=== PATIENT | female | born 1940 | race Caucasian/White ===

== ENCOUNTER 2018-09-15 14:44 | Observation (INO) ==
[2018-09-15] MEDS ORDERED: traMADol 50 MG TABLET PO PRN (16:38)
[2018-09-15] MEDS ORDERED: Naloxone 0.4 MG/ML INJ IVP PRN (16:38)
--- NOTE | 2018-09-15 17:07 | Internal Med History&Physical ---
Date of Encounter: 09/15/18 Time of Encounter: 17:06 Internal Medicine - H&P: HPI Chief complaint: shortness of breath Admitted From: Home Plans for Post Hospital Care: Home History of present illness: Ms. Fabian is a 78 year old female PMH significant for CAD s/p CABG about 40 years ago, PAD, HTN, HLD, and COPD. Patient presented to the ED due at [facility] due to shortness of breath. Patient reports that for about 3 weeks she has been experiencing shortness of breath with minimal exertion. reports that she would get winded with just walking around her house or trying to do house chores, reports that for the past three weeks she would just sit down and let the shortness of breath resolved. But today after she had breakfast and was trying to make her bed, she became short of breath, for which she tried using h er nebs but they did not provide any relief for which she decided to go to the ED. she also reports that for the past 3 weeks she feels that she has been wheezing. she denies chest pain, nausea, vomiting. also denies productive cough or flu like symptoms. denies orthopnea. Past Med Surg Social Fam HX - Past Medical History Medical history: hyperlipidemia, hypertension, myocardial infarction Psychiatric history: no psych history - Past Surgical History Surgical History: coronary bypass (CABG) - Social History Smoking Status: Former smoker Smokeless Tobacco Status: No Alcohol use: none Drug use: none - Family History Mother Living Status: Hx Family Cardiac Disorders: Yes (heart disease, stroke) Father Living Status: Hx Family Cancer: Yes (prostate) Internal Medicine - H&P: Meds Albuterol Neb [Proventil Neb] 2.5 mg IH Q4HR PRN #60 vial.neb 01/22/17 [Rx] predniSONE [PredniSONE] 40 mg PO DAILY #5 tablet 01/22/17 [Rx] Allergy/AdvReac Type Severity Reaction Status Date / Time carbamazepine Allergy Chest Pain Verified 01/22/17 02:22 etodolac Allergy Chest Pain Verified 01/22/17 02:22 hydrocodone Allergy Chest Pain Verified 01/22/17 02:22 Iodinated Contrast- Oral and Allergy Chest Pain Verified 01/22/17 02:22 IV Dye [Iodinated Contrast Media - IV Dye] levofloxacin Allergy Chest Pain Verified 01/22/17 02:22 NSAIDS (Non-Steroidal Allergy Chest Pain Verified 01/22/17 02:22 Anti-Inflamma Penicillins [PCN] Allergy Chest Pain Verified 01/22/17 02:22 pregabalin [From Lyrica] Allergy Numbness Verified 01/22/17 02:22 pseudoephedrine Allergy Chest Pain Verified 01/22/17 02:22 Sulfa (Sulfonamide Allergy Chest Pain Verified 01/22/17 02:22 Antibiotics) tetracycline [Tetracycline] Allergy Chest Pain Verified 01/22/17 02:22 tolmetin Allergy Chest Pain Verified 01/22/17 02:22 tramadol Allergy Numbness Verified 01/22/17 02:22 All Systems PM: A 10-system review of systems was performed and is negative for pertinent findings except as documented above in the HPI. - Constitutional Constitutional: no chills, no fever(s), no weakness - EENT Eyes: no pain - Cardiovascular Cardiovascular ROS IM: dyspnea on exertion, no chest pain, no irregular heart rhythm, no orthopnea, no palpitations, no paroxysmal nocturnal dyspnea - Respiratory Respiratory: dyspnea, wheezing, no cough, no chest congestion, no excessive phlegm production, no pain with cough - Gastrointestinal Gastrointestinal: constipation, no abdominal pain, no change in stool character, no diarrhea, no melena, no nausea, no vomiting - Genitourinary Genitourinary: no pelvic pain, no urinary frequency, no urinary incontinence, no urinary urgency - Musculoskeletal Musculoskeletal ROS IM: no back pain - Integumentary Integumentary IM: no rash - Neurological Neurological ROS: no tremor(s), no vertigo - Psychiatric Psychiatric: no anxiety - Endocrine Endocrine IM: no cold intolerance, no heat intolerance, no polydipsia, no polyphagia, no polyuria - Hematologic/Lymphatic Hematologic/Lymphatic: no easy bruising - Allergic/Immunologic Allergic/Immunologic: wheezing Additional comments: Rest of the review of system negative. - Constitutional Exam: Vitals: Reviewed General: Cachectic appearing, in mild distress due to shortness of breath Skin: Warm and supple. HEENT: Moist mucous membranes. No conjunctivae pallor. Neck: No lymphadenopathy. No JVD. No carotid bruits. No palpable thyroid. Chest: Diminished thoracic expansion. Scattered bilateral expiratory wheezing, b/l rhonchi more significant in the left lower lobe, no crackles. Heart: Normal S1 & S2; rhythmic. No rubs or murmurs. Abdomen: Non-distended, soft and non-tender to palpation. Extremities: no cyanosis or edema. No calf tenderness. Normal distal pulses. Neurological: Awake, alert and oriented to person, place and time. No focal deficits. Psych: Affect appropriate. - Assessment and plan (1) COPD exacerbation Current Visit: Yes Status: Acute Assessment and plan: Patient presenting with shortness of breath with minimal exertion. ABG with PO2 <55%. R/O PE Plan Duo-Nebs Q3RT scheduled Solu-medrol 40mg/IV BID O2 by nasal cannula, titrate for O2 Sat >92% started on empiric antibiotics coverage Rapid flu test D-Dimer V/Q scan as patient cannot have a CTA of the chest due to allergy to Dye Incentive spirometry Full dose lovenox x1. TTE (2) Acute hypoxemic respiratory failure Current Visit: Yes Status: Acute Assessment and plan: Possible due to COPD excarbation vs r/o PE. ABG with PO2 <55% Plan of care as above. (3) CAD (coronary artery disease) Current Visit: Yes Status: Chronic Assessment and plan: Patient with Hx of CABG about 40 years ago. Will continue dual antiplatelets plus statins Qualifiers: Coronary Disease-Associated Artery/Lesion type: unspecified vessel or lesion type [place] vs. transplanted heart: unspecified whether [place] or transplanted heart Associated angina: angina presence unspecified Qualified Code(s): I25.10 - Atherosclerotic heart disease of [place] coronary artery without angina pectoris (4) HTN (hypertension) Current Visit: Yes Status: Chronic Assessment and plan: BP well controlled. Will resume patient home medications. On isosorbide, metoprolol, and furosemide. Qualifiers: Hypertension type: unspecified Qualified Code(s): I10 - Essential (primary) hypertension (5) HLD (hyperlipidemia) Current Visit: Yes Status: Chronic Assessment and plan: Continue atorvatatin Qualifiers: Hyperlipidemia type: unspecified Qualified Code(s): E78.5 - Hyperlipidemia, unspecified - Time Spent With Patient Total time spent is greater than 50% in coordination of care (as documented) at patient's floor/unit and/or counseling patient: Greater than 35 minutes (40 minutes)
[2018-09-15] MEDS ORDERED: *HR* Enoxaparin 40 MG/0.4 ML SYRINGE SQ ONE (17:22)
[2018-09-15] MEDS: MethylPREDNISolone 40 MG/ML VIAL IVP SCH (18:03)
[2018-09-15] MEDS: Furosemide 20 MG/2 ML VIAL IVP SCH (18:03)
[2018-09-15] MEDS: Azithromycin 500 MG in D5% in Water 250 ML IVPB SCH (18:03)
[2018-09-15] MEDS: Ipratropium/Albuterol Neb 3 ML IH SCH ×2 (19:24→23:27)
[2018-09-15] MEDS: Ranolazine 500 MG TAB.ER.12H PO SCH (20:48)
--- NOTE | 2018-09-16 01:07 | Event Note ---
Date of Encounter: 09/15/18 Time of Encounter: 23:25 Notified by nurse of positive venous duplex exam with acute partial DVT in right distal SFV. Discussed findings with patient including risks of treatment. One time dose of Lovenox received 09/15/2018 at 1814, will continue same BID starting at 0600.
[2018-09-16] MEDS: Ipratropium/Albuterol Neb 3 ML IH SCH ×5 (03:49→20:01)
[2018-09-16 05:12] LABS: Hematocrit 36.3 % (35.3-44.9); Hemoglobin 11.3 g/dL (11.5-15.4); Immature Granulocytes % 0.4 % (0-4); Lymphocytes # 0.7 K/mcL (0.6-4.6); Lymphocytes % 15.9 %; Mean Corpuscular HGB Conc 31.1 g/dL (31.6-35.5); Mean Corpuscular Hemoglobin 28.8 pg (28.0-33.3); Mean Corpuscular Volume 92.4 fL (83.0-100.0); Monocytes # 0.1 K/mcL (0.0-1.3); Monocytes % 1.1 %; Neutrophils # 3.8 K/mcL (1.6-8.9); Platelet Count 232 K/mcL (140-400); Red Blood Count 3.93 M/mcL (3.82-4.97); Red Cell Distribution Width 14.8 % (11.5-14.5); Segmented Neutrophils % 82.6 %
[2018-09-16 05:31] LABS: BUN/Creatinine Ratio 28 (6-26); Blood Urea Nitrogen 25 mg/dL (8-23); Calcium 9.1 mg/dL (8.6-10.3); Carbon Dioxide 28 mEq/L (23-29); Chloride 97 mEq/L (98-107); Glucose 137 mg/dL (70-105); Magnesium 1.7 mg/dL (1.6-2.6); Osmolality,Calculated 289 (280-300); Phosphorous 4.1 mg/dL (2.7-4.5); Potassium 3.9 mEq/L (3.5-5.1); Sodium 136 mEq/L (136-145); eGFR For Non-African Americans > 60 (> 60)
[2018-09-16] MEDS: *HR* Enoxaparin 40 MG/0.4 ML SYRINGE SQ SCH ×2 (05:44→17:45)
[2018-09-16] MEDS: MethylPREDNISolone 40 MG/ML VIAL IVP SCH ×3 (05:44→23:46)
[2018-09-16] MEDS: Furosemide 20 MG/2 ML VIAL IVP SCH ×2 (08:24→17:45)
[2018-09-16] MEDS: Aspirin Enteric Coated 81 MG Tablet PO SCH (08:24)
[2018-09-16] MEDS: Ranolazine 500 MG TAB.ER.12H PO SCH ×2 (08:24→20:35)
[2018-09-16] MEDS ORDERED: Metoprolol XL (24 HR) Succ 50 MG TAB.ER.24H PO SCH (09:00)
[2018-09-16] MEDS ORDERED: Nitroglycerin 0.4 MG TAB.SUBL SL ONE (12:27)
--- NOTE | 2018-09-16 13:50 | Cardiology Consult Note ---
<PeterRomina Carina - Last Filed: 09/16/18 14:43> Date of Encounter: 09/16/18 Time of Encounter: 13:30 Assessment and Plan (1) Elevated d-dimer Current Visit: Yes Status: Acute Per cardiology: -D Dimer 1600. -VQ scan with low probability for PE. CTA not performed due to IVP dye allergy. -Venous duplex preliminary report positive for DVT. -Of note, patient with persistent tachycardia, hypoxia. -Consider PE. Consider chest CTA. -Management per primary service. (2) CAD (coronary artery disease) Current Visit: Yes Status: Chronic Per cardiology: -Know CAD s/p CABG 1987. -Last [facility] 2013 with 0/3 patent bypass grafts, 30% proximal LAD, 30% distal LAD, 30% proximal circumflex, 100% proximal RCA, distal RCA fills via left collaterals. SVG to RCA occluded, SVG to diagonal 1 occluded, BAHE[place] to LAD occluded. -TTE with LVEF 50-55%, moderate concentric LVH, moderate diastolic dysfunction, mild-moderate MR, no segmental wall motion abnormalities. -ON asa, plavix, statin, BB, imdur, ranexa. -Reports one episode of chest pain today while walking back from the bathroom. Denies current chest pain. -Troponins negative x4 -Does have significant ECG changes. -Will make NPO after midnight. -Will discuss and review with for further recommendations. Qualifiers: Coronary Disease-Associated Artery/Lesion type: unspecified vessel or lesion type [place] vs. transplanted heart: [place] heart Associated angina: angina presence unspecified Qualified Code(s): I25.10 - Atherosclerotic heart disease of [place] coronary artery without angina pectoris Discussion w patient/family: The assessment and plan as outlined above was discussed with the patient and/or family members who expressed understanding and agreement. All questions were answered. Thank you for involving us in the care of your patient. Please call with any questions. Discussed and reviewed with History of Present Illness Consult date: 09/16/18 Requesting physician: Rico Tuttle Consult reason: chest pain Chief complaint: shortness of breath History of present illness: Ms. Fabian is a 78 year old female with a relevant past medical history of CAD s/p CABG 1987, arthrtitis, COPD, AAA with repair who presented to [facility] with complaints of progressive shortness of breath. Patient states shortness of breath has been progressive over the past few weeks. Patient reports fatigue. Patient denies chest pain at home, however had one episode of chest pain today while walking back from the bathroom. Denies current chest pain. Past Med Surg Social Fam HX - Past Medical History Attestation: Yes The following information was validated with the patient. Source: patient, old records reviewed, obtained from family Medical history: COPD, coronary artery disease, hyperlipidemia, hypertension, myocardial infarction Psychiatric history: no psych history - Past Surgical History Surgical History: coronary bypass (CABG) - Social History Smoking Status: Former smoker Smokeless Tobacco Status: No Alcohol use: none Drug use: none - Family History Mother Living Status: Hx Family Cardiac Disorders: Yes (heart disease, stroke) Father Living Status: Hx Family Cancer: Yes (prostate) Medications and Allergies Albuterol Neb [Proventil Neb] 2.5 mg IH BID PRN 09/16/18 [History] Albuterol Sulfate [Ventolin Hfa] 2 puff IH Q6H PRN 09/16/18 [History] Amitriptyline [Elavil] 50 mg PO QPM 09/16/18 [History] Aspirin [Lo-Dose Aspirin EC] 81 mg PO QPM 09/16/18 [History] Atorvastatin Calcium [Lipitor] 80 mg PO QPM 09/16/18 [History] Clopidogrel [Plavix] 75 mg PO DAILY 09/16/18 [History] Furosemide [Lasix] 20 mg PO DAILY 09/16/18 [History] Isosorbide MONOnitrate [Isosorbide Mononitrate ER] 120 mg PO DAILY 09/16/18 [History] Levothyroxine [Synthroid] 25 mcg PO 0630 09/16/18 [History] Metoprolol [Lopressor] 50 mg PO BID 09/16/18 [History] Nitroglycerin 0.4 mg PO AD PRN MDD 3 SPRAYS/15MINS CALL 911 09/16/18 [History] Polyethylene Glycol 3350 [Smoothlax] 17 gm PO DAILY PRN 09/16/18 [History] Potassium Chloride 10 meq PO DAILY 09/16/18 [History] Ranolazine [Ranexa] 1,000 mg PO BID 09/16/18 [History] Umeclidinium [place] [Incruse Ellipta] 1 puff IH DAILY 09/16/18 [History] Vit C/E/Zn/Coppr/Lutein/Zeaxan [Preservision Areds 2 Softgel] 1 cap PO DAILY 09/16/18 [History] amLODIPine [Norvasc] 5 mg PO DAILY 09/16/18 [History] Allergy/AdvReac Type Severity Reaction Status Date / Time carbamazepine AdvReac Chest Pain Verified 09/16/18 09:05 etodolac AdvReac Chest Pain Verified 09/16/18 09:05 hydrocodone AdvReac Chest Pain Verified 09/16/18 09:05 Iodinated Contrast- Oral and AdvReac Chest Pain Verified 09/16/18 09:05 IV Dye [Iodinated Contrast Media - IV Dye] levofloxacin AdvReac Chest Pain Verified 09/16/18 09:05 NSAIDS (Non-Steroidal AdvReac Chest Pain Verified 09/16/18 09:05 Anti-Inflamma Penicillins [PCN] AdvReac Chest Pain Verified 09/16/18 09:05 pregabalin [From Lyrica] AdvReac Numbness Verified 09/16/18 09:05 pseudoephedrine AdvReac Chest Pain Verified 09/16/18 09:05 Sulfa (Sulfonamide AdvReac Chest Pain Verified 09/16/18 09:05 Antibiotics) tetracycline [Tetracycline] AdvReac Chest Pain Verified 09/16/18 09:05 tolmetin AdvReac Chest Pain Verified 09/16/18 09:05 tramadol AdvReac Numbness Verified 09/16/18 09:05 All Systems Review: The remainder of the systems were reviewed and are negative - Constitutional Constitutional: fatigue - Cardiovascular Cardiovascular: as per HPI, chest pain with exertion, dyspnea at rest, dyspnea on exertion Physical Examination Vital Signs, Last 4 Hours Temp Pulse Resp BP Pulse Ox 09/16/18 12:45 110 16 109/60 97 09/16/18 12:41 97/50 09/16/18 12:40 112 16 108/64 97 09/16/18 12:31 114 16 149/69 92 09/16/18 12:23 98.2 F 115 18 154/71 94 09/16/18 11:38 98.8 F 101 16 138/57 99 09/16/18 11:05 16 98 09/16/18 10:32 98.5 F 97 97 General: Conversant, No Apparent Distress HEENT: Atraumatic, Normocephaly, Mucus Membranes Moist Neck: No JVD, Normal carotid pulses Cardiac: Reg Rate and Rhythm, Normal S1 and S2, No Murmur Lungs: Normal Breath Sounds, No Wheeze, Rales, Rhonchi Neuro: Alert and responsive, No focal deficits noted Abdomen: Soft, Non-Tender Skin: No rashes noted on visualized skin Musculoskeletal: No Chest Wall Tenderness Extremities: No Clubbing, No Cyanosis, No Edema, Normal Pulses Results 09/16/18 04:38 09/16/18 04:38 Lab Results Impressions Pulmonary Perfusion Imaging 09/15/18 17:15 IMPRESSION: Low probability for pulmonary embolism. D/ / Jhon Oconnor MD / Jhon Oconnor MD Interpreting Provider: Jhon Oconnor MD Echocardiogram 09/16/18 00:00 Impressions: LVEF 50-55%. Moderate concentric left ventricular hypertrophy. Moderate left ventricular diastolic dysfunction. Normal right ventricular structure and function. Mild-moderate mitral regurgitation. Unable to estimate RVSP due to lack of TR jet. Left Ventricular Wall Motion: Rest Echo Findings All wall segments showed normal motion. Findings: Study Quality * Technically adequate exam. ECG Findings * Normal sinus rhythm. Left Ventricle * LVEF 50-55%. * Moderate concentric left ventricular hypertrophy. * Moderate left ventricular diastolic dysfunction. Right Ventricle * Normal right ventricular structure and function. Left Atrium * Normal left atrial size. Right Atrium * Normal right atrial size. Interatrial Septum * No evidence of PFO by color Doppler. Aortic Valve * Trileaflet aortic valve. * No aortic regurgitation. * No aortic stenosis. * Mildly calcified aortic valve leaflets. Mitral Valve * Mild mitral annular calcification * Mild-moderate mitral regurgitation. * No mitral stenosis. Tricuspid Valve * Normal tricuspid valve structure. * No tricuspid regurgitation. * No tricuspid stenosis. * Unable to estimate RVSP due to lack of TR jet. Pulmonic Valve * Pulmonic valve is not well visualized. Aorta * Normally sized aortic root. Pericardium * The pericardium appears normal. IVC * Normal IVC dimensions and inspiratory collapse. Pulmonary Artery * Pulmonary artery not well visualized. Active Medications Albuterol/Ipratropium (Duoneb) 3 ml IH [id number] [facility] Stop: 03/17/19 20:01 Last Admin: 09/16/18 11:05 Dose: 3 ml Aspirin (Aspirin Ec) 81 mg PO DAILY [facility] Stop: 03/18/19 09:01 Last Admin: 09/16/18 08:24 Dose: 81 mg Atorvastatin Calcium (Lipitor) 80 mg PO HS JENNIFER Stop: 03/17/19 21:01 Last Admin: 09/15/18 20:47 Dose: 80 mg Clopidogrel Bisulfate (Plavix) 75 mg PO DAILY [facility] Stop: 03/18/19 09:01 Last Admin: 09/16/18 08:24 Dose: 75 mg Enoxaparin Sodium (Lovenox) 40 mg 1 mg/kg (40 mg) SQ Q12H [facility]; Protocol Stop: 03/18/19 06:01 Last Admin: 09/16/18 05:44 Dose: 40 mg Furosemide (Lasix) 20 mg IVP BIDDIURETIC [facility] Stop: 03/17/19 17:31 Last Admin: 09/16/18 08:24 Dose: 20 mg Azithromycin 500 mg/ Dextrose 250 mls @ 252 mls/hr IVPB Q24H [facility] Stop: 03/17/19 18:01 Last Admin: 09/15/18 18:03 Dose: 252 mls/hr Methylprednisolone (Solu-Medrol) 40 mg IVP Q12HR [facility] Stop: 03/17/19 18:01 Last Admin: 09/16/18 05:44 Dose: 40 mg Metoprolol Succinate (Toprol Xl) 50 mg PO DAILY [facility] Stop: 03/18/19 09:01 Last Admin: 09/16/18 08:24 Dose: 50 mg Naloxone HCl (Narcan) 0.4 mg IVP Q2MIN PRN PRN Reason: SEE COMMENTS Stop: 03/17/19 16:39 Nitroglycerin (Nitroglycerin) 0.4 mg SL Q5MIN PRN PRN Reason: Chest Pain Stop: 03/18/19 12:21 Ranolazine (Ranexa) 1,000 mg PO BID [facility] Stop: 03/17/19 21:01 Last Admin: 09/16/18 08:24 Dose: 1,000 mg Tramadol HCl (Ultram) 50 mg PO Q6HR PRN PRN Reason: Moderate Pain Stop: 03/17/19 16:39 Laboratory Tests 09/15/18 09/15/18 09/15/18 11:52 11:52 16:47 Hgb D-Dimer 1600 H Creatinine Troponin I < 0.03 B-Natriuretic Peptide 136 H 09/15/18 09/15/18 09/16/18 16:47 22:49 04:38 Hgb 11.3 L D-Dimer Creatinine Troponin I < 0.03 < 0.03 B-Natriuretic Peptide 09/16/18 09/16/18 04:38 04:38 Hgb D-Dimer Creatinine 0.89 Troponin I < 0.03 B-Natriuretic Peptide - Imaging and Cardiology Chest Xray: report reviewed Echo: report reviewed Cardiac cath: report reviewed - EKG Interpretation EKG results cardiology: personally reviewed (ECG with ST, HR 116. Marked ST depressions in inferior and lateral leads.), other (Telemetry reviewed with average HR previous 12 hours noted to be 102, ST. PVCs noted.) Consult Discharge Plan - Plan Referrals: Laxmi Noonan APN [Primary Care Provider] - 10/01/18 2:40 pm <éHctor Fischer - Last Filed: 09/16/18 18:13> - Attending Attestation Patient was seen and evaluated independently by me. Findings, assessment and plan were discussed at length with patient, questions answered. Agree with nurse practitioner's/resident's documentation. Addition as follows, 78 yoF ho 0/3 patent CABG with mild LAD and LCx dz and RCT filled by L collaterals ([facility]), AAA repair, COPD. P/w dyspnea with dizziness 2 wks with one episode of cp walking. New O2 requirement. ECG diffuse STD, TTE EF 50-55%, mod LVH, nl RV, mod MR. Trop neg x4. Elevated D-dimer, + R-SFV DVT, V/Q low probability for PE A: Dyspnea, DVT, clinically high suspicion for PE, on A/C Chest pain, PE vs angina CAD, mild LAD and LCx dz, RCA STEWARD/STEWARDESS filled by left collaterals Ho iodine contrast reaction N/V w/o dyspnea/rash/hypotension COPD P: rec pre-medication for CTA r/o PE if positive for PE, no further cardiology w/u if neg for PE, Pharm SPECT when able due to LE DVT. Héctor Fischer MD, PhD Assessment and Plan Discussion w patient/family: The assessment and plan as outlined above was discussed with the patient and/or family members who expressed understanding and agreement. All questions were answered. Thank you for involving us in the care of your patient. Please call with any questions. History of Present Illness History of present illness: Ms. Fabian is a 78 year old female All Systems Review: The remainder of the systems were reviewed and are negative Physical Examination Vital Signs, Last 4 Hours Temp Pulse Resp BP Pulse Ox 09/16/18 15:25 98.5 F 99 18 135/61 98 09/16/18 15:08 98.0 F 103 19 140/55 98 Results 09/16/18 04:38 09/16/18 04:38 Lab Results 09/15/18 09/16/18 09/16/18 22:49 04:38 04:38 WBC 4.6 Hgb 11.3 L Hct 36.3 Plt Count 232 Sodium 136 Potassium 3.9 Chloride 97 L Carbon Dioxide 28 BUN 25 H Creatinine 0.89 Glucose 137 H Calcium 9.1 Magnesium 1.7 Troponin I < 0.03 09/16/18 04:38 WBC Hgb Hct Plt Count Sodium Potassium Chloride Carbon Dioxide BUN Creatinine Glucose Calcium Magnesium Troponin I < 0.03
--- NOTE | 2018-09-16 14:13 | Internal Med Progress Note ---
Hospitalist Progress Note - Encounter Date of Encounter: 09/16/18 Time of Encounter: 14:10 - Subjective Interval History: Patient seen and evaluated at bedside, she reports that her shortness of breath has improved. But reported an episode of chest pain today while waking from the bathroom to her bed. denies palpitation or lightheadedness. - Exam Vitals: Temp Pulse Resp BP Pulse Ox 98.2 F 110 16 109/60 97 09/16/18 12:23 09/16/18 12:45 09/16/18 12:45 09/16/18 12:45 09/16/18 12:45 Exam: Vitals: Reviewed General: Cachectic appearing, in mild distress due to chest pain HEENT: Moist mucous membranes. No conjunctivae pallor. Neck: No JVD. No carotid bruits. No palpable thyroid. Chest: Diminished thoracic expansion. Scattered bilateral expiratory wheezing, no crackles. Heart: Normal S1 & S2; rhythmic. No rubs or murmurs. Abdomen: Non-distended, soft and non-tender to palpation. Extremities: no edema. Normal distal pulses. Neurological: Awake, alert and oriented to person, place and time. Psych: Affect appropriate. - Assessment and Plan (1) COPD exacerbation Current Visit: Yes Status: Acute Assessment and Plan: Shortness of breath improved. But patient continues to have b/l scattered expiratory wheezing Plan Increase solu-Medrol to 40mg/IV Q8HRs Continue Duo-Nebs Q4RT scheduled Incentive spirometry On azythromycin 500mg/IV daily On O2 by nasal cannula, titrate for O2Sat >92% (2) Acute hypoxemic respiratory failure Current Visit: Yes Status: Acute Assessment and Plan: Plan of care as above. (3) CAD (coronary artery disease) Current Visit: Yes Status: Chronic Assessment and Plan: Cardiology consulted as patient has a significant Hx of CAD and continues to report intermittent chest pain. Plan On dual antiplatelet therapy Continue Atorvastatin 80mg/PO daily. On ranexa 1000mg/PO BID. Nitroglycerin 0.4mg SUbL Q5Mins x3 for chest pain (4) HTN (hypertension) Current Visit: Yes Status: Chronic Assessment and Plan: Blood pressure is well controlled. Continue metoprolol 50 mg by mouth daily, and furosemide 20 mg IV twice a day. (5) HLD (hyperlipidemia) Current Visit: Yes Status: Chronic Assessment and Plan: Continue atorvastatin. (6) DVT (deep venous thrombosis) Current Visit: Yes Status: Acute Assessment and Plan: Venous Dupplex preliminary report: Bilateral lower extremity venous duplex appears to be positive for an acute partial DVT in the right distal SFV. Negative for SVT. Plan Continue full dose anticoagulation with Lovenox 40mg SubQ BID. (7) Tachycardia Current Visit: Yes Status: Acute Assessment and Plan: Multi-factorial possible due to Nebs vs r/o in the setting of elevated D-dimer and hypoxemia Plan V/Q scan done low probability of PE Discussed with the patient and a family member at bedside about the patient a llergic reaction ton dye/Iodinated contrast. The patient reports that it makes her nauseated and makes it her have dry heaves. I explained to the patient the importance about obtaining a CTA of the chest. She understood the risks and agreed on getting the CTA of the chest done. will continue full dose anticoagulation. (8) CHF (congestive heart failure) Current Visit: Yes Status: Chronic Assessment and Plan: TTE Impressions: LVEF 50-55%. Moderate concentric left ventricular hypertrophy. Moderate left ventricular diastolic dysfunction. Normal right ventricular structure and function. Mild-moderate mitral regurgitation. Unable to estimate RVSP due to lack of TR jet Plan: Strict intake and output On a BB daily weight Continue Furosemide 20mg/IV BID DVT Prophylaxis: Patient on full dose anticoagulation due to a DVT of the lower extr. - Summary of Assessment and Plan Summary of Assessment and Plan: Patient to remain in the hospital due to COPD exacerbation. still requiring O2 by nasal cannula plus high dose IV steroids. - Time Spent with Patient Total time spent is greater than 50% in coordination of care (as documented) at patient's floor/unit and/or counseling patient: Greater than 35 minutes (40) Plan of Care Discussed with: patient (and the nurse.) Internal Medicine: Result - Labs CBC & Chem 7: 09/16/18 04:38 09/16/18 04:38 Labs: Short CBC 09/16/18 Range/Units 04:38 WBC 4.6 (4.3-11.1) K/mcL Hgb 11.3 L (11.5-15.4) g/dL Hct 36.3 (35.3-44.9) % Plt Count 232 (140-400) K/mcL Neutrophils # 3.8 (1.6-8.9) K/mcL BMP 09/16/18 04:38 Sodium 136 Potassium 3.9 Chloride 97 L Carbon Dioxide 28 BUN 25 H Creatinine 0.89 Glucose 137 H Calcium 9.1 Cardiac Enzymes 09/15/18 09/15/18 09/16/18 Range/Units 16:47 22:49 04:38 Troponin I < 0.03 < 0.03 < 0.03 (< 0.04) ng/mL - ABG Interpretation ABG results: PT/INR, D-dimer D-Dimer 1600 ng/mLFEU (0-500) H 09/15/18 16:47 - Impressions Impressions Pulmonary Perfusion Imaging 09/15/18 17:15 IMPRESSION: Low probability for pulmonary embolism. D/ / Jhon Oconnor MD / Jhon Oconnor MD Interpreting Provider: Jhon Oconnor MD Echocardiogram 09/16/18 00:00 Impressions: LVEF 50-55%. Moderate concentric left ventricular hypertrophy. Moderate left ventricular diastolic dysfunction. Normal right ventricular structure and function. Mild-moderate mitral regurgitation. Unable to estimate RVSP due to lack of TR jet. Left Ventricular Wall Motion: Rest Echo Findings All wall segments showed normal motion. Findings: Study Quality * Technically adequate exam. ECG Findings * Normal sinus rhythm. Left Ventricle * LVEF 50-55%. * Moderate concentric left ventricular hypertrophy. * Moderate left ventricular diastolic dysfunction. Right Ventricle * Normal right ventricular structure and function. Left Atrium * Normal left atrial size. Right Atrium * Normal right atrial size. Interatrial Septum * No evidence of PFO by color Doppler. Aortic Valve * Trileaflet aortic valve. * No aortic regurgitation. * No aortic stenosis. * Mildly calcified aortic valve leaflets. Mitral Valve * Mild mitral annular calcification * Mild-moderate mitral regurgitation. * No mitral stenosis. Tricuspid Valve * Normal tricuspid valve structure. * No tricuspid regurgitation. * No tricuspid stenosis. * Unable to estimate RVSP due to lack of TR jet. Pulmonic Valve * Pulmonic valve is not well visualized. Aorta * Normally sized aortic root. Pericardium * The pericardium appears normal. IVC * Normal IVC dimensions and inspiratory collapse. Pulmonary Artery * Pulmonary artery not well visualized. Consult Discharge Plan - Plan Referrals: Laxmi Noonan APN [Primary Care Provider] - 10/01/18 2:40 pm (3) CAD (coronary artery disease) Qualifiers: Qualified Code(s): I25.10 - Atherosclerotic heart disease of [place] coronary artery without angina pectoris (4) HTN (hypertension) Qualifiers: Qualified Code(s): I10 - Essential (primary) hypertension (5) HLD (hyperlipidemia) Qualifiers: Qualified Code(s): E78.5 - Hyperlipidemia, unspecified (6) DVT (deep venous thrombosis) Qualifiers: Qualified Code(s): I82.401 - Acute embolism and thrombosis of unspecified deep veins of right lower extremity (8) CHF (congestive heart failure) Qualifiers: Qualified Code(s): I50.32 - Chronic diastolic (congestive) heart failure
[2018-09-16] MEDS ORDERED: Ondansetron 4 MG/2 ML VIAL IVP PRN (14:43)
[2018-09-16] MEDS ORDERED: Isovue-370 500 ML INFUS..BTL IV ONE (14:43)
[2018-09-16] MEDS: Azithromycin 500 MG in D5% in Water 250 ML IVPB SCH (17:44)
[2018-09-16] MEDS: Nitroglycerin 0.4 MG TAB.SUBL SL PRN ×3 (20:34→21:28)
[2018-09-16] MEDS ORDERED: *HR* Morphine 2 MG/ML SYRINGE IVP PRN (23:32)
--- NOTE | 2018-09-16 23:44 | Event Note ---
Date of Encounter: 09/16/18 Time of Encounter: 22:09 Notified by nurse of patients chest pain unrelieved with nitro x3, assessed at bedside, troponin continues to be normal. Will move patient to 2nd floor and start morphine for pain. Discussed with nonfarm animal caretaker cardiology Dr Howell, will see patient in a.m., no new recommendations at this time, appreciate input.
[2018-09-17] MEDS: Ipratropium/Albuterol Neb 3 ML IH SCH ×7 (00:23→23:31)
[2018-09-17] MEDS: *HR* Enoxaparin 40 MG/0.4 ML SYRINGE SQ SCH (06:00)
[2018-09-17 08:10] LABS: Hematocrit 36.7 % (35.3-44.9); Hemoglobin 11.4 g/dL (11.5-15.4); Mean Corpuscular HGB Conc 31.1 g/dL (31.6-35.5); Mean Corpuscular Hemoglobin 28.7 pg (28.0-33.3); Mean Corpuscular Volume 92.4 fL (83.0-100.0); Mean Platelet Volume 10.1 fL (9.4-12.4); Platelet Count 233 K/mcL (140-400); Red Blood Count 3.97 M/mcL (3.82-4.97)
[2018-09-17 08:30] LABS: BUN/Creatinine Ratio 34 (6-26); Blood Urea Nitrogen 27 mg/dL (8-23); Calcium 9.6 mg/dL (8.6-10.3); Carbon Dioxide 31 mEq/L (23-29); Chloride 97 mEq/L (98-107); Glucose 141 mg/dL (70-105); Magnesium 1.9 mg/dL (1.6-2.6); Osmolality,Calculated 291 (280-300); Phosphorous 2.6 mg/dL (2.7-4.5); Potassium 4.4 mEq/L (3.5-5.1); Sodium 137 mEq/L (136-145); eGFR For Non-African Americans > 60 (> 60)
[2018-09-17] MEDS: Ranolazine 500 MG TAB.ER.12H PO SCH ×2 (09:25→20:23)
[2018-09-17] MEDS: Aspirin Enteric Coated 81 MG Tablet PO SCH (09:25)
[2018-09-17] MEDS: MethylPREDNISolone 40 MG/ML VIAL IVP SCH ×2 (09:25→18:43)
--- NOTE | 2018-09-17 10:45 | Internal Med Progress Note ---
Hospitalist Progress Note - Encounter Date of Encounter: 09/17/18 Time of Encounter: 10:43 - Subjective Interval History: Evaluated at bedside, patient reports that last night again while going to the bathroom she started having severe 10/10 chest pain requiring nitroglcerin pills x2 for relieve. she reports that her shortness of breath has improved sign ificantly. denies nausea or vomiting. - Exam Vitals: Temp Pulse Resp BP Pulse Ox 98.3 F 87 18 129/62 99 09/17/18 07:50 09/17/18 07:50 09/17/18 07:50 09/17/18 07:50 09/17/18 07:50 Exam: Vitals: Reviewed General: Cachectic appearing, in no distress during my evaluation HEENT: Moist mucous membranes. No conjunctivae pallor. Neck: No JVD. No carotid bruits. No palpable thyroid. Chest: Scattered minimal bilateral expiratory wheezing, no rales, crackles. Heart: Normal S1 & S2; rhythmic. No rubs or murmurs. Abdomen: Non-distended, soft and non-tender to palpation. NABS in all 4 quadrants Extremities: no edema. Normal distal pulses. Neurological: Awake, alert and oriented to person, place and time. CN II-XII intact. Psych: Affect appropriate. - Assessment and Plan (1) COPD exacerbation Current Visit: Yes Status: Acute Assessment and Plan: wheezing on auscultation have improved. But patient continue to require O2 by nasal cannula Plan decrease Solu-Medrol to 40mg/IV BID incentive spirometry Duo-Nebs Q4RT scheduled 6 minute walk when patient is closer to [place], anticipate that patient will need home O2. On empiric antibiotics with azithromycin 500mg/IV daily (2) Acute hypoxemic respiratory failure Current Visit: Yes Status: Acute Assessment and Plan: Pulmonary embolism r/o with CTA. Plan of care as above. (3) CAD (coronary artery disease) Current Visit: Yes Status: Chronic Assessment and Plan: Patient with significant CAD. Continues to complain of intermittent chest pain Plan cardiology has been consulted. Patient is scheduled for [facility] NPO accu-checks Q6HRs Lispro sliding scale Q6HR gentle IV hydration with D5/0.45NS @50mls/hr for avoid hypoglycemia continue dual antiplatelet therapy. (on aspirin and Plavix) On ranexa 1000mg/PO BID (4) HTN (hypertension) Current Visit: Yes Status: Chronic Assessment and Plan: Blood pressure is well controlled. Continue metoprolol 50 mg by mouth twice a day and furosemide. (5) HLD (hyperlipidemia) Current Visit: Yes Status: Chronic Assessment and Plan: On high doses statin. Continue atorvastatin 80 mg by mouth at bedtime (6) DVT (deep venous thrombosis) Current Visit: Yes Status: Acute Assessment and Plan: Venous Dupplex preliminary report: Bilateral lower extremity venous duplex appears to be positive for an acute partial DVT in the right distal SFV. Negative for SVT. Plan Continue full dose anticoagulation with Lovenox 40mg SubQ BID. will discussed with marriage and family social worker about anticoagulation for outpatient (7) CHF (congestive heart failure) Current Visit: Yes Status: Chronic Assessment and Plan: patient euvolemic Plan continue bb and furosemide strict intake and output daily weight (8) Hypophosphatemia Current Visit: Yes Status: Acute Assessment and Plan: electrolyte replaced. (9) Leukocytosis Current Visit: Yes Status: Acute Assessment and Plan: Most likely due to high dose IV steroids. No signs of acute infection. Will continue to monitor. (10) Caloric malnutrition Current Visit: Yes Status: Chronic DVT Prophylaxis: patient on full dose lovenox due to DVT - Summary of Assessment and Plan Summary of Assessment and Plan: Patient to remain in the hospital continues to complain of chest pain. scheduled for a [facility]. - Time Spent with Patient Total time spent is greater than 50% in coordination of care (as documented) at patient's floor/unit and/or counseling patient: Greater than 35 minutes (41) Plan of Care Discussed with: patient (family and the nurse.) Internal Medicine: Result - Labs CBC & Chem 7: 09/17/18 07:41 09/17/18 07:41 Labs: Short CBC 09/17/18 Range/Units 07:41 WBC 16.0 H D (4.3-11.1) K/mcL Hgb 11.4 L (11.5-15.4) g/dL Hct 36.7 (35.3-44.9) % Plt Count 233 (140-400) K/mcL BMP 09/17/18 07:41 Sodium 137 Potassium 4.4 Chloride 97 L Carbon Dioxide 31 H BUN 27 H Creatinine 0.79 Glucose 141 H Calcium 9.6 Cardiac Enzymes 09/16/18 Range/Units 22:38 Troponin I 0.03 (< 0.04) ng/mL - ABG Interpretation ABG results: PT/INR, D-dimer D-Dimer 1600 ng/mLFEU (0-500) H 09/15/18 16:47 - Impressions Impressions Chest CTA 09/16/18 20:45 IMPRESSION: COPD and probable interstitial lung disease. Status post CABG and coronary artery disease. 4 mm nodule left upper lobe which does not require follow-up. RECOMMENDATIONS: Fleischner Society guidelines for follow-up and management of incidentally detected pulmonary nodules: Single Solid Nodule: Nodule size less than 6 mm In a low-risk patient, no routine follow-up. In a high-risk patient, optional CT at 12 months. - Low risk patients include individuals with minimal or absent history of smoking and other known risk factors. - High risk patients include individuals with a history or smoking or known risk factors. Radiology 2017 http://pubs.[facility]na.org/doi/full/10.1148/radiol.[email or web address] D/ / Chace Fish MD / Chace Fish MD Interpreting Provider: Chace Fish MD Consult Discharge Plan - Plan Referrals: Laxmi Noonan APN [Primary Care Provider] - 10/01/18 2:40 pm (3) CAD (coronary artery disease) Qualifiers: Coronary Disease-Associated Artery/Lesion type: unspecified vessel or lesion type [place] vs. transplanted heart: [place] heart Associated angina: angina presence unspecified Qualified Code(s): I25.10 - Atherosclerotic heart disease of [place] coronary artery without angina pectoris (4) HTN (hypertension) Qualifiers: Hypertension type: unspecified Qualified Code(s): I10 - Essential (primary) hypertension (5) HLD (hyperlipidemia) Qualifiers: Hyperlipidemia type: unspecified Qualified Code(s): E78.5 - Hyperlipidemia, unspecified (6) DVT (deep venous thrombosis) Qualifiers: DVT location: lower extremity Affected thrombotic vein of extremity: unspecified vein of extremity Chronicity: acute Laterality: right Qualified Code(s): I82.401 - Acute embolism and thrombosis of unspecified deep veins of right lower extremity (7) CHF (congestive heart failure) Qualifiers: Heart failure type: diastolic Heart failure chronicity: chronic Qualified Code(s): I50.32 - Chronic diastolic (congestive) heart failure (9) Leukocytosis Qualifiers: Leukocytosis type: unspecified Qualified Code(s): D72.829 - Elevated white blood cell count, unspecified
[2018-09-17] MEDS ORDERED: *HR* Dextrose 50 % in Water (Syg) 50 ML SYRINGE IVP PRN (10:52)
[2018-09-17] MEDS ORDERED: D5% in Water 1,000 ML IVC PRN (10:52)
[2018-09-17] MEDS ORDERED: Dextrose Gel 15 GM/37.5 ML TUBE PO PRN ×2 (10:52)
[2018-09-17] MEDS ORDERED: D5% in 0.45% NACL 1,000 ML IVC SCH (11:00)
--- NOTE | 2018-09-17 11:42 | Event Note ---
Date of Encounter: 09/17/18 Time of Encounter: 09:30 - Cardiology Event Note Chest CTA without evidence of PE. Patient had recurrent chest pain last night, denies current. PLan for LHC today for unstable angina. Risks versus benefits of LHC explained to patient and family, who state understanding and patient a greeable to proceed. updated on IVP allergy, received IV solu-medrol this am and will give po benadryl x1 now. updated on increased wbc count, without evidence of pneumonia on chest x-ray, ct, no fevers. OK to proceed with LHC. Further recommendations pending LHC.
[2018-09-17] MEDS: Insulin LISPRO 300 UNITS/3 ML VIAL SQ SCH ×2 (12:30→18:44)
[2018-09-17] MEDS ORDERED: Nitroglycerin 1,000 MCG/10 ML VIAL IV ONE (14:24)
[2018-09-17] MEDS ORDERED: *HR* Heparin 10,000 UNIT/10 ML VIAL ONE (14:24)
[2018-09-17] MEDS ORDERED: 0.9 % Sodium Chloride 1,000 ML ONE ×2 (14:24→14:31)
[2018-09-17] MEDS ORDERED: Heparin 1,000 UNITS/500 mL 500 ML ONE (14:24)
[2018-09-17] MEDS ORDERED: ISOVUE-370 200 ML INFUS..BTL ONE (14:24)
[2018-09-17] MEDS ORDERED: *HR* Midazolam HCl 2 MG/2 ML VIAL ONE (14:43)
--- NOTE | 2018-09-17 14:58 | Pre-Sedation Evaluation ---
Pre-sedation evaluation - Pre-sedation checklist Date of procedure: 09/17/18 Procedure: heart cath Recent Vitals: Last Vital Signs Temp 98.6 F 09/17/18 11:00 Pulse 79 09/17/18 11:00 Resp 18 09/17/18 11:06 BP 138/67 09/17/18 11:00 Pulse Ox 98 09/17/18 11:06 H&P (including ROS) documented in medical record: Yes Previous reaction to sedatives/anesthetics: Yes; explain in comment Dietary Status: NPO after Midnight Airway Assessment: Patient can open mouth completely, TMJ function normal Possible difficult airway: No ASA Classification *see protocol: CLASS III-Severe systemic disease Cardiac Registry (Cardio Only) - Functional Capacity Functional Capacity: >=4 METS with symptoms - Clincal Frailty Scale Clinical Frailty Scale: Vulnerable (Pt seen and examined, chart reviewed, risks and benefits discussed, pt elects to proceed.)
--- NOTE | 2018-09-17 15:22 | Event Note ---
Date of Encounter: 09/17/18 Time of Encounter: 15:20 - Cardiology Event Note Discussed and reviewed with , [facility] without intervention. Good quality collaterals from left to right. Official [facility] report pending. Per , would hold tonights dose of lovenox and ok to resume in am.
[2018-09-17] MEDS ORDERED: 0.9 % Sodium Chloride 1,000 ML IVC SCH (15:30)
--- NOTE | 2018-09-17 15:46 | Invasive Diagnostic Lab Proc ---
Name: Adriane Fabian Date of Study: 09/17/2018 Date: 1940 Ht: 63.0in Medical Record#: [id number] Age: 78 Wt: 88.63lb Gender: Female BSA: 1.37 Order #: [id number] BMI: 15.7 Physicians Procedure Physician: Dale Merino DO Referring MD: Referring MD: Staff Name Position [facility] 02:40 PM Con Saha RN Emergency Medical Technician 02:40 PM Eliceo Zhu RT (R) Scrub 02:40 PM Camilo Maria RN Nurse 03:24 PM Indications Indication Unstable Angina Procedures Performed Procedure L HRT ART/GRFT ANGIO Pre-Procedure Checklist Informed consent is complete signed and on chart. H&P is on chart. ID band is on and ID verified with patient. Patient NPO for procedure The procedure was described for the patient and questions were answered. Blood Pressure: 138/67 ECG is on chart. Rhythm: NSR Plan of Care Patient will tolerate the procedure without complications. Adequate level of comfort will be maintained. Hemodynamics will remain stable Patient will recover from procedure without complications. Respiratory function will be maintained. Cardiac rhythm will remain stable. Patient temperature will be maintained. Patient and/or family have verbalized understanding of the procedure. Patient Education Chief Complaint/Reason for Test: Cardiac Cath Developmental Category: Geriatric (65+ years) Developmentally Appropriate for Age: Yes Learning Barriers: None Education Needs: Procedure Education Method: Verbal Information Taught: Cardiac Cath Educational Evaluation: Able to repeat information Intravenous Access Time IV Size Location DC'd Fluid/Drip Rate Units RN 20g 1 1/4" Patent On Arrival Rt Antecubital 20g 1 1/4" Patent On Arrival Lt Arm Allergies Penicillin SULFA (sulfonamide) IVP DYE (IODINE) tetracycline tolmetin Nabumetone carbamazepine Contrast Media, Iodine Related tramadol etodolac NSAIDS (Non-Steroidal Anti-Inflamma pregabalin Sulfa (Sulfonamide Antibiotics) hydrocodone pseudoephedrine Iodinated Contrast- Oral and IV Dye Vital Signs Time BP (mmHg) HR (bpm) O2 Sat. RR (bpm) LOC 02:40 PM / % 5 = Fully awake and oriented or at pre-proc level 02:40 PM / % 4 = Oriented but drowsy 03:03 PM 136 / 70 83 100 % 14 03:07 PM 140 / 73 83 100 % 18 03:12 PM 105 / 58 83 100 % 19 03:17 PM 144 / 78 86 100 % 16 03:22 PM 136 / 65 85 100 % 19 02:47 PM 161 / 82 86 100 % 5 02:52 PM 149 / 74 85 100 % 37 02:57 PM 130 / 71 82 100 % 19 Procedural Medications Time Medication Dose Units Method Given By 02:40 PM Oxygen 2 L/min nasal cannula Con Saha RN 02:56 PM Versed 1 mg Intravenous Con Saha RN 03:11 PM Lidocaine 2% 18 ml Subcutaneous Dale Merino DO ASA Classification: CLASS III- Severe systemic disease (i.e. prior AMI, diabetes with vascular complications, morbid obesity) Antonina Score Preprocedure Postprocedure Activity 2- Moves 4 extremities sustained head lift Activity 2- Moves 4 extremities sustained head lift Circulation 2- SBP +/= 20 points of pre-anesthetic level Circulation 2- SBP +/= 20 points of pre-anesthetic level Consciousness 2- Awake and alert oriented x 3 Consciousness 2- Awake and alert oriented x 3 O2 Saturation 2- Able to maintain O2 satruation of 92% on room air O2 Saturation 2- Able to maintain O2 satruation of 92% on room air Respiratory 2- Able to deep breathe and cough well Respiratory 2- Able to deep breathe and cough well Total Score 10 Total Score 10 Contrast Agent: Isovue Diagnostic Contrast: 30 ml Total Contrast: 30 ml Fluoro Dose: 771 mGy Procedure Log Time Note Enter By 02:40 PM 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 Bilateral groin prepped with Chloraprep by Lazara Singh RN, then patient was draped. Skin intact. [facility] 02:40 PM Physician arrived 14:40 tsmm 02:40 PM Meet and greet completed mm 02:40 PM Sign in performed according to hospital policy. Informed consent was obtained. mm 02:40 PM Procedure start 14:40 oumm 02:40 PM CathStat 02:40 PM Time: 14:40 Oxygen on at 2 L/min per nasal cannula [facility] 02:40 PM Time: 14:40 Patient comfortable and pain free: Yes mm 02:40 PM Time: 14:40LOC: 5 = Fully awake and oriented or at pre-proc level tsoumm 02:41 PM Clinical Presentation: Unstable angina mm 02:46 PM Vitals capture started with the following parameters, Patient=Adult, Interval=5 min, Initial Rescgqqa=754 mmHg, Deflation Rate=5 mmHg, Cuff placed on Right Arm 02:47 PM HR=86 bpm, CJPZ=154/82 mmhg, MwA8=054.0 %, Resp=5 B/min, Comment=nsr 02:52 PM HR=85 bpm, MWPT=748/74 mmhg, VgT6=067.0 %, Resp=37 B/min, Comment=nsr 02:52 PM Pressure channel 2 zeroed. 02:53 PM Recorded ECG: HR=84 Condition=Condition 1 02:56 PM Time: 14:40LOC: 4 = Oriented but drowsy mm 02:56 PM Time: 14:40 Patient comfortable and pain free: Yes mm 02:56 PM Time: 14:56 Versed 1 mg Intravenous Given by Con Saha RN [facility] 02:57 PM HR=82 bpm, XEQT=651/71 mmhg, JbJ6=935.0 %, Resp=19 B/min, Comment=nsr 03:03 PM HR=83 bpm, UUCK=516/70 mmhg, ObP9=905.0 %, Resp=14 B/min, Comment=nsr 03:03 PM Time out was performed according to hospital policy. Conscious sedation and anesthesia was achieved (see medication log with in this report above) [facility] 03:04 PM Time: 15:11 18 ml Lidocaine 2% to right groin Subcutaneous Given by Dale Merino DO [facility] 03:05 PM Micro-Introducer Kit utilized for sheath placement tsoummers 03:07 PM HR=83 bpm, WGOT=542/73 mmhg, MrJ8=387.0 %, Resp=18 B/min, Comment=nsr 03:11 PM Access obtained by percutaneous puncture. 6Fr 10cm Terumo Paia sheath placed in right Femoral artery. [id number] tsoummers 03:11 PM 0.035 145cm Navilyst 3mmJ wire [id number] tsoummers 03:11 PM 6Fr FR 4 catheter inserted over the wire [facility] tsoummers 03:11 PM Catheter crossed the aortic valve and was selectively placed in the left ventricle. Pressures recorded on pullback for left heart catheterization. tsoummers 03:11 PM wire removed tsoummers 03:12 PM Recorded Pressure: LV, HR=83, Condition=Condition 1 (Left Ventricle) LV 61/-32/-30 03:12 PM HR=83 bpm, VYSU=323/58 mmhg, ExO9=093.0 %, Resp=19 B/min, Comment=nsr 03:12 PM Recorded Pressure: LV, Ao, HR=84, Condition=Condition 1 (Left Ventricle) LV 141/-1/1, (Aorta) Ao 133/50/85 03:12 PM Recorded Pressure: Ao, HR=84, Condition=Condition 1 (Aorta) Ao 5/-8/-2 03:13 PM Bolus angiogram of left Ventricle complete: hand injection tsoummers 03:13 PM catheter repositioned to RCA tsoummers 03:13 PM Catheter removed tsoummers 03:13 PM 6Fr FL 4 catheter inserted over the wire DN tsoummers 03:14 PM Lesion found in Proximal RCA. Pre Stenosis: 100 Pre STEPHANIE Flow: 0: No Flow/No perfusion tsoummers 03:14 PM Right Coronary, Right Posterior Descending Arteries with Right Posterolateral and Acute Marginal branches with 100 % stenosis. If graft is supplying this area, 0 % stenosis tsoummers 03:14 PM Recorded Pressure: Ao, HR=85, Condition=Condition 1 (Aorta) Ao 117/42/72 03:15 PM LCA angiography performed in multiple views. tsoummers 03:16 PM Catheter removed tsoummers 03:16 PM Bolus angiogram of right Femoral complete: hand injection tsoummers 03:16 PM Procedure completed at 15:16 09/17/2018 tsoummers 03:16 PM Did you address STEPHANIE flow and Dominance? Yes tsoummers 03:16 PM Lesion found in Proximal LAD. Pre Stenosis: 40 Pre STEPHANIE Flow: tsoummers 03:17 PM Proximal Left Anterior Descending Coronary Artery with 40% stenosis. If graft is supplying this territory, 0 % stenosis. tsoummers 03:17 PM HR=86 bpm, XETK=144/78 mmhg, GgL3=110.0 %, Resp=16 B/min, Comment=nsr 03:17 PM Sign out completed: Radiation Dose 71.39 mGy, 771.10 cGy/cm2 Fluoro Time: 1.5 Isovue 370 - 200ml contrast 30 ml given by Dale Merino DO. Complications: None. The patient was discharged out of the lab manager in stable condition. Cardiac Rehab Consult needed: NoConfirmed administered medications: Yes tsoummers 03:17 PM Isovue 370 - 200ml,1 Bottle(s) used. tsoummers 03:18 PM Arterial sheath pulled using manual compression and V+ Pad for 15 minutes by Eliceo Zhu RT (R) tsoummers 03:18 PM Estimated Blood Loss: minimal tsoummers 03:18 PM Post ECG NSR tsoummers 03:18 PM Post Blood Pressure 144/78 tsoummers 03:18 PM Information taught Cardiac Cath tsoummers 03:18 PM Education needs Plan of Care, Procedure, Responsibilities of Patient in Care, and Disease Process tsoummers 03:18 PM Learning barriers :None tsoummers 03:18 PM Education Methods Verbal tsoummers 03:18 PM Education evaluation Able to repeat information tsoummers 03:19 PM Plavix, Effient or Brilinta given No tsoummers 03:19 PM Delay to floor No tsoummers 03:19 PM Family placed in consult room. tsoummers 03:19 PM Complications: None tsoummers 03:22 PM HR=85 bpm, BTVO=777/65 mmhg, DvX7=148.0 %, Resp=19 B/min 03:24 PM Camilo Maria RN Position: Nurse Time in: 15:24 tsoummers 03:25 PM ASA Class CLASS III- Severe systemic disease (i.e. prior AMI, diabetes with vascular complications, morbid obesity) tsoummers 03:25 PM Report given to Eve PAUL Pt taken to 2NE Room #23. 15:25 tsoummers 03:30 PM Site status No bleeding/hematoma - Rt Groin as reported by Eliceo Zhu RT (R) at 15:30 tsoummers 03:30 PM Opsite applied tsoummers 03:30 PM Patient out of room: 15:30 tsoummers 03:31 PM Coronary Dominance: right [facility] Complications Complication None Hemodynamics Pressures Site Systolic/A Wave Diastolic/V Wave Mean LV 61 -32 -30 LV 141 -1 1 AO 133 50 85 AO 5 -8 -2 AO 117 42 72 Post Procedure Information Blood Pressure: 144/78 mmHg Rhythm: NSR Post procedural instructions were given Closure Device Time Device Success/Fail 09/17/2018 3:30:00 PM Manual Compression Successful Site Checks Time Location Status Staff Sheath In? Note 03:30 PM Rt Groin No bleeding/hematoma Eliceo Zhu RT (R) Pulses Time Site Pre-Procedure Post-Procedure Note Bilateral radial 2+ Bilateral DP & PT 2+ Updated by Lazara Singh RN on 09/17/2018 3:31:55 PM electronically signed on 09/17/2018 3:41:27 PM with status of Final
[2018-09-17] MEDS: Azithromycin 500 MG in D5% in Water 250 ML IVPB SCH (18:42)
--- NOTE | 2018-09-17 21:14 | Electrocardiograph Report ---
[address] [place], [place] [address] Test Date: 2018-09-16 Pat Name: Adriane Fabian Department: 113 Room: 2NE23 Gender: F Hoop Cutter: RAFA : 1940 Requested By: Dvaid Barroso Order Number: [id number] Reading MD: Meryl Howell Measurements Intervals [place] Rate: 106 P: 80 TN: 169 QRS: 70 QRSD: 109 T: 257 QT: 344 QTc: 406 Interpretive Statements SINUS TACHYCARDIA SEPTAL MYOCARDIAL INFARCTION, OF INDETERMINATE AGE ST DEVIATION AND MODERATE T-WAVE ABNORMALITY, CONSIDER LATERAL ISCHEMIA ST DEVIATION AND MODERATE T-WAVE ABNORMALITY, CONSIDER INFERIOR ISCHEMIA Electronically Signed On 09-17-2018 21:12:41 EDT by Meryl Howell
--- NOTE | 2018-09-17 21:17 | Electrocardiograph Report ---
[address] [place], [place] [address] Test Date: 2018-09-16 Pat Name: Adriane Fabian Department: 113 Room: 2NE23 Gender: F Community Dietitian: : 1940 Requested By: Rico Tuttle Order Number: [id number] Reading MD: Meryl Howell Measurements Intervals [place] Rate: 116 P: 81 CA: 160 QRS: 60 QRSD: 100 T: 230 QT: 302 QTc: 371 Interpretive Statements SINUS TACHYCARDIA SEPTAL MYOCARDIAL INFARCTION, PROBABLY OLD ST DEPRESSION, CONSIDER SUBENDOCARDIAL INJURY Electronically Signed On 09-17-2018 21:15:46 EDT by Meryl Howell
[2018-09-18] MEDS: Ipratropium/Albuterol Neb 3 ML IH SCH ×4 (03:54→15:02)
[2018-09-18] MEDS: MethylPREDNISolone 40 MG/ML VIAL IVP SCH (05:19)
--- NOTE | 2018-09-18 08:20 | Event Note ---
Date of Encounter: 09/18/18 Time of Encounter: 08:18 - Cardiology Event Note [facility] preliminary report reviewed with 0/3 patent bypass grafts. 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 Per felicia Baca to resume lovenox today for DVT. Can discontinue ASA due to need f or triple therapy. Can consider addition of low dose norvasc for angina. Cardiology will sign off and will follow in outpatient setting. Follow up set.
[2018-09-18] MEDS ORDERED: Isosorbide MONOnitrate (24 HR) 60 MG TAB.ER.24H PO SCH (09:00)
[2018-09-18] MEDS ORDERED: Furosemide 20 MG TABLET PO SCH (09:00)
[2018-09-18] MEDS: Aspirin Enteric Coated 81 MG Tablet PO SCH (09:44)
[2018-09-18] MEDS: Ranolazine 500 MG TAB.ER.12H PO SCH (09:46)
--- NOTE | 2018-09-18 11:01 | Discharge Summary ---
- NOTES TO OUTPATIENT PROVIDER Notes to Outpatient Provider: F/U with your PCP within 1 week of hospital discharge. Orders not resulted at time of discharge: Pending orders 09/17/18 10:46 CL Cardiac Catheterization [CL] Routine 09/18/18 10:45 BMP [Basic Metabolic Panel] Stat CBC no Diff [Complete Blood Count w/o Diff] [HEME] Stat Date of Encounter: 09/18/18 Time of Encounter: 10:57 - Discharge Diagnosis (1) COPD exacerbation Priority: Primary Status: Resolved (2) Acute hypoxemic respiratory failure Priority: Secondary Status: Resolved (3) CAD (coronary artery disease) Priority: Secondary Status: Chronic Qualifiers: Coronary Disease-Associated Artery/Lesion type: unspecified vessel or lesion type [place] vs. transplanted heart: [place] heart Associated angina: angina presence unspecified Qualified Code(s): I25.10 - Atherosclerotic heart disease of [place] coronary artery without angina pectoris (4) HTN (hypertension) Priority: Secondary Status: Chronic Qualifiers: Hypertension type: unspecified Qualified Code(s): I10 - Essential (primary) hypertension (5) HLD (hyperlipidemia) Priority: Secondary Status: Chronic Qualifiers: Hyperlipidemia type: unspecified Qualified Code(s): E78.5 - Hyperlipidemia, unspecified (6) DVT (deep venous thrombosis) Priority: Secondary Status: Acute Qualifiers: DVT location: lower extremity Affected thrombotic vein of extremity: unspecified vein of extremity Chronicity: acute Laterality: right Qualified Code(s): I82.401 - Acute embolism and thrombosis of unspecified deep veins of right lower extremity (7) CHF (congestive heart failure) Priority: Secondary Status: Chronic Qualifiers: Heart failure type: diastolic Heart failure chronicity: chronic Qualified Code(s): I50.32 - Chronic diastolic (congestive) heart failure (8) Hypophosphatemia Priority: Secondary Status: Resolved (9) Leukocytosis Priority: Secondary Status: Acute Assessment and Plan: Reactive due to steroids. Qualifiers: Leukocytosis type: unspecified Qualified Code(s): D72.829 - Elevated white blood cell count, unspecified (10) Caloric malnutrition Priority: Secondary Status: Chronic Hospital course: Ms. Fabian is a 78 year old female PMH significant for CAD s/p CABG about 40 years ago, PAD, HTN, HLD, and COPD. Patient presented to the ED due at [place] due to shortness of breath. Patient also reported intermittent chest pain 10 out of 10 in intensity. Patient admitted to the hospital due to COPD exacerbation, treated with IV steroids and empiric antibiotic coverage. Pulmonary embolism ruled out as patient presented with hypoxemia, tachycardia and an elevated d-dimer. A CTA of the chest was done which was negative for pulmonary embolism. Doppler ultrasound of the lower extremity done: Acute deep venous thrombosis is present in the right superficial femoral vein. Patient is started on full dose anticoagulation, and being discharge on eliquis 5 mg by mouth twice a day. Due to patient history of severe coronary artery disease, and persistent chest pain cardiology was consulted. Patient underwent LHC: Preliminary report reviewed with 0/3 patent bypass grafts. 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 Cardiology recommended to continue medical management. Patient acute symptoms have resolved, and patient is hemodynamically stable to be discharged home. Being discharged on Medrol Dosepak, and azithromycin for 5 more days. Recommended to follow-up with her primary care within a week of hospital discharge. - Time Spent with Patient Total time spent providing and/or coordinating discharge services: Greater than 30 minutes (41) - Discharge Medications Prescriptions: Apixaban [Eliquis] 5 mg PO AD 30 Days #74 tablet Azithromycin [Zithromax] 500 mg PO Q24H 5 Days #5 tablet Home Medications: Albuterol Neb [Proventil Neb] 2.5 mg IH BID PRN 09/16/18 [History] Albuterol Sulfate [Ventolin Hfa] 2 puff IH Q6H PRN 09/16/18 [History] Amitriptyline [Elavil] 50 mg PO QPM 09/16/18 [History] Aspirin [Lo-Dose Aspirin EC] 81 mg PO QPM 09/16/18 [History] Atorvastatin Calcium [Lipitor] 80 mg PO QPM 09/16/18 [History] Clopidogrel [Plavix] 75 mg PO DAILY 09/16/18 [History] Furosemide [Lasix] 20 mg PO DAILY 09/16/18 [History] Isosorbide MONOnitrate [Isosorbide Mononitrate ER] 120 mg PO DAILY 09/16/18 [History] Levothyroxine [Synthroid] 25 mcg PO 0630 09/16/18 [History] Metoprolol [Lopressor] 50 mg PO BID 09/16/18 [History] Nitroglycerin 0.4 mg PO AD PRN MDD 3 SPRAYS/15MINS CALL 911 09/16/18 [History] Polyethylene Glycol 3350 [Smoothlax] 17 gm PO DAILY PRN 09/16/18 [History] Potassium Chloride 10 meq PO DAILY 09/16/18 [History] Ranolazine [Ranexa] 1,000 mg PO BID 09/16/18 [History] Umeclidinium [place] [Incruse Ellipta] 1 puff IH DAILY 09/16/18 [History] Vit C/E/Zn/Coppr/Lutein/Zeaxan [Preservision Areds 2 Softgel] 1 cap PO DAILY 09/16/18 [History] amLODIPine [Norvasc] 5 mg PO DAILY 09/16/18 [History] Apixaban [Eliquis] 5 mg PO AD 30 Days #74 tablet 09/18/18 [Rx] Azithromycin [Zithromax] 500 mg PO Q24H 5 Days #5 tablet 09/18/18 [Rx] Allergies/Adverse Reactions: Allergy/AdvReac Type Severity Reaction Status Date / Time carbamazepine AdvReac Chest Pain Verified 09/16/18 09:05 etodolac AdvReac Chest Pain Verified 09/16/18 09:05 hydrocodone AdvReac Chest Pain Verified 09/16/18 09:05 Iodinated Contrast- Oral and AdvReac Chest Pain Verified 09/16/18 09:05 IV Dye [Iodinated Contrast Media - IV Dye] levofloxacin AdvReac Chest Pain Verified 09/16/18 09:05 NSAIDS (Non-Steroidal AdvReac Chest Pain Verified 09/16/18 09:05 Anti-Inflamma Penicillins [PCN] AdvReac Chest Pain Verified 09/16/18 09:05 pregabalin [From Lyrica] AdvReac Numbness Verified 09/16/18 09:05 pseudoephedrine AdvReac Chest Pain Verified 09/16/18 09:05 Sulfa (Sulfonamide AdvReac Chest Pain Verified 09/16/18 09:05 Antibiotics) tetracycline [Tetracycline] AdvReac Chest Pain Verified 09/16/18 09:05 tolmetin AdvReac Chest Pain Verified 09/16/18 09:05 tramadol AdvReac Numbness Verified 09/16/18 09:05 Date of admission: 09/15/18 16:04 Primary care physician: Laxmi Noonan APN Consults: 09/16/18 12:27 Consult to Cardiology [CONS] Routine Comment: Consulting Provider: Cardiology Aleyda Reason for Consult: Patient with extensive Hx of CAD. Presenting with intermittent chest pain. Call Completed: No - Constitutional Vitals: Temp Pulse Resp BP Pulse Ox 98.1 F 98 17 131/103 99 09/18/18 08:27 09/18/18 08:27 09/18/18 07:12 09/18/18 08:27 09/18/18 08:27 Exam: Vitals: Reviewed General: Cachectic appearing, in no distress acute distress HEENT: Moist mucous membranes. No conjunctivae pallor. Neck: No JVD. No carotid bruits. No palpable thyroid. Chest: Scattered minimal bilateral expiratory wheezing, no rales, crackles. Heart: Normal S1 & S2; rhythmic. No rubs or murmurs. Abdomen: Non-distended, soft and non-tender to palpation. NABS in all 4 quadrants Extremities: no edema. Normal distal pulses. Strength is 5 out of 5 in the upper and lower extremities. Neurological: Awake, alert and oriented to person, place and time. CN II-XII intact. Psych: Affect appropriate. - Patient Status Disposition: Home, Self-Care Condition: Good Functional capacity at discharge: independent ambulation Overall status at discharge: patient is progressing back to baseline - Discharge Instructions Follow Up With: Laxmi Noonan APN [Primary Care Provider] - 10/01/18 2:40 pm - Diet and Activity Activity: resume usual activities as tolerated Diet: advance to your usual diet, low salt diet
[2018-09-18 11:52] LABS: Hematocrit 34.7 % (35.3-44.9); Hemoglobin 10.7 g/dL (11.5-15.4); Mean Corpuscular HGB Conc 30.8 g/dL (31.6-35.5); Mean Corpuscular Hemoglobin 28.8 pg (28.0-33.3); Mean Corpuscular Volume 93.3 fL (83.0-100.0); Platelet Count 230 K/mcL (140-400); Red Blood Count 3.72 M/mcL (3.82-4.97)
[2018-09-18 11:58] VITALS: BP 123/63
[2018-09-18 12:15] LABS: BUN/Creatinine Ratio 24 (6-26); Blood Urea Nitrogen 21 mg/dL (8-23); Calcium 8.9 mg/dL (8.6-10.3); Carbon Dioxide 31 mEq/L (23-29); Chloride 97 mEq/L (98-107); Glucose 119 mg/dL (70-105); Osmolality,Calculated 288 (280-300); Sodium 137 mEq/L (136-145); eGFR For Non-African Americans > 60 (> 60)
[2018-09-18] MEDS ORDERED: Azithromycin 250 MG TABLET PO SCH (18:00)
== END 2018-09-18 16:20 | disposition home or self-care (01) ==
LOC: 3BNU → SUATTDRO 16:04 → 2NENU 09-17 00:51
PROVIDERS: ADMIT Internal Medicine; ATTEND Internal Medicine

== ENCOUNTER 2018-10-08 08:40 | Inpatient (IN) ==
[2018-10-08] MEDS ORDERED: Naloxone 0.4 MG/ML INJ IVP PRN (13:17)
[2018-10-08] MEDS ORDERED: Furosemide 20 MG/2 ML VIAL IVP ONE (13:27)
--- NOTE | 2018-10-08 13:33 | Internal Med History&Physical ---
Date of Encounter: 10/08/18 Time of Encounter: 11:00 Internal Medicine - H&P: HPI Chief complaint: Generalized weakness/shortness of breath Admitted From: Home Plans for Post Hospital Care: Home History of present illness: Patient is a 78-year-old female with past medical history significant for superficial venous thrombosis on Eliquis, CABG x 4 (1987) left carotid endarterectomy (2003), aortic abdominal repair, PAD, HTN, HLD, and COPD who presents to the ER on 10/08/18 due to generalized weakness and shortness of breath. Patient reports that for the last month she has noticed gradual worsening of generalized weakness in the last 24 hours barely able to ambulate. Patient has also noticed dyspnea on exertion that has gotten worse over the last several weeks. In the ER, patient was found to have a hemoglobin 6.7 and to have occult positive stool. Patient will be admitted to medical surgical floor for acute blood loss anemia secondary to GI. Past Med Surg Social Fam HX - Past Medical History Medical history: asthma, COPD, coronary artery disease, hyperlipidemia, hypertension, myocardial infarction Psychiatric history: no psych history - Past Surgical History Surgical History: coronary bypass (CABG) Additional surgical history: Quad bipass in 1987. - Social History Smoking Status: Former smoker Smokeless Tobacco Status: No Alcohol use: none Drug use: none - Family History Mother Living Status: Hx Family Cardiac Disorders: Yes (heart disease, stroke) Hx Family Neurologic Disorders: Yes (Stoke) Father Living Status: Cause of : Prostate cancer Hx Family Cancer: Yes (Prostate) Internal Medicine - H&P: Meds Albuterol Sulfate [Ventolin Hfa] 2 puff IH Q6H PRN 09/16/18 [History] Amitriptyline [Elavil] 50 mg PO QPM 09/16/18 [History] Aspirin [Lo-Dose Aspirin EC] 81 mg PO QPM 09/16/18 [History] Atorvastatin Calcium [Lipitor] 80 mg PO QPM 09/16/18 [History] Clopidogrel [Plavix] 75 mg PO DAILY 09/16/18 [History] Furosemide [Lasix] 20 mg PO DAILY 09/16/18 [History] Isosorbide MONOnitrate [Isosorbide Mononitrate ER] 120 mg PO DAILY 09/16/18 [History] Levothyroxine [Synthroid] 25 mcg PO 0630 09/16/18 [History] Metoprolol [Lopressor] 50 mg PO BID 09/16/18 [History] Nitroglycerin 0.4 mg PO AD PRN MDD 3 SPRAYS/15MINS CALL 911 09/16/18 [History] Polyethylene Glycol 3350 [Smoothlax] 17 gm PO DAILY PRN 09/16/18 [History] Potassium Chloride 10 meq PO DAILY 09/16/18 [History] Ranolazine [Ranexa] 1,000 mg PO BID 09/16/18 [History] Vit C/E/Zn/Coppr/Lutein/Zeaxan [Preservision Areds 2 Softgel] 1 cap PO DAILY 09/16/18 [History] amLODIPine [Norvasc] 5 mg PO DAILY 09/16/18 [History] Aclidinium [place] [Tudorza Pressair] 1 puff IH DAILY 10/08/18 [History] Psyllium Husk [Metamucil] 0.52 gm PO DAILY 10/08/18 [History] Allergy/AdvReac Type Severity Reaction Status Date / Time guaifenesin [From Hytuss] Allergy See Verified 10/08/18 06:05 Comments nabumetone [From Relafen] Allergy See Verified 10/08/18 06:05 Comments pentazocine [From Talwin] Allergy See Verified 10/08/18 06:05 Comments prednisone Allergy See Verified 10/08/18 06:05 Comments propoxyphene Allergy See Verified 10/08/18 06:05 Comments Sulindac [From Clinoril] Allergy See Verified 10/08/18 06:05 Comments carbamazepine AdvReac Chest Pain Verified 10/08/18 06:05 codeine AdvReac See Verified 10/08/18 06:05 Comments etodolac AdvReac Chest Pain Verified 10/08/18 06:05 hydrocodone AdvReac Chest Pain Verified 10/08/18 06:05 Iodinated Contrast- Oral and AdvReac Chest Pain Verified 10/08/18 06:05 IV Dye [Iodinated Contrast Media - IV Dye] levofloxacin AdvReac Chest Pain Verified 10/08/18 06:05 NSAIDS (Non-Steroidal AdvReac Chest Pain Verified 10/08/18 06:05 Anti-Inflamma Penicillins [PCN] AdvReac Chest Pain Verified 10/08/18 06:05 pregabalin [From Lyrica] AdvReac Numbness Verified 10/08/18 06:05 pseudoephedrine AdvReac Chest Pain Verified 10/08/18 06:05 Sulfa (Sulfonamide AdvReac Chest Pain Verified 10/08/18 06:05 Antibiotics) tetracycline [Tetracycline] AdvReac Chest Pain Verified 10/08/18 06:05 tolmetin AdvReac Chest Pain Verified 10/08/18 06:05 tramadol AdvReac Numbness Verified 10/08/18 06:05 All Systems PM: A 10-system review of systems was performed and is negative for pertinent findings except as documented above in the HPI. - Constitutional Vitals: Temp Pulse Resp BP Pulse Ox 97.9 F 75 18 134/68 100 10/08/18 11:04 10/08/18 11:04 10/08/18 11:04 10/08/18 11:04 10/08/18 11:04 General appearance: Present: A&O X 3, no acute distress Exam: As above - Eye Eye exam: Present: normal appearance - ENT ENT exam: Present: mucous membranes dry - Respiratory Respiratory exam: Present: CTAB. Absent: accessory muscle use, rales, rhonchi, wheezes - Cardiovascular Cardiovascular exam: Present: RRR, +S1, +S2. Absent: diastolic murmur, gallop, rubs, systolic murmur - GI/Abdominal GI/Abdominal exam: Present: normal bowel sounds, soft, no peritoneal signs. Absent: distended, tenderness - Extremities Exam Extremities exam: Absent: pedal edema - Neurological Exam Neurological exam: Present: oriented X3 - Psychiatric Psychiatric exam: Present: normal mood - Skin Skin exam: Present: pallor Internal Med - H&P Results - Labs CBC & Chem 7: 10/08/18 13:37 - Assessment and plan (1) Symptomatic anemia Current Visit: No Status: Acute Assessment and plan: Patient reports a several week history of dyspnea on exertion with generalized weakness She was found to have a hemoglobin of 6.7 and occult positive stool in the ER. Patient denies any history of gross blood in stool but does report of black tarry stools. Will hold Eliquis and Plavix Will transfuse 2 units packed red blood cells and consult general surgery for evaluation of suspected GI bleed (2) DVT (deep venous thrombosis) Current Visit: No Status: Acute Assessment and plan: Patient found to have acute deep venous thrombosis and right superficial femoral vein She was started on Eliquis as a result. Eliquis will be held however due to the above. Qualifiers: DVT location: lower extremity Affected thrombotic vein of extremity: unspecified vein of extremity Chronicity: acute Laterality: right Qualified Code(s): I82.401 - Acute embolism and thrombosis of unspecified deep veins of right lower extremity (3) CAD (coronary artery disease) Current Visit: No Status: Chronic Assessment and plan: Know CAD s/p CABG 1987. Last [facility] 2013 with 0/3 patent bypass grafts, 30% proximal LAD, 30% distal LAD, 30% proximal circumflex, 100% proximal RCA, distal RCA fills via left eduardo aterals. SVG to RCA occluded, SVG to diagonal 1 occluded, BAHE[place] to LAD occluded. TTE with LVEF 50-55%, moderate concentric LVH, moderate diastolic dysfunction, mild-moderate MR, no segmental wall motion abnormalities. Discontinue Plavix and aspirin due to the above but continue statin, BB, imdur, ranexa. Qualifiers: Coronary Disease-Associated Artery/Lesion type: unspecified vessel or lesion type [place] vs. transplanted heart: [place] heart Associated angina: angina presence unspecified Qualified Code(s): I25.10 - Atherosclerotic heart disease of [place] coronary artery without angina pectoris (4) HTN (hypertension) Current Visit: No Status: Chronic Assessment and plan: Controlled; continue patient's home dose of calcium channel el and beta le Qualifiers: Hypertension type: unspecified Qualified Code(s): I10 - Essential (primary) hypertension (5) HLD (hyperlipidemia) Current Visit: No Status: Chronic Assessment and plan: Continue home dose of statin Qualifiers: Hyperlipidemia type: unspecified Qualified Code(s): E78.5 - Hyperlipidemia, unspecified (6) Caloric malnutrition Current Visit: No Status: Chronic Assessment and plan: Patient with a BMI of 16.8 - Time Spent With Patient Total time spent is greater than 50% in coordination of care (as documented) at patient's floor/unit and/or counseling patient:
[2018-10-08 13:48] LABS: Hematocrit 21.3 % (35.3-44.9); Hemoglobin 6.7 g/dL (11.5-15.4)
[2018-10-08] MEDS ORDERED: 0.9 % Sodium Chloride 250 ML ONE ×2 (15:48→18:56)
[2018-10-09 00:28] LABS: Hematocrit 32.3 % (35.3-44.9); Hemoglobin 10.6 g/dL (11.5-15.4)
[2018-10-09 05:12] LABS: Basophils % 0.5 %; Eosinophils # 0.2 K/mcL (0.0-0.6); Eosinophils % 3.2 %; Hematocrit 32.8 % (35.3-44.9); Immature Granulocytes % 0.2 % (0-4); Lymphocytes # 1.1 K/mcL (0.6-4.6); Lymphocytes % 19.2 %; Mean Corpuscular Hemoglobin 29.1 pg (28.0-33.3); Mean Corpuscular Volume 90.9 fL (83.0-100.0); Mean Platelet Volume 9.5 fL (9.4-12.4); Monocytes # 0.5 K/mcL (0.0-1.3); Monocytes % 9.2 %; Platelet Count 170 K/mcL (140-400); Red Blood Count 3.61 M/mcL (3.82-4.97); Red Cell Distribution Width 15.8 % (11.5-14.5); Segmented Neutrophils % 67.7 %
[2018-10-09 05:18] LABS: Hemoglobin 10.5 g/dL (11.5-15.4)
[2018-10-09 05:29] LABS: BUN/Creatinine Ratio 29 (6-26); Blood Urea Nitrogen 20 mg/dL (8-23); Calcium 8.4 mg/dL (8.6-10.3); Carbon Dioxide 30 mEq/L (23-29); Chloride 105 mEq/L (98-107); Glucose 100 mg/dL (70-105); Osmolality,Calculated 293 (280-300); Potassium 3.7 mEq/L (3.5-5.1); Sodium 140 mEq/L (136-145); eGFR For Non-African Americans > 60 (> 60)
[2018-10-09] MEDS ORDERED: Albuterol 2.5 MG/3 ML NEBULIZER IH PRN (08:51)
[2018-10-09] MEDS ORDERED: (Aclidinium Bromide [Tudorza Pressair] 1 PUFF) IH SCH (09:00)
--- NOTE | 2018-10-09 09:28 | General Surgery Consult Note ---
Date of Encounter: 10/09/18 Time of Encounter: 09:27 Assessment and Plan (1) Symptomatic anemia Current Visit: No Status: Acute I explained to the patient that given the fact that she has documented anemia below 6.7, history of dark-colored stool, heme positive stools I do think it will be appropriate to proceed with both an EGD and colonoscopy while she is here in the hospital. I will go ahead and write for bowel prep today and make her nothing by mouth after midnight. I will check on her early in the morning and if she is clear I will ask my colleague Dr. Osuna if he would be able to perform the EGD and colonoscopy later tomorrow afternoon. If she is not clear that she will need to continue the bowel prep until she is clear of any solid st ool. Discussed with the patient and family members and they agree to the above plan. History of Present Illness Consult date: 10/09/18 Reason for consult: other (anemia, Heme positive stool) Requesting physician: David Teixeira History of present illness: Patient is an 78-year-old female with a past medical history significant for one area artery disease, COPD, hypertension, and asthma who was recently discharged from the hospital with generalized weakness. She was admitted and noted to have some mild anemia but overall showed evidence of active bleeding. She was discharged home and has been followed up by [facility] (Dr. Garcia) and has been scheduled for an EGD and colonoscopy. She presented due to worsening weakness with difficulty ambulating the past 24 hours with dyspnea on exertion. On presentation her hemoglobin level was 6.7 (her hemoglobin upon discharge on 09/18/2018 was 10.7). The patient states that she has been having episodes of dark brown stool for the past 6 months. She has not been taking iron regularly and states that she has been having the discoloration almost with every bowel movement. She denies any nausea or vomiting and does admit to constipation with a bowel movement once every several days. She states that her last bowel moveme nt was actually 4 days ago. She denies any bright colored stool and states that test was performed showing heme positive stool. She is been admitted to the hospital for further evaluation and for blood transfusion. Past Med Surg Social Fam HX - Past Medical History Medical history: asthma, COPD, coronary artery disease, hyperlipidemia, hypertension, myocardial infarction Psychiatric history: no psych history - Past Surgical History Surgical History: coronary bypass (CABG) Additional surgical history: Quad bipass in 1987. - Social History Smoking Status: Former smoker Smokeless Tobacco Status: No Alcohol use: none Drug use: none - Family History Mother Living Status: Hx Family Cardiac Disorders: Yes (heart disease, stroke) Hx Family Neurologic Disorders: Yes (Stoke) Father Living Status: Cause of : Prostate cancer Hx Family Cancer: Yes (Prostate) Medications and Allergies Albuterol Sulfate [Ventolin Hfa] 2 puff IH Q4H 09/16/18 [History] Aspirin [Lo-Dose Aspirin EC] 81 mg PO QPM 09/16/18 [History] Atorvastatin Calcium [Lipitor] 80 mg PO QPM 09/16/18 [History] Clopidogrel [Plavix] 75 mg PO DAILY 09/16/18 [History] Furosemide [Lasix] 20 mg PO DAILY 09/16/18 [History] Isosorbide MONOnitrate [Isosorbide Mononitrate ER] 120 mg PO DAILY 09/16/18 [History] Levothyroxine [Synthroid] 25 mcg PO 0630 09/16/18 [History] Metoprolol [Lopressor] 50 mg PO BID 09/16/18 [History] Nitroglycerin 0.4 mg PO AD PRN MDD 3 SPRAYS/15MINS CALL 911 09/16/18 [History] Polyethylene Glycol 3350 [Smoothlax] 17 gm PO DAILY PRN 09/16/18 [History] Potassium Chloride 10 meq PO DAILY 09/16/18 [History] Ranolazine [Ranexa] 1,000 mg PO BID 09/16/18 [History] Vit C/E/Zn/Coppr/Lutein/Zeaxan [Preservision Areds 2 Softgel] 1 cap PO DAILY 09/16/18 [History] amLODIPine [Norvasc] 5 mg PO DAILY 09/16/18 [History] Aclidinium [place] [Tudorza Pressair] 1 puff IH DAILY 10/08/18 [History] Albuterol Neb [Proventil Neb] 2.5 mg IH BID 10/08/18 [History] Amitriptyline HCl 75 mg PO DAILY 10/08/18 [History] Apixaban [Eliquis] 5 mg PO BID 10/08/18 [History] Psyllium Husk [Metamucil] 0.52 gm PO DAILY 10/08/18 [History] Allergy/AdvReac Type Severity Reaction Status Date / Time guaifenesin [From Hytuss] Allergy See Verified 10/08/18 06:05 Comments nabumetone [From Relafen] Allergy See Verified 10/08/18 06:05 Comments pentazocine [From Talwin] Allergy See Verified 10/08/18 06:05 Comments prednisone Allergy See Verified 10/08/18 06:05 Comments propoxyphene Allergy See Verified 10/08/18 06:05 Comments Sulindac [From Clinoril] Allergy See Verified 10/08/18 06:05 Comments carbamazepine AdvReac Chest Pain Verified 10/08/18 06:05 codeine AdvReac See Verified 10/08/18 06:05 Comments etodolac AdvReac Chest Pain Verified 10/08/18 06:05 hydrocodone AdvReac Chest Pain Verified 10/08/18 06:05 Iodinated Contrast- Oral and AdvReac Chest Pain Verified 10/08/18 06:05 IV Dye [Iodinated Contrast Media - IV Dye] levofloxacin AdvReac Chest Pain Verified 10/08/18 06:05 NSAIDS (Non-Steroidal AdvReac Chest Pain Verified 10/08/18 06:05 Anti-Inflamma Penicillins [PCN] AdvReac Chest Pain Verified 10/08/18 06:05 pregabalin [From Lyrica] AdvReac Numbness Verified 10/08/18 06:05 pseudoephedrine AdvReac Chest Pain Verified 10/08/18 06:05 Sulfa (Sulfonamide AdvReac Chest Pain Verified 10/08/18 06:05 Antibiotics) tetracycline [Tetracycline] AdvReac Chest Pain Verified 10/08/18 06:05 tolmetin AdvReac Chest Pain Verified 10/08/18 06:05 tramadol AdvReac Numbness Verified 10/08/18 06:05 Review of Systems All systems PM: reviewed and no additional remarkable complaints except as stated All systems PM: The remainder of the systems were reviewed and are negative General Surgery Exam Initial Vital Signs Temp Pulse Resp BP Pulse Ox 97.9 F 75 18 134/68 100 10/08/18 11:04 10/08/18 11:04 10/08/18 11:04 10/08/18 11:04 10/08/18 11:04 - General physical appearance well nourished, no distress - Eyes PERRL, normal ocular movement - Respiratory normal expansion, normal respiratory effort (Creased breath sounds noted at the bases bilaterally) - Cardiovascular Cardiovascular exam: Present: RRR, no murmurs/rubs/gallops - Abdomen Abdomen general surgery: Present: bowel sounds present, soft, non tender - Neurologic Present: CN 2-12 grossly intact - Musculoskeletal Present: other (Clubbing cyanosis or edema) Exam Initial Vital Signs Temp Pulse Resp BP Pulse Ox 97.9 F 75 18 134/68 100 10/08/18 11:04 10/08/18 11:04 10/08/18 11:04 10/08/18 11:04 10/08/18 11:04 Results - Labs 10/09/18 16:09 10/09/18 04:36 Abnormal lab results RBC 3.61 M/mcL (3.82-4.97) L 10/09/18 04:36 Hgb 10.5 g/dL (11.5-15.4) L 10/09/18 04:36 Hct 32.8 % (35.3-44.9) L 10/09/18 04:36 RDW 15.8 % (11.5-14.5) H 10/09/18 04:36 Carbon Dioxide 30 mEq/L (23-29) H 10/09/18 04:36 BUN/Creatinine Ratio 29 (6-26) H 10/09/18 04:36 Calcium 8.4 mg/dL (8.6-10.3) L 10/09/18 04:36 Diabetes panel 10/09/18 Range/Units 04:36 Sodium 140 (136-145) mEq/L Potassium 3.7 (3.5-5.1) mEq/L Chloride 105 (98-107) mEq/L Carbon Dioxide 30 H (23-29) mEq/L BUN 20 (8-23) mg/dL Creatinine 0.68 (0.60-1.20) mg/dL Glucose 100 (70-105) mg/dL Calcium 8.4 L (8.6-10.3) mg/dL Calcium panel 10/09/18 Range/Units 04:36 Calcium 8.4 L (8.6-10.3) mg/dL Pituitary panel 10/09/18 Range/Units 04:36 Sodium 140 (136-145) mEq/L Potassium 3.7 (3.5-5.1) mEq/L Chloride 105 (98-107) mEq/L Carbon Dioxide 30 H (23-29) mEq/L BUN 20 (8-23) mg/dL Creatinine 0.68 (0.60-1.20) mg/dL Glucose 100 (70-105) mg/dL Calcium 8.4 L (8.6-10.3) mg/dL Adrenal panel 10/09/18 Range/Units 04:36 Sodium 140 (136-145) mEq/L Potassium 3.7 (3.5-5.1) mEq/L Chloride 105 (98-107) mEq/L Carbon Dioxide 30 H (23-29) mEq/L BUN 20 (8-23) mg/dL Creatinine 0.68 (0.60-1.20) mg/dL Glucose 100 (70-105) mg/dL Calcium 8.4 L (8.6-10.3) mg/dL All other labs normal. Consult Discharge Plan - Plan Referrals: Laxmi Noonan APN [Primary Care Provider] -
--- NOTE | 2018-10-09 09:32 | Electrocardiograph Report ---
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
--- NOTE | 2018-10-09 10:17 | Internal Med Progress Note ---
Hospitalist Progress Note - Encounter Date of Encounter: 10/09/18 Time of Encounter: 08:45 - Subjective Interval History: Ms. Fabian is a 78 year old female PMH significant for CAD s/p CABG about 40 years ago, HTN, HLD, COPD, chronic hypoxic respiratory failure on 2 L home oxygen dependent, who recently diagnosed with a right superficial femoral vein DVT on eliquis for anticoagulation and severe PAD s/p left IC stent and abdomen aortic stent as per pt , who is on ASA, Plavix and Eliquis now presented to ER with generalized weakness and shortness of breath. Patient did have symptomatic anemia with her hemoglobin around 6.7. She also mentioned several weeks of melena/dark colored stool. Her stool heme occult came back as positive. Patient was admitted in the hospital and gave her 2 U PRBC. This morning patient states she is feeling little better however she still having melena. Denied any bright red blood per rectum. She did complaining a bout mild abdominal discomfort - Exam Vitals: Temp Pulse Resp BP Pulse Ox 98.3 F 100 19 144/67 95 10/09/18 07:45 10/09/18 07:45 10/09/18 07:45 10/09/18 07:45 10/09/18 07:45 Exam: Gen: Alert, awake, Oriented to time,place and person Chest: Diminished breath sounds B/L, No wheezing, No crackles, No rales Heart: S1S2+ RRR No murmurs Abd: Soft, mildly discomfort at lower abdomen and cassie umbelical region, BS +, No organomegaly Ext: No edema, pulses are palpable, No calf tenderness Neuro : Benign findings Skin: No rash. - Assessment and Plan (1) Acute blood loss anemia Current Visit: Yes Status: Acute Assessment and Plan: Improved hemoglobin to 10.5 with 2 U PRBC Cont close monitoring She did have symptomatic anemia most likely upper G.I. bleed continue holding Plavix and eliquis Surgery consulted.. Scheduled for upper and lower endoscopy tomorrow clear liquid diet for now NPO after midnight started her on Protonix drip Patient does need to stay in the hospital more than 2 midnights due to her complex medical problems. So we will change her to full admission today. I did review my colleague Dr. Teixeira's H & P including HPI, PMH, PSH, FH, SH, and ROS no changes noticed (2) Acute GI hemorrhage Current Visit: Yes Status: Acute Assessment and Plan: See above plan (3) PAD (peripheral artery disease) Current Visit: Yes Status: Acute Assessment and Plan: She does have severe peripheral arterial disease with multiple vascular interventions she does need both aspirin and Plavix continue holding Plavix for now depending on her endoscopy results will decide about further care (4) CAD (coronary artery disease) Current Visit: No Status: Chronic Assessment and Plan: s/p CABG Recent [facility] @ 09/17/2018 showed patent bypass grafts. 100% RCA DETAILER with left to right collaterals, otherwise mild disease in left coronaries Held Plavix for now cont ASA 81mg pO Daily Resumed all other home meds (5) HTN (hypertension) Current Visit: No Status: Chronic Assessment and Plan: Stable with current regimen continue current home medications (6) HLD (hyperlipidemia) Current Visit: No Status: Chronic Assessment and Plan: Continue home dose of statin (7) DVT (deep venous thrombosis) Current Visit: No Status: Acute Assessment and Plan: Patient found to have acute deep venous thrombosis and right superficial femoral vein Cont holding eliquis for now (8) Caloric malnutrition Current Visit: No Status: Chronic Assessment and Plan: Patient with a BMI of 16.8 consulted advertising clerk - Time Spent with Patient Total time spent is greater than 50% in coordination of care (as documented) at patient's floor/unit and/or counseling patient: Internal Medicine: Result - Labs CBC & Chem 7: 10/09/18 04:36 10/09/18 04:36 Labs: Short CBC 10/08/18 10/09/18 10/09/18 Range/Units 13:37 00:18 04:36 WBC 5.9 (4.3-11.1) K/mcL Hgb 6.7 L 10.6 L D 10.5 L (11.5-15.4) g/dL Hct 21.3 L 32.3 L 32.8 L (35.3-44.9) % Plt Count 170 (140-400) K/mcL Neutrophils # 4.0 (1.6-8.9) K/mcL BMP 10/09/18 04:36 Sodium 140 Potassium 3.7 Chloride 105 Carbon Dioxide 30 H BUN 20 Creatinine 0.68 Glucose 100 Calcium 8.4 L Cardiac Enzymes 11/22/18 Range/Units 19:34 Troponin I < 0.03 (< 0.04) ng/mL - VTE Reasons for not Prescribing Prophylaxis: Medical contraindication Consult Discharge Plan - Plan Referrals: Laxmi Noonan APN [Primary Care Provider] - (4) CAD (coronary artery disease) Qualifiers: Coronary Disease-Associated Artery/Lesion type: unspecified vessel or lesion type [place] vs. transplanted heart: [place] heart Associated angina: angina presence unspecified Qualified Code(s): I25.10 - Atherosclerotic heart disease of [place] coronary artery without angina pectoris (5) HTN (hypertension) Qualifiers: Hypertension type: unspecified Qualified Code(s): I10 - Essential (primary) hypertension (6) HLD (hyperlipidemia) Qualifiers: Hyperlipidemia type: unspecified Qualified Code(s): E78.5 - Hyperlipidemia, unspecified (7) DVT (deep venous thrombosis) Qualifiers: DVT location: lower extremity Affected thrombotic vein of extremity: unspecified vein of extremity Chronicity: acute Laterality: right Qualified Code(s): I82.401 - Acute embolism and thrombosis of unspecified deep veins of right lower extremity
[2018-10-09] MEDS: amLODIPine 5 MG TABLET PO SCH (10:27)
[2018-10-09] MEDS: Ranolazine 500 MG TAB.ER.12H PO SCH ×2 (10:27→20:47)
[2018-10-09] MEDS: Isosorbide MONOnitrate (24 HR) 60 MG TAB.ER.24H PO SCH (10:27)
[2018-10-09] MEDS: Furosemide 20 MG TABLET PO SCH (10:28)
[2018-10-09] MEDS: Multivit/Ca/Min/Fe/FA 1 TAB TABLET PO SCH (10:28)
[2018-10-09] MEDS: Psyllium 1 PACKET POWD.PACK PO SCH (10:29)
[2018-10-09] MEDS: Pantoprazole 40 MG in 0.9 % Sodium Chloride Mini Bag 100 ML IVC SCH ×4 (10:29→22:05)
[2018-10-09] MEDS: Aspirin Enteric Coated 81 MG Tablet PO SCH ×2 (10:30→16:58)
[2018-10-09 16:29] LABS: Hematocrit 34.1 % (35.3-44.9); Hemoglobin 10.9 g/dL (11.5-15.4)
[2018-10-10] MEDS: Pantoprazole 40 MG in 0.9 % Sodium Chloride Mini Bag 100 ML IVC SCH ×5 (03:59→23:43)
[2018-10-10 05:36] LABS: Hematocrit 33.1 % (35.3-44.9); Hemoglobin 10.6 g/dL (11.5-15.4); Mean Corpuscular Hemoglobin 29.7 pg (28.0-33.3); Mean Corpuscular Volume 92.7 fL (83.0-100.0); Mean Platelet Volume 9.5 fL (9.4-12.4); Platelet Count 160 K/mcL (140-400); Red Blood Count 3.57 M/mcL (3.82-4.97); Red Cell Distribution Width 15.9 % (11.5-14.5)
[2018-10-10] MEDS: Levothyroxine 25 MCG TABLET PO SCH (06:08)
[2018-10-10] MEDS: Furosemide 20 MG TABLET PO SCH (09:10)
[2018-10-10] MEDS: Multivit/Ca/Min/Fe/FA 1 TAB TABLET PO SCH (09:10)
[2018-10-10] MEDS: Ranolazine 500 MG TAB.ER.12H PO SCH ×2 (09:10→20:41)
[2018-10-10] MEDS: amLODIPine 5 MG TABLET PO SCH (09:10)
[2018-10-10] MEDS: Isosorbide MONOnitrate (24 HR) 60 MG TAB.ER.24H PO SCH (09:10)
[2018-10-10] MEDS: UMECLIDINIUM 62.5 MCG IH SCH (09:11)
[2018-10-10] MEDS: Psyllium 1 PACKET POWD.PACK PO SCH (09:11)
--- NOTE | 2018-10-10 09:21 | Anesthesia Evaluation PreOp ---
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) Other Medical History: Bleeding (Acute GI bleed s/p 2U PRBC 10-08-18), Thyroid, Other (BMI 16) Alcohol Use: none Drug use: none Medications and Allergies Albuterol Sulfate [Ventolin Hfa] 2 puff IH Q4H 09/16/18 [History] Aspirin [Lo-Dose Aspirin EC] 81 mg PO QPM 09/16/18 [History] Atorvastatin Calcium [Lipitor] 80 mg PO QPM 09/16/18 [History] Clopidogrel [Plavix] 75 mg PO DAILY 09/16/18 [History] Furosemide [Lasix] 20 mg PO DAILY 09/16/18 [History] Isosorbide MONOnitrate [Isosorbide Mononitrate ER] 120 mg PO DAILY 09/16/18 [History] Levothyroxine [Synthroid] 25 mcg PO 0630 09/16/18 [History] Metoprolol [Lopressor] 50 mg PO BID 09/16/18 [History] Nitroglycerin 0.4 mg PO AD PRN MDD 3 SPRAYS/15MINS CALL 911 09/16/18 [History] Polyethylene Glycol 3350 [Smoothlax] 17 gm PO DAILY PRN 09/16/18 [History] Potassium Chloride 10 meq PO DAILY 09/16/18 [History] Ranolazine [Ranexa] 1,000 mg PO BID 09/16/18 [History] Vit C/E/Zn/Coppr/Lutein/Zeaxan [Preservision Areds 2 Softgel] 1 cap PO DAILY 09/16/18 [History] amLODIPine [Norvasc] 5 mg PO DAILY 09/16/18 [History] Aclidinium Atkins [Tudorza Pressair] 1 puff IH DAILY 10/08/18 [History] Albuterol Neb [Proventil Neb] 2.5 mg IH BID 10/08/18 [History] Amitriptyline HCl 75 mg PO DAILY 10/08/18 [History] Apixaban [Eliquis] 5 mg PO BID 10/08/18 [History] Psyllium Husk [Metamucil] 0.52 gm PO DAILY 10/08/18 [History] Allergy/AdvReac Type Severity Reaction Status Date / Time guaifenesin [From Hytuss] Allergy See Verified 10/08/18 06:05 Comments nabumetone [From Relafen] Allergy See Verified 10/08/18 06:05 Comments pentazocine [From Talwin] Allergy See Verified 10/08/18 06:05 Comments prednisone Allergy See Verified 10/08/18 06:05 Comments propoxyphene Allergy See Verified 10/08/18 06:05 Comments Sulindac [From Clinoril] Allergy See Verified 10/08/18 06:05 Comments carbamazepine AdvReac Chest Pain Verified 10/08/18 06:05 codeine AdvReac See Verified 10/08/18 06:05 Comments etodolac AdvReac Chest Pain Verified 10/08/18 06:05 hydrocodone AdvReac Chest Pain Verified 10/08/18 06:05 Iodinated Contrast- Oral and AdvReac Chest Pain Verified 10/08/18 06:05 IV Dye [Iodinated Contrast Media - IV Dye] levofloxacin AdvReac Chest Pain Verified 10/08/18 06:05 NSAIDS (Non-Steroidal AdvReac Chest Pain Verified 10/08/18 06:05 Anti-Inflamma Penicillins [PCN] AdvReac Chest Pain Verified 10/08/18 06:05 pregabalin [From Lyrica] AdvReac Numbness Verified 10/08/18 06:05 pseudoephedrine AdvReac Chest Pain Verified 10/08/18 06:05 Sulfa (Sulfonamide AdvReac Chest Pain Verified 10/08/18 06:05 Antibiotics) tetracycline [Tetracycline] AdvReac Chest Pain Verified 10/08/18 06:05 tolmetin AdvReac Chest Pain Verified 10/08/18 06:05 tramadol AdvReac Numbness Verified 10/08/18 06:05 - Meds/Allergy Pre-op Review Medications Reviewed: Yes Allergies Reviewed: Yes Beta Blockers on Current Med List: Yes If Beta Blockers taken, Date/Time (Last Dose taken): 10-10-18 metoprolol 9:10 Anesthesia Results - Labs 10/10/18 04:52 10/09/18 04:36 - Imaging EKG: report reviewed, image reviewed (SINUS RHYTHM WITH FIRST DEGREE AV BLOCK WITH OCCASIONAL VENTRICULAR PREMATURE COMPLEXES POSSIBLE RIGHT ATRIAL ENLARGEMENT SEPTAL MYOCARDIAL INFARCTION, PROBABLY OLD MODERATE T-WAVE ABNORMALITY, CONSIDER LATERAL ISCHEMIA BASELINE ARTIFACT) Additional studies: TTE: Impressions: LVEF 50-55%. Moderate concentric left ventricular hypertrophy. Moderate left ventricular diastolic dysfunction. Normal right ventricular structure and function. Mild-moderate mitral regurgitation. Unable to estimate RVSP due to lack of TR jet. Anesthesia Exam Last Vital Signs Temp 97.8 F 10/10/18 11:20 Pulse 68 10/10/18 12:25 Resp 18 10/10/18 12:25 BP 124/72 10/10/18 12:25 Pulse Ox 98 10/10/18 12:25 Weight: 40 kg NPO (# of Hours): > 8 hrs - HEENT Pupil (Motor): Pupils equal, EOMI Mallampati: II Teeth: Edentulous Oral Opening: Greater than 3 - ELECTRICAL AND INSTRUMENT TECHNICIAN LOC: Oriented ELECTRICAL AND INSTRUMENT TECHNICIAN Motor: Normal RUE, Normal LUE, Normal RLE, Normal LLE, Normal Face - Cardiac Rhythm: Regular Murmur: None - Pulmonary Breath Sounds: bilateral Clear Respiratory Effort: Symmetrical Anesthesia Assess/Plan ASA Score: 3 Level of consciousness: Cooperative Anesthetic Plan: MAC Monitoring Plan: Standard Monitors Recovery Plan: PACU
--- NOTE | 2018-10-10 09:52 | General Surgery Progress Note ---
Date of Encounter: 10/10/18 Time of Encounter: 09:47 - Assessment and Plan (1) Acute blood loss anemia Current Visit: Yes Status: Acute 78F with LGIB and symptomatic anemia x 6-8 months as well as unexplained weight loss; npo ivf EGD, colonoscopy trend h/h Subjective Patient reports: no new complaints Objective Vital Signs - Last 8 Hours Temp Pulse Resp BP Pulse Ox 10/10/18 06:56 98.1 F 69 16 146/68 100 10/10/18 03:45 98.4 F 64 14 121/58 100 Intake and Output 10/09/18 10/10/18 10/10/18 23:59 07:59 15:59 Intake Total 580 / 580 100 / 100 100 / 100 Balance 580 / 580 100 / 100 100 / 100 Intake: IV Fluids 100 / 100 100 / 100 100 / 100 Protonix 40 MG In 0.9 % Sodium 100 / 100 100 / 100 100 / 100 Chloride (Mini-Bag +) 100 ML @ 20 mls/hr IVC .Q5H JENNIFER Rx#: [id number] Oral 480 / 480 0 / 0 Other: Stool Size Moderate Stool Consistency liquid Stool Color Brown # Voids 1 # Bowel Movements 1 # Bowel Movement Diapers 1 Weight 40.2 kg Blood Glucose* 88 Patient Weight 10/10/18 23:59 Weight 40.2 kg - General physical appearance no distress - Respiratory normal expansion, normal respiratory effort - Cardiovascular Cardiovascular exam: Present: RRR - Abdomen Abdomen: Present: soft, non tender - Neurologic CN 2-12 grossly intact - Labs 10/10/18 04:52 10/09/18 04:36 - VTE Reasons for not Prescribing Prophylaxis: Medical contraindication Consult Discharge Plan - Plan Referrals: Laxmi Noonan APN [Primary Care Provider] -
--- NOTE | 2018-10-10 10:06 | Internal Med Progress Note ---
Hospitalist Progress Note - Encounter Date of Encounter: 10/10/18 Time of Encounter: 10:04 - Subjective Interval History: Patient sitting comfortably on bed family at bedside. Denies fever chills nausea vomiting headache dizziness chest pain abdominal pain tingling numbness. Patient has chronic shortness of breath due to COPD. Patient is having bowel p rep therefore multiple bowel movement but still does not appear clear. Review the lab with a stable hemoglobin. - Exam Vitals: Temp Pulse Resp BP Pulse Ox 98.1 F 69 16 146/68 100 10/10/18 06:56 10/10/18 06:56 10/10/18 06:56 10/10/18 06:56 10/10/18 06:56 Exam: Gen: Alert, awake, Oriented to time,place and person. 2 L oxygen by nasal cannula Chest: Diminished breath sounds B/L. few scattered wheezing bilaterally Heart: S1S2+ RRR Abd: Soft, mildly discomfort at lower abdomen and cassie umbelical region, BS +, No organomegaly Ext: No edema, pulses are palpable, No calf tenderness Neuro : Grossly intact with no focal neurological deficit Skin: No rash. - Assessment and Plan (1) Acute blood loss anemia Current Visit: Yes Status: Acute Assessment and Plan: Due to GI bleed with positive Hemoccult but no gross bleeding of several. Is staying hemoglobin more than 10 after 2 U PRBC. Continue PPI drip. Hold Plavix and Eliquis. Schedule upper and lower endoscopy today. Nothing by mouth for now. SCDs for DVT prophylaxis. Surgeon on board. Monitor H&H. (2) CAD (coronary artery disease) Current Visit: No Status: Chronic Assessment and Plan: s/p CABG Recent C @ 09/17/2018 showed patent bypass grafts. 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 (3) HTN (hypertension) Current Visit: No Status: Chronic Assessment and Plan: Stable with current regimen. Close monitoring and continue current home medications (4) HLD (hyperlipidemia) Current Visit: No Status: Chronic Assessment and Plan: Continue home dose of statin (5) DVT (deep venous thrombosis) Current Visit: No Status: Acute Assessment and Plan: Patient found to have acute deep venous thrombosis and right superficial femoral vein during last visit almost 3 weeks therefore Eliquis was started. Hold Eliquis for now (6) Caloric malnutrition Current Visit: No Status: Chronic Assessment and Plan: Patient with a BMI of 16.8,consulted orthopedic physical therapist (7) Acute GI hemorrhage Current Visit: Yes Status: Acute Assessment and Plan: See above plan (8) PAD (peripheral artery disease) Current Visit: Yes Status: Acute Assessment and Plan: She does have severe peripheral arterial disease with multiple vascular interventions and needs to be on both aspirin and Plavix. continue holding Plavix for now due to above - Time Spent with Patient Total time spent is greater than 50% in coordination of care (as documented) at patient's floor/unit and/or counseling patient: 25 - 35 minutes Plan of Care Discussed with: patient (Plan discussed with patient, family and nursing staff.) Internal Medicine: Result - Labs CBC & Chem 7: 10/10/18 04:52 10/09/18 04:36 Labs: Short CBC 10/09/18 10/10/18 Range/Units 16:09 04:52 WBC 4.5 (4.3-11.1) K/mcL Hgb 10.9 L 10.6 L (11.5-15.4) g/dL Hct 34.1 L 33.1 L (35.3-44.9) % Plt Count 160 (140-400) K/mcL - VTE Reasons for not Prescribing Prophylaxis: Medical contraindication Consult Discharge Plan - Plan Referrals: Laxmi Noonan APN [Primary Care Provider] - __ (2) CAD (coronary artery disease) Qualifiers: Coronary Disease-Associated Artery/Lesion type: unspecified vessel or lesion type [place] vs. transplanted heart: [place] heart Associated angina: angina presence unspecified Qualified Code(s): I25.10 - Atherosclerotic heart disease of [place] coronary artery without angina pectoris (3) HTN (hypertension) Qualifiers: Hypertension type: unspecified Qualified Code(s): I10 - Essential (primary) hypertension (4) HLD (hyperlipidemia) Qualifiers: Hyperlipidemia type: unspecified Qualified Code(s): E78.5 - Hyperlipidemia, unspecified (5) DVT (deep venous thrombosis) Qualifiers: DVT location: lower extremity Affected thrombotic vein of extremity: unspecified vein of extremity Chronicity: acute Laterality: right Qualified Code(s): I82.401 - Acute embolism and thrombosis of unspecified deep veins of right lower extremity
[2018-10-10] MEDS ORDERED: *HR* Propofol 200 MG/20 ML VIAL IVP ONE ×2 (12:44→13:01)
[2018-10-10] MEDS ORDERED: *HR* PHENYLEPHRINE 1,000 MCG/10 ML SYRINGE IVP ONE ×2 (12:58→13:25)
[2018-10-10] MEDS: 0.9 % Sodium Chloride 1,000 ML IVC SCH (14:40)
--- NOTE | 2018-10-10 14:40 | Anesthesia Evaluation Post Op ---
Date of Encounter: 10/10/18 Time of Encounter: 14:00 - Vital Signs Vital Signs: Last Vital Signs Temp 97.9 F 10/10/18 14:08 Pulse 64 10/10/18 14:08 Resp 18 10/10/18 14:08 BP 135/65 10/10/18 14:08 Pulse Ox 100 10/10/18 14:08 - Lungs Lungs: Clear Ascult./Percussion - Airway Airway: Non-obstructed - Cardiovascular Regular Rate - Mental Status Mental Status: Alert & Oriented, Answers Appropriately - Pain Pain Scale: 1 - Nausea Vomiting Nausea Vomiting: Not Present - Hydration Hydration: NPO - Discharge PostOp Status: Transfer Patient to floor
[2018-10-10] MEDS: Aspirin Enteric Coated 81 MG Tablet PO SCH (17:59)
[2018-10-11] MEDS ORDERED: Acetaminophen 325 MG TABLET PO PRN (03:16)
[2018-10-11] MEDS ORDERED: Chloraseptic Spray 177 ML BOTTLE MM PRN (03:16)
[2018-10-11 05:24] LABS: Basophils % 0.5 %; Eosinophils # 0.2 K/mcL (0.0-0.6); Eosinophils % 4.5 %; Hematocrit 32.3 % (35.3-44.9); Hemoglobin 10.2 g/dL (11.5-15.4); Lymphocytes # 0.9 K/mcL (0.6-4.6); Lymphocytes % 20.5 %; Mean Corpuscular HGB Conc 31.6 g/dL (31.6-35.5); Mean Corpuscular Hemoglobin 29.5 pg (28.0-33.3); Mean Corpuscular Volume 93.4 fL (83.0-100.0); Mean Platelet Volume 9.7 fL (9.4-12.4); Monocytes # 0.5 K/mcL (0.0-1.3); Monocytes % 10.6 %; Neutrophils # 2.8 K/mcL (1.6-8.9); Platelet Count 158 K/mcL (140-400); Red Blood Count 3.46 M/mcL (3.82-4.97); Red Cell Distribution Width 15.3 % (11.5-14.5); Segmented Neutrophils % 63.9 %
[2018-10-11] MEDS: 0.9 % Sodium Chloride 1,000 ML IVC SCH (05:34)
[2018-10-11 05:45] LABS: BUN/Creatinine Ratio 13 (6-26); Blood Urea Nitrogen 8 mg/dL (8-23); Calcium 8.2 mg/dL (8.6-10.3); Carbon Dioxide 30 mEq/L (23-29); Chloride 105 mEq/L (98-107); Glucose 88 mg/dL (70-105); Osmolality,Calculated 286 (280-300); Potassium 4.1 mEq/L (3.5-5.1); Sodium 139 mEq/L (136-145); eGFR For Non-African Americans > 60 (> 60)
[2018-10-11] MEDS: Levothyroxine 25 MCG TABLET PO SCH (06:17)
[2018-10-11] MEDS: Pantoprazole 40 MG in 0.9 % Sodium Chloride Mini Bag 100 ML IVC SCH ×2 (06:22→11:46)
[2018-10-11] MEDS: UMECLIDINIUM 62.5 MCG IH SCH (08:01)
[2018-10-11] MEDS: Ranolazine 500 MG TAB.ER.12H PO SCH ×2 (09:38→20:37)
[2018-10-11] MEDS: Isosorbide MONOnitrate (24 HR) 60 MG TAB.ER.24H PO SCH (09:39)
[2018-10-11] MEDS: Multivit/Ca/Min/Fe/FA 1 TAB TABLET PO SCH (09:40)
[2018-10-11] MEDS: amLODIPine 5 MG TABLET PO SCH (09:40)
[2018-10-11] MEDS: Psyllium 1 PACKET POWD.PACK PO SCH (09:40)
[2018-10-11] MEDS: Furosemide 20 MG TABLET PO SCH (09:40)
[2018-10-11 12:22] LABS: Hematocrit 31.4 % (35.3-44.9); Hemoglobin 9.7 g/dL (11.5-15.4)
--- NOTE | 2018-10-11 13:15 | General Surgery Progress Note ---
Date of Encounter: 10/11/18 Time of Encounter: 13:12 - Assessment and Plan (1) Acute blood loss anemia Current Visit: Yes Status: Acute 78F with LGIB and symptomatic anemia x 6-8 months as well as unexplained weight loss; s/p EGD and colonoscopy; biopsies taken of stomach, hemospray used for bleeding source in ascending colon diet as tolerated trend h/h will follow up in two weeks in my clinic no acute surgery if h/h continues to trend down, then recommend RBC tagged cell vs angiogram general surgery will sign off at present; if there is a new concern or question that arises, please contact me immediately Subjective Patient reports: no new complaints, feels better, tolerating liquids well Objective Vital Signs - Last 8 Hours Temp Pulse Resp BP Pulse Ox 10/11/18 11:36 98.6 F 69 15 129/61 100 10/11/18 08:03 16 100 10/11/18 06:49 97.9 F 72 16 140/65 100 Intake and Output 10/10/18 10/11/18 10/11/18 23:59 07:59 15:59 Intake Total 100 / 100 1100 / 1100 340 / 340 Output Total 120 / 120 0 / 0 Balance -20 / -20 1100 / 1100 340 / 340 Intake: IV Fluids 100 / 100 1100 / 1100 100 / 100 0.9 % Sodium Chloride 1,000 ML 1000 / 1000 @ 75 mls/hr IVC .[id number] JENN[facility]ER Rx #:[id number] Protonix 40 MG In 0.9 % Sodium 100 / 100 100 / 100 100 / 100 Chloride (Mini-Bag +) 100 ML @ 20 mls/hr IVC .Q5H JENNIFER Rx#: [id number] Oral 240 / 240 Output: Urine 120 / 120 0 / 0 Other: # Voids 1 2 Weight 42.547 kg Patient Weight 10/11/18 23:59 Weight 42.547 kg - General physical appearance no distress - Cardiovascular Cardiovascular exam: Present: RRR - Abdomen Abdomen: Present: soft, non tender - Neurologic CN 2-12 grossly intact - Psychiatric oriented to time, oriented to person, oriented to place - Labs 10/11/18 12:02 10/11/18 04:51 Diabetes panel 10/11/18 Range/Units 04:51 Sodium 139 (136-145) mEq/L Potassium 4.1 (3.5-5.1) mEq/L Chloride 105 (98-107) mEq/L Carbon Dioxide 30 H (23-29) mEq/L BUN 8 (8-23) mg/dL Creatinine 0.64 (0.60-1.20) mg/dL Glucose 88 (70-105) mg/dL Calcium 8.2 L (8.6-10.3) mg/dL Calcium panel 10/11/18 Range/Units 04:51 Calcium 8.2 L (8.6-10.3) mg/dL Pituitary panel 10/11/18 Range/Units 04:51 Sodium 139 (136-145) mEq/L Potassium 4.1 (3.5-5.1) mEq/L Chloride 105 (98-107) mEq/L Carbon Dioxide 30 H (23-29) mEq/L BUN 8 (8-23) mg/dL Creatinine 0.64 (0.60-1.20) mg/dL Glucose 88 (70-105) mg/dL Calcium 8.2 L (8.6-10.3) mg/dL Adrenal panel 10/11/18 Range/Units 04:51 Sodium 139 (136-145) mEq/L Potassium 4.1 (3.5-5.1) mEq/L Chloride 105 (98-107) mEq/L Carbon Dioxide 30 H (23-29) mEq/L BUN 8 (8-23) mg/dL Creatinine 0.64 (0.60-1.20) mg/dL Glucose 88 (70-105) mg/dL Calcium 8.2 L (8.6-10.3) mg/dL - VTE Reasons for not Prescribing Prophylaxis: Medical contraindication Consult Discharge Plan - Plan Referrals: Laxmi Noonan APN [Primary Care Provider] -
--- NOTE | 2018-10-11 14:50 | Internal Med Progress Note ---
Hospitalist Progress Note - Encounter Date of Encounter: 10/11/18 Time of Encounter: 14:46 - Subjective Interval History: Patient sitting comfortably on bed family at bedside. Family at bedside. Tolerating liquid diet. No active bleeding. Denies fever chills nausea vomiting headache dizziness chest pain abdominal pain tingling numbness. Review the lab with trending down hemoglobin - Exam Vitals: Temp Pulse Resp BP Pulse Ox 98.6 F 69 15 129/61 100 10/11/18 11:36 10/11/18 11:36 10/11/18 11:36 10/11/18 11:36 10/11/18 11:36 Exam: Gen: Alert, awake, Oriented to time,place and person. 2 L oxygen by nasal cannula Chest: Diminished breath sounds B/L. few scattered rhonchi bilaterally Heart: S1S2+ RRR Abd: Soft, mildly discomfort at lower abdomen and cassie umbelical region, BS +, No organomegaly Ext: No edema, pulses are palpable, No calf tenderness Neuro : Grossly intact with no focal neurological deficit Skin: No rash. - Assessment and Plan (1) Acute blood loss anemia Current Visit: Yes Status: Acute Assessment and Plan: Due to GI bleed with positive Hemoccult but no gross bleeding of several. Status post 2 U PRBC. Patient had upper and lower GI endoscopy done on 1123 2017. Upper GI endoscopy with no significant finding but lower GI endoscope with mucosal ulcer and ascending colon but not bleeding actively. Stopped PPI drip and is started oral PPI 40 mg daily. Continue to hold Plavix and Eliquis. I updated general surgeon about trending down hemoglobin and he advised to keep patient overnight and repeat hemoglobin tomorrow and will make further plan of care. Continue liquid diet. SCDs for DVT prophylaxis. Surgeon on board. Monitor H&H. (2) CAD (coronary artery disease) Current Visit: No Status: Chronic Assessment and Plan: s/p CABG Recent [facility] @ 09/17/2018 showed patent bypass grafts. 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 (3) HTN (hypertension) Current Visit: No Status: Chronic Assessment and Plan: Stable with current regimen. Close monitoring and continue current home medications (4) HLD (hyperlipidemia) Current Visit: No Status: Chronic Assessment and Plan: Continue home dose of statin (5) DVT (deep venous thrombosis) Current Visit: No Status: Acute Assessment and Plan: Patient found to have acute deep venous thrombosis and right superficial femoral vein during last visit almost 3 weeks therefore Eliquis was started. 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 continue holding Plavix for now due to above - Time Spent with Patient Total time spent is greater than 50% in coordination of care (as documented) at patient's floor/unit and/or counseling patient: 25 - 35 minutes Plan of Care Discussed with: patient Internal Medicine: Result - Labs CBC & Chem 7: 10/11/18 12:02 10/11/18 04:51 Labs: Short CBC 10/11/18 10/11/18 Range/Units 04:51 12:02 WBC 4.4 (4.3-11.1) K/mcL Hgb 10.2 L 9.7 L (11.5-15.4) g/dL Hct 32.3 L 31.4 L (35.3-44.9) % Plt Count 158 (140-400) K/mcL Neutrophils # 2.8 (1.6-8.9) K/mcL BMP 10/11/18 04:51 Sodium 139 Potassium 4.1 Chloride 105 Carbon Dioxide 30 H BUN 8 Creatinine 0.64 Glucose 88 Calcium 8.2 L - VTE Reasons for not Prescribing Prophylaxis: Medical contraindication Consult Discharge Plan - Plan Referrals: Laxmi Noonan APN [Primary Care Provider] - (2) CAD (coronary artery disease) Qualifiers: Coronary Disease-Associated Artery/Lesion type: unspecified vessel or lesion type [place] vs. transplanted heart: [place] heart Associated angina: angina presence unspecified Qualified Code(s): I25.10 - Atherosclerotic heart disease of [place] coronary artery without angina pectoris (3) HTN (hypertension) Qualifiers: Hypertension type: unspecified Qualified Code(s): I10 - Essential (primary) hypertension (4) HLD (hyperlipidemia) Qualifiers: Hyperlipidemia type: unspecified Qualified Code(s): E78.5 - Hyperlipidemia, unspecified (5) DVT (deep venous thrombosis) Qualifiers: DVT location: lower extremity Affected thrombotic vein of extremity: unspecified vein of extremity Chronicity: acute Laterality: right Qualified Code(s): I82.401 - Acute embolism and thrombosis of unspecified deep veins of right lower extremity
[2018-10-11] MEDS: Aspirin Enteric Coated 81 MG Tablet PO SCH (17:35)
[2018-10-12] MEDS: Levothyroxine 25 MCG TABLET PO SCH (05:54)
[2018-10-12 09:38] LABS: Basophils % 0.2 %; Eosinophils # 0.2 K/mcL (0.0-0.6); Eosinophils % 3.6 %; Hematocrit 34.5 % (35.3-44.9); Hemoglobin 10.4 g/dL (11.5-15.4); Immature Granulocytes % 0.4 % (0-4); Lymphocytes # 0.8 K/mcL (0.6-4.6); Lymphocytes % 15.8 %; Mean Corpuscular HGB Conc 30.1 g/dL (31.6-35.5); Mean Corpuscular Hemoglobin 29.1 pg (28.0-33.3); Mean Corpuscular Volume 96.4 fL (83.0-100.0); Mean Platelet Volume 9.5 fL (9.4-12.4); Monocytes # 0.5 K/mcL (0.0-1.3); Monocytes % 9.7 %; Neutrophils # 3.5 K/mcL (1.6-8.9); Platelet Count 176 K/mcL (140-400); Red Blood Count 3.58 M/mcL (3.82-4.97); Segmented Neutrophils % 70.3 %
[2018-10-12 09:56] LABS: BUN/Creatinine Ratio 8 (6-26); Blood Urea Nitrogen 6 mg/dL (8-23); Calcium 8.5 mg/dL (8.6-10.3); Carbon Dioxide 30 mEq/L (23-29); Chloride 102 mEq/L (98-107); Glucose 208 mg/dL (70-105); Osmolality,Calculated 292 (280-300); Potassium 3.4 mEq/L (3.5-5.1); Sodium 139 mEq/L (136-145); eGFR For Non-African Americans > 60 (> 60)
[2018-10-12] MEDS: Furosemide 20 MG TABLET PO SCH (10:16)
[2018-10-12] MEDS: Psyllium 1 PACKET POWD.PACK PO SCH (10:16)
[2018-10-12] MEDS: Isosorbide MONOnitrate (24 HR) 60 MG TAB.ER.24H PO SCH (10:16)
[2018-10-12] MEDS: amLODIPine 5 MG TABLET PO SCH (10:17)
[2018-10-12] MEDS: Ranolazine 500 MG TAB.ER.12H PO SCH ×2 (10:17→20:37)
[2018-10-12] MEDS: UMECLIDINIUM 62.5 MCG IH SCH (10:17)
[2018-10-12] MEDS: Multivit/Ca/Min/Fe/FA 1 TAB TABLET PO SCH (10:17)
--- NOTE | 2018-10-12 10:35 | Discharge Summary ---
- NOTES TO OUTPATIENT PROVIDER Notes to Outpatient Provider: Follow-up with PCP in 1-2 days-CBC check on this Friday. Follow-up with her cardiology in 3-5 days-discuss about further anticoagulation regime in the context of recent GI bleed with mucosal ulcer in the colon. Follow-up with general surgeon Dr. Osuna in one week Orders not resulted at time of discharge: Pending orders 10/10/18 13:43 Surgical Pathology [PTH] Routine Date of Encounter: 10/13/18 Time of Encounter: 12:52 - Discharge Diagnosis (1) Acute blood loss anemia Priority: Primary Status: Acute Assessment and Plan: Due to GI bleed with positive Hemoccult but no gross bleeding of several. Status post 2 U PRBC. Patient had upper and lower GI endoscopy done on 10/10 2018. Upper GI endoscopy with no significant finding but lower GI endoscope with mucosal ulcers in ascending colon but not bleeding actively. Stopped PPI drip and is started oral PPI 40 mg daily. Continued to hold Plavix and Eliquis. At the time of discharge patient had a stable hemoglobin with no further active bleeding. I discussed in length with general surgeon and patient, family about resuming full anticoagulation in future ,risk and benefits. Therefore I consulted cardiologists who advise perform Doppler venous ultrasound of right lower extremity and covered her with heparin drip overnight with follow-up hemoglobin. Doppler ultrasound was found negative for DVT in lower extremities with a stable hemoglobin is staying more than 10 therefore cardiology advice to discharge patient on Plavix and Eliquis with repeat CBC on coming Friday and follow-up with her damage inside adjuster Dr. Gomes in office within one week. If patient has any concern of bleeding that she needs to call her PCP, cardiology and surgeon office. Patient will follow with surgery on OPD basis in 1 week (2) CAD (coronary artery disease) Priority: Secondary Status: Chronic Assessment and Plan: s/p CABG Recent LHC @ 09/17/2018 showed patent bypass grafts. 100% RCA HIGH SCALER with left to right collaterals, otherwise mild disease in left coronaries . As patient had recent GI bleed therefore damage inside adjuster consulted and advised to hold aspirin and discharge patient on Plavix. Follow-up with her damage inside adjuster's office. Qualifiers: Coronary Disease-Associated Artery/Lesion type: unspecified vessel or lesion type [place] vs. transplanted heart: [place] heart Associated angina: angina presence unspecified Qualified Code(s): I25.10 - Atherosclerotic heart disease of [place] coronary artery without angina pectoris (3) HTN (hypertension) Priority: Secondary Status: Chronic Assessment and Plan: Stable with current regimen. Close monitoring and continue current home medications Qualifiers: Hypertension type: unspecified Qualified Code(s): I10 - Essential (primary) hypertension (4) HLD (hyperlipidemia) Priority: Secondary Status: Chronic Assessment and Plan: Continue home dose of statin Qualifiers: Hyperlipidemia type: unspecified Qualified Code(s): E78.5 - Hyperlipidemia, unspecified (5) DVT (deep venous thrombosis) Priority: Secondary Status: Acute Assessment and Plan: Patient found to have acute deep venous thrombosis and right superficial femoral vein during last visit almost 3 weeks therefore Eliquis was started. Held Eliquis during this admission. Please see elbow cardiology recommendation. Repeat Doppler venous ultrasound with patent veins Qualifiers: DVT location: lower extremity Affected thrombotic vein of extremity: unspecified vein of extremity Chronicity: acute Laterality: right Qualified Code(s): I82.401 - Acute embolism and thrombosis of unspecified deep veins of right lower extremity (6) Caloric malnutrition Priority: Primary Status: Chronic Assessment and Plan: Patient with a BMI of 16.8,consulted lens blank gauger and follow their recommendation (7) Acute GI hemorrhage Priority: Primary Status: Acute Assessment and Plan: See above plan (8) PAD (peripheral artery disease) Priority: Secondary Status: Acute Assessment and Plan: She does have severe peripheral arterial disease with multiple vascular interventions . Will follow further recommendations as above Hospital course: Ms. Fabian is a 78 year old female patient got admitted for GI bleed. Her hemoglobin has been after PRC transfusion. Upper and lower GI endoscope was done with few mucosal non-actively bleeding ulcer in the ascending colon. Please see details in the diagnosis section of discharge summary. At the time of discharge patient is clinically and hemodynamically stable, no active bleeding, H&H is stable, tolerating diet, ambulating well. PTOT and social sciences chair was consulted and they recommended to discharge patient home with no furt her need. Patient will continue home oxygen and needs to follow with PCP for close monitoring. Discharge discussed with: patient, family, nurse, case management, employee relations consultant - Time Spent with Patient Total time spent providing and/or coordinating discharge services: Greater than 30 minutes (Is spent almost 40 minute and communication with patien t, family, case management, nursing staff and also discussed the discharge plan with employee relations consultant and reviewed the morning, test reports.) - Discharge Medications Home Medications: Albuterol Sulfate [Ventolin Hfa] 2 puff IH Q4H 09/16/18 [History] Aspirin [Lo-Dose Aspirin EC] 81 mg PO QPM 09/16/18 [History] Atorvastatin Calcium [Lipitor] 80 mg PO QPM 09/16/18 [History] Clopidogrel [Plavix] 75 mg PO DAILY 09/16/18 [History] Furosemide [Lasix] 20 mg PO DAILY 09/16/18 [History] Isosorbide MONOnitrate [Isosorbide Mononitrate ER] 120 mg PO DAILY 09/16/18 [History] Levothyroxine [Synthroid] 25 mcg PO 0630 09/16/18 [History] Metoprolol [Lopressor] 50 mg PO BID 09/16/18 [History] Nitroglycerin 0.4 mg PO AD PRN MDD 3 SPRAYS/15MINS CALL 911 09/16/18 [History] Polyethylene Glycol 3350 [Smoothlax] 17 gm PO DAILY PRN 09/16/18 [History] Potassium Chloride 10 meq PO DAILY 09/16/18 [History] Ranolazine [Ranexa] 1,000 mg PO BID 09/16/18 [History] Vit C/E/Zn/Coppr/Lutein/Zeaxan [Preservision Areds 2 Softgel] 1 cap PO DAILY 09/16/18 [History] amLODIPine [Norvasc] 5 mg PO DAILY 09/16/18 [History] Aclidinium [place] [Tudorza Pressair] 1 puff IH DAILY 10/08/18 [History] Albuterol Neb [Proventil Neb] 2.5 mg IH BID 10/08/18 [History] Amitriptyline HCl 75 mg PO DAILY 10/08/18 [History] Apixaban [Eliquis] 5 mg PO BID 10/08/18 [History] Psyllium [place] [Metamucil] 0.52 gm PO DAILY 10/08/18 [History] Allergies/Adverse Reactions: Allergy/AdvReac Type Severity Reaction Status Date / Time guaifenesin [From Hytuss] Allergy See Verified 10/08/18 06:05 Comments nabumetone [From Relafen] Allergy See Verified 10/08/18 06:05 Comments pentazocine [From Talwin] Allergy See Verified 10/08/18 06:05 Comments prednisone Allergy See Verified 10/08/18 06:05 Comments propoxyphene Allergy See Verified 10/08/18 06:05 Comments Sulindac [From Clinoril] Allergy See Verified 10/08/18 06:05 Comments carbamazepine AdvReac Chest Pain Verified 10/08/18 06:05 codeine AdvReac See Verified 10/08/18 06:05 Comments etodolac AdvReac Chest Pain Verified 10/08/18 06:05 hydrocodone AdvReac Chest Pain Verified 10/08/18 06:05 Iodinated Contrast- Oral and AdvReac Chest Pain Verified 10/08/18 06:05 IV Dye [Iodinated Contrast Media - IV Dye] levofloxacin AdvReac Chest Pain Verified 10/08/18 06:05 NSAIDS (Non-Steroidal AdvReac Chest Pain Verified 10/08/18 06:05 Anti-Inflamma Penicillins [PCN] AdvReac Chest Pain Verified 10/08/18 06:05 pregabalin [From Lyrica] AdvReac Numbness Verified 10/08/18 06:05 pseudoephedrine AdvReac Chest Pain Verified 10/08/18 06:05 Sulfa (Sulfonamide AdvReac Chest Pain Verified 10/08/18 06:05 Antibiotics) tetracycline [Tetracycline] AdvReac Chest Pain Verified 10/08/18 06:05 tolmetin AdvReac Chest Pain Verified 10/08/18 06:05 tramadol AdvReac Numbness Verified 10/08/18 06:05 Date of admission: 10/09/18 09:45 Primary care physician: Laxmi Noonan APN Consults: 10/08/18 17:20 Consult to Surgery [CONS] Routine Consulting Provider: [facility] Reason for Consult: Acute blood loss anemia with occult positive stool Call Completed: Yes 10/09/18 12:01 Consult to Dowel Maker [CONS] Stat Reason for SW Consult: home alone with 10/09/18 12:02 Consult to Physical Therapy [CONS] Routine Comment: Evaluate, develop and implement POC Reason for Consult: generalized weakness Does patient have active BEDREST order?: No Is patient medically & hemodynamically stable?: Yes Patient assessed for mobility or mobilized this visit?: Yes 10/09/18 12:04 Consult to Occupational Therapy [CONS] Routine Comment: Evaluate, develop and implement POC Reason for Consult: generalized weakness Does patient have active BEDREST order?: No Is patient medically & hemodynamically stable?: Yes Patient assessed for mobility or mobilized this visit?: Yes 10/10/18 10:09 Consult to Nutrition [CONS] Routine Comment: Consulting Provider: NUTRITION Reason for Dietary Consult: Diet Education PO Supplementation - Constitutional Vitals: Temp Pulse Resp BP Pulse Ox 98.5 F 76 15 144/65 94 10/12/18 10:08 10/12/18 10:08 10/12/18 10:08 10/12/18 10:08 10/12/18 10:08 General appearance: Present: A&O X 3, no acute distress Exam: Gen: Alert, awake, Oriented to time,place and person. 2 L oxygen by nasal cannula Chest: Diminished breath sounds B/L. Heart: S1S2+ RRR Abd: Soft, not tender, BS + Ext: No edema, pulses are palpable, No calf tenderness Neuro : Grossly intact with no focal neurological deficit Skin: No rash. - Patient Status Disposition: Home, Self-Care Condition: Good Overall status at discharge: patient is back to baseline - Discharge Instructions Follow Up With: Laxmi Noonan APN [Primary Care Provider] - - Diet and Activity Activity: increase activity as tolerated Diet: advance to your usual diet - VTE Reasons for not Prescribing Prophylaxis: Medical contraindication
--- NOTE | 2018-10-12 10:59 | Event Note ---
Date of Encounter: 10/12/18 Time of Encounter: 10:50 - Cardiology Event Note Reviewing inpatient notes, patient diagnosed with DVT as inpatient 09/16/2018 and started on chronic anticoagulation by medicine team at that time. LHC was negative during that time and as previously recommended, only single antiplat elet therapy is necessary (plavix was recommended). Unless prohibitive from GI or bleeding standpoint: From DVT standpoint, typically recommend 3-6 months of anticoagulation after diagnosis of DVT without PE. If unprovoked DVT (ie not related to trauma/surgery), typically recommend use longer period of anticoagulation (ie 6 months). If unable to give anticoagulation, then would recommend repeating venous duplex. If DVT is still present, then we can place an IVC filter. For CAD, continue to recommend plavix 75mg daily unless prohibitive from GI / bleeding standpoint. (Can hold it until course of anticoagulation is finished)
--- NOTE | 2018-10-12 13:49 | Internal Med Progress Note ---
Hospitalist Progress Note - Encounter Date of Encounter: 10/12/18 Time of Encounter: 13:46 - Subjective Interval History: Patient sitting comfortably on bed family at bedside. Family at bedside. Tolerating liquid diet. No active bleeding. Denies fever chills nausea vomiting headache dizziness chest pain abdominal pain tingling numbness. Review the lab with stable hemoglobin Patient is concern about her anticoagulation medication on discharge - Exam Vitals: Temp Pulse Resp BP Pulse Ox 98.5 F 76 15 144/65 94 10/12/18 10:08 10/12/18 10:08 10/12/18 10:08 10/12/18 10:08 10/12/18 10:08 Exam: Gen: Alert, awake, Oriented to time,place and person. 2 L oxygen by nasal cannula Chest: Diminished breath sounds B/L. Heart: S1S2+ RRR Abd: Soft, not tender, BS + Ext: No edema, pulses are palpable, No calf tenderness Neuro : Grossly intact with no focal neurological deficit Skin: No rash. - Assessment and Plan (1) Acute blood loss anemia Current Visit: Yes Status: Acute Assessment and Plan: Due to GI bleed with positive Hemoccult but no gross bleeding of several. Status post 2 U PRBC. Patient had upper and lower GI endoscopy done on 10/10 2018. Upper GI endoscopy with no significant finding but lower GI endoscope with mucosal ulcers in ascending colon but not bleeding actively. Stopped PPI drip and is started oral PPI 40 mg daily. Continue to hold Plavix and Eliquis. Consulted cardiology to help in making discharge planning to resume anticoagulation as patient has multiple complicated vascular disease with recent DVT and also recent GI bleed. Cardiology talked to general surgeon Dr. Osuna as well and finally made decision to repeat Doppler venous ultrasound while keeping her on heparin drip overnight repeat hemoglobin tomorrow morning. It is stable hemoglobin then will discharge patient on Plavix and Eliquis. Plan was discussed with patient and she agreed. (2) CAD (coronary artery disease) Current Visit: No Status: Chronic Assessment and Plan: s/p CABG. Recent LHC @ 09/17/2018 showed patent bypass grafts. 100% RCA PAN DEVULCANIZER HELPER with left to right collaterals, otherwise mild disease in left coronaries cardiology on board (3) HTN (hypertension) Current Visit: No Status: Chronic Assessment and Plan: Stable with current regimen. Close monitoring and continue current home medications (4) HLD (hyperlipidemia) Current Visit: No Status: Chronic Assessment and Plan: Continue home dose of statin (5) DVT (deep venous thrombosis) Current Visit: No Status: Acute Assessment and Plan: Patient found to have acute deep venous thrombosis and right superficial femoral vein during last visit almost 3 weeks therefore Eliquis was started. Held Eliquis during this admission. Will follow cardiology recommendation as above (6) Caloric malnutrition Current Visit: No Status: Chronic Assessment and Plan: Patient with a BMI of 16.8,consulted photography professor and follow their recommendation (7) Acute GI hemorrhage Current Visit: Yes Status: Acute Assessment and Plan: See above plan (8) PAD (peripheral artery disease) Current Visit: Yes Status: Acute Assessment and Plan: She does have severe peripheral arterial disease with multiple vascular interventions . Will follow further recommendations will be given by cardiology about anticoagulation - Time Spent with Patient Total time spent is greater than 50% in coordination of care (as documented) at patient's floor/unit and/or counseling patient: 25 - 35 minutes Plan of Care Discussed with: patient (Discuss plan of care with family nursing staff .) Internal Medicine: Result - Labs CBC & Chem 7: 10/12/18 09:07 10/12/18 09:07 Labs: Short CBC 10/12/18 Range/Units 09:07 WBC 5.0 (4.3-11.1) K/mcL Hgb 10.4 L (11.5-15.4) g/dL Hct 34.5 L (35.3-44.9) % Plt Count 176 (140-400) K/mcL Neutrophils # 3.5 (1.6-8.9) K/mcL BMP 10/12/18 09:07 Sodium 139 Potassium 3.4 L Chloride 102 Carbon Dioxide 30 H BUN 6 L Creatinine 0.72 Glucose 208 H Calcium 8.5 L - VTE Reasons for not Prescribing Prophylaxis: Medical contraindication Consult Discharge Plan - Plan Referrals: Laxmi Noonan APN [Primary Care Provider] - ____ (2) CAD (coronary artery disease) Qualifiers: Coronary Disease-Associated Artery/Lesion type: unspecified vessel or lesion type [place] vs. transplanted heart: [place] heart Associated angina: angina presence unspecified Qualified Code(s): I25.10 - Atherosclerotic heart disease of [place] coronary artery without angina pectoris (3) HTN (hypertension) Qualifiers: Hypertension type: unspecified Qualified Code(s): I10 - Essential (primary) hypertension (4) HLD (hyperlipidemia) Qualifiers: Hyperlipidemia type: unspecified Qualified Code(s): E78.5 - Hyperlipidemia, unspecified (5) DVT (deep venous thrombosis) Qualifiers: DVT location: lower extremity Affected thrombotic vein of extremity: unspecified vein of extremity Chronicity: acute Laterality: right Qualified Code(s): I82.401 - Acute embolism and thrombosis of unspecified deep veins of right lower extremity
[2018-10-12 14:47] LABS: Hematocrit 32.4 % (35.3-44.9); Hemoglobin 10.3 g/dL (11.5-15.4); INR 1.1; Mean Corpuscular HGB Conc 31.8 g/dL (31.6-35.5); Mean Corpuscular Hemoglobin 29.6 pg (28.0-33.3); Mean Corpuscular Volume 93.1 fL (83.0-100.0); Mean Platelet Volume 9.4 fL (9.4-12.4); Platelet Count 162 K/mcL (140-400); Prothrombin Time 12.9 Seconds (9.4-12.1); Red Blood Count 3.48 M/mcL (3.82-4.97); Red Cell Distribution Width 15.2 % (11.5-14.5)
[2018-10-12] MEDS: Aspirin Enteric Coated 81 MG Tablet PO SCH (17:42)
[2018-10-12] MEDS ORDERED: Heparin 25,000 UNIT/500 ML D5W 25,000 UNIT/500 ML BAG IVC SCH (19:00)
[2018-10-12] MEDS ORDERED: *HR* Heparin 5,000 UNIT/ML VIAL IVP PRN ×2 (19:00)
[2018-10-12] MEDS ORDERED: *HR* Heparin 5,000 UNIT/ML VIAL IVP ONE (19:00)
[2018-10-12] MEDS ORDERED: 0.9 % Sodium Chloride 500 ML ONE (22:26)
[2018-10-13 02:17] LABS: Basophils % 0.2 %; Eosinophils # 0.3 K/mcL (0.0-0.6); Eosinophils % 5.3 %; Hematocrit 32.9 % (35.3-44.9); Hemoglobin 10.4 g/dL (11.5-15.4); Immature Granulocytes % 0.4 % (0-4); Lymphocytes # 1.1 K/mcL (0.6-4.6); Lymphocytes % 21.5 %; Mean Corpuscular HGB Conc 31.6 g/dL (31.6-35.5); Mean Corpuscular Hemoglobin 29.8 pg (28.0-33.3); Mean Corpuscular Volume 94.3 fL (83.0-100.0); Mean Platelet Volume 9.1 fL (9.4-12.4); Monocytes # 0.6 K/mcL (0.0-1.3); Monocytes % 10.7 %; Neutrophils # 3.3 K/mcL (1.6-8.9); Platelet Count 156 K/mcL (140-400); Red Blood Count 3.49 M/mcL (3.82-4.97); Red Cell Distribution Width 14.9 % (11.5-14.5); Segmented Neutrophils % 61.9 %
[2018-10-13 02:36] LABS: BUN/Creatinine Ratio 14 (6-26); Blood Urea Nitrogen 9 mg/dL (8-23); Calcium 8.5 mg/dL (8.6-10.3); Carbon Dioxide 33 mEq/L (23-29); Chloride 101 mEq/L (98-107); Glucose 121 mg/dL (70-105); Osmolality,Calculated 290 (280-300); Potassium 3.9 mEq/L (3.5-5.1); Sodium 140 mEq/L (136-145); eGFR For Non-African Americans > 60 (> 60)
[2018-10-13] MEDS: Levothyroxine 25 MCG TABLET PO SCH (05:38)
[2018-10-13] MEDS: UMECLIDINIUM 62.5 MCG IH SCH (07:35)
[2018-10-13] MEDS: Ranolazine 500 MG TAB.ER.12H PO SCH (09:38)
[2018-10-13] MEDS: amLODIPine 5 MG TABLET PO SCH (09:39)
[2018-10-13] MEDS: Isosorbide MONOnitrate (24 HR) 60 MG TAB.ER.24H PO SCH (09:39)
[2018-10-13] MEDS: Psyllium 1 PACKET POWD.PACK PO SCH (09:39)
[2018-10-13] MEDS: Multivit/Ca/Min/Fe/FA 1 TAB TABLET PO SCH (09:39)
[2018-10-13] MEDS: Furosemide 20 MG TABLET PO SCH (09:39)
[2018-10-13 10:45] VITALS: BP 129/58
== END 2018-10-13 15:51 | disposition home or self-care (01) | DRG 254 ==
LOC: 3BNU → 3ANU 10-09 10:59
PROVIDERS: ADMIT Hospitalist; ATTEND Hospitalist
PROC: ENDOEBX (2018-10-10 12:00)
PROC: ENDOCCB (2018-10-10 12:00)

== ENCOUNTER 2018-10-16 01:40 | Inpatient (IN) ==
--- NOTE | 2018-10-16 06:06 | Internal Med History&Physical ---
<JdEnagenesis - Last Filed: 10/16/18 06:43> Date of Encounter: 10/16/18 Internal Medicine - H&P: Meds Albuterol Sulfate [Ventolin Hfa] 2 puff IH Q4H 09/16/18 [History] Atorvastatin Calcium [Lipitor] 80 mg PO QPM 09/16/18 [History] Clopidogrel [Plavix] 75 mg PO DAILY 09/16/18 [History] Furosemide [Lasix] 20 mg PO DAILY 09/16/18 [History] Isosorbide MONOnitrate [Isosorbide Mononitrate ER] 120 mg PO DAILY 09/16/18 [History] Levothyroxine [Synthroid] 25 mcg PO 0630 09/16/18 [History] Metoprolol [Lopressor] 50 mg PO BID 09/16/18 [History] Nitroglycerin 0.4 mg PO AD PRN MDD 3 SPRAYS/15MINS CALL 911 09/16/18 [History] Polyethylene Glycol 3350 [Smoothlax] 17 gm PO DAILY PRN 09/16/18 [History] Potassium Chloride 10 meq PO DAILY 09/16/18 [History] Ranolazine [Ranexa] 1,000 mg PO BID 09/16/18 [History] Vit C/E/Zn/Coppr/Lutein/Zeaxan [Preservision Areds 2 Softgel] 1 cap PO DAILY 09/16/18 [History] amLODIPine [Norvasc] 5 mg PO DAILY 09/16/18 [History] Aclidinium [place] [Tudorza Pressair] 1 puff IH DAILY 10/08/18 [History] Albuterol Neb [Proventil Neb] 2.5 mg IH BID 10/08/18 [History] Amitriptyline HCl 75 mg PO DAILY 10/08/18 [History] Apixaban [Eliquis] 5 mg PO BID 10/08/18 [History] Psyllium Hus[place] [Metamucil] 0.52 gm PO DAILY 10/08/18 [History] Omeprazole [PriLOSEC] 40 mg PO DAILY@0800 #30 capsule. 10/13/18 [Rx] Allergy/AdvReac Type Severity Reaction Status Date / Time guaifenesin [From Hytuss] Allergy See Verified 10/08/18 06:05 Comments nabumetone [From Relafen] Allergy See Verified 10/08/18 06:05 Comments pentazocine [From Talwin] Allergy See Verified 10/08/18 06:05 Comments prednisone Allergy See Verified 10/08/18 06:05 Comments propoxyphene Allergy See Verified 10/08/18 06:05 Comments Sulindac [From Clinoril] Allergy See Verified 10/08/18 06:05 Comments carbamazepine AdvReac Chest Pain Verified 10/08/18 06:05 codeine AdvReac See Verified 10/08/18 06:05 Comments etodolac AdvReac Chest Pain Verified 10/08/18 06:05 hydrocodone AdvReac Chest Pain Verified 10/08/18 06:05 Iodinated Contrast- Oral and AdvReac Chest Pain Verified 10/08/18 06:05 IV Dye [Iodinated Contrast Media - IV Dye] levofloxacin AdvReac Chest Pain Verified 10/08/18 06:05 NSAIDS (Non-Steroidal AdvReac Chest Pain Verified 10/08/18 06:05 Anti-Inflamma Penicillins [PCN] AdvReac Chest Pain Verified 10/08/18 06:05 pregabalin [From Lyrica] AdvReac Numbness Verified 10/08/18 06:05 pseudoephedrine AdvReac Chest Pain Verified 10/08/18 06:05 Sulfa (Sulfonamide AdvReac Chest Pain Verified 10/08/18 06:05 Antibiotics) tetracycline [Tetracycline] AdvReac Chest Pain Verified 10/08/18 06:05 tolmetin AdvReac Chest Pain Verified 10/08/18 06:05 tramadol AdvReac Numbness Verified 10/08/18 06:05 All Systems PM: A 10-system review of systems was performed and is negative for pertinent findings except as documented above in the HPI. - Constitutional Vitals: Resp Pulse Ox 12 100 10/16/18 06:19 10/16/18 06:19 Internal Med - H&P Results - ABG Interpretation ABG results: 10/16/18 06:28 ABG pH 7.40 ABG pCO2 48 H ABG pO2 315 H D ABG HCO3 30 H ABG Total CO2 31 H ABG O2 Saturation 100 H ABG Base Excess 4 H - Time Spent With Patient Total time spent is greater than 50% in coordination of care (as documented) at patient's floor/unit and/or counseling patient: - Attending Attestation I performed a history and physical exam of the patient and discussed management with the resident. I reviewed the resident's note and agree with the documented findings and plan of care. Adriane Fabian is an 78-year-old woman with coronary and peripheral artery disease, hypertension and venous thrombolic embolic disease who was discharged from here only 3 days ago after being admitted for acute blood loss anemia due to lower GI bleed and was found on colonoscopy to have a non-actively bleeding ulcer in the ascending colon. Her bleed was in the setting of clopidogrel and apixaban. She was discharged with the rec ommendation to continue these medications based on chart review. She is now brought in to [facility] emergency room with altered mental status. She was notably obtunded and on labs seen to have a hemoglobin of 5.7 which is a drop from her discharge level of 10 only 3 days ago with no overt source of bleeding; fecal occult was negative. Her chemistry showed a potassium of 2.2 and calcium of 4.3. I was contacted for transfer but she subsequently suffered a generalized tonic-clonic seizure for which reason I advised intubation and immediate supplementation of electrolytes for stability prior to transfer. She was also seen to have an INR of 2.8 which is unexplained as there is no evidence that she takes warfarin and her liver function tests are within normal limits. On arrival here she is hemodynamically stable. Not responsive (she received only rocuronium and no actual sedative), pupils equal but sluggishly reactive, inspiratory hum noted, hyperdynamic precordium, mildly protuberant abdomen but soft to palpation, 1+ perimalleolar edema, no livedo reticularis but there is distal acrocyanosis of her feet. Surgical incision sites of CABG, abdominal surgery and left leg graft noted. Unable to assess neurologic/psych status due to current mentation. We will admit to ICU as inpatient for acute encephalopathy; suspect metabolic in etiology. Intracranial bleed has been ruled out with a negative head CT. UDS and alcohol levels are negative. Urine studies without signs of infection. Needs aggressive supplementation of calcium and potassium as I suspect this is the cause of her new onset convulsions. Check ionized calcium as well as magnesium. Continue PRBC transfusion with a goal hemoglobin of 8.0; 1 unit was already started prior to transfer. Also noted to have a drop in albumin to 1.5 from a baseline above 3 as well as thrombocytopenia of 92 from a prior reading o f over 150. Check PT/PTT, fibrinogen, d-dimer and peripheral blood smear to rule out DIC and microangiopathic hemolytic anemia. Will benefit from CT chest, abdomen and pelvis. SHIRA FOWLER. CCT 60 mins. <Gomez Blue - Last Filed: 10/16/18 08:44> Date of Encounter: 10/16/18 Time of Encounter: 06:30 Internal Medicine - H&P: HPI Chief complaint: Altered Admitted From: Hospital to Hospital Transfer Plans for Post Hospital Care: Transfer Half-Way Facility History of present illness: Ms. Fabian is a 78 year old female with history of asthma, COPD, coronary artery disease, hyperlipidemia, hypertension, MS and recent admission for suspected GI bleed who presented to [facility] ED with altered mental status and nausea. The patient was recently admitted to [facility] on 10/08/18 for suspected GI bleed with anemia and hemoglobin less than 7 wiring transfusions and was discharged on 10/13/18. At the time of arrival at [facility] ICU, the patient is sedated and mechanically ventilated also her history is primarily obtained from previous records and previous providers. The patient apparently recently was diagnosed with 2 nonbleeding ulcers in her colon during her last admission, however was discharged after having stable hemoglobin for the remainder of her admission. During that admission she did require transfusions but otherwise did well. Significantly, the patient does have a history of DVT and was treated with Apixaban and Plavix, which were continued on discharge on 10/13/18. She apparently was feeling generally well up until this morning, and she took a nap this evening but her apparently had trouble waking her and she became poorly responsive. EMS was called and she was unresponsive at that time. Apparently when EMS arrived they were concerned about facial droop and a stroke alert was called at the ED. Upon arrival to the ED, the patient remained poorly responsive and was also found to be hypothermic with a temperature of 96.4. Additionally there was concern about her blood pressure which was 84/43. Stat labs and the patient demonstrated that the patient's hemoglobin was 5.7, platelets 92, sodium 140, potassium 2.2, chloride 119, bicarbonate 18, creatinine 0.28, glucose 67, calcium 4.3, INR 2.8. While in the ED, the patient became increasingly unstable, and she was receiving 2 units of blood the patient did experience a short generalized tonic-clonic seizure which lasted about 1 minute. She was given Keppra, was intubated and received a right IJ CVC. The patient was then transferred to [facility] ICU for further management. Past Med Surg Social Fam HX - Past Medical History Medical history: asthma, COPD, coronary artery disease, hyperlipidemia, hypertension, myocardial infarction Psychiatric history: no psych history - Past Surgical History Surgical History: coronary bypass (CABG) Additional surgical history: Quad bypass in 1987. - Social History Smoking Status: Never smoker Smokeless Tobacco Status: No Alcohol use: none Drug use: none - Family History Mother Living Status: Hx Family Cardiac Disorders: Yes (heart disease, stroke) Hx Family Neurologic Disorders: Yes (Stoke) Father Living Status: Hx Family Cancer: Yes (Prostate) ROS unobtainable: due to mental status All Systems PM: A 10-system review of systems was performed and is negative for pertinent findings except as documented above in the HPI. - Constitutional Exam: Gen: Vitals noted. No acute distress. Eyes: anicteric sclerae, moist conjunctivae; no lid-lag; Pupils equal and reactive to light HENT: Atraumatic; oropharynx clear with moist mucous membranes and no mucosal ulcerations. ET tube in place without evidence of maceration; normal hard and soft palate Neck: Trachea midline; supple, no thyromegaly or lymphadenopathy Cardiac: RRR, no murmur, +S1/S2 Pulmonary: Coarse lung sounds b/l, significant rhonchi on the right with machine like rumbling Abdomen: soft, nontender, no guarding. No masses or hepatosplenomegaly MSK: ROM intact, no joint swelling noted Extremities: cool to the touch, 1+ BLE edema, nontender calf, no cyanosis or clubbing Skin: Cool, turgor and texture; no rash, ulcers or subcutaneous nodules Neuro: Sedated and ventilated Internal Med - H&P Results - Labs CBC & Chem 7: 10/16/18 06:35 10/16/18 06:35 - Assessment and plan (1) Acute hypoxemic respiratory failure Current Visit: Yes Status: Acute Assessment and plan: Acute hypoxic Hypercapnic respiratory failure Patient was unresponsive and hypoxic on presentation ABG 7.29/68/331/33/100 post intubation Patient has been sedated and ventilated We will consult pulmonology (2) Acute encephalopathy Current Visit: Yes Status: Acute Assessment and plan: Acute metabolic encephalopathy Patient has severe drop in hemoglobin compared to 10/13/18 Additionally, there has been a large change in electroly balance from previous, K 2.2, Ca 4.3 Additinally, the patient had tonic-clonic seizure while at [facility] ED Suspect that the encephaolopathy is multifactorial as a result We will treat these abnormalities and monitor neural status (3) Acute blood loss anemia Current Visit: Yes Status: Acute Assessment and plan: Acute drop in Hgb 5.7 down from 10.4 on 09/12/18 Patient does have recent history of GI bleed, was placed on Eliquis At the time of admission, patient has no obvious evidence of ke bleeding We will Scan the patient's Chest/abdomen/pelvis Received 2U blood, will give 1U blood Repeat CBC (4) Seizure Current Visit: Yes Status: Acute Assessment and plan: Seizure reported from [facility] No documented history of seizure disorder Ct head is negative of acute changes Likely secondary to dramatic change in electrolytes We will correct electrolyte disturbances and monitor neural status (5) Hypokalemia Current Visit: Yes Status: Acute Assessment and plan: Hypokalemia, K reported 2.2 Patient received 20mEq in the ED at [facility] We will start 40mEq potassium now, repeat BMP (6) Hypocalcemia Current Visit: Yes Status: Acute Assessment and plan: Serum Ca 4.3 at [facility] Received 1g calcium gluconate We will give 2g Ca Chloride Check ionized ca and repeat BMP (7) Bleeding diathesis Current Visit: Yes Status: Acute Assessment and plan: Bleeding diathesis on presentation, unclear etiology Concern for supratherapeutic INR due to plavix/eliquis vs. hepatic failure vs DIC Presents with new severe drop in Hg to 5.7, Plt 92 Clinically there is no evidence of bleeding We will check Fibrinogen, D-Dimer, Occult blood We will also Order a Chest/Abd/Pelvis CT to assess for possible blood consolidation (8) Thrombocytopenia Current Visit: Yes Status: Acute Assessment and plan: Thrombocytopenia, secondary to bleeding vs. possible DIC We will recheck CBC now (9) CHF (congestive heart failure) Current Visit: Yes Status: Acute Assessment and plan: Diastolic CHF CXR shows Increased b/l pulmonary edema Patient was also hypoxic on arrival She received 40mg IV Lasix at [facility] We will continue to monitor O2 Status Continuous cardiac monitoring Qualifiers: Heart failure type: diastolic Heart failure chronicity: chronic Qualified Code(s): I50.32 - Chronic diastolic (congestive) heart failure (10) DVT (deep venous thrombosis) Current Visit: No Status: Chronic Assessment and plan: History of DVt on prior admission Discharged on eliquis We will hold in the setting of possible bleeding Qualifiers: DVT location: lower extremity Affected thrombotic vein of extremity: unspecified vein of extremity Chronicity: acute Laterality: right Qualif ied Code(s): I82.401 - Acute embolism and thrombosis of unspecified deep veins of right lower extremity (11) HTN (hypertension) Current Visit: Yes Status: Chronic Assessment and plan: Hypertension, likely secondary to pain and discomfort The patient was intubated and paralyzed without sedation We will start fentanyl drip now Continue to monitor Resume home meds as able Qualifiers: Hypertension type: unspecified Qualified Code(s): I10 - Essential (primary) hypertension - Time Spent With Patient Total time spent is greater than 50% in coordination of care (as documented) at patient's floor/unit and/or counseling patient:
[2018-10-16] MEDS ORDERED: Naloxone 0.4 MG/ML INJ IVP PRN (06:10)
[2018-10-16] MEDS ORDERED: Calcium Chloride 2,000 MG in 0.9 % Sodium Chloride 100 ML IVPB ONE (06:12)
[2018-10-16] MEDS ORDERED: Isovue-370 500 ML INFUS..BTL IV ONE (06:18)
[2018-10-16] MEDS ORDERED: *HR* FentaNYL (PF) 100 MCG/2 ML VIAL ONE (06:20)
[2018-10-16 06:31] LABS: ABG Base Excess 4 mEq/L (-2 to 3); ABG HCO3 30 mEq/L (21-27); ABG Oxygen Saturation 100 % (95-98); ABG PCO2 48 mmHg (35-45); ABG PO2 315 mmHg (85-104); ABG TCO2 31 mEq/L (20-26); Blood Gas Modality PRVC; Blood Gas PEEP 5 cm H2O; Blood Gas Respiration Rate 12; Blood Gas VT 380 cc
[2018-10-16] MEDS ORDERED: *HR* FentaNYL (PF) 100 MCG/2 ML VIAL IVP ONE (06:44)
[2018-10-16 06:51] LABS: Basophils % 0.2 %; Eosinophils % 0.6 %; Hematocrit 41.2 % (35.3-44.9); Immature Granulocytes % 0.2 % (0-4); Lymphocytes # 0.6 K/mcL (0.6-4.6); Lymphocytes % 12.7 %; Mean Corpuscular HGB Conc 32.5 g/dL (31.6-35.5); Mean Corpuscular Hemoglobin 29.7 pg (28.0-33.3); Mean Corpuscular Volume 91.4 fL (83.0-100.0); Mean Platelet Volume 9.9 fL (9.4-12.4); Monocytes # 0.3 K/mcL (0.0-1.3); Monocytes % 6.6 %; Platelet Count 145 K/mcL (140-400); Red Blood Count 4.51 M/mcL (3.82-4.97); Red Cell Distribution Width 14.5 % (11.5-14.5); Segmented Neutrophils % 79.7 %
[2018-10-16] MEDS: FentaNYL (PF) 1,000 MCG in 0.9 % Sodium Chloride 80 ML IVC SCH ×2 (06:53→22:48)
[2018-10-16] MEDS: Norepinephrine 4 MG in D5% in Water 250 ML IVC SCH (06:55)
[2018-10-16 06:58] LABS: VBG Ionized Calcium 1.26 mmol/L (1.15-1.35)
[2018-10-16 07:03] LABS: Fibrinogen 646 mg/dL (169-393); INR 1.7; Prothrombin Time 19.2 Seconds (9.4-12.1)
[2018-10-16 07:05] LABS: Activated Partial Thrombo Time 43.3 Seconds (26.0-36.0)
[2018-10-16 07:06] LABS: D-Dimer 797 ng/mLFEU (0-500)
[2018-10-16 07:09] LABS: Magnesium 1.5 mg/dL (1.6-2.6); Phosphorous 1.7 mg/dL (2.7-4.5)
[2018-10-16 07:10] LABS: Albumin 3.3 g/dL (3.5-5.7); Albumin/Globulin Ratio 1.1 (1.1-2.2); Bilirubin,Direct 0.3 mg/dL (0.0-0.2); Bilirubin,Indirect 0.5 mg/dL (0.0-1.2); Bilirubin,Total 0.8 mg/dL (0.3-1.0); Globulin 3.1 g/dL (2.4-3.5); Total Protein 6.4 g/dL (6.4-8.9)
[2018-10-16 07:19] LABS: BUN/Creatinine Ratio 28 (6-26); Blood Urea Nitrogen 19 mg/dL (8-23); Calcium 9.3 mg/dL (8.6-10.3); Carbon Dioxide 28 mEq/L (23-29); Chloride 101 mEq/L (98-107); Glucose 185 mg/dL (70-105); Osmolality,Calculated 289 (280-300); Potassium 3.9 mEq/L (3.5-5.1); Sodium 136 mEq/L (136-145); eGFR For Non-African Americans > 60 (> 60)
[2018-10-16 07:30] LABS: Hemoglobin 13.4 g/dL (11.5-15.4)
--- NOTE | 2018-10-16 09:44 | Pulmonology Consult Note ---
<Connie Sanchez M - Last Filed: 10/16/18 10:15> Date of Encounter: 10/16/18 Medications and Allergies Albuterol Sulfate [Ventolin Hfa] 2 puff IH Q4H 09/16/18 [History] Atorvastatin Calcium [Lipitor] 80 mg PO QPM 09/16/18 [History] Clopidogrel [Plavix] 75 mg PO DAILY 09/16/18 [History] Furosemide [Lasix] 20 mg PO DAILY 09/16/18 [History] Isosorbide MONOnitrate [Isosorbide Mononitrate ER] 120 mg PO DAILY 09/16/18 [History] Levothyroxine [Synthroid] 25 mcg PO 0630 09/16/18 [History] Metoprolol [Lopressor] 50 mg PO BID 09/16/18 [History] Nitroglycerin 0.4 mg PO AD PRN MDD 3 SPRAYS/15MINS CALL 911 09/16/18 [History] Polyethylene Glycol 3350 [Smoothlax] 17 gm PO DAILY PRN 09/16/18 [History] Potassium Chloride 10 meq PO DAILY 09/16/18 [History] Ranolazine [Ranexa] 1,000 mg PO BID 09/16/18 [History] Vit C/E/Zn/Coppr/Lutein/Zeaxan [Preservision Areds 2 Softgel] 1 cap PO DAILY 09/16/18 [History] amLODIPine [Norvasc] 5 mg PO DAILY 09/16/18 [History] Aclidinium [place] [Tudorza Pressair] 1 puff IH DAILY 10/08/18 [History] Albuterol Neb [Proventil Neb] 2.5 mg IH BID 10/08/18 [History] Amitriptyline HCl 75 mg PO DAILY 10/08/18 [History] Apixaban [Eliquis] 5 mg PO BID 10/08/18 [History] Psyllium [place] [Metamucil] 0.52 gm PO DAILY 10/08/18 [History] Omeprazole [PriLOSEC] 40 mg PO DAILY@0800 #30 capsule. 10/13/18 [Rx] Allergy/AdvReac Type Severity Reaction Status Date / Time guaifenesin [From Hytuss] Allergy See Verified 10/16/18 09:02 Comments nabumetone [From Relafen] Allergy See Verified 10/16/18 09:02 Comments pentazocine [From Talwin] Allergy See Verified 10/16/18 09:02 Comments prednisone Allergy See Verified 10/16/18 09:02 Comments propoxyphene Allergy See Verified 10/16/18 09:02 Comments Sulindac [From Clinoril] Allergy See Verified 10/16/18 09:02 Comments carbamazepine AdvReac Chest Pain Verified 10/08/18 06:05 codeine AdvReac See Verified 10/16/18 09:02 Comments etodolac AdvReac Chest Pain Verified 10/08/18 06:05 hydrocodone AdvReac Chest Pain Verified 10/08/18 06:05 Iodinated Contrast- Oral and AdvReac Chest Pain Verified 10/08/18 06:05 IV Dye [Iodinated Contrast Media - IV Dye] levofloxacin AdvReac Chest Pain Verified 10/08/18 06:05 NSAIDS (Non-Steroidal AdvReac Chest Pain Verified 10/08/18 06:05 Anti-Inflamma Penicillins [PCN] AdvReac Chest Pain Verified 10/08/18 06:05 pregabalin [From Lyrica] AdvReac Numbness Verified 10/08/18 06:05 pseudoephedrine AdvReac Chest Pain Verified 10/08/18 06:05 Sulfa (Sulfonamide AdvReac Chest Pain Verified 10/08/18 06:05 Antibiotics) tetracycline [Tetracycline] AdvReac Chest Pain Verified 10/08/18 06:05 tolmetin AdvReac Chest Pain Verified 10/08/18 06:05 tramadol AdvReac Numbness Verified 10/08/18 06:05 All Systems: The remainder of the systems were reviewed and are negative Physical Examination Vital Signs: Vital Signs, Last 4 Hours Temp Pulse Resp BP Pulse Ox 10/16/18 09:14 61 10/16/18 09:00 96.8 F L 61 12 167/71 100 10/16/18 08:30 12 167/78 100 10/16/18 08:24 96.8 F L 61 12 159/73 100 10/16/18 08:00 62 12 167/78 100 10/16/18 07:46 96.8 F L 10/16/18 07:00 60 12 143/70 100 10/16/18 06:19 12 100 10/16/18 06:09 60 12 132/68 100 Ventilator Settings Ventilator Settings: Ventilator Settings, Last 8 Hours Ventilator Tidal Volume 380 Setting Ventilator Tidal Volume 380 Setting Ventilator Tidal Volume 380 Setting Ventilator Tidal Volume 380 Setting Ventilator Tidal Volume 380 Setting Ventilator Tidal Volume 380 Setting Ventilator Tidal Volume 380 Setting Ventilator Respiratory Rate 12 Setting Ventilator Respiratory Rate 12 Setting Ventilator Respiratory Rate 12 Setting Ventilator Respiratory Rate 12 Setting Ventilator Respiratory Rate 12 Setting Ventilator Respiratory Rate 12 Setting Ventilator Respiratory Rate 12 Setting Actual Respiratory Rate 12 Actual Respiratory Rate 12 Actual Respiratory Rate 12 Actual Respiratory Rate 12 Actual Respiratory Rate 12 Actual Respiratory Rate 12 Positive End Expiratory 5 Pressure Positive End Expiratory 5 Pressure Positive End Expiratory 5 Pressure Positive End Expiratory 5 Pressure Positive End Expiratory 5 Pressure Positive End Expiratory 5 Pressure Positive End Expiratory 5 Pressure Peak Inspiratory Airway 25 Pressure Peak Inspiratory Airway 24 Pressure Peak Inspiratory Airway 25 Pressure Peak Inspiratory Airway 25 Pressure Peak Inspiratory Airway 27 Pressure Peak Inspiratory Airway 27 Pressure Results - Laboratory Findings CBC and BMP: 10/16/18 06:35 10/16/18 06:35 ABG ABG pH 7.40 pH Units (7.32-7.45) 10/16/18 06:28 ABG pCO2 48 mmHg (35-45) H 10/16/18 06:28 ABG pO2 315 mmHg (85-104) H D 10/16/18 06:28 ABG O2 Saturation 100 % (95-98) H 10/16/18 06:28 PT/INR, D-dimer PT 19.2 Seconds (9.4-12.1) H 10/16/18 06:35 D-Dimer 797 ng/mLFEU (0-500) H 10/16/18 06:35 Abnormal lab findings: Abnormal lab results PT 19.2 Seconds (9.4-12.1) H 10/16/18 06:35 APTT 43.3 Seconds (26.0-36.0) H 10/16/18 06:35 Fibrinogen 646 mg/dL (169-393) H 10/16/18 06:35 D-Dimer 797 ng/mLFEU (0-500) H 10/16/18 06:35 ABG pCO2 48 mmHg (35-45) H 10/16/18 06:28 ABG pO2 315 mmHg (85-104) H D 10/16/18 06:28 ABG HCO3 30 mEq/L (21-27) H 10/16/18 06:28 ABG Total CO2 31 mEq/L (20-26) H 10/16/18 06:28 ABG O2 Saturation 100 % (95-98) H 10/16/18 06:28 ABG Base Excess 4 mEq/L (-2 to 3) H 10/16/18 06:28 BUN/Creatinine Ratio 28 (6-26) H 10/16/18 06:35 Glucose 185 mg/dL (70-105) H 10/16/18 06:35 POC Glucose 171 mg/dL (70-99) H 10/16/18 06:20 Phosphorus 1.7 mg/dL (2.7-4.5) L 10/16/18 06:35 Magnesium 1.5 mg/dL (1.6-2.6) L 10/16/18 06:35 Direct Bilirubin 0.3 mg/dL (0.0-0.2) H 10/16/18 06:35 AST 64 Units/L (13-39) H 10/16/18 06:35 ALT 60 Units/L (7-52) H 10/16/18 06:35 B-Natriuretic Peptide 223 pg/mL (Less than 100) H 10/16/18 06:35 Albumin 3.3 g/dL (3.5-5.7) L 10/16/18 06:35 - Clinical Findings Intake & Output: Intake & Output 10/15/18 10/16/18 10/16/18 23:59 07:59 15:59 Output Total 475 / 475 Balance -475 / -475 Weight 49.2 kg Consult Discharge Plan - Plan Referrals: NONE,PCP [Primary Care Provider] - - Attending Attestation I examined this patient and my medical decision-making was reviewed with the Resident Physician. I agree with the documented findings, disposition and treatment plan as described except to the extent set forth below. Patient seen and examined. Labs, radiology, chart personally reviewed. 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 Family at the bedside describes seizures and she never had seizure before and had images has been normal I suspect hypocalcemia can cause seizure and calcium has been replaced. Images have been negative and will consider neurology consultation but they do not feel antiepileptic at this time is necessary. Will check MRI of the head. Pulmonary: Acceptable oxygenation and ventilation. Patient has long history of COPD and she is on home oxygen. I do not feel strongly this is as COPD exacerbation, however she will be on bronchodilators and after weaning off sedation we will attempt spontaneous breathing trial. There is some evidence of intrinsic PEEP which can be found in COPD patient and I am hoping with spontaneous breathing trial this will improve and we will be able to extubate. Patient has failed SBT and will change vent setting for now there is some PEEPi that will be treated. Cardiovascular: stable . Patient has been on anticoagulation which will be on hold at this time secondary to possibility of GI bleed. GI: Nutrition per dietary and GI prophylaxis per routine. Patient will need endoscopy to be repeated most likely and GI consultation. Patient to be treated with PPI at this time. Heme: DVT prophylaxis per routine. Repeat hemoglobin has increased significantly which I suspected was lab error. ID: Continue antibiotics and plan to de-escalation Renal; urine out put and renal funtion reviewed Endorcine: blood glucose is monitored Lines: all lines checked and no evidence of infections Skin: skin care to prevent pressure ulcers per nursing routine care Discussed with the family at the bedside. I spent 35 min of Critical Care time with this patient. It involved decision making of high complexity to assess, manipulate, and support vital organ system failure and/or to prevent further life threatening deterioration of the patient's condition. The time involved in the performance of separately rep ortable procedures was not counted toward critical care time. <Pauline Jeff - Last Filed: 10/16/18 17:41> Date of Encounter: 10/16/18 Time of Encounter: 09:00 Assessment and Plan (1) Acute encephalopathy Current Visit: Yes Status: Acute Unknown etiology. Possibly neurologic vs electrolyte abnormalities vs infectious Generalized seizure at [facility]. UA shows no UTI. CXR shows increased bilateral interstitial opacities, pulmonary edema vs multifocal pneumonia. CT head was negative. Check MRI. Replete electrolytes. Empiric antibiotic. Wean off sedation. Monitor mental/neuro status. (2) Acute hypoxemic respiratory failure Current Visit: Yes Status: Acute On presentation, patient was unresponsive and hypoxic. History of COPD on 2L home oxygen. Patient sedated and intubated. CXR shows increased bilateral interstitial opacities, pulmonary edema vs multifocal pneumonia. ABG shows pH 7.40, pCO2 elevated at 48, pO2 elevated at 315, and HCO3 elevated at 30. Start duoNeb and symbicort. Start Lasix 20 IV. Start Levaquin 750 q48h for possible HCAP. SBT today. Will extubate as able. (3) Electrolyte abnormality Current Visit: Yes Status: Acute On presentation to [facility], hypokalemia of 2.2. On presentation to [facility] ICU, K level is normal at 3.9. Mg is decreased at 1.7. Ph is decreased at 1.5. Aggressive electrolyte replacement Continue to monitor. (4) Hypocalcemia Current Visit: Yes Status: Acute On presentation to [facility], serum Ca decreased at 4.3. Possible cause of seizure. Received 1g CaCl at [facility]. Received 2g CaCl at [facility] ICU. Serum Ca level normal at 9.3. Ionized calcium level normal at 1.26. Will check PTH and vitD metabolites. Continue to monitor. Replete as needed. (5) Seizure Current Visit: Yes Status: Acute Generalized seizure at [facility]. No history of seizures. Likely secondary to electrolyte abnormalities. CT head is negative. Given Keppra at [facility]. Correct electrolyte disturbances. (6) Acute blood loss anemia Current Visit: Yes Status: Ruled-out History of recent admission for anemia and suspected GI bleed. Colonoscopy showed nonbleeding ulcers. On presentation to [facility], Hb of 5.7. Received 2 units of RBC. On presentation to [facility] ICU, Hb of 13.4. Hemoccult negative. Result from [facility] is likely lab error. [facility] result showed WBC and platelets decreased below normal as well. [facility] result showed all cell lines normal. Contacted Dr. Silva who performed the scopes. Agrees that no additional GI bleed workup needed at this time. (7) CHF (congestive heart failure) Current Visit: Yes Status: Chronic History of CHF. Echo 09/16/18 shows LVEF 50-55% and moderate LV diastolic dysfunction. CXR shows increased bilateral interstitial opacities, pulmonary edema vs multifocal pneumonia. See plan#2. Qualifiers: Heart failure type: diastolic Heart failure chronicity: chronic Qualified Code(s): I50.32 - Chronic diastolic (congestive) heart failure (8) DVT prophylaxis Current Visit: Yes Status: Acute History of DVT. Recently discharged on 10/13 with order to continue eliquis and Plavix. Has not taken Plavix since 10/13. Continued eliquis. Hold eliquis. SCD History of Present Illness Consult date: 10/16/18 History of present illness: 78 year old female with past medical history of COPD on 2L home oxygen, di astolic CHF, CAD/PR, HLD, HTN, DVT. Patient was recently discharged from hospital 3 days ago for anemia and suspected GI bleed. Had Hb <7 that required transfusion. Had a GI bleed workup. Colonoscopy found a few nonbleeding ulcers in ascending colon. Patient was stabilized. Patient was discharged home with continuation of eliquis and Plavix for recent DVT. Yesterday morning, patient was doing well and was normal. At 8pm, patient fell asleep while watching TV. At 10pm, tried to wake her up to tell her its time to go to bed. Patient was difficult to arouse. EMS was called. EMS noted patient was unresponsive and was taken to [facility]. EMS had thought they may have seen a facial droop. Stroke alert was called. No neurologic symptoms. Head CT was negative. In ED, patient was hypothermic, hypotensive, anemic with Hb 5.7, hypokalemic, and hypocalcemic. Patient was given IVF, 2 units RBC, KCl, and calcium. While in ED, patient had a generalized seizure for ~1 minute. Patient was given Keppra, intubated, and central line was placed. Patient was transferred to [facility]. Patient seen and examined. Patient is intubated and under sedation. Patient is unresponsive. Cannot get any history or ROS from patient. Granddaughter is present at bedside. Granddaughter states that patient was doing great since recent discharge on 10/13. She was talking and laughing, and was the best theyd seen her in months. Patient reportedly had a cough yesterday. PCP sent in prescriptions for azithromycin and benzonatate because patient gets bad COPD exacerbations. However, granddaughter states that she saw patient 4 times yesterday and did not notice a cough. She states that patient stopped Plavix on 10/13, and continued eliquis. Granddaughter states that patient has not had a bowel movement since 10/11 when she was scoped. She has chronic constipation. Past Med Surg Social Fam HX - Past Medical History Medical history: asthma, COPD, coronary artery disease, hyperlipidemia, hypertension, myocardial infarction Psychiatric history: no psych history - Past Surgical History Surgical History: coronary bypass (CABG) Additional surgical history: Quad bypass in 1987. - Social History Smoking Status: Never smoker Smokeless Tobacco Status: No Alcohol use: none Drug use: none - Family History Mother Living Status: Hx Family Cardiac Disorders: Yes (heart disease, stroke) Hx Family Neurologic Disorders: Yes (Stoke) Father Living Status: Hx Family Cancer: Yes (Prostate) ROS unobtainable: due to mental status All Systems: The remainder of the systems were reviewed and are negative Physical Examination Vital Signs: Vital Signs, Last 4 Hours Temp Pulse Resp BP Pulse Ox 10/16/18 09:14 61 10/16/18 09:00 96.8 F L 61 12 167/71 100 10/16/18 08:30 12 167/78 100 10/16/18 08:24 96.8 F L 61 12 159/73 100 10/16/18 08:00 62 12 167/78 100 10/16/18 07:46 96.8 F L 10/16/18 07:00 60 12 143/70 100 10/16/18 06:19 12 100 10/16/18 06:09 60 12 132/68 100 General appearance: no acute distress, other (under sedation) Eyes: nonicteric Neck: supple Auscultation: bilateral: wheezes (mild diffuse expiratory wheezing ) Cardiovascular: regular rate and rhythm Gastrointestinal: soft, non-tender Integumentary: normal Extremities: no cyanosis, no edema, no clubbing, pink and warm pupils equal and round, unable to assess due to mental status Ventilator Settings Ventilator Settings: Ventilator Settings, Last 8 Hours Ventilator Tidal Volume 380 Setting Ventilator Tidal Volume 380 Setting Ventilator Tidal Volume 380 Setting Ventilator Tidal Volume 380 Setting Ventilator Tidal Volume 380 Setting Ventilator Tidal Volume 380 Setting Ventilator Tidal Volume 380 Setting Ventilator Respiratory Rate 12 Setting Ventilator Respiratory Rate 12 Setting Ventilator Respiratory Rate 12 Setting Ventilator Respiratory Rate 12 Setting Ventilator Respiratory Rate 12 Setting Ventilator Respiratory Rate 12 Setting Ventilator Respiratory Rate 12 Setting Actual Respiratory Rate 12 Actual Respiratory Rate 12 Actual Respiratory Rate 12 Actual Respiratory Rate 12 Actual Respiratory Rate 12 Actual Respiratory Rate 12 Positive End Expiratory 5 Pressure Positive End Expiratory 5 Pressure Positive End Expiratory 5 Pressure Positive End Expiratory 5 Pressure Positive End Expiratory 5 Pressure Positive End Expiratory 5 Pressure Positive End Expiratory 5 Pressure Peak Inspiratory Airway 25 Pressure Peak Inspiratory Airway 24 Pressure Peak Inspiratory Airway 25 Pressure Peak Inspiratory Airway 25 Pressure Peak Inspiratory Airway 27 Pressure Peak Inspiratory Airway 27 Pressure Results - Laboratory Findings CBC and BMP: 10/16/18 06:35 10/16/18 11:22 ABG ABG pH 7.40 pH Units (7.32-7.45) 10/16/18 06:28 ABG pCO2 48 mmHg (35-45) H 10/16/18 06:28 ABG pO2 315 mmHg (85-104) H D 10/16/18 06:28 ABG O2 Saturation 100 % (95-98) H 10/16/18 06:28 PT/INR, D-dimer PT 19.2 Seconds (9.4-12.1) H 10/16/18 06:35 D-Dimer 797 ng/mLFEU (0-500) H 10/16/18 06:35 Abnormal lab findings: Abnormal lab results PT 19.2 Seconds (9.4-12.1) H 10/16/18 06:35 APTT 43.3 Seconds (26.0-36.0) H 10/16/18 06:35 Fibrinogen 646 mg/dL (169-393) H 10/16/18 06:35 D-Dimer 797 ng/mLFEU (0-500) H 10/16/18 06:35 ABG pCO2 48 mmHg (35-45) H 10/16/18 06:28 ABG pO2 315 mmHg (85-104) H D 10/16/18 06:28 ABG HCO3 30 mEq/L (21-27) H 10/16/18 06:28 ABG Total CO2 31 mEq/L (20-26) H 10/16/18 06:28 ABG O2 Saturation 100 % (95-98) H 10/16/18 06:28 ABG Base Excess 4 mEq/L (-2 to 3) H 10/16/18 06:28 BUN/Creatinine Ratio 28 (6-26) H 10/16/18 06:35 Glucose 185 mg/dL (70-105) H 10/16/18 06:35 POC Glucose 171 mg/dL (70-99) H 10/16/18 06:20 Phosphorus 1.7 mg/dL (2.7-4.5) L 10/16/18 06:35 Magnesium 1.5 mg/dL (1.6-2.6) L 10/16/18 06:35 Direct Bilirubin 0.3 mg/dL (0.0-0.2) H 10/16/18 06:35 AST 64 Units/L (13-39) H 10/16/18 06:35 ALT 60 Units/L (7-52) H 10/16/18 06:35 B-Natriuretic Peptide 223 pg/mL (Less than 100) H 10/16/18 06:35 Albumin 3.3 g/dL (3.5-5.7) L 10/16/18 06:35 - Clinical Findings Intake & Output: Intake & Output 10/15/18 10/16/18 10/16/18 23:59 07:59 15:59 Output Total 475 / 475 Balance -475 / -475 Weight 49.2 kg
[2018-10-16] MEDS ORDERED: Furosemide 40 MG/4 ML VIAL IVP SCH (10:30)
[2018-10-16] MEDS ORDERED: Levofloxacin 750 MG/150 ML 750 MG/150 ML BAG IVPB SCH (10:30)
[2018-10-16] MEDS ORDERED: Artificial Tears SOLN 15 ML BOTTLE BOTH EYES PRN (10:58)
[2018-10-16] MEDS: Budesonide/Formoterol 160/4.5 1 PUFF INH IH SCH ×2 (11:21→21:28)
[2018-10-16] MEDS: Ipratropium/Albuterol Neb 3 ML IH SCH ×3 (11:21→21:28)
[2018-10-16] MEDS: Furosemide 40 MG/4 ML VIAL IVP SCH (11:47)
[2018-10-16] MEDS: Artificial Tears SOLN 15 ML BOTTLE BOTH EYES SCH ×4 (11:48→22:49)
[2018-10-16 12:07] LABS: VBG Ionized Calcium 1.51 mmol/L (1.15-1.35)
[2018-10-16] MEDS ORDERED: *HR* FentaNYL (PF) 100 MCG/2 ML VIAL IVP PRN (12:48)
[2018-10-16 13:18] LABS: Magnesium 1.9 mg/dL (1.6-2.6); Potassium 4.4 mEq/L (3.5-5.1)
[2018-10-16] MEDS: Pantoprazole 40 MG VIAL IVP SCH (17:59)
[2018-10-16] MEDS: Chlorhexidine Rinse 15 ML MOUTHWASH MM SCH (21:05)
[2018-10-17] MEDS: Ipratropium/Albuterol Neb 3 ML IH SCH ×4 (03:14→21:49)
[2018-10-17] MEDS: Artificial Tears SOLN 15 ML BOTTLE BOTH EYES SCH ×5 (04:08→20:16)
[2018-10-17 04:14] LABS: Basophils % 0.2 %; Eosinophils % 0.3 %; Hemoglobin 12.1 g/dL (11.5-15.4); Immature Granulocytes % 0.3 % (0-4); Lymphocytes # 0.9 K/mcL (0.6-4.6); Lymphocytes % 15.1 %; Mean Corpuscular HGB Conc 31.8 g/dL (31.6-35.5); Mean Corpuscular Hemoglobin 29.5 pg (28.0-33.3); Mean Corpuscular Volume 92.7 fL (83.0-100.0); Mean Platelet Volume 9.8 fL (9.4-12.4); Monocytes # 0.9 K/mcL (0.0-1.3); Monocytes % 13.8 %; Neutrophils # 4.4 K/mcL (1.6-8.9); Platelet Count 143 K/mcL (140-400); Red Cell Distribution Width 14.9 % (11.5-14.5); Segmented Neutrophils % 70.3 %
[2018-10-17 04:17] LABS: VBG Ionized Calcium 1.15 mmol/L (1.15-1.35)
[2018-10-17 04:41] LABS: Alanine Aminotransferase 50 Units/L (7-52); Alkaline Phosphatase 70 Units/L (34-104); Aspartate Amino Transferase 41 Units/L (13-39); BUN/Creatinine Ratio 15 (6-26); Bilirubin,Total 0.4 mg/dL (0.3-1.0); Blood Urea Nitrogen 11 mg/dL (8-23); Calcium 8.8 mg/dL (8.6-10.3); Carbon Dioxide 30 mEq/L (23-29); Chloride 104 mEq/L (98-107); Glucose 120 mg/dL (70-105); Magnesium 1.8 mg/dL (1.6-2.6); Osmolality,Calculated 293 (280-300); Potassium 3.3 mEq/L (3.5-5.1); Sodium 141 mEq/L (136-145); eGFR For Non-African Americans > 60 (> 60)
[2018-10-17] MEDS: Norepinephrine 4 MG in D5% in Water 250 ML IVC SCH (05:16)
[2018-10-17] MEDS: Pantoprazole 40 MG VIAL IVP SCH ×2 (05:24→17:57)
[2018-10-17] MEDS: Potassium Chloride 40 MEQ/200 ML BAG IVPB PRN ×2 (05:24→21:18)
[2018-10-17 05:35] LABS: ABG Base Excess 6 mEq/L (-2 to 3); ABG HCO3 33 mEq/L (21-27); ABG Oxygen Saturation 90 % (95-98); ABG PCO2 59 mmHg (35-45); ABG PH 7.36 pH Units (7.32-7.45); ABG PO2 64 mmHg (85-104); ABG TCO2 35 mEq/L (20-26); Blood Gas Modality PRVC; Blood Gas PEEP 5 cm H2O; Blood Gas Respiration Rate 12; Blood Gas VT 380 cc
--- NOTE | 2018-10-17 07:19 | Pulmonology Progress Note ---
<SheldonDoniEfrain W - Last Filed: 10/17/18 10:45> Date of Encounter: 10/17/18 Objective PUL Vital signs: Last Vital Signs Temp 99.4 F 10/17/18 07:04 Pulse 109 10/17/18 06:00 Resp 12 10/17/18 06:30 BP 131/69 10/17/18 06:30 Pulse Ox 94 10/17/18 06:30 Ventilator Settings Ventilator Settings: Ventilator Settings, Last 8 Hours Ventilator Tidal Volume 380 Setting Ventilator Tidal Volume 380 Setting Ventilator Tidal Volume 380 Setting Ventilator Tidal Volume 380 Setting Ventilator Tidal Volume 380 Setting Ventilator Tidal Volume 380 Setting Ventilator Tidal Volume 380 Setting Ventilator Tidal Volume 380 Setting Ventilator Tidal Volume 380 Setting Ventilator Tidal Volume 380 Setting Ventilator Tidal Volume 380 Setting Ventilator Respiratory Rate 12 Setting Ventilator Respiratory Rate 12 Setting Ventilator Respiratory Rate 12 Setting Ventilator Respiratory Rate 12 Setting Ventilator Respiratory Rate 12 Setting Ventilator Respiratory Rate 12 Setting Ventilator Respiratory Rate 12 Setting Ventilator Respiratory Rate 12 Setting Ventilator Respiratory Rate 12 Setting Ventilator Respiratory Rate 12 Setting Ventilator Respiratory Rate 12 Setting Actual Respiratory Rate 12 Actual Respiratory Rate 12 Actual Respiratory Rate 13 Actual Respiratory Rate 13 Actual Respiratory Rate 12 Actual Respiratory Rate 13 Actual Respiratory Rate 16 Actual Respiratory Rate 12 Actual Respiratory Rate 12 Actual Respiratory Rate 13 Positive End Expiratory 5 Pressure Positive End Expiratory 5 Pressure Positive End Expiratory 5 Pressure Positive End Expiratory 5 Pressure Positive End Expiratory 5 Pressure Positive End Expiratory 5 Pressure Positive End Expiratory 5 Pressure Positive End Expiratory 5 Pressure Positive End Expiratory 5 Pressure Positive End Expiratory 5 Pressure Positive End Expiratory 5 Pressure Peak Inspiratory Airway 19 Pressure Peak Inspiratory Airway 18 Pressure Peak Inspiratory Airway 17 Pressure Peak Inspiratory Airway 15 Pressure Peak Inspiratory Airway 22 Pressure Peak Inspiratory Airway 20 Pressure Peak Inspiratory Airway 23 Pressure Peak Inspiratory Airway 21 Pressure Peak Inspiratory Airway 20 Pressure Peak Inspiratory Airway 23 Pressure Results - Laboratory Findings CBC and BMP: 10/17/18 04:00 10/17/18 04:00 ABG ABG pH 7.36 pH Units (7.32-7.45) 10/17/18 05:31 ABG pCO2 59 mmHg (35-45) H 10/17/18 05:31 ABG pO2 64 mmHg (85-104) L 10/17/18 05:31 ABG O2 Saturation 90 % (95-98) L 10/17/18 05:31 PT/INR, D-dimer PT 19.2 Seconds (9.4-12.1) H 10/16/18 06:35 D-Dimer 797 ng/mLFEU (0-500) H 10/16/18 06:35 Abnormal lab findings: Abnormal lab results RDW 14.9 % (11.5-14.5) H 10/17/18 04:00 PT 19.2 Seconds (9.4-12.1) H 10/16/18 06:35 APTT 43.3 Seconds (26.0-36.0) H 10/16/18 06:35 Fibrinogen 646 mg/dL (169-393) H 10/16/18 06:35 D-Dimer 797 ng/mLFEU (0-500) H 10/16/18 06:35 ABG pCO2 59 mmHg (35-45) H 10/17/18 05:31 ABG pO2 64 mmHg (85-104) L 10/17/18 05:31 ABG HCO3 33 mEq/L (21-27) H 10/17/18 05:31 ABG Total CO2 35 mEq/L (20-26) H 10/17/18 05:31 ABG O2 Saturation 90 % (95-98) L 10/17/18 05:31 ABG Base Excess 6 mEq/L (-2 to 3) H 10/17/18 05:31 Potassium 3.3 mEq/L (3.5-5.1) L 10/17/18 04:00 Carbon Dioxide 30 mEq/L (23-29) H 10/17/18 04:00 Glucose 120 mg/dL (70-105) H 10/17/18 04:00 POC Glucose 101 mg/dL (70-99) H 10/16/18 23:29 Phosphorus 5.0 mg/dL (2.7-4.5) H 10/17/18 04:00 Direct Bilirubin 0.3 mg/dL (0.0-0.2) H 10/16/18 06:35 AST 41 Units/L (13-39) H 10/17/18 04:00 B-Natriuretic Peptide 223 pg/mL (Less than 100) H 10/16/18 06:35 Serum Total Protein 6.0 g/dL (6.4-8.9) L 10/17/18 04:00 Albumin 3.0 g/dL (3.5-5.7) L 10/17/18 04:00 Albumin/Globulin Ratio 1.0 (1.1-2.2) L 10/17/18 04:00 - Clinical Findings Intake & Output: Intake & Output 10/16/18 10/16/18 10/17/18 15:59 23:59 07:59 Intake Total 464 / 464 Output Total 1725 / 1725 750 / 750 175 / 175 Balance -1725 / -1725 -286 / -286 -175 / -175 Weight 46.6 kg Consult Discharge Plan - Plan Referrals: NONE,PCP [Primary Care Provider] - - Attending Attestation I examined this patient and my medical decision-making was reviewed with the Resident Physician. I agree with the documented findings, disposition and treatment plan as described except to the extent set forth below. We independently had [id number] contact with the patient Patient seen and examined at bedside Labs, radiology, chart personally reviewed. Management was reviewed during multidisciplinary critical care rounds. 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 ID: Suspected pneumonia on Levaquin cultures pending Heme/Onc: DVT prophylaxis given Endo: Glucose Monitored Integ/MSK: Skin Care per routine ICU Nursing Protocol to prevent ulcers. Lines: All lines examined without evidence of infection : Dispo: Remain in ICU for respiratory failure on vent CODE: full code <Pauline Jeff - Last Filed: 10/17/18 13:24> Date of Encounter: 10/17/18 Time of Encounter: 08:30 Assessment and Plan (1) Acute encephalopathy Current Visit: Yes Status: Resolved Unknown etiology. Possibly neurologic vs electrolyte abnormalities vs infectious Reported generalized seizure at [facility]. TSH is normal. UA shows no UTI. CXR shows increased bilateral interstitial opacities, pulmonary edema vs multifocal pneumonia. CT head was negative. MRI head was negative. Replete electrolytes. Empiric antibiotic for possible PNA. Weaned off sedation yesterday. Patient is alert, responsive and appropriate. Encephalopathy resolved. Continue to monitor mental/neuro status. (2) Acute hypoxemic respiratory failure Current Visit: Yes Status: Acute On presentation, patient was unresponsive and hypoxic. History of COPD on 2L home oxygen. Patient was sedated and intubated. CXR shows increased bilateral interstitial opacities, pulmonary edema vs multifocal pneumonia. ABG shows pH 7.40, pCO2 elevated at 48, pO2 elevated at 315, and HCO3 elevated at 30. Today, ABG shows pH 7.36, pCO2 elevated at 59, pO2 decreased at 64, HCO3 elevated at 33. Respiratory infection panel is negative. Check sputum culture. Cumulative I/O of -2661mL. Failed SBT multiple times yesterday. Could not extubate. Continue duoNeb and symbicort. Continue Lasix 20 IV. Continue Levaquin 750 daily for possible HCAP. SBT today. Extubate as able. (3) Hypocalcemia Current Visit: Yes Status: Ruled-out On presentation to [facility], serum Ca decreased at 4.3. Received 1g CaCl at [facility]. On presentation to [facility] ICU, serum Ca normal at 9.3. Ionized calcium level normal at 1.26. Likely [facility] result was lab error. PTH and 25(OH)-vitD are normal. Continue to monitor. (4) Hypokalemia Current Visit: Yes Status: Acute On presentation to [facility], hypokalemia of 2.2. Received 10mEq KCl at [facility]. On presentation to [facility] ICU, K level is normal at 3.9. Likely [facility] result was lab error. Today, K level is decreased at 3.3. Replete. Continue to monitor. (5) Electrolyte abnormality Current Visit: Yes Status: Acute On presentation, hypophosphatemia at 1.7 and hypomagnesemia at 1.5. Aggressive electrolyte replacement. Today, Ph elevated at 5.0. Mg is normal at 1.8. Continue to monitor. (6) Seizure Current Visit: Yes Status: Acute Reported generalized seizure at [facility]. No history of seizures. Was thought likely secondary to hypocalcemia, but hypocalcemia now believed to be lab error. CT head is negative. MRI head is negative. Was given Keppra at [facility]. Neurology does not feel antiepileptic is necessary at this time. Correct electrolyte disturbances. Continue to monitor. (7) Acute blood loss anemia Current Visit: Yes Status: Ruled-out History of recent admission for anemia and suspected GI bleed. Colonoscopy showed nonbleeding ulcers. On presentation to [facility], Hb of 5.7. Received 2 units of RBC. On presentation to [facility] ICU, Hb of 13.4. Hemoccult negative. Likely [facility] result was lab error. [facility] result showed WBC and platelets decreased below normal as well. [facility] result showed all cell lines normal. Contacted Dr. Silva who performed the scopes. Agrees that no additional GI bleed workup needed at this time. (8) CHF (congestive heart failure) Current Visit: Yes Status: Chronic History of CHF. Echo 09/16/18 shows LVEF 50-55% and moderate LV diastolic dysfunction. CXR shows increased bilateral interstitial opacities, pulmonary edema vs multifocal pneumonia. See plan#2. Qualifiers: Heart failure type: diastolic Heart failure chronicity: chronic Qualified Code(s): I50.32 - Chronic diastolic (congestive) heart failure (9) DVT prophylaxis Current Visit: Yes Status: Acute History of DVT. Recently discharged on 10/13 with order to continue eliquis and Plavix. Has not taken Plavix since 10/13. Continued eliquis. Hold eliquis. SCD Subjective Interval history: Patient seen and examined. No acute events overnight. Patient is intubated without sedation. She is resting comfortably in bed. Patient cannot speak due to ET tube, but she is alert, responsive, and appropriate. Patient indicates that she is fine. Denies any complaints. Objective PUL Vital signs: Last Vital Signs Temp 99.4 F 10/17/18 07:04 Pulse 109 10/17/18 06:00 Resp 12 10/17/18 06:30 BP 131/69 10/17/18 06:30 Pulse Ox 94 10/17/18 06:30 General appearance: no acute distress, alert Eyes: nonicteric Neck: supple Effort: normal Auscultation: bilateral: clear Cardiovascular: regular rate and rhythm Gastrointestinal: normoactive bowel sounds, soft, non-tender Integumentary: normal Extremities: no cyanosis, no edema, no clubbing, pink and warm Musculoskeletal: no deformities pupils equal and round, other (no focal deficits ) Ventilator Settings Ventilator Settings: Ventilator Settings, Last 8 Hours Ventilator Tidal Volume 380 Setting Ventilator Tidal Volume 380 Setting Ventilator Tidal Volume 380 Setting Ventilator Tidal Volume 380 Setting Ventilator Tidal Volume 380 Setting Ventilator Tidal Volume 380 Setting Ventilator Tidal Volume 380 Setting Ventilator Tidal Volume 380 Setting Ventilator Tidal Volume 380 Setting Ventilator Tidal Volume 380 Setting Ventilator Tidal Volume 380 Setting Ventilator Respiratory Rate 12 Setting Ventilator Respiratory Rate 12 Setting Ventilator Respiratory Rate 12 Setting Ventilator Respiratory Rate 12 Setting Ventilator Respiratory Rate 12 Setting Ventilator Respiratory Rate 12 Setting Ventilator Respiratory Rate 12 Setting Ventilator Respiratory Rate 12 Setting Ventilator Respiratory Rate 12 Setting Ventilator Respiratory Rate 12 Setting Ventilator Respiratory Rate 12 Setting Actual Respiratory Rate 12 Actual Respiratory Rate 12 Actual Respiratory Rate 13 Actual Respiratory Rate 13 Actual Respiratory Rate 12 Actual Respiratory Rate 13 Actual Respiratory Rate 16 Actual Respiratory Rate 12 Actual Respiratory Rate 12 Actual Respiratory Rate 13 Positive End Expiratory 5 Pressure Positive End Expiratory 5 Pressure Positive End Expiratory 5 Pressure Positive End Expiratory 5 Pressure Positive End Expiratory 5 Pressure Positive End Expiratory 5 Pressure Positive End Expiratory 5 Pressure Positive End Expiratory 5 Pressure Positive End Expiratory 5 Pressure Positive End Expiratory 5 Pressure Positive End Expiratory 5 Pressure Peak Inspiratory Airway 19 Pressure Peak Inspiratory Airway 18 Pressure Peak Inspiratory Airway 17 Pressure Peak Inspiratory Airway 15 Pressure Peak Inspiratory Airway 22 Pressure Peak Inspiratory Airway 20 Pressure Peak Inspiratory Airway 23 Pressure Peak Inspiratory Airway 21 Pressure Peak Inspiratory Airway 20 Pressure Peak Inspiratory Airway 23 Pressure Results - Laboratory Findings CBC and BMP: 10/17/18 04:00 10/17/18 11:30 ABG ABG pH 7.36 pH Units (7.32-7.45) 10/17/18 05:31 ABG pCO2 59 mmHg (35-45) H 10/17/18 05:31 ABG pO2 64 mmHg (85-104) L 10/17/18 05:31 ABG O2 Saturation 90 % (95-98) L 10/17/18 05:31 PT/INR, D-dimer PT 19.2 Seconds (9.4-12.1) H 10/16/18 06:35 D-Dimer 797 ng/mLFEU (0-500) H 10/16/18 06:35 Abnormal lab findings: Abnormal lab results RDW 14.9 % (11.5-14.5) H 10/17/18 04:00 PT 19.2 Seconds (9.4-12.1) H 10/16/18 06:35 APTT 43.3 Seconds (26.0-36.0) H 10/16/18 06:35 Fibrinogen 646 mg/dL (169-393) H 10/16/18 06:35 D-Dimer 797 ng/mLFEU (0-500) H 10/16/18 06:35 ABG pCO2 59 mmHg (35-45) H 10/17/18 05:31 ABG pO2 64 mmHg (85-104) L 10/17/18 05:31 ABG HCO3 33 mEq/L (21-27) H 10/17/18 05:31 ABG Total CO2 35 mEq/L (20-26) H 10/17/18 05:31 ABG O2 Saturation 90 % (95-98) L 10/17/18 05:31 ABG Base Excess 6 mEq/L (-2 to 3) H 10/17/18 05:31 Potassium 3.3 mEq/L (3.5-5.1) L 10/17/18 04:00 Carbon Dioxide 30 mEq/L (23-29) H 10/17/18 04:00 Glucose 120 mg/dL (70-105) H 10/17/18 04:00 POC Glucose 101 mg/dL (70-99) H 10/16/18 23:29 Phosphorus 5.0 mg/dL (2.7-4.5) H 10/17/18 04:00 Direct Bilirubin 0.3 mg/dL (0.0-0.2) H 10/16/18 06:35 AST 41 Units/L (13-39) H 10/17/18 04:00 B-Natriuretic Peptide 223 pg/mL (Less than 100) H 10/16/18 06:35 Serum Total Protein 6.0 g/dL (6.4-8.9) L 10/17/18 04:00 Albumin 3.0 g/dL (3.5-5.7) L 10/17/18 04:00 Albumin/Globulin Ratio 1.0 (1.1-2.2) L 10/17/18 04:00 - Clinical Findings Intake & Output: Intake & Output 10/16/18 10/16/18 10/17/18 15:59 23:59 07:59 Intake Total 464 / 464 Output Total 1725 / 1725 750 / 750 175 / 175 Balance -1725 / -1725 -286 / -286 -175 / -175 Weight 46.6 kg
[2018-10-17 08:59] LABS: Adenovirus Not Detected (Not Detect); Bordetella Pertussis Not Detected (Not Detect); Chlamydophila pneumoniae Not Detected (Not Detect); Coronavirus 229E Not Detected (Not Detect); Coronavirus HKU1 Not Detected (Not Detect); Coronavirus NL63 Not Detected (Not Detect); Coronavirus OC43 Not Detected (Not Detect); Human Metapneumovirus Not Detected (Not Detect); Human Rhinovirus/Enterovirus Not Detected (Not Detect); Influenza A Subtype 2009 H1 Not Detected (Not Detect); Influenza A Untypeable Not Detected (Not Detect); Influenza B Not Detected (Not Detect); Mycoplasma pneumoniae Not Detected (Not Detect); Parainfluenza Virus 1 Not Detected (Not Detect); Parainfluenza Virus 2 Not Detected (Not Detect); Parainfluenza Virus 3 Not Detected (Not Detect); Parainfluenza Virus 4 Not Detected (Not Detect); Respiratory Syncytial Virus Not Detected (Not Detect)
[2018-10-17] MEDS: Chlorhexidine Rinse 15 ML MOUTHWASH MM SCH ×2 (09:24→20:16)
[2018-10-17] MEDS: Furosemide 40 MG/4 ML VIAL IVP SCH (09:24)
[2018-10-17] MEDS: Budesonide/Formoterol 160/4.5 1 PUFF INH IH SCH ×2 (09:59→21:50)
[2018-10-17 18:04] LABS: VBG Ionized Calcium 1.16 mmol/L (1.15-1.35)
[2018-10-17 18:11] LABS: Magnesium 1.8 mg/dL (1.6-2.6); Phosphorous 3.4 mg/dL (2.7-4.5); Potassium 3.6 mEq/L (3.5-5.1)
[2018-10-18] MEDS: Artificial Tears SOLN 15 ML BOTTLE BOTH EYES SCH ×2 (00:07→02:37)
[2018-10-18] MEDS: Ipratropium/Albuterol Neb 3 ML IH SCH ×4 (03:33→22:15)
[2018-10-18 03:54] LABS: VBG Ionized Calcium 1.14 mmol/L (1.15-1.35)
[2018-10-18 03:55] LABS: Basophils % 0.2 %; Eosinophils # 0.1 K/mcL (0.0-0.6); Eosinophils % 0.5 %; Hematocrit 39.4 % (35.3-44.9); Hemoglobin 12.3 g/dL (11.5-15.4); Immature Granulocytes % 0.3 % (0-4); Lymphocytes # 0.8 K/mcL (0.6-4.6); Lymphocytes % 8.2 %; Mean Corpuscular HGB Conc 31.2 g/dL (31.6-35.5); Mean Corpuscular Hemoglobin 29.6 pg (28.0-33.3); Mean Corpuscular Volume 94.9 fL (83.0-100.0); Mean Platelet Volume 9.7 fL (9.4-12.4); Monocytes # 1.2 K/mcL (0.0-1.3); Monocytes % 12.3 %; Platelet Count 161 K/mcL (140-400); Red Blood Count 4.15 M/mcL (3.82-4.97); Segmented Neutrophils % 78.5 %
[2018-10-18 03:56] LABS: Neutrophils # 7.5 K/mcL (1.6-8.9)
[2018-10-18 04:15] LABS: BUN/Creatinine Ratio 17 (6-26); Blood Urea Nitrogen 11 mg/dL (8-23); Carbon Dioxide 33 mEq/L (23-29); Chloride 102 mEq/L (98-107); Glucose 80 mg/dL (70-105); Magnesium 2.1 mg/dL (1.6-2.6); Osmolality,Calculated 288 (280-300); Potassium 4.2 mEq/L (3.5-5.1); Sodium 140 mEq/L (136-145); eGFR For Non-African Americans > 60 (> 60)
[2018-10-18] MEDS: FentaNYL (PF) 1,000 MCG in 0.9 % Sodium Chloride 80 ML IVC SCH (05:32)
[2018-10-18] MEDS: Norepinephrine 4 MG in D5% in Water 250 ML IVC SCH (05:33)
[2018-10-18] MEDS ORDERED: *HR* Dextrose 50 % in Water (Syg) 50 ML SYRINGE IVP ONE (05:39)
[2018-10-18] MEDS: Pantoprazole 40 MG VIAL IVP SCH ×2 (06:18→16:57)
[2018-10-18] MEDS: Chlorhexidine Rinse 15 ML MOUTHWASH MM SCH (08:52)
[2018-10-18] MEDS: Furosemide 40 MG/4 ML VIAL IVP SCH (08:53)
--- NOTE | 2018-10-18 08:54 | Pulmonology Progress Note ---
<Efrain Chung W - Last Filed: 10/18/18 10:10> Date of Encounter: 10/18/18 Objective PUL Vital signs: Last Vital Signs Temp 98.4 F 10/18/18 07:11 Pulse 105 10/18/18 09:00 Resp 20 10/18/18 09:00 BP 131/70 10/18/18 09:00 Pulse Ox 98 10/18/18 09:00 Results - Laboratory Findings CBC and BMP: 10/18/18 03:40 10/18/18 03:40 ABG ABG pH 7.36 pH Units (7.32-7.45) 10/17/18 05:31 ABG pCO2 59 mmHg (35-45) H 10/17/18 05:31 ABG pO2 64 mmHg (85-104) L 10/17/18 05:31 ABG O2 Saturation 90 % (95-98) L 10/17/18 05:31 PT/INR, D-dimer PT 19.2 Seconds (9.4-12.1) H 10/16/18 06:35 D-Dimer 797 ng/mLFEU (0-500) H 10/16/18 06:35 Abnormal lab findings: Abnormal lab results MCHC 31.2 g/dL (31.6-35.5) L 10/18/18 03:40 RDW 15.0 % (11.5-14.5) H 10/18/18 03:40 PT 19.2 Seconds (9.4-12.1) H 10/16/18 06:35 APTT 43.3 Seconds (26.0-36.0) H 10/16/18 06:35 Fibrinogen 646 mg/dL (169-393) H 10/16/18 06:35 D-Dimer 797 ng/mLFEU (0-500) H 10/16/18 06:35 ABG pCO2 59 mmHg (35-45) H 10/17/18 05:31 ABG pO2 64 mmHg (85-104) L 10/17/18 05:31 ABG HCO3 33 mEq/L (21-27) H 10/17/18 05:31 ABG Total CO2 35 mEq/L (20-26) H 10/17/18 05:31 ABG O2 Saturation 90 % (95-98) L 10/17/18 05:31 ABG Base Excess 6 mEq/L (-2 to 3) H 10/17/18 05:31 Carbon Dioxide 33 mEq/L (23-29) H 10/18/18 03:40 POC Glucose 68 mg/dL (70-99) L 10/18/18 05:29 Venous Ioniz Calcium 1.14 mmol/L (1.15-1.35) L 10/18/18 03:51 Direct Bilirubin 0.3 mg/dL (0.0-0.2) H 10/16/18 06:35 AST 41 Units/L (13-39) H 10/17/18 04:00 B-Natriuretic Peptide 223 pg/mL (Less than 100) H 10/16/18 06:35 Serum Total Protein 6.0 g/dL (6.4-8.9) L 10/17/18 04:00 Albumin 3.0 g/dL (3.5-5.7) L 10/17/18 04:00 Albumin/Globulin Ratio 1.0 (1.1-2.2) L 10/17/18 04:00 - Clinical Findings Intake & Output: Intake & Output 10/17/18 10/18/18 10/18/18 23:59 07:59 15:59 Intake Total 304 / 304 Output Total 1650 / 1650 865 / 865 Balance -1346 / -1346 -865 / -865 Weight 43 kg Consult Discharge Plan - Plan Referrals: NONE,PCP [Primary Care Provider] - - Attending Attestation I examined this patient and my medical decision-making was reviewed with the Resident Physician. I agree with the documented findings, disposition and treatment plan as described except to the extent set forth below. We ind ependently had [id number] contact with the patient Patient seen and examined at bedside Labs, radiology, chart personally reviewed. Management was reviewed during multidisciplinary critical care rounds. 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 Pulm: Acute on chronic hypoxic hypercapnic respiratory failure secondary to suspected pneumonia and COPD exacerbation liberated from the ventilator yesterday doing well and nasal cannula O2 continue treatment for COPD e xacerbation she will need outpatient follow-up with pulmonary in fact has a scheduled appointment Cards: Restart antihypertensives once taking by mouth we will give IV metoprolol today GI: Stop PPI Nutrition: Nothing by mouth because of failed bedside swallow evaluation she will need formal modified barium swallow tomorrow Renal: UOP Monitored, Cont to Trend sCr and monitor Electrolytes. ID: Continue antibiotics for COPD exacerbation and concern for pneumonia cultures pending Heme/Onc: DVT prophylaxis given Endo: Glucose Monitored Integ/MSK: Skin Care per routine ICU Nursing Protocol to prevent ulcers. Lines: All lines examined without evidence of infection : [facility] CODE: Full <Pauline Jeff - Last Filed: 10/18/18 10:19> Date of Encounter: 10/18/18 Time of Encounter: 07:20 Assessment and Plan (1) Acute encephalopathy Current Visit: Yes Status: Resolved Unknown etiology. Possibly neurologic vs electrolyte abnormalities vs infectious Reported generalized seizure at [facility]. TSH is normal. UA shows no UTI. CXR shows increased bilateral interstitial opacities, pulmonary edema vs multifocal pneumonia. CT head was negative. MRI head was negative. Replete electrolytes. Empiric antibiotic for possible PNA. Off sedation and extubated. Patient is alert and oriented. Encephalopathy resolved. Will transfer to floor today. Critical Care will sign off at this time. (2) Acute hypoxemic respiratory failure Current Visit: Yes Status: Acute On presentation, patient was unresponsive and hypoxic. History of COPD on 2L home oxygen. Patient was sedated and intubated. CXR shows increased bilateral interstitial opacities, pulmonary edema vs multifocal pneumonia. ABG showed pH 7.40, pCO2 elevated at 48, pO2 elevated at 315, and HCO3 elevated at 30. Yesterday, ABG showed pH 7.36, pCO2 elevated at 59, pO2 decreased at 64, HCO3 elevated at 33. Respiratory infection panel is negative. Cumulative I/O of -6L. Extubated yesterday. No gag reflex. NPO. Barium swallow tomorrow. Check sputum culture. Start solumedrol. Reported allergy to prednisone, unknown reaction. Denies hives/anaphylaxis. Monitor for adverse reaction. Continue duoNeb and symbicort. Continue Lasix 20 IV. Continue Levaquin 750 q48h for possible HCAP. (3) Hypocalcemia Current Visit: Yes Status: Ruled-out On presentation to [facility] ED, serum Ca decreased at 4.3. Received 1g CaCl at [facility] ED. On presentation to [facility] ICU, serum Ca normal at 9.3. Ionized calcium level normal at 1.26. Likely [facility] result was lab error. PTH and 25(OH)-vitD are normal. Continue to monitor. (4) Hypokalemia Current Visit: Yes Status: Acute On presentation to [facility] ED, hypokalemia of 2.2. Received 10mEq KCl at [facility] ED. On presentation to [facility] ICU, K level is normal at 3.9. Likely [facility] result was lab error. Yesterday, K level is decreased at 3.3. Repleted. Today, K level is normal at 4.2. Continue to monitor. (5) Electrolyte abnormality Current Visit: Yes Status: Acute On presentation, hypophosphatemia at 1.7 and hypomagnesemia at 1.5. Aggressive electrolyte replacement. Today, Ph and Mg are normal. Continue to monitor. (6) Seizure Current Visit: Yes Status: Acute Reported generalized seizure at [facility] ED. No history of seizures. Was thought likely secondary to hypocalcemia, but hypocalcemia now believed to be lab error. CT head is negative. MRI head is negative. Was given Keppra at [facility] ED. Neurology does not feel antiepileptic is necessary at this time. Correct electrolyte disturbances. Continue to monitor. (7) Acute blood loss anemia Current Visit: Yes Status: Ruled-out History of recent admission for anemia and suspected GI bleed. Colonoscopy showed nonbleeding ulcers. On presentation to [facility] ED, Hb of 5.7. Received 2 units of RBC. On presentation to [facility] ICU, Hb of 13.4. Hemoccult negative. Likely [facility] result was lab error. [facility] result showed WBC and platelets decreased below normal as well. [facility] result showed all cell lines normal. Contacted Dr. Silva who performed the scopes. Agrees that no additional GI bleed workup needed at this time. (8) CHF (congestive heart failure) Current Visit: Yes Status: Chronic History of CHF. Echo 09/16/18 shows LVEF 50-55% and moderate LV diastolic dysfunction. CXR shows increased bilateral interstitial opacities, pulmonary edema vs multifocal pneumonia. See plan#2. Qualifiers: Heart failure type: diastolic Heart failure chronicity: chronic Qualified Code(s): I50.32 - Chronic diastolic (congestive) heart failure (9) DVT prophylaxis Current Visit: Yes Status: Acute History of DVT. Recently discharged on 10/13 with order to continue eliquis and Plavix. Has not taken Plavix since 10/13. Continued eliquis. Hold eliquis. SCD Subjective Interval history: Patient seen and examined. No acute events overnight. Patient was extubated yesterday. Patient is alert and oriented and appropriate. She is resting comfortably in bed. Patient states that she is fine. Still no gag reflex. Reports that she coughed up a lot of mucus last night. States mucus was clear. Denies worsening cough today. Denies any complaints. Denies chest pain, shortness of breath, fever, abdominal pain, nausea, swelling. Patient is clinically improved. Will transfer out of ICU to floor today. Objective PUL Vital signs: Last Vital Signs Temp 98.4 F 10/18/18 07:11 Pulse 105 10/18/18 08:00 Resp 20 10/18/18 08:00 BP 110/59 10/18/18 08:00 Pulse Ox 98 10/18/18 08:00 General appearance: no acute distress, alert Eyes: nonicteric ENT: oropharynx moist Neck: supple Effort: normal Auscultation: bilateral: rhonchi (mild diffuse expiratory rhonchi ) Cardiovascular: regular rate and rhythm Gastrointestinal: normoactive bowel sounds, soft, non-tender Integumentary: normal Extremities: no cyanosis, no edema, no clubbing, pink and warm normal mental status, non-focal exam, pupils equal and round Results - Laboratory Findings CBC and BMP: 10/18/18 03:40 10/18/18 03:40 ABG ABG pH 7.36 pH Units (7.32-7.45) 10/17/18 05:31 ABG pCO2 59 mmHg (35-45) H 10/17/18 05:31 ABG pO2 64 mmHg (85-104) L 10/17/18 05:31 ABG O2 Saturation 90 % (95-98) L 10/17/18 05:31 PT/INR, D-dimer PT 19.2 Seconds (9.4-12.1) H 10/16/18 06:35 D-Dimer 797 ng/mLFEU (0-500) H 10/16/18 06:35 Abnormal lab findings: Abnormal lab results MCHC 31.2 g/dL (31.6-35.5) L 10/18/18 03:40 RDW 15.0 % (11.5-14.5) H 10/18/18 03:40 PT 19.2 Seconds (9.4-12.1) H 10/16/18 06:35 APTT 43.3 Seconds (26.0-36.0) H 10/16/18 06:35 Fibrinogen 646 mg/dL (169-393) H 10/16/18 06:35 D-Dimer 797 ng/mLFEU (0-500) H 10/16/18 06:35 ABG pCO2 59 mmHg (35-45) H 10/17/18 05:31 ABG pO2 64 mmHg (85-104) L 10/17/18 05:31 ABG HCO3 33 mEq/L (21-27) H 10/17/18 05:31 ABG Total CO2 35 mEq/L (20-26) H 10/17/18 05:31 ABG O2 Saturation 90 % (95-98) L 10/17/18 05:31 ABG Base Excess 6 mEq/L (-2 to 3) H 10/17/18 05:31 Carbon Dioxide 33 mEq/L (23-29) H 10/18/18 03:40 POC Glucose 68 mg/dL (70-99) L 10/18/18 05:29 Venous Ioniz Calcium 1.14 mmol/L (1.15-1.35) L 10/18/18 03:51 Direct Bilirubin 0.3 mg/dL (0.0-0.2) H 10/16/18 06:35 AST 41 Units/L (13-39) H 10/17/18 04:00 B-Natriuretic Peptide 223 pg/mL (Less than 100) H 10/16/18 06:35 Serum Total Protein 6.0 g/dL (6.4-8.9) L 10/17/18 04:00 Albumin 3.0 g/dL (3.5-5.7) L 10/17/18 04:00 Albumin/Globulin Ratio 1.0 (1.1-2.2) L 10/17/18 04:00 - Clinical Findings Intake & Output: Intake & Output 10/17/18 10/18/18 10/18/18 23:59 07:59 15:59 Intake Total 304 / 304 Output Total 1650 / 1650 865 / 865 Balance -1346 / -1346 -865 / -865 Weight 43 kg
[2018-10-18] MEDS ORDERED: Levofloxacin 750 MG/150 ML 750 MG/150 ML BAG IVPB SCH (09:00)
[2018-10-18] MEDS ORDERED: Naloxone 0.4 MG/ML INJ IVP PRN (09:53)
[2018-10-18] MEDS ORDERED: Ipratropium/Albuterol Neb 3 ML ONE (10:05)
[2018-10-18] MEDS: Budesonide/Formoterol 160/4.5 1 PUFF INH IH SCH ×2 (10:25→22:15)
[2018-10-18] MEDS: *HR* Metoprolol 5 MG/5 ML VIAL IVP SCH ×2 (11:51→16:57)
[2018-10-18] MEDS ORDERED: *HR* Metoprolol 5 MG/5 ML VIAL IVP SCH (12:00)
[2018-10-18] MEDS: MethylPREDNISolone 40 MG/ML VIAL IVP SCH (16:57)
[2018-10-18] MEDS ORDERED: MethylPREDNISolone 40 MG/ML VIAL IVP SCH (18:00)
[2018-10-19] MEDS: *HR* Metoprolol 5 MG/5 ML VIAL IVP SCH ×2 (00:26→06:23)
[2018-10-19] MEDS: Ipratropium/Albuterol Neb 3 ML IH SCH ×2 (03:55→09:48)
[2018-10-19 05:26] LABS: Basophils % 0.1 %; Hematocrit 41.5 % (35.3-44.9); Hemoglobin 13.4 g/dL (11.5-15.4); Immature Granulocytes % 0.3 % (0-4); Lymphocytes # 0.5 K/mcL (0.6-4.6); Lymphocytes % 5.6 %; Mean Corpuscular HGB Conc 32.3 g/dL (31.6-35.5); Mean Corpuscular Hemoglobin 29.8 pg (28.0-33.3); Mean Corpuscular Volume 92.2 fL (83.0-100.0); Mean Platelet Volume 10.2 fL (9.4-12.4); Monocytes # 0.4 K/mcL (0.0-1.3); Monocytes % 4.3 %; Neutrophils # 8.2 K/mcL (1.6-8.9); Platelet Count 194 K/mcL (140-400); Red Cell Distribution Width 14.3 % (11.5-14.5); Segmented Neutrophils % 89.7 %
[2018-10-19 05:42] LABS: BUN/Creatinine Ratio 29 (6-26); Blood Urea Nitrogen 17 mg/dL (8-23); Calcium 8.9 mg/dL (8.6-10.3); Carbon Dioxide 33 mEq/L (23-29); Chloride 97 mEq/L (98-107); Glucose 199 mg/dL (70-105); Osmolality,Calculated 293 (280-300); Potassium 3.5 mEq/L (3.5-5.1); Sodium 138 mEq/L (136-145); eGFR For Non-African Americans > 60 (> 60)
[2018-10-19] MEDS: Pantoprazole 40 MG VIAL IVP SCH (06:23)
[2018-10-19] MEDS: MethylPREDNISolone 40 MG/ML VIAL IVP SCH ×2 (06:23→17:55)
[2018-10-19] MEDS ORDERED: ACLIDINIUM BROMIDE IH SCH (09:00)
[2018-10-19] MEDS ORDERED: Furosemide 40 MG/4 ML VIAL IVP SCH (09:00)
[2018-10-19] MEDS: Budesonide/Formoterol 160/4.5 1 PUFF INH IH SCH ×2 (09:48→20:21)
[2018-10-19] MEDS ORDERED: Nitroglycerin Spray 4.9 GM BOTTLE SL PRN (10:54)
[2018-10-19] MEDS ORDERED: Ipratropium/Albuterol Neb 3 ML IH PRN (11:45)
[2018-10-19] MEDS: UMECLIDINIUM 62.5 MCG IH SCH (11:48)
--- NOTE | 2018-10-19 19:01 | Internal Med Progress Note ---
Hospitalist Progress Note - Encounter Date of Encounter: 10/19/18 Time of Encounter: 18:59 - Subjective Interval History: Pt and family states they are concerned Kan will give her chest pain. She denies chest pain and on 2L NC at baseline. She denies fever or chills, N/V or abdominal pain. - Exam Vitals: Temp Pulse Resp BP Pulse Ox 98.5 F 117 16 156/87 95 10/19/18 17:02 10/19/18 17:02 10/19/18 17:02 10/19/18 17:02 10/19/18 17:02 Exam: Gen: Vitals noted. No acute distress. Eyes: anicteric sclerae, moist conjunctivae; no lid-lag; Pupils equal and reactive to light HENT: Atraumatic; oropharynx clear with moist mucous membranes and no mucosal ulcerations. Neck: Trachea midline; supple, no thyromegaly or lymphadenopathy Cardiac: RRR, no murmur, +S1/S2 Pulmonary: Crackles B/L Abdomen: soft, nontender, no guarding. No masses or hepatosplenomegaly MSK: ROM intact, no joint swelling noted Extremities: cool to the touch, No edema, nontender calf, no cyanosis or clubbing Skin: Cool, turgor and texture; no rash, ulcers or subcutaneous nodules Neuro: Alert and oriented times 3, CN I-XII grossly intact - Assessment and Plan (1) Acute hypoxemic respiratory failure Current Visit: Yes Status: Acute Assessment and Plan: On presentation, patient was unresponsive and hypoxic. History of COPD on 2L home oxygen. Patient was sedated and intubated in ICU, transfered to floor 10/18/2018. CXR shows increased bilateral interstitial opacities, pulmonary edema vs multifocal pneumonia. ABG showed pH 7.40, pCO2 elevated at 48, pO2 elevated at 315, and HCO3 elevated at 30. Yesterday, ABG 10/17/2018, showed pH 7.36, pCO2 elevated at 59, pO2 decreased at 64, HCO3 elevated at 33. Respiratory infection panel is negative. Cumulative I/O of -6L. Extubated successfully. No gag reflex. Was NPO but pt was already ordered diet prior to me seeing her and had been tolerating. Fmaily no longer wants Barium swallow and speech aware. Checking sputum culture but so far pt has not been able to give a sample. Start solumedrol. Reported allergy to prednisone, unknown reaction. Denies hives/anaphylaxis. Monitor for adverse reaction. Continue duoNeb and symbicort. Was on Lasix 20 IV QD now on Lasix 20 mg PO QD. Continue Levaquin 750 q48h for possible HCAP. (2) Acute encephalopathy Current Visit: Yes Status: Resolved Assessment and Plan: Resolved and likely due to acute hypoxic respiratory failure and possible PNA. Reported generalized seizure at [place] ED. TSH is normal. UA shows no UTI. CXR showed increased bilateral interstitial opacities, pulmonary edema vs multifocal pneumonia. CT and MRI head was negative. Replete electrolytes. Empiric antibiotic for possible PNA. Off sedation and extubated. Patient is alert and oriented. Encephalopathy resolved. After lengthy conversation with pt she agrees to try Levaquin again. Will restart Levaquin. (3) CHF (congestive heart failure) Current Visit: Yes Status: Chronic Assessment and Plan: History of CHF. Echo 09/16/18 showed LVEF 50-55% and moderate LV diastolic dysfunction. CXR shows increased bilateral interstitial opacities, pulmonary edema vs multifocal pneumonia. Given Lasix 20 mg IV QD while in ICU. Resumed home dose Lasix. (4) Seizure Current Visit: Yes Status: Acute Assessment and Plan: Seizure like activity reported at [place] ED. Pt denies prior history of seizure and not on medication for this. Will order neurology consult to be called in 10/20/2018. Will check EEG. Continue precautions Brain MRI MR/MR head/brain wo con IMPRESSION: 1. Patient motion limits evaluation. 2. No convincing acute intracranial abnormality. No acute infarct. 3. Extensive relatively confluent T2 hyperintensity again seen within the supratentorial compartment, which may represent chronic microvascular ischemic change. 4. Opacification of the sphenoid sinuses bilaterally. (5) Hypokalemia Current Visit: Yes Status: Acute Assessment and Plan: Corrected. (6) Hypocalcemia Current Visit: Yes Status: Ruled-out Assessment and Plan: Corrected DVT Prophylaxis: Eliquis - Summary of Assessment and Plan Summary of Assessment and Plan: History of present illness: Dr. Sanchez Ms. Fabian is a 78 year old female with history of asthma, COPD, coronary artery disease, hyperlipidemia, hypertension, IA and recent admission for suspected GI bleed who presented to [place] ED with altered mental status and nausea. The patient was recently admitted to [facility] on 10/08/18 for suspected GI bleed with anemia and hemoglobin less than 7 wiring transfusions and was discharged on 10/13/18. At the time of arrival at [facility] ICU, the patient is sedated and mechanically ventilated also her history is primarily obtained from previous records and previous providers. The patient apparently recently was diagnosed with 2 nonbleeding ulcers in her colon during her last admission, however was discharged after having stable hemoglobin for the remainder of her admission. During that admission she did require transfusions but otherwise did well. Significantly, the patient does have a history of DVT and was treated with Apixaban and Plavix, which were continued on discharge on 10/13/18. She apparently was feeling generally well up until this morning, and she took a nap this evening but her apparently had trouble waking her and she became poorly responsive. EMS was called and she was unresponsive at that time. Apparently when EMS arrived they were concerned about facial droop and a stroke alert was called at the ED. Upon arrival to the ED, the patient remained poorly responsive and was also found to be hypothermic with a temperature of 96.4. Additionally there was concern about her blood pressure which was 84/43. Stat labs and the patient demonstrated that the patient's hemoglobin was 5.7, platelets 92, sodium 140, potassium 2.2, chloride 119, bicarbonate 18, creatinine 0.28, glucose 67, calcium 4.3, INR 2.8. While in the ED, the patient became increasingly unstable, and she was receiving 2 units of blood the patient did experience a short generalized tonic-clonic seizure which lasted about 1 minute. She was given Keppra, was intubated and received a right IJ CVC. The patient was then transferred to [facility] ICU for further management. - Time Spent with Patient Total time spent is greater than 50% in coordination of care (as documented) at patient's floor/unit and/or counseling patient: less than 15 minutes Plan of Care Discussed with: patient Internal Medicine: Result - Labs CBC & Chem 7: 10/19/18 04:52 10/19/18 04:52 Labs: Short CBC 10/19/18 Range/Units 04:52 WBC 9.2 (4.3-11.1) K/mcL Hgb 13.4 (11.5-15.4) g/dL Hct 41.5 (35.3-44.9) % Plt Count 194 (140-400) K/mcL Neutrophils # 8.2 (1.6-8.9) K/mcL BMP 10/19/18 04:52 Sodium 138 Potassium 3.5 Chloride 97 L Carbon Dioxide 33 H BUN 17 Creatinine 0.58 L Glucose 199 H Calcium 8.9 - ABG Interpretation ABG results: ABG ABG pH 7.36 pH Units (7.32-7.45) 10/17/18 05:31 ABG pCO2 59 mmHg (35-45) H 10/17/18 05:31 ABG pO2 64 mmHg (85-104) L 10/17/18 05:31 ABG O2 Saturation 90 % (95-98) L 10/17/18 05:31 PT/INR, D-dimer PT 19.2 Seconds (9.4-12.1) H 10/16/18 06:35 D-Dimer 797 ng/mLFEU (0-500) H 10/16/18 06:35 Consult Discharge Plan - Plan Referrals: NONE,PCP [Primary Care Provider] - (3) CHF (congestive heart failure) Qualifiers: Heart failure type: diastolic Heart failure chronicity: chronic Qualified Code(s): I50.32 - Chronic diastolic (congestive) heart failure
[2018-10-19] MEDS: Albuterol 2.5 MG/3 ML NEBULIZER IH SCH (20:21)
[2018-10-19] MEDS: Apixaban 5 MG TABLET PO SCH (20:30)
[2018-10-19] MEDS: Ranolazine 500 MG TAB.ER.12H PO SCH (20:30)
[2018-10-20 05:15] LABS: Basophils % 0.1 %; Hematocrit 41.4 % (35.3-44.9); Immature Granulocytes % 0.4 % (0-4); Lymphocytes # 0.6 K/mcL (0.6-4.6); Lymphocytes % 4.7 %; Mean Corpuscular HGB Conc 31.4 g/dL (31.6-35.5); Mean Corpuscular Volume 92.4 fL (83.0-100.0); Mean Platelet Volume 10.1 fL (9.4-12.4); Monocytes # 0.6 K/mcL (0.0-1.3); Monocytes % 4.2 %; Neutrophils # 12.1 K/mcL (1.6-8.9); Platelet Count 236 K/mcL (140-400); Red Blood Count 4.48 M/mcL (3.82-4.97); Red Cell Distribution Width 14.3 % (11.5-14.5); Segmented Neutrophils % 90.6 %
[2018-10-20 05:33] LABS: BUN/Creatinine Ratio 47 (6-26); Blood Urea Nitrogen 28 mg/dL (8-23); Calcium 9.2 mg/dL (8.6-10.3); Carbon Dioxide 35 mEq/L (23-29); Chloride 98 mEq/L (98-107); Glucose 135 mg/dL (70-105); Osmolality,Calculated 294 (280-300); Potassium 3.8 mEq/L (3.5-5.1); Sodium 138 mEq/L (136-145); eGFR For Non-African Americans > 60 (> 60)
[2018-10-20] MEDS: Levothyroxine 25 MCG TABLET PO SCH (06:12)
[2018-10-20] MEDS: MethylPREDNISolone 40 MG/ML VIAL IVP SCH (06:12)
[2018-10-20] MEDS: Budesonide/Formoterol 160/4.5 1 PUFF INH IH SCH ×2 (08:03→21:57)
[2018-10-20] MEDS: Albuterol 2.5 MG/3 ML NEBULIZER IH SCH ×2 (08:04→21:57)
[2018-10-20] MEDS: UMECLIDINIUM 62.5 MCG IH SCH (08:04)
--- NOTE | 2018-10-20 08:09 | Neurology - Consult Note ---
<Qasim Guy - Last Filed: 10/20/18 10:54> Date of Encounter: 10/20/18 Time of Encounter: 08:08 Assessment and Plan (1) Seizure Current Visit: Yes Status: Acute Seizure activity reported at [place] ED. Patient denies prior history of sei zures. EEG pending Continue seizure precautions (2) Acute encephalopathy Current Visit: Yes Status: Resolved MRI brain revealed no convincing acute intracranial abnormality. No acute infarct. Extensive relatively confluent T2 hyperintensity again seen within the supratentorial compartment, which may represent chronic microvascular ischemic change. Opacification of the sphenoid sinuses bilaterally. (3) Acute hypoxemic respiratory failure Current Visit: Yes Status: Acute (4) CAD (coronary artery disease) Current Visit: No Status: Chronic Qualifiers: Coronary Disease-Associated Artery/Lesion type: unspecified vessel or lesion type [place] vs. transplanted heart: [place] heart Associated angina: angina p resence unspecified Qualified Code(s): I25.10 - Atherosclerotic heart disease of [place] coronary artery without angina pectoris History of Present Illness Chief complaint: AMS HPI: Ms. Fabian is a 78 year old female with a past medical history of hypertension, hyperlipidemia, COPD, CAD, and recent admission for lower GI bleed who was transferred from [facility] ED secondary to altered mental status and acute respiratory failure requiring intubation and sedation prior to arrival to [facility] ICU. From chart review, patient's noted she had facial droop upon waking and was poorly responsive. In the ED, patient was hypothermic with a temperature of 96.4F and blood pressure was 84/43. Stat labs revealed hemoglobin was 5.7, platelets 92, sodium 140, potassium 2.2, chloride 119, bicarbonate 18, creatinine 0.28, glucose 67, calcium 4.3, INR 2.8. Patient received 2 units of blood and had a generalized tonic-clonic seizure which lasted about 1 minute witnessed by the staff at [facility] ED. She was started Keppra and was then transferred to [facility] ICU for further management. Patient was extubated yesterday and neurology was consulted for further recommendations. Past Med Surg Social Fam HX - Past Medical History Medical history: asthma, COPD, coronary artery disease, hyperlipidemia, hypertension, myocardial infarction Psychiatric history: no psych history - Past Surgical History Surgical History: coronary bypass (CABG) Additional surgical history: Quad bypass in 1987. - Social History Smoking Status: Never smoker Smokeless Tobacco Status: No Alcohol use: none Drug use: none - Family History Mother Living Status: Hx Family Cardiac Disorders: Yes (heart disease, stroke) Hx Family Neurologic Disorders: Yes (Stoke) Father Living Status: Hx Family Cancer: Yes (Prostate) Medications and Allergies Albuterol Sulfate [Ventolin Hfa] 2 puff IH Q4H 09/16/18 [History] Atorvastatin Calcium [Lipitor] 80 mg PO QPM 09/16/18 [History] Furosemide [Lasix] 20 mg PO DAILY 09/16/18 [History] Isosorbide MONOnitrate [Isosorbide Mononitrate ER] 120 mg PO DAILY 09/16/18 [History] Levothyroxine [Synthroid] 25 mcg PO 0630 09/16/18 [History] Metoprolol [Lopressor] 50 mg PO BID 09/16/18 [History] Nitroglycerin 0.4 mg PO AD PRN MDD 3 SPRAYS/15MINS CALL 911 09/16/18 [History] Polyethylene Glycol 3350 [Smoothlax] 17 gm PO DAILY PRN 09/16/18 [History] Potassium Chloride 10 meq PO DAILY 09/16/18 [History] Ranolazine [Ranexa] 1,000 mg PO BID 09/16/18 [History] Vit C/E/Zn/Coppr/Lutein/Zeaxan [Preservision Areds 2 Softgel] 1 cap PO DAILY 09/16/18 [History] amLODIPine [Norvasc] 5 mg PO DAILY 09/16/18 [History] Albuterol Neb [Proventil Neb] 2.5 mg IH BID 10/08/18 [History] Amitriptyline HCl 75 mg PO DAILY 10/08/18 [History] Apixaban [Eliquis] 5 mg PO BID 10/08/18 [History] Psyllium Husk [Metamucil] 0.52 gm PO DAILY 10/08/18 [History] Omeprazole [PriLOSEC] 40 mg PO DAILY@0800 #30 jevon. 10/13/18 [Rx] Non-Formulary Medication 62.5 mcg IH DAILY 10/19/18 [History] Allergy/AdvReac Type Severity Reaction Status Date / Time guaifenesin [From Hytuss] Allergy See Verified 10/16/18 09:02 Comments nabumetone [From Relafen] Allergy See Verified 10/16/18 09:02 Comments pentazocine [From Talwin] Allergy See Verified 10/16/18 09:02 Comments prednisone Allergy See Verified 10/16/18 09:02 Comments propoxyphene Allergy See Verified 10/16/18 09:02 Comments Sulindac [From Clinoril] Allergy See Verified 10/16/18 09:02 Comments Benzonatate AdvReac Confusion Verified 10/19/18 10:22 carbamazepine AdvReac Chest Pain Verified 10/08/18 06:05 codeine AdvReac See Verified 10/16/18 09:02 Comments etodolac AdvReac Chest Pain Verified 10/08/18 06:05 hydrocodone AdvReac Chest Pain Verified 10/08/18 06:05 Iodinated Contrast- Oral and AdvReac Chest Pain Verified 10/08/18 06:05 IV Dye [Iodinated Contrast Media - IV Dye] levofloxacin AdvReac Chest Pain Verified 10/08/18 06:05 NSAIDS (Non-Steroidal AdvReac Chest Pain Verified 10/08/18 06:05 Anti-Inflamma Penicillins [PCN] AdvReac Chest Pain Verified 10/08/18 06:05 pregabalin [From Lyrica] AdvReac Numbness Verified 10/08/18 06:05 pseudoephedrine AdvReac Chest Pain Verified 10/08/18 06:05 Sulfa (Sulfonamide AdvReac Chest Pain Verified 10/08/18 06:05 Antibiotics) tetracycline [Tetracycline] AdvReac Chest Pain Verified 10/08/18 06:05 tolmetin AdvReac Chest Pain Verified 10/08/18 06:05 tramadol AdvReac Numbness Verified 10/08/18 06:05 All Systems: The remainder of the systems were reviewed and are negative Physical Examination - Vital Signs Vital Signs: Initial Vital Signs Pulse Resp BP Pulse Ox 60 12 132/68 100 10/16/18 06:09 10/16/18 06:09 10/16/18 06:09 10/16/18 06:09 Results - Laboratory Findings CBC and BMP: 10/20/18 04:34 10/20/18 04:34 Abnormal lab findings: Abnormal lab results WBC 13.4 K/mcL (4.3-11.1) H 10/20/18 04:34 MCHC 31.4 g/dL (31.6-35.5) L 10/20/18 04:34 Neutrophils # 12.1 K/mcL (1.6-8.9) H 10/20/18 04:34 PT 19.2 Seconds (9.4-12.1) H 10/16/18 06:35 APTT 43.3 Seconds (26.0-36.0) H 10/16/18 06:35 Fibrinogen 646 mg/dL (169-393) H 10/16/18 06:35 D-Dimer 797 ng/mLFEU (0-500) H 10/16/18 06:35 ABG pCO2 59 mmHg (35-45) H 10/17/18 05:31 ABG pO2 64 mmHg (85-104) L 10/17/18 05:31 ABG HCO3 33 mEq/L (21-27) H 10/17/18 05:31 ABG Total CO2 35 mEq/L (20-26) H 10/17/18 05:31 ABG O2 Saturation 90 % (95-98) L 10/17/18 05:31 ABG Base Excess 6 mEq/L (-2 to 3) H 10/17/18 05:31 Carbon Dioxide 35 mEq/L (23-29) H 10/20/18 04:34 BUN 28 mg/dL (8-23) H 10/20/18 04:34 Creatinine 0.59 mg/dL (0.60-1.20) L 10/20/18 04:34 BUN/Creatinine Ratio 47 (6-26) H 10/20/18 04:34 Glucose 135 mg/dL (70-105) H 10/20/18 04:34 Venous Ioniz Calcium 1.14 mmol/L (1.15-1.35) L 10/18/18 03:51 Direct Bilirubin 0.3 mg/dL (0.0-0.2) H 10/16/18 06:35 AST 41 Units/L (13-39) H 10/17/18 04:00 B-Natriuretic Peptide 223 pg/mL (Less than 100) H 10/16/18 06:35 Serum Total Protein 6.0 g/dL (6.4-8.9) L 10/17/18 04:00 Albumin 3.0 g/dL (3.5-5.7) L 10/17/18 04:00 Albumin/Globulin Ratio 1.0 (1.1-2.2) L 10/17/18 04:00 Consult Discharge Plan - Plan Referrals: NONE,PCP [Primary Care Provider] - <Aurea Jacinto I - Last Filed: 10/20/18 11:23> Date of Encounter: 10/20/18 Assessment and Plan (1) Seizure Current Visit: Yes Status: Acute Pt was seen and examined, my medical decision was reviewed with the Resident Physician, I agree with the documented findings, disposition and treatment plas as described except to the extent set forth below. Patient apparently had a witnessed seizure type of activity earlier when she was admitted to the hospital apparently she was unresponsive and was intubated and extubated now she seems to be back to her baseline she denies any history of seizures she was not continued on the Keppra and has received only one dose. In the clinical context of her history and symptoms she did have a multiple metabolic abnormalities that may have precipitated this seizure type of activity. She denies any history of seizures any history of [employer] infection or any history of seizures as a child. At this time he can continue to hold off for any anticonvulsive medication unless we see any abnormality on an EEG MRI of the brain is been negative for any acute infarct no focal findings on examination to be suggestive of stroke Aurea Jacinto MD History of Present Illness HPI: Ms. Fabian is a 78 year old female All Systems: The remainder of the systems were reviewed and are negative Physical Examination - Vital Signs Vital Signs: Initial Vital Signs Pulse Resp BP Pulse Ox 60 12 132/68 100 10/16/18 06:09 10/16/18 06:09 10/16/18 06:09 10/16/18 06:09 Results - Laboratory Findings CBC and BMP: 10/20/18 04:34 10/20/18 04:34 Abnormal lab findings: Abnormal lab results WBC 13.4 K/mcL (4.3-11.1) H 10/20/18 04:34 MCHC 31.4 g/dL (31.6-35.5) L 10/20/18 04:34 Neutrophils # 12.1 K/mcL (1.6-8.9) H 10/20/18 04:34 PT 19.2 Seconds (9.4-12.1) H 10/16/18 06:35 APTT 43.3 Seconds (26.0-36.0) H 10/16/18 06:35 Fibrinogen 646 mg/dL (169-393) H 10/16/18 06:35 D-Dimer 797 ng/mLFEU (0-500) H 10/16/18 06:35 ABG pCO2 59 mmHg (35-45) H 10/17/18 05:31 ABG pO2 64 mmHg (85-104) L 10/17/18 05:31 ABG HCO3 33 mEq/L (21-27) H 10/17/18 05:31 ABG Total CO2 35 mEq/L (20-26) H 10/17/18 05:31 ABG O2 Saturation 90 % (95-98) L 10/17/18 05:31 ABG Base Excess 6 mEq/L (-2 to 3) H 10/17/18 05:31 Carbon Dioxide 35 mEq/L (23-29) H 10/20/18 04:34 BUN 28 mg/dL (8-23) H 10/20/18 04:34 Creatinine 0.59 mg/dL (0.60-1.20) L 10/20/18 04:34 BUN/Creatinine Ratio 47 (6-26) H 10/20/18 04:34 Glucose 135 mg/dL (70-105) H 10/20/18 04:34 Venous Ioniz Calcium 1.14 mmol/L (1.15-1.35) L 10/18/18 03:51 Direct Bilirubin 0.3 mg/dL (0.0-0.2) H 10/16/18 06:35 AST 41 Units/L (13-39) H 10/17/18 04:00 B-Natriuretic Peptide 223 pg/mL (Less than 100) H 10/16/18 06:35 Serum Total Protein 6.0 g/dL (6.4-8.9) L 10/17/18 04:00 Albumin 3.0 g/dL (3.5-5.7) L 10/17/18 04:00 Albumin/Globulin Ratio 1.0 (1.1-2.2) L 10/17/18 04:00
[2018-10-20] MEDS: Ranolazine 500 MG TAB.ER.12H PO SCH ×2 (08:22→21:24)
[2018-10-20] MEDS: Isosorbide MONOnitrate (24 HR) 60 MG TAB.ER.24H PO SCH (08:22)
[2018-10-20] MEDS: amLODIPine 5 MG TABLET PO SCH (08:22)
[2018-10-20] MEDS: Furosemide 20 MG TABLET PO SCH (08:22)
[2018-10-20] MEDS: Apixaban 5 MG TABLET PO SCH ×2 (08:23→21:24)
[2018-10-20] MEDS ORDERED: Levofloxacin 750 MG/150 ML 750 MG/150 ML BAG IVPB SCH (09:00)
[2018-10-20] MEDS ORDERED: AMITRIPTYLINE HCL 75 MG PO SCH (09:00)
--- NOTE | 2018-10-20 14:45 | EEG/EMG/Oth Biometrics Report ---
EEG Procedure Report EEG Procedure: Routine EEG Procedure Note: This is a routine 21 channel digital EEG performed utilizing 10- 20 international electrode placement system. FINDINGS: Patient has a predominant waking background frequency that is average voltage 8 to 10 Hertz alpha activity in the posterior region, normal amplitude symmetrical over the both hemispheres reactive to eyes opening and closing record continued to show alpha activity intermixed with some theta off and on, no abnormal activity recorded, predominantly no evidence of any spike wave discharges or any lateralizing abnormalities, Photic stimulation and hyperventilation did not produce any convulsive response. Intermittent EMG artifacts were noted. Stage II sleep was not achieved. Impression: Normal awake drowsy electroencephalogram. No epileptiform discharges or any other paroxysmal activities noted. ( Please note that normal EEG does not exclude the diagnosis of seizures or epilepsy, clinical correlation is suggested)
--- NOTE | 2018-10-20 23:34 | Internal Med Progress Note ---
Hospitalist Progress Note - Encounter Date of Encounter: 10/20/18 Time of Encounter: 19:00 - Subjective Interval History: I dictated the second PN today. This one is not valid. - Exam Vitals: Temp Pulse Resp BP Pulse Ox 98.0 F 91 18 142/70 97 10/20/18 20:34 10/20/18 20:34 10/20/18 21:57 10/20/18 20:34 10/20/18 21:57 Exam: xx - Assessment and Plan (1) CHF (congestive heart failure) Status: Acute (2) Acute hypoxemic respiratory failure Status: Acute (3) Seizure Status: Resolved (4) Hx pulmonary embolism Status: Acute - Time Spent with Patient Total time spent is greater than 50% in coordination of care (as documented) at patient's floor/unit and/or counseling patient: Internal Medicine: Result - Labs CBC & Chem 7: 10/21/18 04:18 10/21/18 04:18 Labs: Short CBC 10/20/18 Range/Units 04:34 WBC 13.4 H (4.3-11.1) K/mcL Hgb 13.0 (11.5-15.4) g/dL Hct 41.4 (35.3-44.9) % Plt Count 236 (140-400) K/mcL Neutrophils # 12.1 H (1.6-8.9) K/mcL BMP 10/20/18 04:34 Sodium 138 Potassium 3.8 Chloride 98 Carbon Dioxide 35 H BUN 28 H Creatinine 0.59 L Glucose 135 H Calcium 9.2 - ABG Interpretation ABG results: ABG ABG pH 7.36 pH Units (7.32-7.45) 10/17/18 05:31 ABG pCO2 59 mmHg (35-45) H 10/17/18 05:31 ABG pO2 64 mmHg (85-104) L 10/17/18 05:31 ABG O2 Saturation 90 % (95-98) L 10/17/18 05:31 PT/INR, D-dimer PT 19.2 Seconds (9.4-12.1) H 10/16/18 06:35 D-Dimer 797 ng/mLFEU (0-500) H 10/16/18 06:35 - Impressions Impressions Chest X-Ray 10/20/18 00:00 IMPRESSION: Interval resolution of left basilar pulmonary opacity. No current evidence of a focal consolidation. Findings suggestive of extensive COPD. D/ / 10/20/2018 15:13:29 Edis Butts MD / annamaria Interpreting Provider: Edis Butts MD Consult Discharge Plan - Plan Instructions: Heart Failure (DC), Hypokalemia (DC), Anemia (DC) Referrals: NONE,PCP [Primary Care Provider] - Prescriptions: Docusate [Colace] 100 mg PO BID #60 capsule (1) CHF (congestive heart failure) Qualifiers: Heart failure type: diastolic Heart failure chronicity: chronic Qualified Code(s): I50.32 - Chronic diastolic (congestive) heart failure
[2018-10-21] MEDS ORDERED: Acetaminophen IV 500 MG/50 ML INFUS..BTL IVPB ONE (04:55)
[2018-10-21 05:11] LABS: Basophils % 0.2 %; Hematocrit 38.4 % (35.3-44.9); Hemoglobin 12.3 g/dL (11.5-15.4); Immature Granulocytes % 0.7 % (0-4); Lymphocytes # 1.1 K/mcL (0.6-4.6); Lymphocytes % 11.3 %; Mean Corpuscular Hemoglobin 29.9 pg (28.0-33.3); Mean Corpuscular Volume 93.4 fL (83.0-100.0); Mean Platelet Volume 9.7 fL (9.4-12.4); Neutrophils # 7.7 K/mcL (1.6-8.9); Platelet Count 211 K/mcL (140-400); Red Blood Count 4.11 M/mcL (3.82-4.97); Red Cell Distribution Width 14.3 % (11.5-14.5); Segmented Neutrophils % 77.8 %
[2018-10-21 05:30] LABS: BUN/Creatinine Ratio 52 (6-26); Blood Urea Nitrogen 33 mg/dL (8-23); Calcium 8.9 mg/dL (8.6-10.3); Carbon Dioxide 32 mEq/L (23-29); Chloride 99 mEq/L (98-107); Glucose 95 mg/dL (70-105); Osmolality,Calculated 293 (280-300); Potassium 3.8 mEq/L (3.5-5.1); Sodium 138 mEq/L (136-145); eGFR For Non-African Americans > 60 (> 60)
--- NOTE | 2018-10-21 06:04 | Internal Med Progress Note ---
Hospitalist Progress Note - Encounter Date of Encounter: 10/20/18 Time of Encounter: 19:00 - Subjective Interval History: SUBJECTIVE: The patient feels weak. Otherwise, she is not voicing any other symptoms. Denies chest pain. She basically does not have any coughing or wheezing. Denies abdominal pain, nausea and vomiting. She has normal urination. She has not started any ambulation yet; staying in bed for the last few days. OBJECTIVE: Skin: Free of rash and discoloration. ENMT: Oral/pharyngeal mucosa is normal in appearance. Eyes: Sclera is white. There is no discharge from eyes. Respiratory: Normal breath sounds; no crackles or wheezes. CV: Heart is regular; no gallop or murmur. GI: Abdomen is soft and not tender. There is no palpable mass or visceromegaly. Neuro: There is no focal deficits. ADDITIONAL DATA: An echocardiogram from 09/16/18 showed ejection fraction of 50-55%. It showed moderate concentric left ventricular hypertrophy with moderate left ventricular diastolic dysfunction. Chest x-ray from today shows interval resolution of the left basilar pulmonary opacity. Hemoglobin is 13.0 with a WBC of 13.4 thousand (on steroids). Creatinine is 0.59 with normal electrolytes. ASSESSMENT AND PLAN: Acute on chronic diastolic heart failure. The acute component is pretty much gone. To continue Lasix at 20 mg every morning. To continue mild fluid restriction. Acute on chronic hypoxic respiratory failure. She uses oxygen at 2 L/min nasal cannula at home; currently 3 L/min. The continue IV Solu-Medrol, Symbicort and nebulizer treatments with DuoNeb. She has likely underlying chronic asthma. She has no history of tobacco use. Seizure. He had one episode of seizure before this admission. See notes from neurology. MRI of brain and EEG are normal. There is no basis to put her on chronic anticonvulsants. History of thromboembolism. To continue Eliquis. Coronary artery disease. Stable. To continue Lopressor with Lipitor, Imdur and Ranexa. Hypertension, hypothyroidism and GERD. Stable/under control. DISPOSITION: I asked this patient for increased participation in physical therapy. She will likely benefit from a short course of inpatient physical therapy. - Exam Vitals: Temp Pulse Resp BP Pulse Ox 98.9 F 68 15 124/70 99 10/21/18 04:22 10/21/18 04:22 10/21/18 04:22 10/21/18 04:22 10/21/18 04:22 Exam: xx - Assessment and Plan (1) CHF (congestive heart failure) Current Visit: Yes Status: Chronic (2) Acute on chronic respiratory failure with hypoxia Current Visit: Yes Status: Acute (3) Seizure Current Visit: Yes Status: Acute (4) Hx pulmonary embolism Current Visit: Yes Status: Acute - Time Spent with Patient Total time spent is greater than 50% in coordination of care (as documented) at patient's floor/unit and/or counseling patient: 25 - 35 minutes Plan of Care Discussed with: patient Internal Medicine: Result - Labs CBC & Chem 7: 10/21/18 04:18 10/21/18 04:18 Labs: Short CBC 10/21/18 Range/Units 04:18 WBC 9.9 (4.3-11.1) K/mcL Hgb 12.3 (11.5-15.4) g/dL Hct 38.4 (35.3-44.9) % Plt Count 211 (140-400) K/mcL Neutrophils # 7.7 (1.6-8.9) K/mcL BMP 10/21/18 04:18 Sodium 138 Potassium 3.8 Chloride 99 Carbon Dioxide 32 H BUN 33 H Creatinine 0.64 Glucose 95 Calcium 8.9 - ABG Interpretation ABG results: ABG ABG pH 7.36 pH Units (7.32-7.45) 10/17/18 05:31 ABG pCO2 59 mmHg (35-45) H 10/17/18 05:31 ABG pO2 64 mmHg (85-104) L 10/17/18 05:31 ABG O2 Saturation 90 % (95-98) L 10/17/18 05:31 PT/INR, D-dimer PT 19.2 Seconds (9.4-12.1) H 10/16/18 06:35 D-Dimer 797 ng/mLFEU (0-500) H 10/16/18 06:35 - Impressions Impressions Chest X-Ray 10/20/18 00:00 IMPRESSION: Interval resolution of left basilar pulmonary opacity. No current evidence of a focal consolidation. Findings suggestive of extensive COPD. D/ / 10/20/2018 15:13:29 Edis Butts MD / annamaria Interpreting Provider: Edis Butts MD Consult Discharge Plan - Plan Referrals: NONE,PCP [Primary Care Provider] - (1) CHF (congestive heart failure) Qualifiers: Heart failure type: diastolic Heart failure chronicity: chronic Qualified Code(s): I50.32 - Chronic diastolic (congestive) heart failure
[2018-10-21] MEDS: Levothyroxine 25 MCG TABLET PO SCH (06:27)
[2018-10-21] MEDS: Ranolazine 500 MG TAB.ER.12H PO SCH (08:59)
[2018-10-21] MEDS: Apixaban 5 MG TABLET PO SCH (09:00)
[2018-10-21] MEDS: amLODIPine 5 MG TABLET PO SCH (09:00)
[2018-10-21] MEDS: Furosemide 20 MG TABLET PO SCH (09:00)
[2018-10-21] MEDS ORDERED: methylPREDNISolone 4 MG TABLET PO SCH (09:00)
[2018-10-21] MEDS: Isosorbide MONOnitrate (24 HR) 60 MG TAB.ER.24H PO SCH (09:00)
[2018-10-21] MEDS: Budesonide/Formoterol 160/4.5 1 PUFF INH IH SCH (10:56)
[2018-10-21] MEDS: UMECLIDINIUM 62.5 MCG IH SCH (10:56)
[2018-10-21] MEDS: Albuterol 2.5 MG/3 ML NEBULIZER IH SCH (10:56)
[2018-10-21 11:49] VITALS: BP 113/57
--- NOTE | 2018-10-21 14:28 | Neurology Progress Note ---
Date of Encounter: 10/21/18 Time of Encounter: 08:20 Assessment and Plan (1) Seizure Current Visit: Yes Status: Acute Patient apparently had a witnessed seizure type of activity earlier when she was admitted to the hospital apparently she was unresponsive and was intubated and extubated now she seems to be back to her baseline she denies any history of seizures she was not continued on the Keppra and has received only one dose. In the clinical context of her history and symptoms she did have a multiple metabolic abnormalities that may have precipitated this seizure type of activity. She denies any history of seizures any history of [employer] infection or any history of seizures as a child. At this time he can continue to hold off for any anticonvulsive medication,EEG did not show any abnormality though she could have a seizure like activity but likely related to underlying metabolic and infectious changes at this time, MRI of the brain is been negative for any acute infarct no focal findings on examination to be suggestive of stroke Stable from neurology standpoint we will sign off call if needed Aurea Jacinto MD Subjective Interval history: Stable No new clinical seizures no other new neurological issues Objective - Constitutional Vitals: Temp Pulse Resp BP Pulse Ox 97.8 F 78 17 113/57 94 10/21/18 11:48 10/21/18 11:48 10/21/18 11:48 10/21/18 11:48 10/21/18 11:48 Results - Laboratory Findings CBC and BMP: 10/21/18 04:18 10/21/18 04:18 Abnormal lab findings: Abnormal lab results PT 19.2 Seconds (9.4-12.1) H 10/16/18 06:35 APTT 43.3 Seconds (26.0-36.0) H 10/16/18 06:35 Fibrinogen 646 mg/dL (169-393) H 10/16/18 06:35 D-Dimer 797 ng/mLFEU (0-500) H 10/16/18 06:35 ABG pCO2 59 mmHg (35-45) H 10/17/18 05:31 ABG pO2 64 mmHg (85-104) L 10/17/18 05:31 ABG HCO3 33 mEq/L (21-27) H 10/17/18 05:31 ABG Total CO2 35 mEq/L (20-26) H 10/17/18 05:31 ABG O2 Saturation 90 % (95-98) L 10/17/18 05:31 ABG Base Excess 6 mEq/L (-2 to 3) H 10/17/18 05:31 Carbon Dioxide 32 mEq/L (23-29) H 10/21/18 04:18 BUN 33 mg/dL (8-23) H 10/21/18 04:18 BUN/Creatinine Ratio 52 (6-26) H 10/21/18 04:18 Venous Ioniz Calcium 1.14 mmol/L (1.15-1.35) L 10/18/18 03:51 Direct Bilirubin 0.3 mg/dL (0.0-0.2) H 10/16/18 06:35 AST 41 Units/L (13-39) H 10/17/18 04:00 B-Natriuretic Peptide 223 pg/mL (Less than 100) H 10/16/18 06:35 Serum Total Protein 6.0 g/dL (6.4-8.9) L 10/17/18 04:00 Albumin 3.0 g/dL (3.5-5.7) L 10/17/18 04:00 Albumin/Globulin Ratio 1.0 (1.1-2.2) L 10/17/18 04:00 Consult Discharge Plan - Plan Referrals: NONE,PCP [Primary Care Provider] -
--- NOTE | 2018-10-21 15:53 | Discharge Summary ---
Orders not resulted at time of discharge: Pending orders 10/17/18 09:28 Sputum Culture [Culture,Sputum with Gram Stain] [] Routine 10/20/18 22:04 Culture,Blood [] Stat 10/22/18 04:00 BMP [Basic Metabolic Panel] AM 0400 CBC [Complete Blood Count] [HEME] AM 0400 Date of Encounter: 10/21/18 Time of Encounter: 15:52 - Discharge Diagnosis (1) CHF (congestive heart failure) Priority: Primary Status: Acute Qualifiers: Heart failure type: diastolic Heart failure chronicity: chronic Qualified Code(s): I50.32 - Chronic diastolic (congestive) heart failure (2) Acute on chronic respiratory failure with hypoxia Priority: Primary Status: Acute (3) Seizure Priority: Primary Status: Resolved (4) Debility Priority: Primary Status: Acute (5) Hx of deep venous thrombosis Priority: Secondary Status: Acute Hospital course: HOSPITAL COURSE: The patient is an 78-year-old woman. We got her from [place] emergency department. She was admitted there with altered mental status. They found her to have anemia with hemoglobin of 5.7. They ordered 2 units of packed red blood cells. The patient had generalized tonic-clonic seizure lasting for about 1 minute when she was getting blood. She received Keppra. She was intubated and sent to our hospital. We admitted her to the ICU. After a short observation she was extubated and moved to the stepdown unit. We did not see her having any seizure activity during this hospitalization. Neurology was consulted. MRI of brain and EEG were normal. Interestingly her hemoglobin at admission to our hospital was 13.4. Supposedly she had hemoglobin of 5.7 before transfusing her with 2 units of packed red blood cells. We did see her having any GI bleeding here. She had recently upper and lower endoscopy done by general surgery. 2 nonbleeding ulcerations in her colon were found. We found this patient to have some pulmonary congestion. She got IV/by mouth diuretic. Mild hypoxia related to pulmonary congestion subsided. She does have underlying chronic respiratory failure with hypoxia; 2 L/min nasal cannula oxygen. Eventually, we started ambulation with a walker/assistance. The patient did not agree for sending her to [facility]. CONDITION AT DISCHARGE: She feels good. Denies chest pain and difficulty breathing; on 2 L/min nasal cannula oxygen. Denies coughing and wheezing. Denies abdominal pain, nausea and vomiting. She makes good amounts of urine. Skin: Free of rash and discoloration. Respiratory: Normal breath sounds with no crackles and wheezes bilaterally. CV: Heart is regular with no gallop or murmur. GI: Abdomen is flat and soft with no palpable mass or visceromegaly. Neuro exam: There is no focal deficits. Normal speech, swallowing and gait. Her blood tests from the day of discharge showed hemoglobin of 12.3 with normal WBC/platelet count. She had creatinine of 0.64, with normal electrolytes. Echocardiogram shows diastolic dysfunction with normal systolic function. SEE DISCHARGE ORDERS/MEDICATIONS.. Discharge discussed with: patient, family - Time Spent with Patient Total time spent providing and/or coordinating discharge services: Greater than 30 minutes (45 minutes..) - Discharge Medications Prescriptions: Docusate [Colace] 100 mg PO BID #60 capsule Home Medications: Atorvastatin Calcium [Lipitor] 80 mg PO QPM 09/16/18 [History] Furosemide [Lasix] 20 mg PO DAILY 09/16/18 [History] Isosorbide MONOnitrate [Isosorbide Mononitrate ER] 120 mg PO DAILY 09/16/18 [History] Levothyroxine [Synthroid] 25 mcg PO 0630 09/16/18 [History] Metoprolol [Lopressor] 50 mg PO BID 09/16/18 [History] Nitroglycerin 0.4 mg PO AD PRN MDD 3 SPRAYS/15MINS CALL 911 09/16/18 [History] Polyethylene Glycol 3350 [Smoothlax] 17 gm PO DAILY PRN 09/16/18 [History] Potassium Chloride 10 meq PO DAILY 09/16/18 [History] Ranolazine [Ranexa] 1,000 mg PO BID 09/16/18 [History] Vit C/E/Zn/Coppr/Lutein/Zeaxan [Preservision Areds 2 Softgel] 1 cap PO DAILY 09/16/18 [History] amLODIPine [Norvasc] 5 mg PO DAILY 09/16/18 [History] Albuterol Neb [Proventil Neb] 2.5 mg IH BID 10/08/18 [History] Amitriptyline HCl 75 mg PO DAILY 10/08/18 [History] Apixaban [Eliquis] 5 mg PO BID 10/08/18 [History] Psyllium Husk [Metamucil] 0.52 gm PO DAILY 10/08/18 [History] Omeprazole [PriLOSEC] 40 mg PO DAILY@0800 #30 capsule. 10/13/18 [Rx] Non-Formulary Medication 62.5 mcg IH DAILY 10/19/18 [History] Albuterol Sulfate [Ventolin Hfa] 2 puff IH Q4H PRN #0 10/21/18 [Rx] Docusate [Colace] 100 mg PO BID #60 capsule 10/21/18 [Rx] Allergies/Adverse Reactions: Allergy/AdvReac Type Severity Reaction Status Date / Time guaifenesin [From Hytuss] Allergy See Verified 10/16/18 09:02 Comments nabumetone [From Relafen] Allergy See Verified 10/16/18 09:02 Comments pentazocine [From Talwin] Allergy See Verified 10/16/18 09:02 Comments prednisone Allergy See Verified 10/16/18 09:02 Comments propoxyphene Allergy See Verified 10/16/18 09:02 Comments Sulindac [From Clinoril] Allergy See Verified 10/16/18 09:02 Comments Benzonatate AdvReac Confusion Verified 10/19/18 10:22 carbamazepine AdvReac Chest Pain Verified 10/08/18 06:05 codeine AdvReac See Verified 10/16/18 09:02 Comments etodolac AdvReac Chest Pain Verified 10/08/18 06:05 hydrocodone AdvReac Chest Pain Verified 10/08/18 06:05 Iodinated Contrast- Oral and AdvReac Chest Pain Verified 10/08/18 06:05 IV Dye [Iodinated Contrast Media - IV Dye] levofloxacin AdvReac Chest Pain Verified 10/08/18 06:05 NSAIDS (Non-Steroidal AdvReac Chest Pain Verified 10/08/18 06:05 Anti-Inflamma Penicillins [PCN] AdvReac Chest Pain Verified 10/08/18 06:05 pregabalin [From Lyrica] AdvReac Numbness Verified 10/08/18 06:05 pseudoephedrine AdvReac Chest Pain Verified 10/08/18 06:05 Sulfa (Sulfonamide AdvReac Chest Pain Verified 10/08/18 06:05 Antibiotics) tetracycline [Tetracycline] AdvReac Chest Pain Verified 10/08/18 06:05 tolmetin AdvReac Chest Pain Verified 10/08/18 06:05 tramadol AdvReac Numbness Verified 10/08/18 06:05 Date of admission: 10/16/18 07:52 Primary care physician: PCP NONE Consults: 10/16/18 07:20 Consult to Critical Care [CONS] Routine Consulting Provider: [facility] [place] Reason for Consult: critical care management Call Completed: Yes 10/18/18 07:51 Consult to Occupational Therapy [CONS] Routine Comment: Evaluate, develop and implement POC Reason for Consult: deconditioned Does patient have active BEDREST order?: No Is patient medically & hemodynamically stable?: Yes Consult to Physical Therapy [CONS] Routine Comment: Evaluate, develop and implement POC Reason for Consult: deconditioned Does patient have active BEDREST order?: No Is patient medically & hemodynamically stable?: Yes 10/19/18 19:25 Consult to Neurology [CONS] Routine Consulting Provider: Neurology [facility] Reason for Consult: ? Seizure Call Completed: Yes 10/20/18 12:55 Consult to Interpret Exam [CONS] Routine Consulting Provider: Aurea Jacinto I Consult to Interpret Exam: Interpret EEG Discharging clinician: Jovi Ba Anticipated date of discharge: 10/21/18 - Constitutional Vitals: Temp Pulse Resp BP Pulse Ox 97.8 F 78 17 113/57 94 10/21/18 11:48 10/21/18 11:48 10/21/18 11:48 10/21/18 11:48 10/21/18 11:48 General appearance: Present: A&O X 3, answers questions appropriately Exam: xx - Patient Status Disposition: Home Health Service Condition: Fair Functional capacity at discharge: uses cane/walker (needs some assistance..) - Discharge Instructions Instructions: Heart Failure (DC), Hypokalemia (DC), Anemia (DC) Follow Up With: NONE,PCP [Primary Care Provider] - - Diet and Activity Activity: ambulate only with your walker Diet: advance to your usual diet (FLUID RESTRICTION OF 1800 ML PER DAY..) - VTE Reasons for not Prescribing Prophylaxis: Not indicated-Anticoagulated or INR therapeutic Deep Vein Thrombosis/Pulmonary Embolism Present on Admission: Yes
--- NOTE | 2018-10-21 16:13 | Physician Discharge Referral ---
Home Health/Hosp Referral Info Transfer to: Home Health Attending Provider: Ely Ba MD Provider in Charge Post Discharge: PCP - Diagnosis (1) CHF (congestive heart failure) Priority: Primary Status: Acute (2) Acute on chronic respiratory failure with hypoxia Priority: Primary Status: Acute (3) Seizure Priority: Primary Status: Resolved (4) Debility Priority: Primary Status: Acute (5) Hx of deep venous thrombosis Priority: Primary Status: Acute - Respiratory Orders Oxygen / L per min (2 l/min -- her baseline..) Smoking Cessation: Smoking cessation has been advised. For more information, call the [place] Tobacco Quit Line at 5-959-JCTR-NOW. - Diet/Nutrition Diet/Nutrition Orders: Cardiac (FLUID REICTION OF 1800 ML PER DAY..) - Activity Activity Orders: Walker - Services Needed Following services are medically necessary services: Physical Therapy - Transfer Medications Prescriptions: Docusate [Colace] 100 mg PO BID #60 capsule Home Medications: Atorvastatin Calcium [Lipitor] 80 mg PO QPM 09/16/18 [History] Furosemide [Lasix] 20 mg PO DAILY 09/16/18 [History] Isosorbide MONOnitrate [Isosorbide Mononitrate ER] 120 mg PO DAILY 09/16/18 [History] Levothyroxine [Synthroid] 25 mcg PO 0630 09/16/18 [History] Metoprolol [Lopressor] 50 mg PO BID 09/16/18 [History] Nitroglycerin 0.4 mg PO AD PRN MDD 3 SPRAYS/15MINS CALL 911 09/16/18 [History] Polyethylene Glycol 3350 [Smoothlax] 17 gm PO DAILY PRN 09/16/18 [History] Potassium Chloride 10 meq PO DAILY 09/16/18 [History] Ranolazine [Ranexa] 1,000 mg PO BID 09/16/18 [History] Vit C/E/Zn/Coppr/Lutein/Zeaxan [Preservision Areds 2 Softgel] 1 cap PO DAILY 09/16/18 [History] amLODIPine [Norvasc] 5 mg PO DAILY 09/16/18 [History] Albuterol Neb [Proventil Neb] 2.5 mg IH BID 10/08/18 [History] Amitriptyline HCl 75 mg PO DAILY 10/08/18 [History] Apixaban [Eliquis] 5 mg PO BID 10/08/18 [History] Psyllium Husk [Metamucil] 0.52 gm PO DAILY 10/08/18 [History] Omeprazole [PriLOSEC] 40 mg PO DAILY@0800 #30 capsule. 10/13/18 [Rx] Non-Formulary Medication 62.5 mcg IH DAILY 10/19/18 [History] Albuterol Sulfate [Ventolin Hfa] 2 puff IH Q4H PRN #0 10/21/18 [Rx] Docusate [Colace] 100 mg PO BID #60 capsule 10/21/18 [Rx] Allergies/Adverse Reactions: Allergy/AdvReac Type Severity Reaction Status Date / Time guaifenesin [From Hytuss] Allergy See Verified 10/16/18 09:02 Comments nabumetone [From Relafen] Allergy See Verified 10/16/18 09:02 Comments pentazocine [From Talwin] Allergy See Verified 10/16/18 09:02 Comments prednisone Allergy See Verified 10/16/18 09:02 Comments propoxyphene Allergy See Verified 10/16/18 09:02 Comments Sulindac [From Clinoril] Allergy See Verified 10/16/18 09:02 Comments Benzonatate AdvReac Confusion Verified 10/19/18 10:22 carbamazepine AdvReac Chest Pain Verified 10/08/18 06:05 codeine AdvReac See Verified 10/16/18 09:02 Comments etodolac AdvReac Chest Pain Verified 10/08/18 06:05 hydrocodone AdvReac Chest Pain Verified 10/08/18 06:05 Iodinated Contrast- Oral and AdvReac Chest Pain Verified 10/08/18 06:05 IV Dye [Iodinated Contrast Media - IV Dye] levofloxacin AdvReac Chest Pain Verified 10/08/18 06:05 NSAIDS (Non-Steroidal AdvReac Chest Pain Verified 10/08/18 06:05 Anti-Inflamma Penicillins [PCN] AdvReac Chest Pain Verified 10/08/18 06:05 pregabalin [From Lyrica] AdvReac Numbness Verified 10/08/18 06:05 pseudoephedrine AdvReac Chest Pain Verified 10/08/18 06:05 Sulfa (Sulfonamide AdvReac Chest Pain Verified 10/08/18 06:05 Antibiotics) tetracycline [Tetracycline] AdvReac Chest Pain Verified 10/08/18 06:05 tolmetin AdvReac Chest Pain Verified 10/08/18 06:05 tramadol AdvReac Numbness Verified 10/08/18 06:05 Certification: Further, I certify that my clinical findings support that this patient is homebound (i.e. absences from home require considerable and taxing effort and are for medical reasons or yarsanism services or infrequently or short duration when for other reasons) because: Homebound Reason: Leaving home requires considerable and taxing effort due to condition Attestation: My signature below is to certify that this patient is under my care and that I, or nurse practitioner, or a physician's nursing assistant working with me, has a [id number] encounter with this patient.
[2018-10-22] MEDS ORDERED: levoFLOXacin 750 MG TABLET PO SCH (09:00)
== END 2018-10-21 17:48 | disposition home health service (06) | DRG 133 ==
LOC: ICNU → SUATTDRO 06:15 → 2NENU 10-18 13:39
PROVIDERS: ADMIT Internal Medicine; ATTEND Internal Medicine

== ENCOUNTER 2018-11-15 05:42 | Observation (INO) ==
--- NOTE | 2018-11-15 05:57 | Emergency Department Note ---
Disposition Clinical Impression: Cerebrovascular accident Qualifiers: CVA mechanism: unspecified Qualified Code(s): I63.9 - Cerebral infarction, unspecified Disposition: Admitted As Inpatient Condition: Fair Time of Disposition: 06:54 Neuro HPI - General Chief Complaint: ED Neuro Symptoms/Deficit Stated Complaint: lips numb/shaking Time Seen by Provider: 11/15/18 05:53 Source: patient, EMS Mode of arrival: EMS Limitations: no limitations Nursing Notes Reviewed: Yes Vital Signs Reviewed: Yes - History of Present Illness HPI Narrative: 78-year-old female arrives to the emergency department after experiencing numbness in the perioral region and generalized weakness. Family member called EMS at that time. The patient has an extensive history of weakness and medical history. No previous CVA. The patient is complaining of perioral numbness as well as tongue deviation to the right. Granddaughter who is medical caregiver states that she is slurring her words slightly as well. The patient's last known well was 10 PM 1 day ago roughly 8 hours prior to presentation. The patient has an NIH of 34 numbness to the right side of the face, mild facial droop and tongue deviation to the right and slurring of words. 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 - Related Data Home Medications: Home Medications Medication Instructions Recorded Confirmed RX: Atorvastatin Calcium [Lipitor] 80 mg PO QPM 09/16/18 11/15/18 RX: Furosemide [Lasix] 20 mg PO DAILY 09/16/18 11/15/18 RX: Isosorbide MONOnitrate 120 mg PO DAILY 09/16/18 11/15/18 [Isosorbide Mononitrate ER] RX: Levothyroxine [Synthroid] 25 mcg PO 0630 09/16/18 11/15/18 RX: Metoprolol [Lopressor] 50 mg PO BID 09/16/18 11/15/18 RX: Nitroglycerin 0.4 mg PO AD PRN MDD 3 09/16/18 11/15/18 SPRAYS/15MINS CALL 911 RX: Potassium Chloride 10 meq PO DAILY 09/16/18 11/15/18 RX: Ranolazine [Ranexa] 1,000 mg PO BID 09/16/18 11/15/18 RX: Vit C/E/Zn/Coppr/Lutein/Zeaxan 1 cap PO DAILY 09/16/18 11/15/18 [Preservision Areds 2 Softgel] RX: amLODIPine [Norvasc] 5 mg PO DAILY 09/16/18 11/15/18 RX: Albuterol Neb [Proventil Neb] 2.5 mg IH BID 10/08/18 11/15/18 RX: Amitriptyline HCl 75 mg PO DAILY 10/08/18 11/15/18 RX: Apixaban [Eliquis] 5 mg PO BID 10/08/18 11/15/18 RX: Psyllium Husk [Metamucil] 0.52 gm PO DAILY 10/08/18 11/15/18 RX: Guaifenesin [Mucinex] 600 mg PO BID 11/04/18 11/15/18 RX: Umeclidinium [place] [Incruse 62.5 mcg IH DAILY 11/04/18 11/15/18 Ellipta] Previous Rx's Medication Instructions Recorded RX: Omeprazole [PriLOSEC] 40 mg PO DAILY@0800 #30 capsule. 10/13/18 RX: Albuterol Sulfate [Ventolin 2 puff IH Q4H PRN #0 10/21/18 Hfa] RX: Docusate [Colace] 100 mg PO BID #60 capsule 10/21/18 Allergies/Adverse Reactions: Allergies Allergy/AdvReac Type Severity Reaction Status Date / Time guaifenesin [From Hytuss] Allergy See Verified 10/16/18 09:02 Comments nabumetone [From Relafen] Allergy See Verified 10/16/18 09:02 Comments pentazocine [From Talwin] Allergy See Verified 10/16/18 09:02 Comments propoxyphene Allergy See Verified 10/16/18 09:02 Comments Sulindac [From Clinoril] Allergy See Verified 10/16/18 09:02 Comments prednisone AdvReac Mild Shaky Verified 11/05/18 10:09 Benzonatate AdvReac Confusion Verified 10/19/18 10:22 carbamazepine AdvReac Chest Pain Verified 10/08/18 06:05 codeine AdvReac See Verified 10/16/18 09:02 Comments etodolac AdvReac Chest Pain Verified 10/08/18 06:05 hydrocodone AdvReac Chest Pain Verified 10/08/18 06:05 Iodinated Contrast- Oral and AdvReac Chest Pain Verified 10/08/18 06:05 IV Dye [Iodinated Contrast Media - IV Dye] levofloxacin AdvReac Chest Pain Verified 10/08/18 06:05 NSAIDS (Non-Steroidal AdvReac Chest Pain Verified 10/08/18 06:05 Anti-Inflamma Penicillins [PCN] AdvReac Chest Pain Verified 10/08/18 06:05 pregabalin [From Lyrica] AdvReac Numbness Verified 10/08/18 06:05 pseudoephedrine AdvReac Chest Pain Verified 10/08/18 06:05 Sulfa (Sulfonamide AdvReac Chest Pain Verified 10/08/18 06:05 Antibiotics) tetracycline [Tetracycline] AdvReac Chest Pain Verified 10/08/18 06:05 tolmetin AdvReac Chest Pain Verified 10/08/18 06:05 tramadol AdvReac Numbness Verified 10/08/18 06:05 All systems ED: reviewed and negative except as stated. Constitutional: Reports: weakness. Denies: fever, chills, weight change Eyes: Denies: vision change ENT ED: Denies: throat pain, dental pain, congestion, dysphagia Cardiovascular: Denies: chest pain Respiratory: Denies: dyspnea Gastrointestinal: Denies: abdominal pain, nausea Genitourinary: Denies: urgency, dysuria Musculoskeletal: Denies: back pain, neck pain Integumentary: Denies: rash Neurological: Reports: weakness, numbness, paresthesias. Denies: headache, confusion Past Medical History - Past Medical History Attestation: Yes The following information was validated with the patient. Source: patient, old records reviewed, obtained from family Medical history: Reports: asthma, COPD, coronary artery disease, hyperlipidemia, hypertension, myocardial infarction Surgical history: Reports: coronary bypass (CABG) Psychiatric history: Reports: no psych history - Social History Smoking Status: Former smoker Smokeless Tobacco Status: No Alcohol use: Reports: none Drug use: Reports: none Physical Exam - General Limitations: no limitations General appearance: alert, in no apparent distress - Head Head exam: atraumatic, normocephalic, normal inspection - Eye Eye exam: Present: normal appearance, PERRL, EOMI - ENT ENT exam: normal oropharynx, mucous membranes moist, other (tongue deviation to right, preioral paraesthesias) - Neck Neck exam: Present: normal inspection, full ROM, trachea midline - Chest Chest inspection: Present: normal inspection, symmetric chest wall rise - Respiratory Respiratory exam: Present: normal lung sounds bilaterally - Cardiovascular Cardiovascular exam: Present: regular rate, normal rhythm, normal heart sounds - Abdominal Exam Abdominal exam: Present: soft, Non-Tender. Absent: tenderness, distention, guarding, rebound, rigidity - Extremities Exam Extremities exam: Present: normal inspection, full ROM. Absent: tenderness, pedal edema - Neurological Exam Neurological exam: Present: alert, oriented X3 - Expanded Neurological Exam Patient oriented to: Present: person, place, time Speech: Present: fluid speech Cranial nerves: EOM function (II, III, IV, ): Normal, facial sensation (V): Abnormal Right, facial palsy (VII): Abnormal Right, gag reflex (IX): Normal, spinal accessory function (XI): Normal, tongue deviation (XII): Abnormal Right Cerebellar function: finger to nose: Normal Motor strength - LUE: 4/5 Motor strength - RUE: 4/5 Motor strength - LLE: 4/5 Motor strength - RLE: 4/5 Sensory exam upper extremity: light touch: Normal Sensory exam lower extremity: light touch: Normal Coma Scale Eye Opening: Spontaneous Coma Scale Motor Response: Obeys Commands Coma Scale Verbal Response: Oriented Coma Scale Total: 15 - Skin Skin exam: Present: warm, dry, intact, normal color Course - Consultations Consultation #1: I spoke with Dr. Flores at [facility] [place] who is stone gluer for stroke neurology, she recommended MRI and MRA of the patient's head. The patient will be admitted here at [facility] for further workup and care. Time: 06:30 Vital Signs Temperature 99.0 F 11/15/18 05:58 Pulse Rate 67 11/15/18 05:58 Respiratory Rate 24 11/15/18 05:58 Blood Pressure 140/65 11/15/18 05:58 O2 Sat by Pulse Oximetry 100 11/15/18 05:58 Temperature 99.0 F 11/15/18 06:23 Pulse Rate 67 11/15/18 06:23 Respiratory Rate 23 11/15/18 06:23 Blood Pressure 136/55 11/15/18 06:23 O2 Sat by Pulse Oximetry 100 11/15/18 05:58 Oxygen Delivery Oxygen Delivery Room Air Neuro Symptoms/Deficit - MDM Narrative Medical decision making narrative: Patient care will be signed out to the day team. The patient will likely be admitted for MRI and MRA. - Lab Data Lab results reviewed: Yes I reviewed the patient's lab results. Result diagrams: 11/15/18 06:24 11/15/18 06:24 Lab Results 11/15/18 11/15/18 Range/Units 06:24 06:24 WBC 9.7 (4.3-11.1) K/mcL RBC 4.52 (3.82-4.97) M/mcL Hgb 13.5 (11.5-15.4) g/dL Hct 42.2 (35.3-44.9) % MCV 93.4 (83.0-100.0) fL MCH 29.9 (28.0-33.3) pg MCHC 32.0 (31.6-35.5) g/dL RDW 15.4 H (11.5-14.5) % Plt Count 163 (140-400) K/mcL MPV 9.8 (9.4-12.4) fL PT 15.9 H (9.4-12.1) Seconds INR 1.4 APTT 41.0 H (26.0-36.0) Seconds - Radiology Data Radiology results reviewed: Yes I reviewed the patient's radiology results. Head CT 11/15/18 05:53 IMPRESSION: Severe white matter disease with no acute hemorrhage or definite evidence for acute ischemia. Small areas of acute ischemia cannot be excluded. Stroke alert results were called by Dr. Flex Cornejo MD to the patient's physician on 11/15/2018 at 06:24. D/ / Flex Cornejo MD / Flex Cornejo MD Interpreting Provider: Flex Cornejo MD Stroke Scale - Level of Consciousness LOC: Alert - LOC Questions LOC Questions: Answers both correctly - LOC Commands LOC Commands: Performs both correctly - Best Gaze Best Gaze: Normal - Visual Visual: No visual loss - Facial Palsy Facial Palsy: Minor asymmetry on smiling, flattened nasolabial fold - Motor Arms Motor Arm-Left: UN Amputation, joint fusion (explain) (Patient with shoulder abnormality of the left upper extremity still unable to completely perform examination secondary to baseline shoulder problems) Motor Arm-Right: No drift for 10 seconds - Motor Legs Motor Leg-Left: No drift for 5 seconds Motor Leg-Right: No drift for 5 seconds - Limb Ataxia Limb Ataxia: Normal, No Ataxia - Sensory Sensory: Mild to moderate loss, "not as sharp" - Best Language Best Language: No aphasia - Dysarthria Dysarthria: Mild, slurs some words - Extinction and Inattention Extinction and Inattention: Normal - NIHSS Total Score NIHSS Total Score: 3 TPA Checklist - LKW: 3-4.5 hrs Add. Warnings/Precautions Patient/family understanding: The patient/family members have been counseled and understood the risk, benefit, and alternatives of treatment. Attestation Statement - Attestation Attestation: Resident Attestation: I examined this patient and my medical decision making was reviewed with the Resident Physician. I agree with the documented findings, disposition and treatment plan as described except to the extent set forth below. We independently had [id number] contact with the patient. 78 year-old female presenting to the emergency department after experiencing numbness in the face associated generalized weakness and shaking of the extremities. Patient does have known trigeminal neuralgia as well as tremors. Family states that this is different than what she had prior. On exam the patient does have tongue deviation to the right which is significantly abnormal than what she has had in the past. Stroke alert was called. Case was discussed with [facility] neurology. Patient will undergo further evaluation for stroke but is able to remain at [facility] for further evaluation and she is not a TPA candidate. Workup is pending. Case was [facility], Dr. Garcia.
[2018-11-15 06:41] LABS: Hematocrit 42.2 % (35.3-44.9); Hemoglobin 13.5 g/dL (11.5-15.4); Mean Corpuscular Hemoglobin 29.9 pg (28.0-33.3); Mean Corpuscular Volume 93.4 fL (83.0-100.0); Mean Platelet Volume 9.8 fL (9.4-12.4); Platelet Count 163 K/mcL (140-400); Red Blood Count 4.52 M/mcL (3.82-4.97); Red Cell Distribution Width 15.4 % (11.5-14.5)
[2018-11-15 06:49] LABS: INR 1.4; Prothrombin Time 15.9 Seconds (9.4-12.1)
[2018-11-15 06:56] LABS: BUN/Creatinine Ratio 31 (6-26); Blood Urea Nitrogen 22 mg/dL (8-23); Calcium 9.3 mg/dL (8.6-10.3); Carbon Dioxide 28 mEq/L (23-29); Chloride 99 mEq/L (98-107); Glucose 101 mg/dL (70-105); Osmolality,Calculated 287 (280-300); Potassium 4.2 mEq/L (3.5-5.1); Sodium 137 mEq/L (136-145); Troponin I < 0.03 ng/mL (< 0.04); eGFR For Non-African Americans > 60 (> 60)
[2018-11-15] MEDS ORDERED: 0.9 % Sodium Chloride 500 ML IVC ONE (06:58)
--- NOTE | 2018-11-15 07:24 | Emergency Department Note ---
Disposition Clinical Impression: Cerebrovascular accident Qualifiers: CVA mechanism: unspecified Qualified Code(s): I63.9 - Cerebral infarction, unspecified Disposition: Admitted As Inpatient Condition: Fair Referrals: Laxmi Noonan APN [Primary Care Provider] - Forms: ED Satisfaction Letter Time of Disposition: 07:37 General Adult HPI - General Chief complaint: ED Neuro Symptoms/Deficit Stated complaint: lips numb/shaking Time Seen by Provider: 11/15/18 05:53 Source: patient, EMS Mode of arrival: EMS Limitations: no limitations - History of Present Illness Pain Scale: 0 - Related Data Home Medications Medication Instructions Recorded Confirmed Atorvastatin Calcium [Lipitor] 80 mg PO QPM 09/16/18 11/04/18 Furosemide [Lasix] 20 mg PO DAILY 09/16/18 11/04/18 Isosorbide MONOnitrate [Isosorbide 120 mg PO DAILY 09/16/18 11/04/18 Mononitrate ER] Levothyroxine [Synthroid] 25 mcg PO 0630 09/16/18 11/04/18 Metoprolol [Lopressor] 50 mg PO BID 09/16/18 11/04/18 Nitroglycerin 0.4 mg PO AD PRN MDD 3 09/16/18 11/04/18 SPRAYS/15MINS CALL 911 Polyethylene Glycol 3350 17 gm PO DAILY PRN 09/16/18 11/04/18 [Smoothlax] Potassium Chloride 10 meq PO DAILY 09/16/18 11/04/18 Ranolazine [Ranexa] 1,000 mg PO BID 09/16/18 11/04/18 Vit C/E/Zn/Coppr/Lutein/Zeaxan 1 cap PO DAILY 09/16/18 11/04/18 [Preservision Areds 2 Softgel] amLODIPine [Norvasc] 5 mg PO DAILY 09/16/18 11/04/18 Albuterol Neb [Proventil Neb] 2.5 mg IH BID 10/08/18 11/04/18 Amitriptyline HCl 75 mg PO DAILY 10/08/18 11/04/18 Apixaban [Eliquis] 5 mg PO BID 10/08/18 11/04/18 Psyllium Husk [Metamucil] 0.52 gm PO DAILY 10/08/18 11/04/18 Guaifenesin [Mucinex] 600 mg PO BID 11/04/18 11/04/18 Umeclidinium [place] [Incruse 62.5 mcg IH DAILY 11/04/18 11/04/18 Ellipta] Previous Rx's Medication Instructions Recorded Omeprazole [PriLOSEC] 40 mg PO DAILY@0800 #30 capsule. 10/13/18 Albuterol Sulfate [Ventolin Hfa] 2 puff IH Q4H PRN #0 10/21/18 Docusate [Colace] 100 mg PO BID #60 capsule 10/21/18 Azithromycin [Zithromax] 500 mg PO Q24H #3 tablet 11/05/18 Allergies Allergy/AdvReac Type Severity Reaction Status Date / Time guaifenesin [From Hytuss] Allergy See Verified 10/16/18 09:02 Comments nabumetone [From Relafen] Allergy See Verified 10/16/18 09:02 Comments pentazocine [From Talwin] Allergy See Verified 10/16/18 09:02 Comments propoxyphene Allergy See Verified 10/16/18 09:02 Comments Sulindac [From Clinoril] Allergy See Verified 10/16/18 09:02 Comments prednisone AdvReac Mild Shaky Verified 11/05/18 10:09 Benzonatate AdvReac Confusion Verified 10/19/18 10:22 carbamazepine AdvReac Chest Pain Verified 10/08/18 06:05 codeine AdvReac See Verified 10/16/18 09:02 Comments etodolac AdvReac Chest Pain Verified 10/08/18 06:05 hydrocodone AdvReac Chest Pain Verified 10/08/18 06:05 Iodinated Contrast- Oral and AdvReac Chest Pain Verified 10/08/18 06:05 IV Dye [Iodinated Contrast Media - IV Dye] levofloxacin AdvReac Chest Pain Verified 10/08/18 06:05 NSAIDS (Non-Steroidal AdvReac Chest Pain Verified 10/08/18 06:05 Anti-Inflamma Penicillins [PCN] AdvReac Chest Pain Verified 10/08/18 06:05 pregabalin [From Lyrica] AdvReac Numbness Verified 10/08/18 06:05 pseudoephedrine AdvReac Chest Pain Verified 10/08/18 06:05 Sulfa (Sulfonamide AdvReac Chest Pain Verified 10/08/18 06:05 Antibiotics) tetracycline [Tetracycline] AdvReac Chest Pain Verified 10/08/18 06:05 tolmetin AdvReac Chest Pain Verified 10/08/18 06:05 tramadol AdvReac Numbness Verified 10/08/18 06:05 Constitutional: Reports: weakness. Denies: fever, chills, weight change Eyes: Denies: vision change ENT ED: Denies: throat pain, dental pain, congestion, dysphagia Cardiovascular: Denies: chest pain Respiratory: Denies: dyspnea Gastrointestinal: Denies: abdominal pain, nausea Genitourinary: Denies: urgency, dysuria Musculoskeletal: Denies: back pain, neck pain Integumentary: Denies: rash Neurological: Reports: weakness, numbness, paresthesias. Denies: headache, confusion Past Medical History - Past Medical History Medical history: Reports: asthma, COPD, coronary artery disease, hyperlipidemia, hypertension, myocardial infarction Surgical history: Reports: coronary bypass (CABG) Psychiatric history: Reports: no psych history WET SILK HANGER history: Reports: no WET SILK HANGER history - Social History Smoking Status: Former smoker Smokeless Tobacco Status: No Alcohol use: Reports: none Drug use: Reports: none Physical Exam - General Limitations: no limitations General appearance: alert, in no apparent distress Course Vital Signs Temperature 99.0 F 11/15/18 05:58 Pulse Rate 67 11/15/18 05:58 Respiratory Rate 24 11/15/18 05:58 Blood Pressure 140/65 11/15/18 05:58 O2 Sat by Pulse Oximetry 100 11/15/18 05:58 Temperature 99.0 F 11/15/18 06:23 Pulse Rate 67 11/15/18 06:23 Respiratory Rate 23 11/15/18 06:23 Blood Pressure 136/55 11/15/18 06:23 O2 Sat by Pulse Oximetry 100 11/15/18 05:58 Oxygen Delivery Oxygen Delivery Room Air Medical Decision Making - MDM Narrative Medical decision making narrative: Patient is received in signout at [address] Fritz and Dr. Porter. Please see their documentation for history of presenting illness, physical examination initial medical decision making. CT scan of the head showed diffuse white matter changes but no definite evidence of ischemia. There is also no evidence of a bleed at this time. Laboratory testing is relatively unremarkable. Patient will require admission to the hospital and based on the discussion by the day team with the stroke neurologist at [facility] the patient will require MRI/MRA. Patient family are in agreement with admission. Patient was not a candidate for TPA due to the last night while being approximately 8 hours prior to presentation. Patient was given aspirin here in the emergency department will be admitted to the hospital for further evaluation and management and her MRIs. Called spoke the admitting hospitalist Dr. Soni and he has accepted the patient to their service to patient be admitted to the hospital this time for further evaluation and management. - Medical Records Medical records reviewed: Yes I reviewed the patient's medical records. - Lab Data Lab results reviewed: Yes I reviewed the patient's lab results. Result diagrams: 11/15/18 06:24 11/15/18 06:24 Lab Results 11/15/18 11/15/18 11/15/18 Range/Units 06:24 06:24 06:24 WBC 9.7 (4.3-11.1) K/mcL RBC 4.52 (3.82-4.97) M/mcL Hgb 13.5 (11.5-15.4) g/dL Hct 42.2 (35.3-44.9) % MCV 93.4 (83.0-100.0) fL MCH 29.9 (28.0-33.3) pg MCHC 32.0 (31.6-35.5) g/dL RDW 15.4 H (11.5-14.5) % Plt Count 163 (140-400) K/mcL MPV 9.8 (9.4-12.4) fL PT 15.9 H (9.4-12.1) Seconds INR 1.4 APTT 41.0 H (26.0-36.0) Seconds Sodium 137 (136-145) mEq/L Potassium 4.2 (3.5-5.1) mEq/L Chloride 99 (98-107) mEq/L Carbon Dioxide 28 (23-29) mEq/L BUN 22 (8-23) mg/dL Creatinine 0.72 (0.60-1.20) mg/dL Est GFR ( Amer) > 60 (> 60) Est GFR (Non-Af Amer) > 60 (> 60) BUN/Creatinine Ratio 31 H (6-26) Glucose 101 (70-105) mg/dL Calculated Osmolality 287 (280-300) Calcium 9.3 (8.6-10.3) mg/dL Troponin I < 0.03 (< 0.04) ng/mL - Radiology Data Radiology results reviewed: Yes I reviewed the patient's radiology results.
[2018-11-15] MEDS ORDERED: Aspirin 81 MG TAB.CHEW PO STA (07:25)
--- NOTE | 2018-11-15 08:41 | Emergency Department Note ---
Disposition Clinical Impression: Cerebrovascular accident Qualifiers: CVA mechanism: unspecified Qualified Code(s): I63.9 - Cerebral infarction, unspecified Disposition: Admitted As Inpatient Condition: Fair Referrals: Laxmi Noonan APN [Primary Care Provider] - General Adult HPI - General Chief complaint: ED Neuro Symptoms/Deficit Stated complaint: lips numb/shaking Time Seen by Provider: 11/15/18 05:53 Source: patient, EMS Mode of arrival: EMS Limitations: no limitations - History of Present Illness Pain Scale: 0 - Related Data Home Medications Medication Instructions Recorded Confirmed Atorvastatin Calcium [Lipitor] 80 mg PO QPM 09/16/18 11/04/18 Furosemide [Lasix] 20 mg PO DAILY 09/16/18 11/04/18 Isosorbide MONOnitrate [Isosorbide 120 mg PO DAILY 09/16/18 11/04/18 Mononitrate ER] Levothyroxine [Synthroid] 25 mcg PO 0630 09/16/18 11/04/18 Metoprolol [Lopressor] 50 mg PO BID 09/16/18 11/04/18 Nitroglycerin 0.4 mg PO AD PRN MDD 3 09/16/18 11/04/18 SPRAYS/15MINS CALL 911 Polyethylene Glycol 3350 17 gm PO DAILY PRN 09/16/18 11/04/18 [Smoothlax] Potassium Chloride 10 meq PO DAILY 09/16/18 11/04/18 Ranolazine [Ranexa] 1,000 mg PO BID 09/16/18 11/04/18 Vit C/E/Zn/Coppr/Lutein/Zeaxan 1 cap PO DAILY 09/16/18 11/04/18 [Preservision Areds 2 Softgel] amLODIPine [Norvasc] 5 mg PO DAILY 09/16/18 11/04/18 Albuterol Neb [Proventil Neb] 2.5 mg IH BID 10/08/18 11/04/18 Amitriptyline HCl 75 mg PO DAILY 10/08/18 11/04/18 Apixaban [Eliquis] 5 mg PO BID 10/08/18 11/04/18 Psyllium Husk [Metamucil] 0.52 gm PO DAILY 10/08/18 11/04/18 Guaifenesin [Mucinex] 600 mg PO BID 11/04/18 11/04/18 Umeclidinium [place] [Incruse 62.5 mcg IH DAILY 11/04/18 11/04/18 Ellipta] Previous Rx's Medication Instructions Recorded Omeprazole [PriLOSEC] 40 mg PO DAILY@0800 #30 capsule. 10/13/18 Albuterol Sulfate [Ventolin Hfa] 2 puff IH Q4H PRN #0 10/21/18 Docusate [Colace] 100 mg PO BID #60 capsule 10/21/18 Azithromycin [Zithromax] 500 mg PO Q24H #3 tablet 11/05/18 Allergies Allergy/AdvReac Type Severity Reaction Status Date / Time guaifenesin [From Hytuss] Allergy See Verified 10/16/18 09:02 Comments nabumetone [From Relafen] Allergy See Verified 10/16/18 09:02 Comments pentazocine [From Talwin] Allergy See Verified 10/16/18 09:02 Comments propoxyphene Allergy See Verified 10/16/18 09:02 Comments Sulindac [From Clinoril] Allergy See Verified 10/16/18 09:02 Comments prednisone AdvReac Mild Shaky Verified 11/05/18 10:09 Benzonatate AdvReac Confusion Verified 10/19/18 10:22 carbamazepine AdvReac Chest Pain Verified 10/08/18 06:05 codeine AdvReac See Verified 10/16/18 09:02 Comments etodolac AdvReac Chest Pain Verified 10/08/18 06:05 hydrocodone AdvReac Chest Pain Verified 10/08/18 06:05 Iodinated Contrast- Oral and AdvReac Chest Pain Verified 10/08/18 06:05 IV Dye [Iodinated Contrast Media - IV Dye] levofloxacin AdvReac Chest Pain Verified 10/08/18 06:05 NSAIDS (Non-Steroidal AdvReac Chest Pain Verified 10/08/18 06:05 Anti-Inflamma Penicillins [PCN] AdvReac Chest Pain Verified 10/08/18 06:05 pregabalin [From Lyrica] AdvReac Numbness Verified 10/08/18 06:05 pseudoephedrine AdvReac Chest Pain Verified 10/08/18 06:05 Sulfa (Sulfonamide AdvReac Chest Pain Verified 10/08/18 06:05 Antibiotics) tetracycline [Tetracycline] AdvReac Chest Pain Verified 10/08/18 06:05 tolmetin AdvReac Chest Pain Verified 10/08/18 06:05 tramadol AdvReac Numbness Verified 10/08/18 06:05 Constitutional: Reports: weakness. Denies: fever, chills, weight change Eyes: Denies: vision change ENT ED: Denies: throat pain, dental pain, congestion, dysphagia Cardiovascular: Denies: chest pain Respiratory: Denies: dyspnea Gastrointestinal: Denies: abdominal pain, nausea Genitourinary: Denies: urgency, dysuria Musculoskeletal: Denies: back pain, neck pain Integumentary: Denies: rash Neurological: Reports: weakness, numbness, paresthesias. Denies: headache, c onfusion Past Medical History - Past Medical History Medical history: Reports: asthma, COPD, coronary artery disease, hyperlipidemia, hypertension, myocardial infarction Surgical history: Reports: coronary bypass (CABG) Psychiatric history: Reports: no psych history [employer] history: Reports: no [employer] history - Social History Smoking Status: Former smoker Smokeless Tobacco Status: No Alcohol use: Reports: none Drug use: Reports: none Physical Exam - General Limitations: no limitations General appearance: alert, in no apparent distress Course Vital Signs Temperature 99.0 F 11/15/18 05:58 Pulse Rate 67 11/15/18 05:58 Respiratory Rate 24 11/15/18 05:58 Blood Pressure 140/65 11/15/18 05:58 O2 Sat by Pulse Oximetry 100 11/15/18 05:58 Temperature 99.0 F 11/15/18 06:23 Pulse Rate 67 11/15/18 06:23 Respiratory Rate 19 11/15/18 08:01 Blood Pressure 117/55 11/15/18 08:01 O2 Sat by Pulse Oximetry 100 11/15/18 05:58 Oxygen Delivery Oxygen Delivery Room Air Medical Decision Making - Lab Data Result diagrams: 11/15/18 06:24 11/15/18 06:24 Lab Results 11/15/18 11/15/18 11/15/18 Range/Units 06:24 06:24 06:24 WBC 9.7 (4.3-11.1) K/mcL RBC 4.52 (3.82-4.97) M/mcL Hgb 13.5 (11.5-15.4) g/dL Hct 42.2 (35.3-44.9) % MCV 93.4 (83.0-100.0) fL MCH 29.9 (28.0-33.3) pg MCHC 32.0 (31.6-35.5) g/dL RDW 15.4 H (11.5-14.5) % Plt Count 163 (140-400) K/mcL MPV 9.8 (9.4-12.4) fL PT 15.9 H (9.4-12.1) Seconds INR 1.4 APTT 41.0 H (26.0-36.0) Seconds Sodium 137 (136-145) mEq/L Potassium 4.2 (3.5-5.1) mEq/L Chloride 99 (98-107) mEq/L Carbon Dioxide 28 (23-29) mEq/L BUN 22 (8-23) mg/dL Creatinine 0.72 (0.60-1.20) mg/dL Est GFR ( Amer) > 60 (> 60) Est GFR (Non-Af Amer) > 60 (> 60) BUN/Creatinine Ratio 31 H (6-26) Glucose 101 (70-105) mg/dL Calculated Osmolality 287 (280-300) Calcium 9.3 (8.6-10.3) mg/dL Troponin I < 0.03 (< 0.04) ng/mL Attestation Statement - Attestation Attestation: I examined this patient and my medical decision-making was reviewed with the Resident Physician. I agree with the documented findings, disposition and treatment plan as described except to the extent set forth below. Patient signed out to Dr. Cruz and I by Dr. Fritz and Dr. Porter. Signed out pending admission. Patient reevaluated and unchanged. Still with sensory deficit, right-sided facial droop, and tongue deviation. Admitted to medicine. Head CT 11/15/18 05:53 IMPRESSION: Severe white matter disease with no acute hemorrhage or definite evidence for acute ischemia. Small areas of acute ischemia cannot be excluded. Stroke alert results were called by Dr. Flex Cornejo MD to the patient's physician on 11/15/2018 at 06:24. D/ / Flex Cornejo MD / Flex Cornejo MD Interpreting Provider: Flex Cornejo MD
--- NOTE | 2018-11-15 11:00 | Internal Med History&Physical ---
Date of Encounter: 11/15/18 Time of Encounter: 10:52 Internal Medicine - H&P: HPI Chief complaint: dysarthria Admitted From: Emergency Dept History of present illness: 78 year old woman with COPD, CAD/CABG, HF, occasional tremor presented to ER a fter experiencing numbness in the perioral region, generalized weakness, dysarthria and tongue deviation to the night. Last known well was 10 PM, and found to have these symptoms around 0300. NIH was 34 on arrival, she was on apixaban and out of tPA window per ER communication with [facility] stroke neurology. She was admitted for further work up. At the time of this evaluation, her symptoms have almost completely resolved Chronic dyspnea at baseline. History of grand mal seizure in the past, none recently. Nausea. Mild tremor occasionally. Recent admission for ADHF, no weight gain or orthopnea since then. A 10-point ROS is otherwise negative for headache, dizziness, vomiting, abd pain, d, c, cough, sputum, fever, rigors, chills, dysuria, or other symptoms unless mentioned elsewhere. # Stroke vs TIA - symptoms almost resolved, still had mild tongue deviation to right on exam, no dysarthria - she had 4 episodes of neurological deficits previously and last MRI in 09/2018 was negative for CVA, had one episode of grand mal seizure in the past, wonder if she had Timothy's paralysis - check MRI brain - bedside swallow before advancing diet - Neurology consulted, discussed with Dr. Garcia: - will check CTA of head and neck (after benadryl and Zofran due to nausea with IV contrast) - will continue apixaban # COPD/Asthma, no exacerbation - Cont prn MDIs # Hx DVT - Cont apixaban # CAD/CABG # HFpEF, well-compensated # HTN # HL - no chest pain - cont ASA, statin - cont reduced dose of metoprolol to avoid hypotension n post-CVA period - hold amlodipine, ImDur today - cont ranolazine - cont Lasix # VTE prophylaxis Apixaban Past Med Surg Social Fam HX - Past Medical History Medical history: asthma, COPD, coronary artery disease, hyperlipidemia, hypertension, myocardial infarction Psychiatric history: no psych history - Past Surgical History Surgical History: angioplasty/stent, coronary bypass (CABG) Additional surgical history: stent in descending aorta - Social History Smoking Status: Former smoker Smokeless Tobacco Status: No Alcohol use: none Drug use: none - Family History Mother Living Status: Hx Family Cardiac Disorders: Yes (heart disease, stroke) Hx Family Neurologic Disorders: Yes (Stoke) Father Living Status: Hx Family Cancer: Yes (Prostate) Internal Medicine - H&P: Meds Atorvastatin Calcium [Lipitor] 80 mg PO QPM 09/16/18 [History] Furosemide [Lasix] 20 mg PO DAILY 09/16/18 [History] Isosorbide MONOnitrate [Isosorbide Mononitrate ER] 120 mg PO DAILY 09/16/18 [History] Levothyroxine [Synthroid] 25 mcg PO 0630 09/16/18 [History] Metoprolol [Lopressor] 50 mg PO BID 09/16/18 [History] Nitroglycerin 0.4 mg PO AD PRN MDD 3 SPRAYS/15MINS CALL 911 09/16/18 [History] Potassium Chloride 10 meq PO DAILY 09/16/18 [History] Ranolazine [Ranexa] 1,000 mg PO BID 09/16/18 [History] Vit C/E/Zn/Coppr/Lutein/Zeaxan [Preservision Areds 2 Softgel] 1 cap PO DAILY 09/16/18 [History] amLODIPine [Norvasc] 5 mg PO DAILY 09/16/18 [History] Albuterol Neb [Proventil Neb] 2.5 mg IH BID 10/08/18 [History] Amitriptyline HCl 75 mg PO DAILY 10/08/18 [History] Apixaban [Eliquis] 5 mg PO BID 10/08/18 [History] Psyllium Husk [Metamucil] 0.52 gm PO DAILY 10/08/18 [History] Omeprazole [PriLOSEC] 40 mg PO DAILY@0800 #30 capsule. 10/13/18 [Rx] Albuterol Sulfate [Ventolin Hfa] 2 puff IH Q4H PRN #0 10/21/18 [Rx] Docusate [Colace] 100 mg PO BID #60 capsule 10/21/18 [Rx] Guaifenesin [Mucinex] 600 mg PO BID 11/04/18 [History] Umeclidinium [place] [Incruse Ellipta] 62.5 mcg IH DAILY 11/04/18 [History] Allergy/AdvReac Type Severity Reaction Status Date / Time guaifenesin [From Hytuss] Allergy See Verified 10/16/18 09:02 Comments nabumetone [From Relafen] Allergy See Verified 10/16/18 09:02 Comments pentazocine [From Talwin] Allergy See Verified 10/16/18 09:02 Comments propoxyphene Allergy See Verified 10/16/18 09:02 Comments Sulindac [From Clinoril] Allergy See Verified 10/16/18 09:02 Comments prednisone AdvReac Mild Shaky Verified 11/05/18 10:09 Benzonatate AdvReac Confusion Verified 10/19/18 10:22 carbamazepine AdvReac Chest Pain Verified 10/08/18 06:05 codeine AdvReac See Verified 10/16/18 09:02 Comments etodolac AdvReac Chest Pain Verified 10/08/18 06:05 hydrocodone AdvReac Chest Pain Verified 10/08/18 06:05 Iodinated Contrast- Oral and AdvReac Chest Pain Verified 10/08/18 06:05 IV Dye [Iodinated Contrast Media - IV Dye] levofloxacin AdvReac Chest Pain Verified 10/08/18 06:05 NSAIDS (Non-Steroidal AdvReac Chest Pain Verified 10/08/18 06:05 Anti-Inflamma Penicillins [PCN] AdvReac Chest Pain Verified 10/08/18 06:05 pregabalin [From Lyrica] AdvReac Numbness Verified 10/08/18 06:05 pseudoephedrine AdvReac Chest Pain Verified 10/08/18 06:05 Sulfa (Sulfonamide AdvReac Chest Pain Verified 10/08/18 06:05 Antibiotics) tetracycline [Tetracycline] AdvReac Chest Pain Verified 10/08/18 06:05 tolmetin AdvReac Chest Pain Verified 10/08/18 06:05 tramadol AdvReac Numbness Verified 10/08/18 06:05 All Systems PM: A 10-system review of systems was performed and is negative for pertinent findings except as documented above in the HPI. - Constitutional Vitals: Temp Pulse Resp BP Pulse Ox 97.9 F 68 16 164/73 100 11/15/18 09:45 11/15/18 09:45 11/15/18 09:45 11/15/18 09:45 11/15/18 09:45 General appearance: Present: A&O X 3, no acute distress Exam: as below - Head Head exam: Present: atraumatic, normal inspection - Eye Eye exam: Present: EOMI, PERRL. Absent: scleral icterus - ENT ENT exam: Present: mucous membranes moist - Neck Neck exam general surgery: Present: supple. Absent: nuchal rigidity - Respiratory Respiratory exam: Present: CTAB. Absent: rales, respiratory distress, rhonchi, wheezes - Cardiovascular Cardiovascular exam: Present: +S1, +S2. Absent: gallop, systolic murmur - GI/Abdominal GI/Abdominal exam: Present: soft. Absent: guarding, rebound, rigid - Extremities Exam Extremities exam: Present: warm. Absent: calf tenderness, pedal edema - Neurological Exam Neurological exam: Present: oriented X3. Absent: facial droop, speech deficit Additional comments: mild tongue deviation to right - Psychiatric Psychiatric exam: Present: normal affect, normal mood. Absent: anxious Internal Med - H&P Results - Labs CBC & Chem 7: 11/15/18 06:24 11/15/18 06:24 Labs: Short CBC 11/15/18 Range/Units 06:24 WBC 9.7 (4.3-11.1) K/mcL Hgb 13.5 (11.5-15.4) g/dL Hct 42.2 (35.3-44.9) % Plt Count 163 (140-400) K/mcL BMP 11/15/18 06:24 Sodium 137 Potassium 4.2 Chloride 99 Carbon Dioxide 28 BUN 22 Creatinine 0.72 Glucose 101 Calcium 9.3 Cardiac Enzymes 11/15/18 Range/Units 06:24 Troponin I < 0.03 (< 0.04) ng/mL - Impressions ITS Impressions Head CT 11/15/18 05:53 IMPRESSION: Severe white matter disease with no acute hemorrhage or definite evidence for acute ischemia. Small areas of acute ischemia cannot be excluded. Stroke alert results were called by Dr. Flex Cornejo MD to the patient's physician on 11/15/2018 at 06:24. D/ / Flex Cornejo MD / Flex Cornejo MD Interpreting Provider: Flex Cornejo MD - Assessment and plan (1) Stroke Current Visit: Yes Status: Acute Qualifiers: CVA mechanism: unspecified Qualified Code(s): I63.9 - Cerebral infarction, unspecified (2) CAD (coronary artery disease) Current Visit: No Status: Chronic Qualifiers: Coronary Disease-Associated Artery/Lesion type: unspecified vessel or lesion type [place] vs. transplanted heart: [place] heart Associated angina: angina presence unspecified Qualified Code(s): I25.10 - Atherosclerotic heart disease of [place] coronary artery without angina pectoris (3) HTN (hypertension) Current Visit: No Status: Chronic Qualifiers: Hypertension type: unspecified Qualified Code(s): I10 - Essential (primary) hypertension (4) HLD (hyperlipidemia) Current Visit: No Status: Chronic Qualifiers: Hyperlipidemia type: unspecified Qualified Code(s): E78.5 - Hyperlipidemia, unspecified (5) Hx of deep venous thrombosis Current Visit: No Status: Acute (6) Cerebrovascular accident Current Visit: Yes Status: Acute Qualifiers: CVA mechanism: unspecified Qualified Code(s): I63.9 - Cerebral infarction, unspecified - Time Spent With Patient Total time spent is greater than 50% in coordination of care (as documented) at patient's floor/unit and/or counseling patient:
[2018-11-15] MEDS ORDERED: Isovue-370 500 ML INFUS..BTL IV ONE (12:44)
[2018-11-15] MEDS ORDERED: Ondansetron 4 MG/2 ML VIAL IVP PRN (13:01)
[2018-11-15 14:58] LABS: Bilirubin,Urine Negative (Negative); Blood,Urine Negative (Negative); Clarity,Urine Clear (Clear); Color,Urine Yellow (Yellow); Glucose,Urine (UA) Normal (Normal); Ketones,Urine Negative (Negative); Leukocyte Esterase,Urine Negative (Negative); Nitrite,Urine Negative (Negative); Protein,Urine Negative (Neg-Trace); Specific Gravity,Urine < 1.005 (1.010-1.025); Urobilinogen,Urine Normal (Normal)
[2018-11-15] MEDS: Apixaban 5 MG TABLET PO SCH (20:56)
[2018-11-15] MEDS: Ranolazine 500 MG TAB.ER.12H PO SCH (20:57)
[2018-11-16 05:33] LABS: Chol/HDL Ratio 4.4 (0-4.9)
[2018-11-16] MEDS: Levothyroxine 25 MCG TABLET PO SCH (06:06)
[2018-11-16 06:35] LABS: Alanine Aminotransferase 28 Units/L (7-52); Albumin 3.3 g/dL (3.5-5.7); Albumin/Globulin Ratio 1.1 (1.1-2.2); Alkaline Phosphatase 76 Units/L (34-104); Aspartate Amino Transferase 28 Units/L (13-39); BUN/Creatinine Ratio 24 (6-26); Bilirubin,Total 0.6 mg/dL (0.3-1.0); Blood Urea Nitrogen 16 mg/dL (8-23); Calcium 9.2 mg/dL (8.6-10.3); Carbon Dioxide 29 mEq/L (23-29); Chloride 101 mEq/L (98-107); Globulin 3.1 g/dL (2.4-3.5); Glucose 95 mg/dL (70-105); Osmolality,Calculated 283 (280-300); Potassium 4.7 mEq/L (3.5-5.1); Sodium 136 mEq/L (136-145); Total Protein 6.4 g/dL (6.4-8.9); eGFR For Non-African Americans > 60 (> 60)
[2018-11-16] MEDS: Aspirin 81 MG TAB.CHEW PO SCH (08:26)
[2018-11-16] MEDS: Furosemide 20 MG TABLET PO SCH (08:26)
[2018-11-16] MEDS: Apixaban 5 MG TABLET PO SCH ×2 (08:26→20:54)
[2018-11-16] MEDS: Ranolazine 500 MG TAB.ER.12H PO SCH ×2 (08:27→20:54)
--- NOTE | 2018-11-16 08:53 | Neurology - Consult Note ---
<DavidCheko - Last Filed: 11/16/18 13:18> Date of Encounter: 11/16/18 Time of Encounter: 08:51 Assessment and Plan (1) TIA (transient ischemic attack) Current Visit: Yes Status: Acute - Initially presented with numbness and perioral region, generalized weakness, tongue deviation - No known prior history of CVA, but multiple risk factors present, including history of hypertension and CAD - Patient noted to take Eliquis for prior history of DVT - NIH was 34 on arrival; patients symptoms had improved by the time he was admitted - Head CT: Severe white matter disease with no acute hemorrhage or definite evidence of acute ischemia. Small areas of acute ischemia could not be excluded. - CTA of the head and neck: severe chronic white matter microvascular ischemic changes without CT evidence of acute infarct - Evaluated by [facility] neurology; determined to be outside of TPA window - Per chart review, patient has had 4 episodes of neurologic deficits previously; Prior history of grand mal seizure - Last MRI 10/04: Negative for CVA Plan: - MRI of the brain has been ordered and is currently pending - PTOT has been consulted - Continue aspirin and statin - Continue Eliquis (2) CAD (coronary artery disease) Current Visit: No Status: Chronic - Continue aspirin and statin - Resume other home medications Qualifiers: Coronary Disease-Associated Artery/Lesion type: unspecified vessel or lesion type [place] vs. transplanted heart: [place] heart Associated angina: angina presence unspecified Qualified Code(s): I25.10 - Atherosclerotic heart disease of [place] coronary artery without angina pectoris (3) HLD (hyperlipidemia) Current Visit: No Status: Chronic - Continue statin Qualifiers: Hyperlipidemia type: unspecified Qualified Code(s): E78.5 - Hyperlipidemia, unspecified (4) HTN (hypertension) Current Visit: No Status: Chronic - Management per primary team Qualifiers: Hypertension type: unspecified Qualified Code(s): I10 - Essential (primary) hypertension History of Present Illness HPI: Adriane Fabian is an 78-year-old female with a PMH of COPD, CAD S/P CABG, CO, HLD, HTN, and tremor, and CHF who presented to [facility] ED on 11/15/18 with the chief complaint of numbness in the perioral region and generalized weakness. Patient also had tongue deviation to the right. Patients granddaughter, who is caregiver, noted that she was also slurring her words. NIH was 34 on arrival. On arrival, patients vital signs were significant for tachypnea at 24/m. All other vital signs were within normal limits. Laboratory analysis was unremarkable. Patient was evaluated by [facility] stroke neurology. Patient was determined to not be a candidate for TPA due to onset of symptoms approximately 8 hours prior to presentation. In the emergency department, she was given aspirin, and was admitted for further workup for possible stroke. CTA of the head and neck was performed, which demonstrated severe chronic white matter microvascular ischemic changes without CT evidence of acute infarct. No large vessel occlusion was detected within the head or the neck. Patient takes Eliquis for prior history of DVT. Patient was seen and examined at bedside; she states that she is feeling much better than when she did on presentation. She states that a tongue deviation, periorbital numbness, and generalized weakness that she felt when she arrived have since resolved. She reports of the generalized weakness is more a chronic issue, and states that she feels tremors in her upper and lower extremities at times when she tries to get up and walk. She says that the shaking episodes last approximately 1 minute. She states that she does not have any confusion or loss of consciousness when this happens, and describes it as an involuntary shiver. She also reports a history of trigeminal neurology, and notes baseline numbness on the right side of her face. She currently denies headache, weakness, numbness or tingling anywhere besides the right side of her face, visual disturbances, dizziness, or vertigo. She has no further complaints at this time. Past Med Surg Social Fam HX - Past Medical History Medical history: asthma, COPD, coronary artery disease, hyperlipidemia, hypertension, myocardial infarction Psychiatric history: no psych history - Past Surgical History Surgical History: coronary bypass (CABG) Additional surgical history: stent in descending aorta - Social History Smoking Status: Former smoker Smokeless Tobacco Status: No Alcohol use: none Drug use: none - Family History Mother Living Status: Hx Family Cardiac Disorders: Yes (heart disease, stroke) Hx Family Neurologic Disorders: Yes (Stoke) Father Living Status: Hx Family Cancer: Yes (Prostate) Medications and Allergies Atorvastatin Calcium [Lipitor] 80 mg PO QPM 09/16/18 [History] Furosemide [Lasix] 20 mg PO DAILY 09/16/18 [History] Isosorbide MONOnitrate [Isosorbide Mononitrate ER] 120 mg PO DAILY 09/16/18 [History] Levothyroxine [Synthroid] 25 mcg PO 0630 09/16/18 [History] Metoprolol [Lopressor] 50 mg PO BID 09/16/18 [History] Nitroglycerin 0.4 mg PO AD PRN MDD 3 SPRAYS/15MINS CALL 911 09/16/18 [History] Potassium Chloride 10 meq PO DAILY 09/16/18 [History] Ranolazine [Ranexa] 1,000 mg PO BID 09/16/18 [History] Vit C/E/Zn/Coppr/Lutein/Zeaxan [Preservision Areds 2 Softgel] 1 cap PO DAILY 09/16/18 [History] amLODIPine [Norvasc] 5 mg PO DAILY 09/16/18 [History] Albuterol Neb [Proventil Neb] 2.5 mg IH BID 10/08/18 [History] Amitriptyline HCl 75 mg PO DAILY 10/08/18 [History] Apixaban [Eliquis] 5 mg PO BID 10/08/18 [History] Psyllium Husk [Metamucil] 0.52 gm PO DAILY 10/08/18 [History] Omeprazole [PriLOSEC] 40 mg PO DAILY@0800 #30 capsule. 10/13/18 [Rx] Albuterol Sulfate [Ventolin Hfa] 2 puff IH Q4H PRN #0 10/21/18 [Rx] Docusate [Colace] 100 mg PO BID #60 capsule 10/21/18 [Rx] Guaifenesin [Mucinex] 600 mg PO BID 11/04/18 [History] Umeclidinium [place] [Incruse Ellipta] 62.5 mcg IH DAILY 11/04/18 [History] Allergy/AdvReac Type Severity Reaction Status Date / Time guaifenesin [From Hytuss] Allergy See Verified 10/16/18 09:02 Comments nabumetone [From Relafen] Allergy See Verified 10/16/18 09:02 Comments pentazocine [From Talwin] Allergy See Verified 10/16/18 09:02 Comments propoxyphene Allergy See Verified 10/16/18 09:02 Comments Sulindac [From Clinoril] Allergy See Verified 10/16/18 09:02 Comments prednisone AdvReac Mild Shaky Verified 11/05/18 10:09 Benzonatate AdvReac Confusion Verified 10/19/18 10:22 carbamazepine AdvReac Chest Pain Verified 10/08/18 06:05 codeine AdvReac See Verified 10/16/18 09:02 Comments etodolac AdvReac Chest Pain Verified 10/08/18 06:05 hydrocodone AdvReac Chest Pain Verified 10/08/18 06:05 Iodinated Contrast- Oral and AdvReac Chest Pain Verified 10/08/18 06:05 IV Dye [Iodinated Contrast Media - IV Dye] levofloxacin AdvReac Chest Pain Verified 10/08/18 06:05 NSAIDS (Non-Steroidal AdvReac Chest Pain Verified 10/08/18 06:05 Anti-Inflamma Penicillins [PCN] AdvReac Chest Pain Verified 10/08/18 06:05 pregabalin [From Lyrica] AdvReac Numbness Verified 10/08/18 06:05 pseudoephedrine AdvReac Chest Pain Verified 10/08/18 06:05 Sulfa (Sulfonamide AdvReac Chest Pain Verified 10/08/18 06:05 Antibiotics) tetracycline [Tetracycline] AdvReac Chest Pain Verified 10/08/18 06:05 tolmetin AdvReac Chest Pain Verified 10/08/18 06:05 tramadol AdvReac Numbness Verified 10/08/18 06:05 All Systems: The remainder of the systems were reviewed and are negative - Constitutional Constitutional ROS IM: as per HPI, no fatigue, no lethargy, no weakness - Nose, Mouth, Throat Nose, mouth and throat: as per HPI, no disequilibrium, no dizziness, no facial pain, no vertigo - Musculoskeletal Musculoskeletal ROS IM: as per HPI, no muscle weakness, no myalgias, no numbness, no tingling - Neurological Neurological ROS: as per HPI, no dizziness, no focal weakness, no numbness, no paresthesias, no tingling, no vertigo, no weakness, no other visual disturbances Physical Examination - Vital Signs Vital Signs: Initial Vital Signs Temp Pulse Resp BP Pulse Ox 99.0 F 67 24 140/65 100 11/15/18 05:58 11/15/18 05:58 11/15/18 05:58 11/15/18 05:58 11/15/18 05:58 - Constitutional General appearance: comfortable - Neurologic Sensorimotor examination: intact, other (Patient has baseline diminished sensation in the right side of her face; sensorimotor exam otherwise intact) Motor examination - right side: 5/5: deltoids, biceps, triceps, wrist flexion, wrist extension, crepe sole wire brusher, toe extension (EHL), plantarflexion Motor examination - left side: 5/5: deltoids, biceps, triceps, wrist flexion, wrist extension, crepe sole wire brusher, toe extension (EHL), plantarflexion Detailed sensory examination: intact Reflexes: Brachioradialis: 2+, Patella: 2+ Mental Status Examination: awake, alert, oriented to person, oriented to place, oriented to time, follows commands appropriately, answers questions appropriately Cranial nerve examination: PERRL, EOMI, visual lr intact Results - Laboratory Findings CBC and BMP: 11/15/18 06:24 11/16/18 06:01 Abnormal lab findings: Abnormal lab results RDW 15.4 % (11.5-14.5) H 11/15/18 06:24 PT 15.9 Seconds (9.4-12.1) H 11/15/18 06:24 APTT 41.0 Seconds (26.0-36.0) H 11/15/18 06:24 POC Glucose 105 mg/dL (70-99) H 11/15/18 05:57 Albumin 3.3 g/dL (3.5-5.7) L 11/16/18 06:01 LDL Cholesterol, Calc 129 mg/dL (0-99) H 11/16/18 04:15 Ur Specific [place] < 1.005 (1.010-1.025) L 11/15/18 14:45 Consult Discharge Plan - Plan Referrals: Laxmi Noonan APN [Primary Care Provider] - <Gomez Garcia - Last Filed: 11/16/18 14:29> Date of Encounter: 11/16/18 Time of Encounter: 14:18 Assessment and Plan (1) Tremor Current Visit: Yes Status: Acute At this juncture I am not completely certain of the etiology of this patient's tremor. The tremor occurs periodically about the same time during the day. She denies any changes in her medications. Her metabolic panel looks fairly good. I see no evidence to suspect tremors due to organ failure. Perhaps she is experiencing myoclonic jerks. There is also question of whether not she may have had a TIA. I did look at the previous MRI scan of the brain which does reveal severe periventricular deep matter changes. Sodium is highly likely that she may have experienced a TIA although I would not expect this to cause her tr emors. She does have nonstenotic plaquing of both internal carotid arteries. For now would simply recommend maintaining her aspirin along with her anticoagulation therapy. If we are unable to identify a specific etiology to explain her tremors I might recommend Klonopin 0.5 mg twice a day. MRI scan of the brain is yet pending. History of Present Illness HPI: The chart was reviewed, the patient was seen and examined independently. Patient is an 78-year-old woman who is previously well known to me due to right trigeminal neuralgia. Ultimately the syndrome was not responsive to oral medications and she ended up having to have an ablative procedure about 4 years ago. As a result she has numbness of the right side of the face as well as the inside of her mouth. However her main concern consist of jerking of her upper extremities and legs particularly at about 4:00 in the afternoon. She does not lose consciousness. This does not seem to be a generalized tonic-clonic seizure as she is alert during it. She denies any changes in medications. All Systems: The remainder of the systems were reviewed and are negative Review of Systems: The balance of the systems review is negative Physical Examination - Vital Signs Vital Signs: Initial Vital Signs Temp Pulse Resp BP Pulse Ox 99.0 F 67 24 140/65 100 11/15/18 05:58 11/15/18 05:58 11/15/18 05:58 11/15/18 05:58 11/15/18 05:58 - Exam Exam: General Examination: *CONSTITUTIONAL: Normal *GENERAL APPEARANCE OF PATIENT appears chronically ill. *EYES: pupils equal, round, reactive to light and accommodation, conjunctiva clear without masses or ulcerations, fundi normal. *CARDIOVASCULAR no peripheral edema, distal temperature normal, dorsalis pedis pulses normal. Refer to vital signs Musculoskeletal: *GAIT AND STATION normal, with normal Romberg testing, no abnormalities such as broad base gait or spasticity *ASSESSMENT OF MUSCLE STRENGTH IN THE UPPER AND LOWER EXTREMITIES deltoid, bicep, tricep, crepe sole wire brusher strength, hip flexors ,anterior tibialis, dorsoflexion of the foot normal. *MUSCLE TONE IN THE UPPER AND LOWER EXTREMITIES normal. No abnormal movements, fasciculations or atrophy identified. Neurological: *ORIENTATION to time and place *RECURRENT AND REMOTE MEMORY intact *ATTENTION AND CONCENTRATION are normal *LANGUAGE FUNCTION no significant aphasia or dysarthia was noted. *FUND OF KNOWLEDGE aware of current events, past history, vocabulary *MENTAL attention span and concentration normal. *CN II optic fundi were normal, no papilledema noted. *CN III,IV, PERRLA extraocular eye movements were full, no nystagmus and no ptosis noted. *CN V patient has complete anesthesia of the right side of the face and inside the mouth on the right, jaw opens symmetrically. *CN VII shows normal facial movement symmetrically, upper and lower bilaterally. *CN VIII shows no significant hearing loss on examination in the office. *CN IX,,X palate elevated symmetrically and normal gag reflex was noted. *CN XI normal strength in the sternocleidomastoid muscles, symmetrical shoulder shrugging. *CN XII tongue protruded in the midline, with normal strength and movement. *SENSORY EXAMINATION pinprick sensation intact, and light touch(vibration sense). *REFLEXES: deep tendon reflexes were normal and symmetrical , grade 2/4 diffusely, no pathological reflexes were noted. *CEREBELLAR TESTING normal finger to nose, heel/knee/peres, and tandem walk. *PAIN LEVEL-0 Results - Laboratory Findings CBC and BMP: 11/15/18 06:24 11/16/18 06:01 Abnormal lab findings: Abnormal lab results RDW 15.4 % (11.5-14.5) H 11/15/18 06:24 PT 15.9 Seconds (9.4-12.1) H 11/15/18 06:24 APTT 41.0 Seconds (26.0-36.0) H 11/15/18 06:24 POC Glucose 105 mg/dL (70-99) H 11/15/18 05:57 Hemoglobin A1c 5.7 % (-5.6) H 11/16/18 04:15 Albumin 3.3 g/dL (3.5-5.7) L 11/16/18 06:01 LDL Cholesterol, Calc 129 mg/dL (0-99) H 11/16/18 04:15 Ur Specific [place] < 1.005 (1.010-1.025) L 11/15/18 14:45
--- NOTE | 2018-11-16 09:06 | Internal Med Progress Note ---
<Lee Lee - Last Filed: 11/16/18 12:54> Hospitalist Progress Note - Encounter Date of Encounter: 11/16/18 Time of Encounter: 09:03 - Subjective Interval History: Patient is an 78-year-old female presenting to due to stroke-like activity. Patient states that for the past month when she wakes up at approximately 3 - 4 AM to go to the bathroom that she will begin experiencing severe tremors in her upper and lower extremities with flexion contractures. The patient states that she has been seen at this facility multiple times over the past month for these episodes. Upon initial presentation patient is lying in hospital bed, she is alert and oriented, pleasant, engaged to conversation and questioning, answers questions appropriately, patient is in no acute distress and there are no overt focal neurological deficits. Patient denies fever/chills, headache, dizziness, vision change, tinnitus, dysphagia/odynophagia, neck/back pain, chest pains or shortness of breath, abdominal pain/nausea/vomiting, constipation or diarrhea, hematochezia, hematuria, weakness or paresthesias. - Exam Vitals: Temp Pulse Resp BP Pulse Ox 98.5 F 81 18 145/77 100 11/16/18 07:17 11/16/18 07:17 11/16/18 07:17 11/16/18 07:17 11/16/18 07:17 Exam: Constitutional: Patient is awake, alert and oriented, conversational, pleasant, answers questions appropriately, Cardiovascular: Rate and rhythm are regular, there is a faint S3 heart sound appreciated to cardiac auscultation, no murmurs appreciated. Respiratory. Fine crackles noted in the right lung base. Otherwise clear to auscultation Abdominal: Abdomen is soft, nontender, nondistended Neurological, cranial nerves 2 through 12 are grossly intact, there is slight tongue deviation noted to the right, patient states that she has experienced numbness on the right side of her face in all 3 branches of the trigeminal nerve root for the past 4 years after a procedure was performed to "numb" the right side of her face due to severe pain that she is experiencing at that time. Pulse motor and sensation as well as deep tendon reflexes are intact in the 4 e xtremities. Skin: No bruising, rashes, or bleeding overtly appreciated. - Summary of Assessment and Plan Summary of Assessment and Plan: -Stroke vs TIA - Initially presented with numbness and perioral region, generalized weakness, tongue deviation. Symptoms almost completely resolved, still has mild tongue deviation to right on exam, RIGHT sided chronic facial numbness, no dysarthria appreciated - Ddx concern for Timothy's paralysis versus Orthostatic intolerance - No known prior history of CVA, but multiple risk factors present, including history of hypertension and CAD - Patient noted to take Eliquis for prior history of DVT - NIH was 34 on arrival; patients symptoms had improved by the time she was admitted - Head CT: Severe white matter disease with no acute hemorrhage or definite evidence of acute ischemia. Small areas of acute ischemia could not be excluded. - CTA of the head and neck: severe chronic white matter microvascular ischemic changes without CT evidence of acute infarct - Evaluated by [facility] neurology; determined to be outside of TPA window - Per chart review, patient has had 4 episodes of neurologic deficits previously; Prior history of grand mal seizure - Last MRI 10/04: Negative for CVA Plan: - Neurology consulted and is following - MRI of the brain has been ordered and will be performed today 11/16/2018 - PTOT has been consulted - Orthostatic VS - Continue aspirin and statin - Continue Eliquis - COPD/Asthma, no exacerbation - Cont prn MDIs # Hx DVT - Continue apixaban # CAD/CABG # HFpEF, well-compensated # HTN # HL - no chest pain - cont ASA, statin - cont reduced dose of metoprolol to avoid hypotension n post-CVA period - hold amlodipine, ImDur today - cont ranolazine - cont Lasix # VTE prophylaxis -Continue Apixaban - Time Spent with Patient Total time spent is greater than 50% in coordination of care (as documented) at patient's floor/unit and/or counseling patient: Internal Medicine: Result - Labs CBC & Chem 7: 11/15/18 06:24 11/16/18 06:01 Labs: BMP 11/16/18 06:01 Sodium 136 Potassium 4.7 Chloride 101 Carbon Dioxide 29 BUN 16 Creatinine 0.68 Glucose 95 Calcium 9.2 Liver Function 11/16/18 Range/Units 06:01 Total Bilirubin 0.6 (0.3-1.0) mg/dL AST 28 (13-39) Units/L ALT 28 (7-52) Units/L Alkaline Phosphatase 76 (34-104) Units/L Albumin 3.3 L (3.5-5.7) g/dL Urine 11/15/18 Range/Units 14:45 Urine Color Yellow (Yellow) Urine Clarity Clear (Clear) Urine pH 8.0 (5.0-8.0) pH Units Ur Specific [place] < 1.005 L (1.010-1.025) Urine Protein Negative (Neg-Trace) mg/dL Urine Glucose (UA) Normal (Normal) mg/dL - ABG Interpretation ABG results: PT/INR, D-dimer PT 15.9 Seconds (9.4-12.1) H 11/15/18 06:24 - Impressions Impressions Angiography CT 11/15/18 12:44 IMPRESSION: Severe chronic white matter microvascular ischemic changes, without CT evidence of an acute infarct. No large vessel occlusion detected within the head or neck. D/ / Ryan Borrero MD / Ryan Borrero MD Interpreting Provider: Ryan Borrero MD Neck CTA 11/15/18 12:44 IMPRESSION: Severe chronic white matter microvascular ischemic changes, without CT evidence of an acute infarct. No large vessel occlusion detected within the head or neck. D/ / Ryan Borrero MD / Ryan Borrero MD Interpreting Provider: Ryan Borrero MD Consult Discharge Plan - Plan Referrals: Laxmi Noonan APN [Primary Care Provider] - <Lonny Redmond - Last Filed: 11/16/18 18:51> Hospitalist Progress Note - Encounter Date of Encounter: 11/16/18 - Exam Vitals: Temp Pulse Resp BP Pulse Ox 98.3 F 78 16 130/60 99 11/16/18 15:20 11/16/18 15:20 11/16/18 15:20 11/16/18 15:20 11/16/18 15:20 - Assessment and Plan (1) TIA (transient ischemic attack) Current Visit: Yes Status: Acute (2) CHF (congestive heart failure) Current Visit: No Status: Chronic (3) HTN (hypertension) Current Visit: No Status: Chronic (4) CAD (coronary artery disease) Current Visit: No Status: Chronic (5) HLD (hyperlipidemia) Current Visit: No Status: Chronic - Time Spent with Patient Total time spent is greater than 50% in coordination of care (as documented) at patient's floor/unit and/or counseling patient: Internal Medicine: Result - Labs CBC & Chem 7: 11/15/18 06:24 11/16/18 06:01 Labs: BMP 11/16/18 06:01 Sodium 136 Potassium 4.7 Chloride 101 Carbon Dioxide 29 BUN 16 Creatinine 0.68 Glucose 95 Calcium 9.2 Liver Function 11/16/18 Range/Units 06:01 Total Bilirubin 0.6 (0.3-1.0) mg/dL AST 28 (13-39) Units/L ALT 28 (7-52) Units/L Alkaline Phosphatase 76 (34-104) Units/L Albumin 3.3 L (3.5-5.7) g/dL - ABG Interpretation ABG results: PT/INR, D-dimer PT 15.9 Seconds (9.4-12.1) H 11/15/18 06:24 - Impressions Impressions Brain MRI 11/16/18 14:58 IMPRESSION: No acute intracranial abnormality. Severe chronic microvascular ischemic disease. D/ / 11/16/2018 16:52:57 Chasidy Butts MD / [email or web address] Interpreting Provider: Chasidy Butts MD - Attending Attestation I examined this patient and my medical decision-making was reviewed with the Resident Physician on 11/16/18. I agree with the documented findings, disposition and treatment plan as described except to the extent set forth below. Ms Fabian is currently in observation for acute neurologic symptoms. She remains moderate to high risk due to potential for worsening clinical status. Ms Fabian is doing OK. She is to have MRI today. No worsening of symptoms. No fever or chills. Exam alert Comfortable Mucus membranes dry Heart reg and not tachy No wheeze Abd soft No edema Moves all extremities I/P 1. Possible TIA - neuro to see. MRI pending 2. CoPD not in exacerbation 3. HTN 4. HLD Further diagnoses and plan as above. <Lonny Redmond - Gustavo Filed: 11/16/18 18:51> (2) CHF (congestive heart failure) Qualifiers: Heart failure type: diastolic Heart failure chronicity: chronic Qualified Code(s): I50.32 - Chronic diastolic (congestive) heart failure (3) HTN (hypertension) Qualifiers: Hypertension type: essential hypertension Qualified Code(s): I10 - Essential (primary) hypertension (4) CAD (coronary artery disease) Qualifiers: Coronary Disease-Associated Artery/Lesion type: [place] artery [place] vs. transplanted heart: [place] heart Associated angina: without angina Qualified Code(s): I25.10 - Atherosclerotic heart disease of [place] coronary artery wit hout angina pectoris (5) HLD (hyperlipidemia) Qualifiers: Hyperlipidemia type: mixed hyperlipidemia Qualified Code(s): E78.2 - Mixed hyperlipidemia
[2018-11-16 09:28] LABS: Estimated Average Glucose 117 mg/dl; Hemoglobin A1C 5.7 %
[2018-11-17] MEDS: Levothyroxine 25 MCG TABLET PO SCH (05:28)
[2018-11-17 07:07] LABS: VBG HCO3 29 mEq/L (21-27); VBG PCO2 48 mmHg (41-51); VBG PH 7.39 pH Units (7.32-7.42); VBG PO2 127 mmHg (25-50)
[2018-11-17 07:08] LABS: Basophils % 0.4 %; Eosinophils # 0.2 K/mcL (0.0-0.6); Hematocrit 40.6 % (35.3-44.9); Hemoglobin 12.7 g/dL (11.5-15.4); Immature Granulocytes % 0.7 % (0-4); Lymphocytes # 1.3 K/mcL (0.6-4.6); Lymphocytes % 15.5 %; Mean Corpuscular HGB Conc 31.3 g/dL (31.6-35.5); Mean Corpuscular Hemoglobin 29.1 pg (28.0-33.3); Mean Corpuscular Volume 92.9 fL (83.0-100.0); Mean Platelet Volume 10.2 fL (9.4-12.4); Monocytes # 0.9 K/mcL (0.0-1.3); Monocytes % 11.4 %; Neutrophils # 5.6 K/mcL (1.6-8.9); Platelet Count 181 K/mcL (140-400); Red Blood Count 4.37 M/mcL (3.82-4.97); Red Cell Distribution Width 15.5 % (11.5-14.5)
[2018-11-17 07:31] LABS: Alanine Aminotransferase 31 Units/L (7-52); Albumin 3.5 g/dL (3.5-5.7); Albumin/Globulin Ratio 1.1 (1.1-2.2); Alkaline Phosphatase 83 Units/L (34-104); Aspartate Amino Transferase 28 Units/L (13-39); BUN/Creatinine Ratio 25 (6-26); Bilirubin,Total 0.6 mg/dL (0.3-1.0); Blood Urea Nitrogen 18 mg/dL (8-23); Calcium 9.3 mg/dL (8.6-10.3); Carbon Dioxide 28 mEq/L (23-29); Chloride 100 mEq/L (98-107); Globulin 3.2 g/dL (2.4-3.5); Glucose 111 mg/dL (70-105); Osmolality,Calculated 281 (280-300); Potassium 4.5 mEq/L (3.5-5.1); Sodium 134 mEq/L (136-145); Total Protein 6.7 g/dL (6.4-8.9); eGFR For Non-African Americans > 60 (> 60)
[2018-11-17] MEDS: Ranolazine 500 MG TAB.ER.12H PO SCH ×2 (08:14→20:20)
[2018-11-17] MEDS: Apixaban 5 MG TABLET PO SCH ×2 (08:14→20:21)
[2018-11-17] MEDS: Aspirin 81 MG TAB.CHEW PO SCH (08:14)
[2018-11-17] MEDS: Furosemide 20 MG TABLET PO SCH (08:16)
--- NOTE | 2018-11-17 08:18 | Internal Med Progress Note ---
<Lee Lee - Last Filed: 11/17/18 08:43> Hospitalist Progress Note - Encounter Date of Encounter: 11/17/18 Time of Encounter: 08:18 - Subjective Interval History: Patient is an 78-year-old female presenting to [facility] due to stroke-like activity. Patient states that she wakes up at approximately 3 - 4 AM every night to go to the bathroom. During this time for approximately the past month (since gi) she has experienced severe, intermittent tremors in her upper and lower extremities with flexion contractures. The patient states that she has been seen at this facility multiple times since the onset of these episodes, but no pathology has yet been identified. Upon initial presentation patient is lying in hospital bed, she is alert, pleasant, engaged to conversation and questioning, answers questions appropriately, patient is in no acute distress and there are no overt focal neur ological deficits. Patient admits o constipation x1day and states that she usually requires miralax if no BM daily. Patient also admits to some shortness of breath this AM when "arranging her blankets" patient states the SOB has since resolved. Patient denies headache, dizziness, vision change, tinnitus, dysphagia/odynophagia, neck/back pain, chest pains, abdominal pain/n ausea/vomiting, constipation or diarrhea, hematochezia, hematuria, weakness or paresthesias. - Exam Vitals: Temp Pulse Resp BP Pulse Ox 98.0 F 74 18 96/52 100 11/17/18 07:15 11/17/18 07:15 11/17/18 07:15 11/17/18 07:15 11/17/18 07:15 Exam: Constitutional: Patient is awake, alert and oriented, conversational, pleasant, answers questions appropriately, Cardiovascular: Rate and rhythm are regular, no murmurs, gallops or rubs appreciated. Respiratory. Mild expiratory wheeze noted. Otherwise clear to auscultation - no rhonchi, no rales, or stridor Abdominal: Abdomen is soft but full (likely 2/2 constipation), nontender, nondistended Neurological, cranial nerves 2 through 12 are grossly intact, there is slight tongue deviation noted to the right, patient states that she has experienced numbness on the right side of her face in all 3 branches of the trigeminal nerve root for the past 4 years after a procedure was performed to "numb" the right side of her face due to severe pain that she experienced at that time. Pulse, motor, strength, and sensation as well as deep tendon reflexes are intact in the 4 extremities. Skin: No bruising, rashes, or bleeding overtly appreciated. - Assessment and Plan (1) Seizure-like activity Current Visit: Yes Status: Acute Assessment and Plan: -Initially presented with numbness and perioral region, generalized weakness, tongue deviation. Was evaluated by [facility] neurology and found to be outside TPA window. Symptoms have almost completely resolved, still has mild tongue deviation to right on exam, RIGHT sided chronic facial numbness, no dysarthria a ppreciated - Ddx concern for Timothy's paralysis versus Orthostatic intolerance - Neurology consulted and is following - consultation is greatly appreciated - No known prior history of CVA, but multiple risk factors present, including history of hypertension, DVT, and CAD -CTA Head and Neck show "Severe chronic white matter microvascular ischemic changes, without CT evidence of an acute infarct. No large vessel occlusion detected within the head or neck." -Brain MRI shows "severe chronic microvascular ischmeic disease" Plan: -Obtain orthostatic VS -Obtain neurology recommendations for further evaluation and treatment(s) (2) History of seizure disorder Current Visit: Yes Status: Acute Assessment and Plan: - Hx of Gand Mal seizure - Concern for Timothy's paralysis or partial seizure with current presentation - Neurology consulted and is following - consultation is greatly appreciated! (3) CAD (coronary artery disease) Current Visit: No Status: Chronic Assessment and Plan: -Patient currently denies CP - Continue ranolazine, continue ASA (4) HTN (hypertension) Current Visit: No Status: Chronic Assessment and Plan: -Blood pressures have been well-controlled in hospital -BP noted to be hypotensive this AM at 96/52 -Currently holding Amlodipine, Imdur - Is on 12.5mg Metoprolol BID - consider holding PM dose (5) HLD (hyperlipidemia) Current Visit: No Status: Chronic Assessment and Plan: LDL cholesterol at 129 - otherwise lipid panel WNL Continue Lipitor (6) Hx of deep venous thrombosis Current Visit: No Status: Acute Assessment and Plan: -Patient without signs/symptoms of acute DVT - Patient takes Eliquis for DVT prophylaxis at home - Continue apixaban while in hospital DVT Prophylaxis: Apixaban 5mg PO BID - Time Spent with Patient Total time spent is greater than 50% in coordination of care (as documented) at patient's floor/unit and/or counseling patient: Internal Medicine: Result - Labs CBC & Chem 7: 11/17/18 06:04 11/17/18 06:04 Labs: Short CBC 11/17/18 Range/Units 06:04 WBC 8.1 (4.3-11.1) K/mcL Hgb 12.7 (11.5-15.4) g/dL Hct 40.6 (35.3-44.9) % Plt Count 181 (140-400) K/mcL Neutrophils # 5.6 (1.6-8.9) K/mcL BMP 11/17/18 06:04 Sodium 134 L Potassium 4.5 Chloride 100 Carbon Dioxide 28 BUN 18 Creatinine 0.73 Glucose 111 H Calcium 9.3 Liver Function 11/17/18 Range/Units 06:04 Total Bilirubin 0.6 (0.3-1.0) mg/dL AST 28 (13-39) Units/L ALT 31 (7-52) Units/L Alkaline Phosphatase 83 (34-104) Units/L Albumin 3.5 (3.5-5.7) g/dL - ABG Interpretation ABG results: PT/INR, D-dimer PT 15.9 Seconds (9.4-12.1) H 11/15/18 06:24 - Impressions Impressions Brain MRI 11/16/18 14:58 IMPRESSION: No acute intracranial abnormality. Severe chronic microvascular ischemic disease. D/ / 11/16/2018 16:52:57 Chasidy Butts MD / lgray Interpreting Provider: Chasidy Butts MD Consult Discharge Plan - Plan Referrals: Laxmi Noonan APN [Primary Care Provider] - <Lonny Redmond - Last Filed: 11/17/18 16:46> Hospitalist Progress Note - Encounter Date of Encounter: 11/17/18 - Exam Vitals: Temp Pulse Resp BP Pulse Ox 98.0 F 85 18 105/59 99 11/17/18 16:37 11/17/18 16:37 11/17/18 16:37 11/17/18 16:37 11/17/18 16:37 - Assessment and Plan (1) Orthostasis Current Visit: Yes Status: Acute (2) TIA (transient ischemic attack) Current Visit: Yes Status: Ruled-out (3) CHF (congestive heart failure) Current Visit: No Status: Chronic (4) HTN (hypertension) Current Visit: No Status: Chronic (5) CAD (coronary artery disease) Current Visit: No Status: Chronic (6) HLD (hyperlipidemia) Current Visit: No Status: Chronic (7) Tremor Current Visit: Yes Status: Chronic - Time Spent with Patient Total time spent is greater than 50% in coordination of care (as documented) at patient's floor/unit and/or counseling patient: Internal Medicine: Result - Labs CBC & Chem 7: 11/17/18 06:04 11/17/18 06:04 Labs: Short CBC 11/17/18 Range/Units 06:04 WBC 8.1 (4.3-11.1) K/mcL Hgb 12.7 (11.5-15.4) g/dL Hct 40.6 (35.3-44.9) % Plt Count 181 (140-400) K/mcL Neutrophils # 5.6 (1.6-8.9) K/mcL BMP 11/17/18 06:04 Sodium 134 L Potassium 4.5 Chloride 100 Carbon Dioxide 28 BUN 18 Creatinine 0.73 Glucose 111 H Calcium 9.3 Liver Function 11/17/18 Range/Units 06:04 Total Bilirubin 0.6 (0.3-1.0) mg/dL AST 28 (13-39) Units/L ALT 31 (7-52) Units/L Alkaline Phosphatase 83 (34-104) Units/L Albumin 3.5 (3.5-5.7) g/dL - ABG Interpretation ABG results: PT/INR, D-dimer PT 15.9 Seconds (9.4-12.1) H 11/15/18 06:24 - Impressions Impressions Brain MRI 11/16/18 14:58 IMPRESSION: No acute intracranial abnormality. Severe chronic microvascular ischemic disease. D/ / 11/16/2018 16:52:57 Chasidy Butts MD / lgray Interpreting Provider: Chasidy Butts MD - Attending Attestation I examined this patient and my medical decision-making was reviewed with the Resident Physician 11/17/18. I agree with the documented findings, disposition and treatment plan as described except to the extent set forth below. Ms Fabian is currently in observation for tremors and found to be orthostatic. She remains moderate to high risk. Ms Fabian had a lower BP this AM. No symptoms at that time. Orthostatics now positive (BP not pulse but on beta le). No CP. No new neuro symptoms. Constipated today. Exam alert Comfortable in bed Mucus membranes dry Heart reg at this time and not tachy Lungs clear ABd soft and nontender No edema I/P 1. Orthostasis - potentially cause of her symptoms. May benefit from tilt table at some time. Fluids today. 2. Tremor - Klonopin per neuro Further diagnoses and plan as above. <Lee Lee - Last Filed: 11/17/18 08:43> (3) CAD (coronary artery disease) Qualifiers: Coronary Disease-Associated Artery/Lesion type: [place] artery [place] vs. transplanted heart: kiana heart Associated angina: without angina Qualified Code(s): I25.10 - Atherosclerotic heart disease of [place] coronary artery without angina pectoris (4) HTN (hypertension) Qualifiers: Hypertension type: essential hypertension Qualified Code(s): I10 - Essential (primary) hypertension (5) HLD (hyperlipidemia) Qualifiers: Hyperlipidemia type: mixed hyperlipidemia Qualified Code(s): E78.2 - Mixed hyperlipidemia <Lonny Redmond - Last Filed: 11/17/18 16:46> (3) CHF (congestive heart failure) Qualifiers: Heart failure type: diastolic Heart failure chronicity: chronic Qualified Code(s): I50.32 - Chronic diastolic (congestive) heart failure (4) HTN (hypertension) Qualifiers: Hypertension type: essential hypertension Qualified Code(s): I10 - Essential (primary) hypertension (5) CAD (coronary artery disease) Qualifiers: Coronary Disease-Associated Artery/Lesion type: [place] artery [place] vs. transplanted heart: k[place] heart Associated angina: without angina Qualified Code(s): I25.10 - Atherosclerotic heart disease of [place] coronary artery without angina pectoris (6) HLD (hyperlipidemia) Qualifiers: Hyperlipidemia type: mixed hyperlipidemia Qualified Code(s): E78.2 - Mixed hyperlipidemia
--- NOTE | 2018-11-17 10:49 | Neurology Progress Note ---
Date of Encounter: 11/17/18 Time of Encounter: 10:47 Assessment and Plan (1) Tremor Current Visit: Yes Status: Acute It seems that this is describing either tremor or perhaps myoclonic jerks. They seem to be occurring in the early hours of the morning. She does give an association of the tremors occurring when she sitting up after she has been lying down. She denies any alteration in her mental status. She does not seem to be describing a full blown generalized tonic-clonic seizure. 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 I might therefore consider a trial of Klonopin 0.5 mg one daily to start. I would like to follow up with her in my office sometime after discharge to continue ongoing evaluation. I might consider a 24-hour ambulatory EEG after discharge along with further titration of the Klonopin if necessary. Otherwise she may discharge her at your discretion. Subjective Interval history: The chart was reviewed, the patient was seen and examined. She is sitting up in the bed with 2 visitors in the room present. She is alert and oriented and that her normal baseline neurologic status. She has not had any further jerking activity or tremors. The MRI scan of the brain was unrevealing. At this juncture I am unable to identify a specific etiology to explain these tremors/jerks. She might be describing myoclonic jerks which can sometimes occur during the association executive hours. In any regard I am I am recommending a trial of Klonopin 0.5 mg once a day. Objective - Constitutional Vitals: Temp Pulse Resp BP Pulse Ox 98.0 F 74 18 96/52 100 11/17/18 07:15 11/17/18 07:15 11/17/18 07:15 11/17/18 07:15 11/17/18 07:15 - Neurological Exam Sensorimotor examination: Present: intact, other (Patient has baseline diminished sensation in the right side of her face; sensorimotor exam otherwise intact) Motor examination - right side: 5/5: deltoids, biceps, triceps, chemical machine tender, hip flexors, tibialis Anterior, quadriceps, toe extension (EHL), plantarflexion Motor examination - left side: 5/5: deltoids, biceps, triceps, wrist flexion, wrist extension, chemical machine tender, toe extension (EHL), plantarflexion Sensation intact: Present: intact Mental Status Examination: Present: awake, alert, oriented to person, oriented to place, oriented to time, follows commands appropriately, answers questions appropriately Cranial nerve examination: Present: PERRL, EOMI, visual lr intact Results - Laboratory Findings CBC and BMP: 11/17/18 06:04 11/17/18 06:04 Abnormal lab findings: Abnormal lab results MCHC 31.3 g/dL (31.6-35.5) L 11/17/18 06:04 RDW 15.5 % (11.5-14.5) H 11/17/18 06:04 PT 15.9 Seconds (9.4-12.1) H 11/15/18 06:24 APTT 41.0 Seconds (26.0-36.0) H 11/15/18 06:24 VBG pO2 127 mmHg (25-50) H 11/17/18 07:04 VBG HCO3 29 mEq/L (21-27) H 11/17/18 07:04 Sodium 134 mEq/L (136-145) L 11/17/18 06:04 Glucose 111 mg/dL (70-105) H 11/17/18 06:04 POC Glucose 105 mg/dL (70-99) H 11/15/18 05:57 Hemoglobin A1c 5.7 % (-5.6) H 11/16/18 04:15 LDL Cholesterol, Calc 129 mg/dL (0-99) H 11/16/18 04:15 Ur Specific [place] < 1.005 (1.010-1.025) L 11/15/18 14:45 Consult Discharge Plan - Plan Referrals: Laxmi Noonan APN [Primary Care Provider] -
[2018-11-17] MEDS: 0.9 % Sodium Chloride 1,000 ML IVC SCH (16:57)
--- NOTE | 2018-11-17 22:59 | Event Note ---
Date of Encounter: 11/17/18 Time of Encounter: 22:40 Alerted by pts. nurse Darin RN that the pt. had been seen by Neurology w/possible myoclonus based on jerking movements. Neurology considering a trial of Klonopin 0.5 mg daily to start. Discussed the pt. w/Dr. Garcia w/recommendation that Klonopin be left up to the Hospitalist team and I appreciate the phone consult and recommendations as always. Pt. concerned about not having Klonopin started based on assessment by Neurology. Order for 0.5 mg PO Klonopin placed to start tonight. Nurse instructed to monitor pt. very closely.
[2018-11-17] MEDS: clonazePAM 0.5 MG TABLET PO SCH (23:01)
[2018-11-18] MEDS: 0.9 % Sodium Chloride 1,000 ML IVC SCH (01:09)
[2018-11-18 06:24] LABS: Basophils % 0.3 %; Eosinophils # 0.3 K/mcL (0.0-0.6); Eosinophils % 3.6 %; Hematocrit 37.1 % (35.3-44.9); Hemoglobin 11.6 g/dL (11.5-15.4); Immature Granulocytes % 0.6 % (0-4); Lymphocytes # 1.1 K/mcL (0.6-4.6); Lymphocytes % 15.3 %; Mean Corpuscular HGB Conc 31.3 g/dL (31.6-35.5); Mean Corpuscular Volume 95.9 fL (83.0-100.0); Mean Platelet Volume 10.4 fL (9.4-12.4); Monocytes # 0.7 K/mcL (0.0-1.3); Monocytes % 10.1 %; Neutrophils # 4.9 K/mcL (1.6-8.9); Platelet Count 153 K/mcL (140-400); Red Blood Count 3.87 M/mcL (3.82-4.97); Red Cell Distribution Width 15.5 % (11.5-14.5); Segmented Neutrophils % 70.1 %
[2018-11-18 06:36] LABS: Alanine Aminotransferase 39 Units/L (7-52); Albumin 2.9 g/dL (3.5-5.7); Alkaline Phosphatase 118 Units/L (34-104); Aspartate Amino Transferase 40 Units/L (13-39); BUN/Creatinine Ratio 17 (6-26); Bilirubin,Total 0.5 mg/dL (0.3-1.0); Blood Urea Nitrogen 11 mg/dL (8-23); Calcium 8.4 mg/dL (8.6-10.3); Carbon Dioxide 28 mEq/L (23-29); Chloride 105 mEq/L (98-107); Globulin 2.8 g/dL (2.4-3.5); Glucose 103 mg/dL (70-105); Osmolality,Calculated 284 (280-300); Potassium 3.9 mEq/L (3.5-5.1); Sodium 137 mEq/L (136-145); Total Protein 5.7 g/dL (6.4-8.9); eGFR For Non-African Americans > 60 (> 60)
[2018-11-18] MEDS: Levothyroxine 25 MCG TABLET PO SCH (06:48)
[2018-11-18] MEDS: clonazePAM 0.5 MG TABLET PO SCH (08:07)
[2018-11-18] MEDS: Apixaban 5 MG TABLET PO SCH (08:07)
[2018-11-18] MEDS: Furosemide 20 MG TABLET PO SCH (08:07)
[2018-11-18] MEDS: Ranolazine 500 MG TAB.ER.12H PO SCH (08:08)
[2018-11-18] MEDS: Aspirin 81 MG TAB.CHEW PO SCH (08:08)
[2018-11-18] MEDS ORDERED: Metoprolol XL (24 HR) Succ 25 MG TAB.ER.24H PO SCH (09:00)
--- NOTE | 2018-11-18 10:13 | Electrocardiograph Report ---
[address] [place], [place] [address] Test Date: 2018-11-15 Pat Name: Adriane Fabian Department: EXAM4 Room: 2A35 Gender: F Klystrom Tube Tester: : [id number] Requested By: Oneal Fritz Order Number: [id number] Reading MD: Blayne Bowden Measurements Intervals [place] Rate: 67 P: 80 HI: QRS: 88 QRSD: 104 T: 49 QT: 438 QTc: 463 Interpretive Statements Sinus rhythm Probable anteroseptal infarct, old Electronically Signed On 11-18-2018 10:11:39 EST by Blayne Bowden
--- NOTE | 2018-11-18 11:21 | Discharge Summary ---
<Lee Lee - Last Filed: 11/18/18 14:37> - NOTES TO OUTPATIENT PROVIDER Notes to Outpatient Provider: Patient needs to follow up within one week with Dr. Gomez Garcia from [facility] for further evaluation. Date of Encounter: 11/18/18 Time of Encounter: 14:10 - Discharge Diagnosis (1) Seizure-like activity Priority: Primary Status: Acute (2) History of seizure disorder Priority: Secondary Status: Acute (3) CAD (coronary artery disease) Priority: Secondary Status: Chronic Qualifiers: Coronary Disease-Associated Artery/Lesion type: [place] artery [place] vs. transplanted heart: [place] heart Associated angina: without angina Qualified Code(s): I25.10 - Atherosclerotic heart disease of [place] coronary artery w ithout angina pectoris (4) HTN (hypertension) Priority: Secondary Status: Chronic Qualifiers: Hypertension type: essential hypertension Qualified Code(s): I10 - Essential (primary) hypertension (5) HLD (hyperlipidemia) Priority: Secondary Status: Chronic Qualifiers: Hyperlipidemia type: mixed hyperlipidemia Qualified Code(s): E78.2 - Mixed hyperlipidemia (6) Hx of deep venous thrombosis Priority: Secondary Status: Acute Hospital course: Ms. Fabian is an 78 year old female admitted to [facility] due to seizure-like activity. Patient states that she wakes up at approximately 3 - 4 AM every night to go to the bathroom. During this time for approximately the past month (since gi) she has experienced severe, intermittent tremors in her upper and lower extremities with potential flexion tremors. -CTA scan of the head as well as MRI of brain show chronic areas of microvascular ischemia-no acute process identified -Patient found to be orthostatically intolerant during admission with 10 mmHg diastolic change between supine and sitting positions and >20 mmHg of systolic change between seated and standing positions. -Patient found to be hypotensive on multiple antihypertensive agents: Imdur and amlodipine stopped while in hospital and will be discontinued upon discharge home. Metoprolol tartrate changed to metoprolol succinate 12.5 daily for the management of hypertension. -Neurology consulted while in hospital and will follow patient in office as outpatient. Neurology recommends 0.5 mg clonazepam daily for the management of tremors. Discharge discussed with: patient - Time Spent with Patient Total time spent providing and/or coordinating discharge services: - Discharge Medications Prescriptions: clonazePAM [Klonopin] 0.5 mg PO DAILY 30 Days #30 tablet Metoprolol XL (24 HR) Succ [Toprol Xl] 12.5 mg PO DAILY #30 tab.er.24h Home Medications: Atorvastatin Calcium [Lipitor] 80 mg PO QPM 09/16/18 [History] Furosemide [Lasix] 20 mg PO DAILY 09/16/18 [History] Levothyroxine [Synthroid] 25 mcg PO 0630 09/16/18 [History] Nitroglycerin 0.4 mg PO AD PRN MDD 3 SPRAYS/15MINS CALL 911 09/16/18 [History] Potassium Chloride 10 meq PO DAILY 09/16/18 [History] Ranolazine [Ranexa] 1,000 mg PO BID 09/16/18 [History] Vit C/E/Zn/Coppr/Lutein/Zeaxan [Preservision Areds 2 Softgel] 1 cap PO DAILY 09/16/18 [History] Albuterol Neb [Proventil Neb] 2.5 mg IH BID 10/08/18 [History] Amitriptyline HCl 75 mg PO DAILY 10/08/18 [History] Apixaban [Eliquis] 5 mg PO BID 10/08/18 [History] Psyllium Husk [Metamucil] 0.52 gm PO DAILY 10/08/18 [History] Omeprazole [PriLOSEC] 40 mg PO DAILY@0800 #30 capsule. 10/13/18 [Rx] Albuterol Sulfate [Ventolin Hfa] 2 puff IH Q4H PRN #0 10/21/18 [Rx] Docusate [Colace] 100 mg PO BID #60 capsule 10/21/18 [Rx] Guaifenesin [Mucinex] 600 mg PO BID 11/04/18 [History] Umeclidinium [place] [Incruse Ellipta] 62.5 mcg IH DAILY 11/04/18 [History] Metoprolol XL (24 HR) Succ [Toprol Xl] 12.5 mg PO DAILY #30 tab.er.24h 11/18/18 [Rx] clonazePAM [Klonopin] 0.5 mg PO DAILY 30 Days #30 tablet 11/18/18 [Rx] Allergies/Adverse Reactions: Allergy/AdvReac Type Severity Reaction Status Date / Time guaifenesin [From Hytuss] Allergy See Verified 10/16/18 09:02 Comments nabumetone [From Relafen] Allergy See Verified 10/16/18 09:02 Comments pentazocine [From Talwin] Allergy See Verified 10/16/18 09:02 Comments propoxyphene Allergy See Verified 10/16/18 09:02 Comments Sulindac [From Clinoril] Allergy See Verified 10/16/18 09:02 Comments prednisone AdvReac Mild Shaky Verified 11/05/18 10:09 Benzonatate AdvReac Confusion Verified 10/19/18 10:22 carbamazepine AdvReac Chest Pain Verified 10/08/18 06:05 codeine AdvReac See Verified 10/16/18 09:02 Comments etodolac AdvReac Chest Pain Verified 10/08/18 06:05 hydrocodone AdvReac Chest Pain Verified 10/08/18 06:05 Iodinated Contrast- Oral and AdvReac Chest Pain Verified 10/08/18 06:05 IV Dye [Iodinated Contrast Media - IV Dye] levofloxacin AdvReac Chest Pain Verified 10/08/18 06:05 NSAIDS (Non-Steroidal AdvReac Chest Pain Verified 10/08/18 06:05 Anti-Inflamma Penicillins [PCN] AdvReac Chest Pain Verified 10/08/18 06:05 pregabalin [From Lyrica] AdvReac Numbness Verified 10/08/18 06:05 pseudoephedrine AdvReac Chest Pain Verified 10/08/18 06:05 Sulfa (Sulfonamide AdvReac Chest Pain Verified 10/08/18 06:05 Antibiotics) tetracycline [Tetracycline] AdvReac Chest Pain Verified 10/08/18 06:05 tolmetin AdvReac Chest Pain Verified 10/08/18 06:05 tramadol AdvReac Numbness Verified 10/08/18 06:05 Date of admission: 11/15/18 07:40 Primary care physician: Laxmi Noonan APN Consults: 11/15/18 10:01 Consult to Chief Deputy Sheriff [CONS] Routine Reason for SW Consult: [facility], HOME OXYGEN 11/15/18 11:56 Consult to Neurology [CONS] Routine Consulting Provider: [facility] Reason for Consult: right facial droop, weakness, possible CVA, ? Timothy's paralysis Call Completed: Yes 11/15/18 12:38 Consult to Occupational Therapy [CONS] Routine Comment: Evaluate, develop and implement POC Reason for Consult: stroke Does patient have active BEDREST order?: No Is patient medically & hemodynamically stable?: Yes Consult to Physical Therapy [CONS] Routine Comment: Evaluate, develop and implement POC Reason for Consult: stroke Does patient have active BEDREST order?: No Is patient medically & hemodynamically stable?: Yes Discharging clinician: Lee Lee Anticipated date of discharge: 11/18/18 - Constitutional Vitals: Temp Pulse Resp BP Pulse Ox 98.1 F 77 16 149/69 100 11/18/18 07:23 11/18/18 07:23 11/18/18 07:23 11/18/18 07:23 11/18/18 07:23 General appearance: Present: cooperative, A&O X 3, pleasant, no acute distress, answers questions appropriately Exam: Constitutional: Patient is awake, alert and oriented, conversational, pleasant, answers questions appropriately, Cardiovascular: Rate and rhythm are regular, no murmurs, gallops or rubs appreciated. Respiratory. Mild expiratory wheeze noted. Otherwise clear to auscultation - no rhonchi, no rales, or stridor Abdominal: Abdomen is soft, scaphoid, nontender, nondistended Neurological: Cranial nerves II through XII are grossly intact. Strength, motor, sensation, and deep tendon reflexes intact in the 4 extremities. Skin: No new bruising, rashes, or bleeding overtly appreciated. - Head Head exam: Present: atraumatic, normocephalic - Eye Eye exam: Present: EOMI, normal appearance, PERRL. Absent: scleral icterus Pupils: Present: PERRL - Neck Neck exam general surgery: Present: normal inspection, supple, trachea midline. Absent: thyromegaly - Respiratory Respiratory exam: Present: CTAB. Absent: accessory muscle use, decreased breath sounds, prolonged expiratory phase, rales, respiratory distress, rhonchi, stridor, wheezes, tachypnea - Cardiovascular Cardiovascular exam: Present: RRR, +S1, +S2. Absent: bradycardia, clicks, diastolic murmur, distant heart sounds, gallop, irregular rhythm, JVD, rubs, +S3, +S4, systolic murmur, tachycardia - GI/Abdominal GI/Abdominal exam: Present: normal bowel sounds, soft. Absent: bruit, diminished bowel sounds, distended, firm, guarding, mass, rebound, rigid, tenderness - Neurological Exam Neurological exam: Present: alert, oriented X3, no focal deficits. Absent: facial droop, speech deficit - Psychiatric Psychiatric exam: Present: normal affect, normal mood - Skin Skin exam: Present: dry, intact, normal color, warm. Absent: cyanosis, diaphoretic, erythema - Patient Status Disposition: Home, Self-Care Condition: Fair Functional capacity at discharge: independent ambulation Overall status at discharge: patient is back to baseline - Discharge Instructions Instructions: Clonazepam (By mouth) Follow Up With: Laxmi Noonan APN [Primary Care Provider] - 11/24/18 2:20 pm Gomez Garcia DO [Partnered Physician] - 12/10/18 9:15 am Forms: ED Satisfaction Letter - Diet and Activity Activity: increase activity as tolerated, resume usual activities as tolerated, wear oxygen at night Diet: advance to your usual diet <Lonny Redmond - Last Filed: 11/18/18 16:13> Date of Encounter: 11/18/18 - Discharge Diagnosis (1) Orthostasis Priority: Primary Status: Acute (2) CHF (congestive heart failure) Priority: Secondary Status: Chronic Qualifiers: Heart failure type: diastolic Heart failure chronicity: chronic Qualified Code(s): I50.32 - Chronic diastolic (congestive) heart failure (3) HTN (hypertension) Status: Chronic Qualifiers: Hypertension type: essential hypertension Qualified Code(s): I10 - Essential (primary) hypertension (4) CAD (coronary artery disease) Status: Chronic Qualifiers: Coronary Disease-Associated Artery/Lesion type: [place] artery [place] vs. transplanted heart: [place] heart Associated angina: without angina Qualified Code(s): I25.10 - Atherosclerotic heart disease of [place] coronary artery without angina pectoris (5) HLD (hyperlipidemia) Status: Chronic Qualifiers: Hyperlipidemia type: mixed hyperlipidemia Qualified Code(s): E78.2 - Mixed hyperlipidemia (6) Tremor Priority: Secondary Status: Chronic Hospital course: Ms. Fabian is a 78 year old female - Time Spent with Patient Total time spent providing and/or coordinating discharge services: Date of admission: 11/15/18 07:40 Primary care physician: Laxmi Noonan APN Consults: 11/15/18 10:01 Consult to Chief Deputy Sheriff [CONS] Routine Reason for SW Consult: [facility], HOME OXYGEN 11/15/18 11:56 Consult to Neurology [CONS] Routine Consulting Provider: [facility] Reason for Consult: right facial droop, weakness, possible CVA, ? Timothy's paralysis Call Completed: Yes 11/15/18 12:38 Consult to Occupational Therapy [CONS] Routine Comment: Evaluate, develop and implement POC Reason for Consult: stroke Does patient have active BEDREST order?: No Is patient medically & hemodynamically stable?: Yes Consult to Physical Therapy [CONS] Routine Comment: Evaluate, develop and implement POC Reason for Consult: stroke Does patient have active BEDREST order?: No Is patient medically & hemodynamically stable?: Yes - Constitutional Vitals: Temp Pulse Resp BP Pulse Ox 98.2 F 77 16 131/72 100 11/18/18 11:13 11/18/18 11:13 11/18/18 11:13 11/18/18 11:13 11/18/18 11:13 - Attending Attestation I examined this patient and my medical decision-making was reviewed with the Resident Physician 11/18/18. I agree with the documented findings, disposition and treatment plan as described except to the extent set forth below. Ms Fabian has been in observation due to tremor and apparent syncope? Her blood pressure meds have been adjusted and she was started on Klonopin with improvement. Today she feels improved and ready for discharge home. Exam Alert Comfortable Mucus membranes dry Heart not tachy No wheeze abd soft Plan D/C home today with med adjustments and Klonopin To follow up with neurology as outpatient Consider outpatient tilt table test if persists.
--- NOTE | 2018-11-18 13:35 | Physician Discharge Referral ---
Home Health/Hosp Referral Info Transfer to: Home Health Provider in Charge Post Discharge: PCP - Diagnosis (1) Orthostasis Priority: Primary Status: Acute (2) CHF (congestive heart failure) Status: Chronic (3) HTN (hypertension) Priority: Secondary Status: Chronic (4) CAD (coronary artery disease) Priority: Secondary Status: Chronic (5) HLD (hyperlipidemia) Priority: Secondary Status: Chronic (6) Tremor Priority: Secondary Status: Chronic - Respiratory Orders Oxygen / L per min (2) Smoking Cessation: Smoking cessation has been advised. For more information, call the [place] Tobacco Quit Line at 8-732-UBBI-NOW. - Diet/Nutrition Diet/Nutrition Orders: Cardiac - Activity Activity Orders: Up ad carlyle - Services Needed Following services are medically necessary services: Nursing, Physical Therapy, Occupational Therapy - Transfer Medications Home Medications: Atorvastatin Calcium [Lipitor] 80 mg PO QPM 09/16/18 [History] Furosemide [Lasix] 20 mg PO DAILY 09/16/18 [History] Isosorbide MONOnitrate [Isosorbide Mononitrate ER] 120 mg PO DAILY 09/16/18 [History] Levothyroxine [Synthroid] 25 mcg PO 0630 09/16/18 [History] Metoprolol [Lopressor] 50 mg PO BID 09/16/18 [History] Nitroglycerin 0.4 mg PO AD PRN MDD 3 SPRAYS/15MINS CALL 911 09/16/18 [History] Potassium Chloride 10 meq PO DAILY 09/16/18 [History] Ranolazine [Ranexa] 1,000 mg PO BID 09/16/18 [History] Vit C/E/Zn/Coppr/Lutein/Zeaxan [Preservision Areds 2 Softgel] 1 cap PO DAILY 09/16/18 [History] amLODIPine [Norvasc] 5 mg PO DAILY 09/16/18 [History] Albuterol Neb [Proventil Neb] 2.5 mg IH BID 10/08/18 [History] Amitriptyline HCl 75 mg PO DAILY 10/08/18 [History] Apixaban [Eliquis] 5 mg PO BID 10/08/18 [History] Psyllium Husk [Metamucil] 0.52 gm PO DAILY 10/08/18 [History] Omeprazole [PriLOSEC] 40 mg PO DAILY@0800 #30 capsule. 10/13/18 [Rx] Albuterol Sulfate [Ventolin Hfa] 2 puff IH Q4H PRN #0 10/21/18 [Rx] Docusate [Colace] 100 mg PO BID #60 capsule 10/21/18 [Rx] Guaifenesin [Mucinex] 600 mg PO BID 11/04/18 [History] Umeclidinium [place] [Incruse Ellipta] 62.5 mcg IH DAILY 11/04/18 [History] Allergies/Adverse Reactions: Allergy/AdvReac Type Severity Reaction Status Date / Time guaifenesin [From Hytuss] Allergy See Verified 10/16/18 09:02 Comments nabumetone [From Relafen] Allergy See Verified 10/16/18 09:02 Comments pentazocine [From Talwin] Allergy See Verified 10/16/18 09:02 Comments propoxyphene Allergy See Verified 10/16/18 09:02 Comments Sulindac [From Clinoril] Allergy See Verified 10/16/18 09:02 Comments prednisone AdvReac Mild Shaky Verified 11/05/18 10:09 Benzonatate AdvReac Confusion Verified 10/19/18 10:22 carbamazepine AdvReac Chest Pain Verified 10/08/18 06:05 codeine AdvReac See Verified 10/16/18 09:02 Comments etodolac AdvReac Chest Pain Verified 10/08/18 06:05 hydrocodone AdvReac Chest Pain Verified 10/08/18 06:05 Iodinated Contrast- Oral and AdvReac Chest Pain Verified 10/08/18 06:05 IV Dye [Iodinated Contrast Media - IV Dye] levofloxacin AdvReac Chest Pain Verified 10/08/18 06:05 NSAIDS (Non-Steroidal AdvReac Chest Pain Verified 10/08/18 06:05 Anti-Inflamma Penicillins [PCN] AdvReac Chest Pain Verified 10/08/18 06:05 pregabalin [From Lyrica] AdvReac Numbness Verified 10/08/18 06:05 pseudoephedrine AdvReac Chest Pain Verified 10/08/18 06:05 Sulfa (Sulfonamide AdvReac Chest Pain Verified 10/08/18 06:05 Antibiotics) tetracycline [Tetracycline] AdvReac Chest Pain Verified 10/08/18 06:05 tolmetin AdvReac Chest Pain Verified 10/08/18 06:05 tramadol AdvReac Numbness Verified 10/08/18 06:05 Certification: Further, I certify that my clinical findings support that this patient is homebound (i.e. absences from home require considerable and taxing effort and are for medical reasons or muslim services or infrequently or short duration when for other reasons) because: Homebound Reason: Leaving home requires considerable and taxing effort due to condition, Severity of cardiac or pulmonary status limits activity tolerance Attestation: My signature below is to certify that this patient is under my care and that I, or nurse practitioner, or a physician's assistant director of nursing working with me, has a [id number] encounter with this patient.
[2018-11-18 16:27] VITALS: BP 114/72
== END 2018-11-18 17:27 | disposition home or self-care (01) ==
LOC: 2ANU 05:42 → EMEROOARM 05:42 → SUATTDRO 07:40 → 2ANU 09:35
PROVIDERS: ADMIT Internal Medicine; ATTEND Internal Medicine

== ENCOUNTER 2018-11-24 17:46 | Inpatient (IN) ==
--- NOTE | 2018-11-24 17:59 | Emergency Department Note ---
Disposition Clinical Impression: Acute exacerbation of chronic obstructive airways disease, CHF (congestive heart failure), Hx pulmonary embolism, Anemia, On anticoagulant therapy Disposition: Admitted As Inpatient Referrals: Laxmi Noonan APN [Primary Care Provider] - Forms: ED Satisfaction Letter General Adult HPI - General Chief complaint: ED Shortness of Breath/Dyspnea Stated complaint: MYRANDA Time Seen by Provider: 11/24/18 17:58 - History of Present Illness HPI Narrative: 78-year-old female with a history of COPD and CHF reports emergency department complaining of increasing dyspnea over the last 2-3 days. She was recently admitted to the hospital evaluated for CVA. There is no history of chest pain. She has had a cough but no coughing of blood. No acute leg swelling or pain or syncope. There is no history of abdominal pain vomiting or diarrhea. No bleeding of any sort. She states she is anticoagulated on Eliquis. The patient usually wears 2 L nasal cannula. EMS was notified and he placed her on 3 L secondary to concerns for lower oxygen levels. The patient describes increasing dyspnea on exertion. There is no history of acute back pain no unilateral arm or leg weakness or numbness no slurred speech or facial drooping. No falls or injuries. Increasing shortness of breath particularly with exertion over the last 2-3 days as noted. - Related Data Home Medications Medication Instructions Recorded Confirmed Atorvastatin Calcium [Lipitor] 80 mg PO QPM 09/16/18 11/15/18 Furosemide [Lasix] 20 mg PO DAILY 09/16/18 11/15/18 Levothyroxine [Synthroid] 25 mcg PO 0630 09/16/18 11/15/18 Nitroglycerin 0.4 mg PO AD PRN MDD 3 09/16/18 11/15/18 SPRAYS/15MINS CALL 911 Potassium Chloride 10 meq PO DAILY 09/16/18 11/15/18 Ranolazine [Ranexa] 1,000 mg PO BID 09/16/18 11/15/18 Vit C/E/Zn/Coppr/Lutein/Zeaxan 1 cap PO DAILY 09/16/18 11/15/18 [Preservision Areds 2 Softgel] Albuterol Neb [Proventil Neb] 2.5 mg IH BID 10/08/18 11/15/18 Amitriptyline HCl 75 mg PO DAILY 10/08/18 11/15/18 Apixaban [Eliquis] 5 mg PO BID 10/08/18 11/15/18 Psyllium Husk [Metamucil] 0.52 gm PO DAILY 10/08/18 11/15/18 Guaifenesin [Mucinex] 600 mg PO BID 11/04/18 11/15/18 Umeclidinium Hindman [Incruse 62.5 mcg IH DAILY 11/04/18 11/15/18 Ellipta] Previous Rx's Medication Instructions Recorded Omeprazole [PriLOSEC] 40 mg PO DAILY@0800 #30 capsule.dr 10/13/18 Albuterol Sulfate [Ventolin Hfa] 2 puff IH Q4H PRN #0 10/21/18 Docusate [Colace] 100 mg PO BID #60 capsule 10/21/18 Metoprolol XL (24 HR) Succ [Toprol 12.5 mg PO DAILY #30 tab.er.24h 11/18/18 Xl] clonazePAM [Klonopin] 0.5 mg PO DAILY 30 Days #30 tablet 11/18/18 Allergies Allergy/AdvReac Type Severity Reaction Status Date / Time guaifenesin [From Hytuss] Allergy See Verified 10/16/18 09:02 Comments nabumetone [From Relafen] Allergy See Verified 10/16/18 09:02 Comments pentazocine [From Talwin] Allergy See Verified 10/16/18 09:02 Comments propoxyphene Allergy See Verified 10/16/18 09:02 Comments Sulindac [From Clinoril] Allergy See Verified 10/16/18 09:02 Comments prednisone AdvReac Mild Shaky Verified 11/05/18 10:09 Benzonatate AdvReac Confusion Verified 10/19/18 10:22 carbamazepine AdvReac Chest Pain Verified 10/08/18 06:05 codeine AdvReac See Verified 10/16/18 09:02 Comments etodolac AdvReac Chest Pain Verified 10/08/18 06:05 hydrocodone AdvReac Chest Pain Verified 10/08/18 06:05 Iodinated Contrast- Oral and AdvReac Chest Pain Verified 10/08/18 06:05 IV Dye [Iodinated Contrast Media - IV Dye] levofloxacin AdvReac Chest Pain Verified 10/08/18 06:05 NSAIDS (Non-Steroidal AdvReac Chest Pain Verified 10/08/18 06:05 Anti-Inflamma Penicillins [PCN] AdvReac Chest Pain Verified 10/08/18 06:05 pregabalin [From Lyrica] AdvReac Numbness Verified 10/08/18 06:05 pseudoephedrine AdvReac Chest Pain Verified 10/08/18 06:05 Sulfa (Sulfonamide AdvReac Chest Pain Verified 10/08/18 06:05 Antibiotics) tetracycline [Tetracycline] AdvReac Chest Pain Verified 10/08/18 06:05 tolmetin AdvReac Chest Pain Verified 10/08/18 06:05 tramadol AdvReac Numbness Verified 10/08/18 06:05 All systems ED: reviewed and negative except as stated. 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 Absent: meningismus - Chest Chest inspection: Present: symmetric chest wall rise. Absent: tenderness - Respiratory Respiratory exam: Present: prolonged expiratory phase. Absent: respiratory distress - Cardiovascular Cardiovascular exam: Present: normal rhythm, tachycardia - Abdominal Exam Abdominal exam: Present: soft, Non-Tender, normal bowel sounds. Absent: tenderness, distention, guarding, rebound, rigidity - Extremities Exam Extremities exam: Present: normal inspection, full ROM, normal capillary refill. Absent: tenderness, pedal edema, joint swelling, calf tenderness - Expanded Lower Extremity Exam Lower leg exam: Absent: Homans' sign Neurovascular/Tendon exam: Present: normal capillary refill. Absent: motor deficit, sensory deficit, tendon deficit, extremity cold to touch, pallor - Back Exam Back exam: Present: normal inspection, full ROM. Absent: tenderness, CVA tenderness (R), CVA tenderness (L), vertebral tenderness - Neurological Exam Neurological exam: Present: alert, oriented X3, CN II-XII intact. Absent: motor sensory deficit - Psychiatric Psychiatric exam: Present: normal affect, normal mood - Skin Skin exam: Present: warm, dry, intact, normal color Course Vital Signs Temperature 98.9 F 11/24/18 17:56 Pulse Rate 103 11/24/18 17:56 Respiratory Rate 31 11/24/18 17:56 Blood Pressure 146/71 11/24/18 17:56 O2 Sat by Pulse Oximetry 98 11/24/18 17:56 Temperature 98.9 F 11/24/18 17:56 Pulse Rate 103 11/24/18 17:56 Respiratory Rate 31 11/24/18 17:56 Blood Pressure 146/71 11/24/18 17:56 O2 Sat by Pulse Oximetry 95 11/24/18 18:14 Oxygen Delivery Oxygen Delivery Nasal Cannula Medical Decision Making - MDM Narrative Medical decision making narrative: The patient reports she had recently been evaluated for rectal bleeding and had a colonic lesion which was treated. She denies rectal bleeding currently. She does take anticoagulant medications. The patient describes persistent shortness of breath despite 3 breathing treatments at home, one breathing treatment via EMS and 2 in the emergency department. The patient's peak flow status post multiple nebs including 2 in the emergency department remained in the 80-90 range. She remained tachypnea. The patient's EKG shows sinus tachycardia. She denies chest pain or abdominal pain. There is no evidence of acute leg swelling, she denies coughing up blood or syncope. The patient has dropped her hemoglobin 3 g in 8 days. Rectal exam was performed good tone no masses Hemoccult card sent for laboratory evaluation. Based on the patient's age, increasing oxygen requirement from 2-3 L, persistent wheezing and extremely poor peak flow status post 6 treatments, with persistent tachypnea in the emergency department, a drop in hemoglobin, recent evaluation for colonic bleeding, and exertional desaturations, I thought it would be appropriate to admit the patient to the hospital. The patient does not feel well enough to go home and her family does not feel she will be able to remain at home based on [place] and that she would likely return to the hospital rapidly if discharged. I reviewed the case with the hospitalist Dr. Bassett who has accepted the patient to his care. The patient family or highly agreeable. - Lab Data Lab results reviewed: Yes I reviewed the patient's lab results. Result diagrams: 11/24/18 18:14 11/24/18 18:14 Lab Results 11/24/18 11/24/18 11/24/18 Range/Units 18:14 18:14 18:14 WBC 7.3 (4.3-11.1) K/mcL RBC 3.45 L (3.82-4.97) M/mcL Hgb 10.4 L (11.5-15.4) g/dL Hct 32.1 L (35.3-44.9) % MCV 93.0 (83.0-100.0) fL MCH 30.1 (28.0-33.3) pg MCHC 32.4 (31.6-35.5) g/dL RDW 15.8 H (11.5-14.5) % Plt Count 154 (140-400) K/mcL MPV 9.6 (9.4-12.4) fL Immature Gran % 0.4 (0-4) % Seg Neutrophils % 77.2 % Lymphocytes % 10.7 % Monocytes % 10.4 % Eosinophils % 1.2 % Basophils % 0.1 % Neutrophils # 5.6 (1.6-8.9) K/mcL Lymphocytes # 0.8 (0.6-4.6) K/mcL Monocytes # 0.8 (0.0-1.3) K/mcL Eosinophils # 0.1 (0.0-0.6) K/mcL Basophils # 0.0 (0.0-0.2) K/mcL PT 14.3 H (9.4-12.1) Seconds INR 1.3 APTT 42.3 H (26.0-36.0) Seconds Sodium 135 L (136-145) mEq/L Potassium 4.2 (3.5-5.1) mEq/L Chloride 95 L (98-107) mEq/L Carbon Dioxide 34 H (23-29) mEq/L BUN 17 (8-23) mg/dL Creatinine 0.75 (0.60-1.20) mg/dL Est GFR ( Amer) > 60 (> 60) Est GFR (Non-Af Amer) > 60 (> 60) BUN/Creatinine Ratio 23 (6-26) Glucose 108 H (70-105) mg/dL Calculated Osmolality 282 (280-300) Lactic Acid (0.5-2.2) mmol/L Calcium 9.2 (8.6-10.3) mg/dL Total Bilirubin 0.4 (0.3-1.0) mg/dL Direct Bilirubin 0.1 (0.0-0.2) mg/dL Indirect Bilirubin 0.3 (0.0-1.2) mg/dL AST 23 (13-39) Units/L ALT 22 (7-52) Units/L Alkaline Phosphatase 95 (34-104) Units/L Troponin I < 0.03 (< 0.04) ng/mL B-Natriuretic Peptide (Less than 100) pg/mL Serum Total Protein 7.2 (6.4-8.9) g/dL Albumin 3.8 (3.5-5.7) g/dL Globulin 3.4 (2.4-3.5) g/dL Albumin/Globulin Ratio 1.1 (1.1-2.2) Stool Occult Bld Scrn (Negative) 11/24/18 11/24/18 11/24/18 Range/Units 18:14 18:14 20:03 WBC (4.3-11.1) K/mcL RBC (3.82-4.97) M/mcL Hgb (11.5-15.4) g/dL Hct (35.3-44.9) % MCV (83.0-100.0) fL MCH (28.0-33.3) pg MCHC (31.6-35.5) g/dL RDW (11.5-14.5) % Plt Count (140-400) K/mcL MPV (9.4-12.4) fL Immature Gran % (0-4) % Seg Neutrophils % % Lymphocytes % % Monocytes % % Eosinophils % % Basophils % % Neutrophils # (1.6-8.9) K/mcL Lymphocytes # (0.6-4.6) K/mcL Monocytes # (0.0-1.3) K/mcL Eosinophils # (0.0-0.6) K/mcL Basophils # (0.0-0.2) K/mcL PT (9.4-12.1) Seconds INR APTT (26.0-36.0) Seconds Sodium (136-145) mEq/L Potassium (3.5-5.1) mEq/L Chloride (98-107) mEq/L Carbon Dioxide (23-29) mEq/L BUN (8-23) mg/dL Creatinine (0.60-1.20) mg/dL Est GFR ( Amer) (> 60) Est GFR (Non-Af Amer) (> 60) BUN/Creatinine Ratio (6-26) Glucose (70-105) mg/dL Calculated Osmolality (280-300) Lactic Acid 1.0 0.5 (0.5-2.2) mmol/L Calcium (8.6-10.3) mg/dL Total Bilirubin (0.3-1.0) mg/dL Direct Bilirubin (0.0-0.2) mg/dL Indirect Bilirubin (0.0-1.2) mg/dL AST (13-39) Units/L ALT (7-52) Units/L Alkaline Phosphatase (34-104) Units/L Troponin I (< 0.04) ng/mL B-Natriuretic Peptide 137 H (Less than 100) pg/mL Serum Total Protein (6.4-8.9) g/dL Albumin (3.5-5.7) g/dL Globulin (2.4-3.5) g/dL Albumin/Globulin Ratio (1.1-2.2) Stool Occult Bld Scrn (Negative) 11/24/18 Range/Units 20:40 WBC (4.3-11.1) K/mcL RBC (3.82-4.97) M/mcL Hgb (11.5-15.4) g/dL Hct (35.3-44.9) % MCV (83.0-100.0) fL MCH (28.0-33.3) pg MCHC (31.6-35.5) g/dL RDW (11.5-14.5) % Plt Count (140-400) K/mcL MPV (9.4-12.4) fL Immature Gran % (0-4) % Seg Neutrophils % % Lymphocytes % % Monocytes % % Eosinophils % % Basophils % % Neutrophils # (1.6-8.9) K/mcL Lymphocytes # (0.6-4.6) K/mcL Monocytes # (0.0-1.3) K/mcL Eosinophils # (0.0-0.6) K/mcL Basophils # (0.0-0.2) K/mcL PT (9.4-12.1) Seconds INR APTT (26.0-36.0) Seconds Sodium (136-145) mEq/L Potassium (3.5-5.1) mEq/L Chloride (98-107) mEq/L Carbon Dioxide (23-29) mEq/L BUN (8-23) mg/dL Creatinine (0.60-1.20) mg/dL Est GFR ( Amer) (> 60) Est GFR (Non-Af Amer) (> 60) BUN/Creatinine Ratio (6-26) Glucose (70-105) mg/dL Calculated Osmolality (280-300) Lactic Acid (0.5-2.2) mmol/L Calcium (8.6-10.3) mg/dL Total Bilirubin (0.3-1.0) mg/dL Direct Bilirubin (0.0-0.2) mg/dL Indirect Bilirubin (0.0-1.2) mg/dL AST (13-39) Units/L ALT (7-52) Units/L Alkaline Phosphatase (34-104) Units/L Troponin I (< 0.04) ng/mL B-Natriuretic Peptide (Less than 100) pg/mL Serum Total Protein (6.4-8.9) g/dL Albumin (3.5-5.7) g/dL Globulin (2.4-3.5) g/dL Albumin/Globulin Ratio (1.1-2.2) Stool Occult Bld Scrn Positive A (Negative) - Radiology Data Radiology results reviewed: Yes I reviewed the patient's radiology results.
[2018-11-24] MEDS ORDERED: methylPREDNISolone 125 MG/2 ML VIAL IVP ONE (18:07)
[2018-11-24] MEDS ORDERED: Ipratropium/Albuterol Neb 3 ML IH ONE ×2 (18:08→20:11)
[2018-11-24 18:32] LABS: Basophils % 0.1 %; Eosinophils # 0.1 K/mcL (0.0-0.6); Eosinophils % 1.2 %; Hematocrit 32.1 % (35.3-44.9); Hemoglobin 10.4 g/dL (11.5-15.4); Immature Granulocytes % 0.4 % (0-4); Lymphocytes # 0.8 K/mcL (0.6-4.6); Lymphocytes % 10.7 %; Mean Corpuscular HGB Conc 32.4 g/dL (31.6-35.5); Mean Corpuscular Hemoglobin 30.1 pg (28.0-33.3); Mean Platelet Volume 9.6 fL (9.4-12.4); Monocytes # 0.8 K/mcL (0.0-1.3); Monocytes % 10.4 %; Neutrophils # 5.6 K/mcL (1.6-8.9); Platelet Count 154 K/mcL (140-400); Red Blood Count 3.45 M/mcL (3.82-4.97); Red Cell Distribution Width 15.8 % (11.5-14.5); Segmented Neutrophils % 77.2 %
[2018-11-24 18:41] LABS: INR 1.3; Prothrombin Time 14.3 Seconds (9.4-12.1)
[2018-11-24 18:44] LABS: Activated Partial Thrombo Time 42.3 Seconds (26.0-36.0)
[2018-11-24 18:55] LABS: Alanine Aminotransferase 22 Units/L (7-52); Albumin 3.8 g/dL (3.5-5.7); Albumin/Globulin Ratio 1.1 (1.1-2.2); Alkaline Phosphatase 95 Units/L (34-104); Aspartate Amino Transferase 23 Units/L (13-39); BUN/Creatinine Ratio 23 (6-26); Bilirubin,Direct 0.1 mg/dL (0.0-0.2); Bilirubin,Indirect 0.3 mg/dL (0.0-1.2); Bilirubin,Total 0.4 mg/dL (0.3-1.0); Blood Urea Nitrogen 17 mg/dL (8-23); Calcium 9.2 mg/dL (8.6-10.3); Carbon Dioxide 34 mEq/L (23-29); Chloride 95 mEq/L (98-107); Globulin 3.4 g/dL (2.4-3.5); Glucose 108 mg/dL (70-105); Osmolality,Calculated 282 (280-300); Potassium 4.2 mEq/L (3.5-5.1); Sodium 135 mEq/L (136-145); Total Protein 7.2 g/dL (6.4-8.9); Troponin I < 0.03 ng/mL (< 0.04); eGFR For Non-African Americans > 60 (> 60)
[2018-11-24 21:31] LABS: ABG Base Excess 9 mEq/L (-2 to 3); ABG HCO3 35 mEq/L (21-27); ABG Oxygen Saturation 98 % (95-98); ABG PCO2 52 mmHg (35-45); ABG PH 7.44 pH Units (7.32-7.45); ABG PO2 97 mmHg (85-104); ABG TCO2 37 mEq/L (20-26)
--- NOTE | 2018-11-25 00:29 | Internal Med History&Physical ---
<Qasim Guy - Last Filed: 11/25/18 05:46> Date of Encounter: 11/25/18 Time of Encounter: 00:29 Internal Medicine - H&P: HPI Chief complaint: Shortness of breath Admitted From: Home History of present illness: Ms. Fabian is a 78 year old female with a past medical history of COPD with 2 L oxygen dependence at baseline, hypertension, hyperlipidemia, CHF, CAD status post CABG, TIA, and Eliquis use for recent DVT in September 2018 who presented complaining of worsening shortness of breath for 3 days. She reports nonproductive cough and requiring increased oxygen demand due to low oxygen saturation levels. Shortness of breath is exacerbated with exertion and did not improve with breathing treatments prior to arrival. She called her home health nurse who advised her to call the squad. Of note, patient was discharged with home health care on 11/18/18 after a recent hospitalization for TIA, myoclonic tremor, and orthostatic hypotension. Labs revealed a drop in her hemoglobin level from 11.6 one week ago to 10.4 today. Stool occult blood test was positive. Past Med Surg Social Fam HX - Past Medical History Medical history: asthma, COPD, coronary artery disease, hyperlipidemia, hypertension, myocardial infarction Psychiatric history: no psych history - Past Surgical History Surgical History: coronary bypass (CABG) Additional surgical history: stent in descending aorta - Social History Smoking Status: Former smoker Smokeless Tobacco Status: No Alcohol use: none Drug use: none - Family History Mother Living Status: Hx Family Cardiac Disorders: Yes (heart disease, stroke) Hx Family Neurologic Disorders: Yes (Stoke) Father Living Status: Hx Family Cancer: Yes (Prostate) Internal Medicine - H&P: Meds Atorvastatin Calcium [Lipitor] 80 mg PO QPM 09/16/18 [History] Furosemide [Lasix] 20 mg PO QAM 09/16/18 [History] Levothyroxine [Synthroid] 25 mcg PO 0630 09/16/18 [History] Nitroglycerin 0.4 mg PO AD PRN MDD 3 SPRAYS/15MINS CALL 911 09/16/18 [History] Potassium Chloride 10 meq PO QAM 09/16/18 [History] Ranolazine [Ranexa] 1,000 mg PO BID 09/16/18 [History] Vit C/E/Zn/Coppr/Lutein/Zeaxan [Preservision Areds 2 Softgel] 1 cap PO DAILY 09/16/18 [History] Albuterol Neb [Proventil Neb] 2.5 mg IH BID 10/08/18 [History] Amitriptyline HCl 75 mg PO DAILY 10/08/18 [History] Apixaban [Eliquis] 5 mg PO BID 10/08/18 [History] Psyllium Husk [Metamucil] 0.52 gm PO DAILY 10/08/18 [History] Omeprazole [PriLOSEC] 40 mg PO DAILY@0800 #30 capsule. 10/13/18 [Rx] Albuterol Sulfate [Ventolin Hfa] 2 puff IH Q4H PRN #0 10/21/18 [Rx] Docusate [Colace] 100 mg PO BID #60 capsule 10/21/18 [Rx] Guaifenesin [Mucinex] 600 mg PO BID 11/04/18 [History] Umeclidinium [place] [Incruse Ellipta] 62.5 mcg IH DAILY 11/04/18 [History] Isosorbide MONOnitrate [Isosorbide Mononitrate ER] 120 mg PO QAM 11/24/18 [History] Metoprolol XL (24 HR) Succ [Toprol Xl] 12.5 mg PO QAM 11/24/18 [History] amLODIPine [Norvasc] 5 mg PO QAM 11/24/18 [History] clonazePAM [Klonopin] 0.25 mg PO HS 11/24/18 [History] Allergy/AdvReac Type Severity Reaction Status Date / Time guaifenesin [From Hytuss] Allergy See Verified 10/16/18 09:02 Comments nabumetone [From Relafen] Allergy See Verified 10/16/18 09:02 Comments pentazocine [From Talwin] Allergy See Verified 10/16/18 09:02 Comments propoxyphene Allergy See Verified 10/16/18 09:02 Comments Sulindac [From Clinoril] Allergy See Verified 10/16/18 09:02 Comments prednisone AdvReac Mild Shaky Verified 11/05/18 10:09 Benzonatate AdvReac Confusion Verified 10/19/18 10:22 carbamazepine AdvReac Chest Pain Verified 10/08/18 06:05 codeine AdvReac See Verified 10/16/18 09:02 Comments etodolac AdvReac Chest Pain Verified 10/08/18 06:05 hydrocodone AdvReac Chest Pain Verified 10/08/18 06:05 Iodinated Contrast- Oral and AdvReac Chest Pain Verified 10/08/18 06:05 IV Dye [Iodinated Contrast Media - IV Dye] levofloxacin AdvReac Chest Pain Verified 10/08/18 06:05 NSAIDS (Non-Steroidal AdvReac Chest Pain Verified 10/08/18 06:05 Anti-Inflamma Penicillins [PCN] AdvReac Chest Pain Verified 10/08/18 06:05 pregabalin [From Lyrica] AdvReac Numbness Verified 10/08/18 06:05 pseudoephedrine AdvReac Chest Pain Verified 10/08/18 06:05 Sulfa (Sulfonamide AdvReac Chest Pain Verified 10/08/18 06:05 Antibiotics) tetracycline [Tetracycline] AdvReac Chest Pain Verified 10/08/18 06:05 tolmetin AdvReac Chest Pain Verified 10/08/18 06:05 tramadol AdvReac Numbness Verified 10/08/18 06:05 All Systems PM: A 10-system review of systems was performed and is negative for pertinent findings except as documented above in the HPI. - Constitutional Constitutional: weakness, no chills, no fever(s), no falls - EENT Eyes: no blurry vision, no diplopia Nose, mouth and throat: dry mouth, no dysphagia, no sinus pain, no sore throat - Cardiovascular Cardiovascular ROS IM: dyspnea, dyspnea on exertion, no lightheadedness, no syncope - Respiratory Respiratory: cough, dyspnea, dyspnea on exertion, no hemoptysis - Gastrointestinal Gastrointestinal: hematochezia, melena, no diarrhea, no hematemesis, no nausea, no vomiting - Genitourinary Genitourinary: no dysuria, no hematuria, no urinary urgency - Musculoskeletal Musculoskeletal ROS IM: no numbness, no tingling - Integumentary Integumentary IM: no erythema, no new lesions, no jaundice - Neurological Neurological ROS: weakness, no numbness, no tingling - Psychiatric Psychiatric: no anxiety, no confusion, no depression - Endocrine Endocrine IM: no fatigue, no polydipsia, no polyphagia, no polyuria - Constitutional Vitals: Temp Pulse Resp BP Pulse Ox 98.9 F 81 24 132/64 100 11/24/18 17:56 11/24/18 23:23 11/24/18 23:23 11/24/18 23:23 11/24/18 23:23 General appearance: Present: cooperative, A&O X 3, pleasant, no acute distress, answers questions appropriately Exam: awake - Head Head exam: Present: atraumatic, normocephalic - Eye Eye exam: Present: PERRL, conjuntiva pink, sclera anicteric Pupils: Present: PERRL - ENT ENT exam: Present: mucous membranes dry, normal oropharynx - Neck Neck exam general surgery: Present: supple, trachea midline. Absent: lymphadenopathy - Respiratory Respiratory exam: Present: prolonged expiratory phase, wheezes (mild). Absent: accessory muscle use, rales, respiratory distress, rhonchi - Cardiovascular Cardiovascular exam: Present: RRR, +S1, +S2, tachycardia. Absent: diastolic murmur, gallop, rubs, systolic murmur - GI/Abdominal GI/Abdominal exam: Present: normal bowel sounds, soft, no peritoneal signs. Absent: distended, guarding, tenderness - Extremities Exam Extremities exam: Present: warm, radial pulses palpable and symmetrical. A bsent: calf tenderness, cyanotic, pedal edema - Neurological Exam Neurological exam: Present: CN II-XII intact, oriented X3, no focal deficits. Absent: pronater drift, facial droop, speech deficit - Psychiatric Psychiatric exam: Present: normal affect, normal mood - Skin Skin exam: Present: dry, intact, normal color, warm Internal Med - H&P Results - Labs CBC & Chem 7: 11/25/18 03:18 11/25/18 03:18 Labs: Short CBC 11/24/18 Range/Units 18:14 WBC 7.3 (4.3-11.1) K/mcL Hgb 10.4 L (11.5-15.4) g/dL Hct 32.1 L (35.3-44.9) % Plt Count 154 (140-400) K/mcL Neutrophils # 5.6 (1.6-8.9) K/mcL BMP 11/24/18 18:14 Sodium 135 L Potassium 4.2 Chloride 95 L Carbon Dioxide 34 H BUN 17 Creatinine 0.75 Glucose 108 H Calcium 9.2 Cardiac Enzymes 11/24/18 Range/Units 18:14 Troponin I < 0.03 (< 0.04) ng/mL Liver Function 11/24/18 Range/Units 18:14 Total Bilirubin 0.4 (0.3-1.0) mg/dL Direct Bilirubin 0.1 (0.0-0.2) mg/dL AST 23 (13-39) Units/L ALT 22 (7-52) Units/L Alkaline Phosphatase 95 (34-104) Units/L Albumin 3.8 (3.5-5.7) g/dL - ABG Interpretation ABG results: 11/24/18 21:27 ABG pH 7.44 ABG pCO2 52 H ABG pO2 97 ABG HCO3 35 H ABG Total CO2 37 H ABG O2 Saturation 98 ABG Base Excess 9 H - Pulse Oximetry Interpretation Digit-Finger O2 Sat by Pulse Oximetry: 100 (On 3 L supplemental oxygen) Actions taken: other (decreased to 2L) - Impressions ITS Impressions Chest X-Ray 11/24/18 17:58 IMPRESSION: No acute abnormality. D/ / Fernandez Nicholson MD / Fernandez Nicholson MD Interpreting Provider: Fernandez Nicholson MD - Assessment and plan (1) GI bleed Current Visit: Yes Status: Acute Assessment and plan: Labs revealed a drop in her hemoglobin level from 11.6 one week ago to 10.4 today. Stool occult blood test was positive. Start Protonix IV twice a day Two large bore IVs in place, type and screen ordered, INR 1.3 EGD 10/10/18 revealed gastritis, nodular mucosa in the greater curvature of the stomach Colonoscopy 10/10/18 revealed mucosal ulceration and a few ulcers in the ascending colon Repeat HGB 9.8 Trend H&H q6h Nothing by mouth diet, gastroenterology consulted for possible endoscopy Qualifiers: GI bleed type/associated pathology: unspecified gastrointestinal hemorrhage type Qualified Code(s): K92.2 - Gastrointestinal hemorrhage, unspecified (2) Anemia Current Visit: Yes Status: Acute Assessment and plan: Patient presented with weakness shortness of breath, HGB 10.4, Stool occult blood test was positive. Hold home Eliquis. Type and screen ordered Repeat HGB 9.8 Consider blood transfusion if HGB continues to drop Qualifiers: Anemia type: unspecified type Qualified Code(s): D64.9 - Anemia, unspecified (3) Acute on chronic respiratory failure with hypoxia Current Visit: Yes Status: Acute Assessment and plan: Patient presents with acute shortness of breath. She is dependent on 2 L supplemental oxygen at baseline ABG reviewed Continue bronchodilators (4) COPD exacerbation Current Visit: Yes Status: Acute Assessment and plan: CXR revealed no acute abnormality Urine Legionella and strep pneumo antigens negative Continue antibiotics, steroids, and bronchodilators (5) CHF (congestive heart failure) Current Visit: No Status: Chronic Assessment and plan: Echo 09/16/18 revealed LVEF 50-55%, moderate concentric LVH, moderate LV diastolic dysfunction, mildmoderate mitral regurgitation BNP level 137 Continue daily weights and I&Os Qualifiers: Heart failure type: diastolic Heart failure chronicity: chronic Qualified Code(s): I50.32 - Chronic diastolic (congestive) heart failure (6) CAD (coronary artery disease) Current Visit: No Status: Chronic Assessment and plan: Continue home meds Qualifiers: Coronary Disease-Associated Artery/Lesion type: [place] artery [place] vs. transplanted heart: [place] heart Associated angina: without angina Qualified Code(s): I25.10 - Atherosclerotic heart disease of [place] coronary artery without angina pectoris (7) HTN (hypertension) Current Visit: No Status: Chronic Assessment and plan: Continue home meds Qualifiers: Hypertension type: essential hypertension Qualified Code(s): I10 - Essential (primary) hypertension (8) HLD (hyperlipidemia) Current Visit: No Status: Chronic Assessment and plan: Continue home statin Qualifiers: Hyperlipidemia type: mixed hyperlipidemia Qualified Code(s): E78.2 - Mixed hyperlipidemia (9) Tremor Current Visit: No Status: Chronic Assessment and plan: Continue home Klonopin (10) Hx of deep venous thrombosis Current Visit: No Status: Chronic Assessment and plan: Hold Eliquis due to GI bleed (11) DVT prophylaxis Current Visit: Yes Status: Acute Assessment and plan: Hold Eliquis. SCDs - Time Spent With Patient Total time spent is greater than 50% in coordination of care (as documented) at patient's floor/unit and/or counseling patient: <Chace Bassett - Last Filed: 11/25/18 20:04> Date of Encounter: 11/25/18 Internal Medicine - H&P: HPI History of present illness: Ms. Fabian is a 78 year old female All Systems PM: A 10-system review of systems was performed and is negative for pertinent findings except as documented above in the HPI. - Constitutional Vitals: Temp Pulse Resp BP Pulse Ox 97.5 F L 97 16 121/73 98 11/25/18 19:45 11/25/18 19:45 11/25/18 19:45 11/25/18 19:45 11/25/18 19:45 Internal Med - H&P Results - Labs CBC & Chem 7: 11/25/18 15:50 11/25/18 03:18 Labs: Short CBC 11/25/18 11/25/18 11/25/18 Range/Units 03:18 08:10 15:50 WBC 5.3 (4.3-11.1) K/mcL Hgb 9.8 L 10.4 L 9.1 L (11.5-15.4) g/dL Hct 29.8 L 31.7 L 28.6 L (35.3-44.9) % Plt Count 156 (140-400) K/mcL BMP 11/25/18 03:18 Sodium 136 Potassium 4.1 Chloride 97 L Carbon Dioxide 31 H BUN 17 Creatinine 0.63 Glucose 151 H Calcium 9.1 Cardiac Enzymes 11/25/18 Range/Units 18:16 Troponin I < 0.03 (< 0.04) ng/mL Urine 11/25/18 Range/Units 01:09 Urine Color Yellow (Yellow) Urine Clarity Clear (Clear) Urine pH 7.0 (5.0-8.0) pH Units Ur Specific [place] < 1.005 L (1.010-1.025) Urine Protein Negative (Neg-Trace) mg/dL Urine Glucose (UA) Normal (Normal) mg/dL - ABG Interpretation ABG results: 11/24/18 21:27 ABG pH 7.44 ABG pCO2 52 H ABG pO2 97 ABG HCO3 35 H ABG Total CO2 37 H ABG O2 Saturation 98 ABG Base Excess 9 H - Impressions ITS Impressions Chest X-Ray 11/24/18 17:58 IMPRESSION: No acute abnormality. D/ / Fernandez Nicholson MD / Fernandez Nicholson MD Interpreting Provider: Fernandez Nicholson MD - Time Spent With Patient Total time spent is greater than 50% in coordination of care (as documented) at patient's floor/unit and/or counseling patient: - Attending Attestation I saw and evaluated the patient. I reviewed the residents note, performed my own physical examination and agree with findings and plan as documented in the residents note. Patient seen and examined on 11/25/18. Patient states that she is feeling better after breathing treatments. Positive occult blood, slight drop in hemoglobin. Will continue to monitor, GI consult today.
[2018-11-25 01:22] LABS: Bilirubin,Urine Negative (Negative); Blood,Urine Negative (Negative); Clarity,Urine Clear (Clear); Color,Urine Yellow (Yellow); Glucose,Urine (UA) Normal (Normal); Ketones,Urine Negative (Negative); Leukocyte Esterase,Urine Negative (Negative); Nitrite,Urine Negative (Negative); Protein,Urine Negative (Neg-Trace); Specific Gravity,Urine < 1.005 (1.010-1.025); Urobilinogen,Urine Normal (Normal)
[2018-11-25] MEDS ORDERED: Ondansetron 4 MG/2 ML VIAL IVP PRN (01:50)
[2018-11-25] MEDS ORDERED: Naloxone 0.4 MG/ML INJ IVP PRN (01:50)
[2018-11-25] MEDS ORDERED: Acetaminophen 325 MG TABLET PO PRN (01:50)
[2018-11-25] MEDS: 0.9 % Sodium Chloride 1,000 ML IVC SCH ×2 (02:36→15:46)
[2018-11-25 04:22] LABS: Hematocrit 29.8 % (35.3-44.9); Hemoglobin 9.8 g/dL (11.5-15.4); Mean Corpuscular HGB Conc 32.9 g/dL (31.6-35.5); Mean Corpuscular Volume 91.1 fL (83.0-100.0); Mean Platelet Volume 10.2 fL (9.4-12.4); Platelet Count 156 K/mcL (140-400); Red Blood Count 3.27 M/mcL (3.82-4.97); Red Cell Distribution Width 15.8 % (11.5-14.5)
[2018-11-25 04:40] LABS: BUN/Creatinine Ratio 27 (6-26); Blood Urea Nitrogen 17 mg/dL (8-23); Calcium 9.1 mg/dL (8.6-10.3); Carbon Dioxide 31 mEq/L (23-29); Chloride 97 mEq/L (98-107); Glucose 151 mg/dL (70-105); Magnesium 1.8 mg/dL (1.6-2.6); Osmolality,Calculated 286 (280-300); Potassium 4.1 mEq/L (3.5-5.1); Sodium 136 mEq/L (136-145); eGFR For Non-African Americans > 60 (> 60)
[2018-11-25] MEDS: Ipratropium/Albuterol Neb 3 ML IH SCH ×4 (04:55→22:53)
[2018-11-25] MEDS: clonazePAM 0.5 MG TABLET PO SCH ×2 (06:11→21:45)
[2018-11-25] MEDS: Levothyroxine 25 MCG TABLET PO SCH (06:20)
[2018-11-25] MEDS: Pantoprazole 40 MG VIAL IVP SCH ×2 (06:20→18:14)
[2018-11-25] MEDS: Azithromycin 500 MG in D5% in Water 250 ML IVPB SCH (06:20)
[2018-11-25 08:38] LABS: Hematocrit 31.7 % (35.3-44.9); Hemoglobin 10.4 g/dL (11.5-15.4)
[2018-11-25] MEDS: Ranolazine 500 MG TAB.ER.12H PO SCH ×2 (10:03→21:45)
[2018-11-25] MEDS: MethylPREDNISolone 40 MG/ML VIAL IVP SCH ×3 (10:03→23:30)
[2018-11-25] MEDS: Isosorbide MONOnitrate (24 HR) 60 MG TAB.ER.24H PO SCH (10:03)
[2018-11-25] MEDS: amLODIPine 5 MG TABLET PO SCH (10:04)
[2018-11-25] MEDS: Metoprolol XL (24 HR) Succ 25 MG TAB.ER.24H PO SCH (10:04)
--- NOTE | 2018-11-25 11:05 | Event Note ---
Date of Encounter: 11/25/18 Time of Encounter: 11:02 78-year-old female who recently was hospitalized because of GI bleeding presented with shortness of breath. Her hemoglobin at the ED is 10.8, lower than her baseline about 13. Stool occult blood was positive. ABG showed elevated CO2. Patient respiratory symptoms have improved after breathing treatment. We will continue to monitor H/H, May consult GI if indicated. Continue treat COPD exacerbation with IV steroids, antibiotics, and bronchodilators.
--- NOTE | 2018-11-25 11:56 | Gastroenterology Consult Note ---
<Celine King - Last Filed: 11/25/18 11:49> Date of Encounter: 11/25/18 Time of Encounter: 10:15 - Assessment and plan (1) GI bleed Current Visit: Yes Status: Acute Qualifiers: GI bleed type/associated pathology: unspecified gastrointestinal hemorrhage type Qualified Code(s): K92.2 - Gastrointestinal hemorrhage, unspecified (2) On anticoagulant therapy Current Visit: Yes Status: Acute (3) Anemia Current Visit: Yes Status: Acute Assessment and plan: Pt has small drop in Hgb from baseline, now stable and has actually increased. Pt denies any active bleeding. Anemia is likely multifactoral. She had recent EGD/colonoscopy. Would recommend monitoring H&H, transfuse if necessary. If hgb continues to drop or she develops bright red rectal bleeding would recommend repeat colonoscopy. Qualifiers: Anemia type: unspecified type Qualified Code(s): D64.9 - Anemia, unspecified - Time Spent With Patient Total time spent is greater than 50% in coordination of care (as documented) at patient's floor/unit and/or counseling patient: GI History of Present Illness - Data of Consult Patient: known to practice within the last 3 years Consult date: 11/25/18 Requesting Physician: Chace Bassett MD - Consult Narrative Reason for consult: anemia History of present illness: Ms. Fabian is a 78 year old female with a past medical history of COPD with 2 L oxygen dependence at baseline, hypertension, hyperlipidemia, CHF, CAD status post CABG, TIA, and Eliquis use for recent DVT in September 2018 who presented complaining of worsening shortness of breath for 3 days. She reports nonproductive cough and requiring increased oxygen demand due to low oxygen saturation levels. Shortness of breath is exacerbated with exertion and did not improve with breathing treatments prior to arrival. She called her home health nurse who advised her to call the squad. Of note, patient was discharged with home health care on 11/18/18 after a recent hospitalization for TIA, myoclonic tremor, and orthostatic hypotension. Labs revealed a drop in her hemoglobin level from 11.6 one week ago to 10.4 today. Stool occult blood test was positive. She denies any abdominal pain, nausea, vomiting, tarry stools or bright red rectal bleeding. EGD: 10/04 gastritis Colonoscopy: 10/04 bleeding ascending colon ulceration Anticoagulants: eliquis last dose yesterday morning NSAIDS: asa 81 mg Past Med Surg Social Fam HX - Past Medical History Medical history: asthma, COPD, coronary artery disease, hyperlipidemia, hypertension, myocardial infarction Psychiatric history: no psych history - Past Surgical History Surgical History: coronary bypass (CABG) Additional surgical history: stent in descending aorta - Social History Smoking Status: Former smoker Smokeless Tobacco Status: No Alcohol use: none Drug use: none - Family History Mother Living Status: Hx Family Cardiac Disorders: Yes (heart disease, stroke) Hx Family Neurologic Disorders: Yes (Stoke) Father Living Status: Hx Family Cancer: Yes (Prostate) Review of Systems: GI: as per [facility]: denies fever, has some chills EYES: denies yellow discoloration ENT: denies pain with swallowing or difficulty swallowing CARDIO: denies chest pain, palpitations RESP: increased Shortness of breath with exertion : denies change in color of urine NEURO: weakness HEME: Denies any bruising MS: chronic back and joint pain. DERM: denies rash or itching PSYCH: history of anxiety and depression - Constitutional Vitals: Temp Pulse Resp BP Pulse Ox 97.5 F L 87 18 127/70 96 11/25/18 06:46 11/25/18 06:46 11/25/18 11:08 11/25/18 06:46 11/25/18 11:08 Exam: CONSTITUTIONAL:alert, no acute distress.HEAD:normocephalic.EYES:no jaundice.NECK:no obvious swelling.HEART:regular rate and rhythm, no murmurs.LUNGS: scattered rhonchi bilaterally.ABDOMEN:non distended, soft, non tender, no masses palpable, no organomegaly.RECTAL EXAM:Deferred .EXTREMITIES:no clubbing, cyanosis, trace BLE edema.SKIN:no stigmata of chronic liver disease.NEUROLOGIC:no obvious focal defect. Results - Labs CBC & Chem 7: 11/25/18 08:10 11/25/18 03:18 Labs: Last Result Calcium 9.1 mg/dL (8.6-10.3) 11/25/18 03:18 Troponin I < 0.03 ng/mL (< 0.04) 11/24/18 18:14 Entire Visit Hgb 10.4 g/dL (11.5-15.4) L 11/25/18 08:10 Hct 31.7 % (35.3-44.9) L 11/25/18 08:10 PT 14.3 Seconds (9.4-12.1) H 11/24/18 18:14 Total Bilirubin 0.4 mg/dL (0.3-1.0) 11/24/18 18:14 AST 23 Units/L (13-39) 11/24/18 18:14 ALT 22 Units/L (7-52) 11/24/18 18:14 - ABG ABG results: ABG ABG pH 7.44 pH Units (7.32-7.45) 11/24/18 21:27 ABG pCO2 52 mmHg (35-45) H 11/24/18 21:27 ABG pO2 97 mmHg (85-104) 11/24/18 21:27 ABG O2 Saturation 98 % (95-98) 11/24/18 21:27 PT/INR, D-dimer PT 14.3 Seconds (9.4-12.1) H 11/24/18 18:14 - Impressions Impressions Chest X-Ray 11/24/18 17:58 IMPRESSION: No acute abnormality. D/ / Fernandez Nicholson MD / Fernandez Nicholson MD Interpreting Provider: Fernandez Nicholson MD Consult Discharge Plan - Plan Referrals: Laxmi Noonan APN [Primary Care Provider] - <Corona Everett - Last Filed: 11/25/18 17:08> Date of Encounter: 11/25/18 Time of Encounter: 14:00 - Time Spent With Patient Total time spent is greater than 50% in coordination of care (as documented) at patient's floor/unit and/or counseling patient: GI History of Present Illness - Data of Consult Requesting Physician: Chace Bassett MD - Consult Narrative History of present illness: Ms. Fabian is a 78 year old female - Constitutional Vitals: Temp Pulse Resp BP Pulse Ox 97.8 F 84 18 119/64 98 11/25/18 15:38 11/25/18 15:38 11/25/18 15:54 11/25/18 15:38 11/25/18 15:54 Results - Labs CBC & Chem 7: 11/25/18 15:50 11/25/18 03:18 Labs: Last Result Calcium 9.1 mg/dL (8.6-10.3) 11/25/18 03:18 Troponin I < 0.03 ng/mL (< 0.04) 11/24/18 18:14 Entire Visit Hgb 9.1 g/dL (11.5-15.4) L 11/25/18 15:50 Hct 28.6 % (35.3-44.9) L 11/25/18 15:50 PT 14.3 Seconds (9.4-12.1) H 11/24/18 18:14 Total Bilirubin 0.4 mg/dL (0.3-1.0) 11/24/18 18:14 AST 23 Units/L (13-39) 11/24/18 18:14 ALT 22 Units/L (7-52) 11/24/18 18:14 - ABG ABG results: ABG ABG pH 7.44 pH Units (7.32-7.45) 11/24/18 21:27 ABG pCO2 52 mmHg (35-45) H 11/24/18 21:27 ABG pO2 97 mmHg (85-104) 11/24/18 21:27 ABG O2 Saturation 98 % (95-98) 11/24/18 21:27 PT/INR, D-dimer PT 14.3 Seconds (9.4-12.1) H 11/24/18 18:14 - Impressions Impressions Chest X-Ray 11/24/18 17:58 IMPRESSION: No acute abnormality. D/ / Fernandez Nicholson MD / Fernandez Nicholson MD Interpreting Provider: Fernandez Nicholson MD - Attending Attestation I have personally performed a face to face evaluation on this patient. I have reviewed and agree with the care plan. History and Exam by me shows: Pt seen at the bedside patient. Patient still with some some blood in the stool mostly dark. Examination alert and awake not in acute distress. Assessment: patient significant vascular history now with recent DVT was on Eliquis and now with drop in hemoglobin and dark stool. Rec: Repeat EGD and colonoscopy
[2018-11-25 16:14] LABS: Hematocrit 28.6 % (35.3-44.9); Hemoglobin 9.1 g/dL (11.5-15.4)
[2018-11-25] MEDS ORDERED: SODIUM CHLORIDE/NAHCO3/KCL/PEG 4,000 ML SOLN.RECON PO ONE (17:00)
--- NOTE | 2018-11-25 18:06 | Event Note ---
Date of Encounter: 11/25/18 Time of Encounter: 18:01 Patient developed sudden onset of chest pain, a stat EKG showed acute ST-T depression on leads V3 to V6. Patient does have remote history of CABG and stents placement. She is currently not on any antiplatelet agents or anticoagulation. EKG send to cardiology Mario Fermin and plan discussed with him. We will started low dose Nitro now, serial troponin, if positive, will start heparin gtt. Hold blood thinner for now due to concerning of GI bleeding.
[2018-11-25] MEDS ORDERED: Aspirin Enteric Coated 325 MG Tablet PO ONE (18:10)
[2018-11-25] MEDS: Nitroglycerin 0.4 MG TAB.SUBL SL PRN (18:13)
[2018-11-25] MEDS: Nitroglycerin 25 MG/250 ML INFUS..BTL IVC SCH (21:30)
[2018-11-25 21:52] LABS: Hematocrit 27.8 % (35.3-44.9); Hemoglobin 8.9 g/dL (11.5-15.4)
[2018-11-26] MEDS: Nitroglycerin 0.4 MG TAB.SUBL SL PRN ×6 (03:05→05:18)
[2018-11-26] MEDS: Ipratropium/Albuterol Neb 3 ML IH SCH ×4 (03:46→23:19)
[2018-11-26] MEDS: Azithromycin 500 MG in D5% in Water 250 ML IVPB SCH (04:40)
[2018-11-26] MEDS: Pantoprazole 40 MG VIAL IVP SCH ×2 (04:42→17:00)
[2018-11-26] MEDS: Levothyroxine 25 MCG TABLET PO SCH (04:42)
[2018-11-26 05:22] LABS: Hemoglobin 9.8 g/dL (11.5-15.4); Immature Platelets 2.1 % (1.1-6.1); Mean Corpuscular HGB Conc 32.7 g/dL (31.6-35.5); Mean Corpuscular Hemoglobin 30.2 pg (28.0-33.3); Mean Corpuscular Volume 92.3 fL (83.0-100.0); Mean Platelet Volume 10.1 fL (9.4-12.4); Red Blood Count 3.25 M/mcL (3.82-4.97)
[2018-11-26 05:39] LABS: BUN/Creatinine Ratio 19 (6-26); Blood Urea Nitrogen 11 mg/dL (8-23); Calcium 8.9 mg/dL (8.6-10.3); Carbon Dioxide 28 mEq/L (23-29); Chloride 104 mEq/L (98-107); Glucose 175 mg/dL (70-105); Osmolality,Calculated 296 (280-300); Potassium 3.6 mEq/L (3.5-5.1); Sodium 141 mEq/L (136-145); eGFR For Non-African Americans > 60 (> 60)
[2018-11-26] MEDS: Nitroglycerin 25 MG/250 ML INFUS..BTL IVC SCH (05:58)
--- NOTE | 2018-11-26 06:45 | Event Note ---
Date of Encounter: 11/26/18 Time of Encounter: 05:10 Notified of patient having chest pain that is not resolving with SL nitro. Assessed patient at bedside, EKG obtained which shows similar ST changes to earlier EKG during chest pain but with slight improvement from previous. Nitro drip was ordered earlier but not given due to pain resolving, will start nitro drip now as chest pain has not completely resolved and vitals are stable. Troponins have continued to be negative. Anticoagulation has been held due to GI bleed. Cardiology to see this a.m. Reviewed EKG and patient with Dr Bassett.
[2018-11-26] MEDS: MethylPREDNISolone 40 MG/ML VIAL IVP SCH ×3 (08:22→23:16)
[2018-11-26] MEDS ORDERED: 0.9 % Sodium Chloride 500 ML ONE (09:40)
--- NOTE | 2018-11-26 10:55 | Cardiology Consult Note ---
<RajeshReagan Ben - Last Filed: 11/26/18 12:42> Date of Encounter: 11/26/18 Time of Encounter: 09:30 Assessment and Plan (1) Unstable angina Current Visit: Yes Status: Acute -Hx of CAD s/p 3 vessel CABG 1987 -Likely 2/2 recent acute hgb drop -Mid sternal chest pressure with radiation to L arm and jaw with associated dyspnea while at rest -No current chest pain on nitro infusion -Troponin x3 neg (troponin x2 neg since chest pain began) -LHC 10/04 0/3 grafts patent, proximal RCA 100% stenosis with collateral flow, prox LAD 40% stenosis, EF 55% -ECHO 09/16/18 EF 50-55%, mod concentric LVH, mod LV diastolic dysfunction, mild-mod MR -Will get limited ECHO today -With crescendo anginal symptoms will do stress test tomorrow with possible C to follow if GI ok with possible duel antiplatelet therapy if PCI performed (2) DVT (deep venous thrombosis) Current Visit: No Status: Chronic -DVT 10/04 and was dc on apixaban -Apixaban held at admission for concern of possible GI bleed -Hgb has increased from low of 8.9 to 9.8 currently -GI evaluated Qualifiers: DVT location: lower extremity Affected thrombotic vein of extremity: unspecified vein of extremity Chronicity: acute Laterality: right Qualified Code(s): I82.401 - Acute embolism and thrombosis of unspecified deep veins of right lower extremity (3) CHF (congestive heart failure) Current Visit: No Status: Chronic -Hx of HFpEF -ECHO 09/16/18 EF 50-55%, mod concentric LVH, mod LV diastolic dysfunction, mild-mod MR -Limited ECHO today -Continue furosemide for symptomatic relief and BB Qualifiers: Heart failure type: diastolic Heart failure chronicity: chronic Qualified Code(s): I50.32 - Chronic diastolic (congestive) heart failure Discussion w patient/family: The assessment and plan as outlined above was discussed with the patient and/or family members who expressed understanding and agreement. All questions were answered. Thank you for involving us in the care of your patient. Please call with any questions. History of Present Illness Consult date: 11/26/18 Requesting physician: Sally Calderon Consult reason: Chest pain Chief complaint: chest pain History of present illness: Ms. Fabian is a 78 year old female with pmh significant for CAD s/p CABG 1987, CHF, HTN, HLD, DVT anticoagulated on apixaban 10/04, and COPD. Cardiology was consulted for chest pain. For 3 days prior to arrival she had non productive cough, generalized weakness, and dyspnea that worsened with exertion and requiring increased home O2 requirements from baseline. She was found to be anemic and admitted with possible GI bleed and COPD exacerbation yesterday. Last night around 2100 she had episode of midsternal chest pressure without radiation or associated symptoms and resolved with nitro. She again had chest pain early this morning she described as midsternal pressure with radiation to jaw and L arm with associated dyspnea but denied diplopia, blurry vision, dizziness/lightheadedness, diaphoresis, nausea. Pain lasted about 15 min and resolved with nitro x3 and was started on nitro infusion. She has occasional similar episodes over last couple months but not this frequent. She denies any further chest pain since the nitro infusion began. Past Med Surg Social Fam HX - Past Medical History Medical history: asthma, COPD, coronary artery disease, hyperlipidemia, hypertension, myocardial infarction Psychiatric history: no psych history - Past Surgical History Surgical History: coronary bypass (CABG) Additional surgical history: stent in descending aorta - Social History Smoking Status: Former smoker Smokeless Tobacco Status: No Alcohol use: none Drug use: none - Family History Mother Living Status: Hx Family Cardiac Disorders: Yes (heart disease, stroke) Hx Family Neurologic Disorders: Yes (Stoke) Father Living Status: Hx Family Cancer: Yes (Prostate) Medications and Allergies Atorvastatin Calcium [Lipitor] 80 mg PO QPM 09/16/18 [History] Furosemide [Lasix] 20 mg PO QAM 09/16/18 [History] Levothyroxine [Synthroid] 25 mcg PO 0630 09/16/18 [History] Nitroglycerin 0.4 mg PO AD PRN MDD 3 SPRAYS/15MINS CALL 911 09/16/18 [History] Potassium Chloride 10 meq PO QAM 09/16/18 [History] Ranolazine [Ranexa] 1,000 mg PO BID 09/16/18 [History] Vit C/E/Zn/Coppr/Lutein/Zeaxan [Preservision Areds 2 Softgel] 1 cap PO DAILY 09/16/18 [History] Albuterol Neb [Proventil Neb] 2.5 mg IH BID 10/08/18 [History] Amitriptyline HCl 75 mg PO DAILY 10/08/18 [History] Apixaban [Eliquis] 5 mg PO BID 10/08/18 [History] Psyllium Husk [Metamucil] 0.52 gm PO DAILY 10/08/18 [History] Omeprazole [PriLOSEC] 40 mg PO DAILY@0800 #30 capsule. 10/13/18 [Rx] Albuterol Sulfate [Ventolin Hfa] 2 puff IH Q4H PRN #0 10/21/18 [Rx] Docusate [Colace] 100 mg PO BID #60 capsule 10/21/18 [Rx] Guaifenesin [Mucinex] 600 mg PO BID 11/04/18 [History] Umeclidinium [place] [Incruse Ellipta] 62.5 mcg IH DAILY 11/04/18 [History] Isosorbide MONOnitrate [Isosorbide Mononitrate ER] 120 mg PO QAM 11/24/18 [History] Metoprolol XL (24 HR) Succ [Toprol Xl] 12.5 mg PO QAM 11/24/18 [History] amLODIPine [Norvasc] 5 mg PO QAM 11/24/18 [History] clonazePAM [Klonopin] 0.25 mg PO HS 11/24/18 [History] Allergy/AdvReac Type Severity Reaction Status Date / Time guaifenesin [From Hytuss] Allergy See Verified 10/16/18 09:02 Comments nabumetone [From Relafen] Allergy See Verified 10/16/18 09:02 Comments pentazocine [From Talwin] Allergy See Verified 10/16/18 09:02 Comments propoxyphene Allergy See Verified 10/16/18 09:02 Comments Sulindac [From Clinoril] Allergy See Verified 10/16/18 09:02 Comments prednisone AdvReac Mild Shaky Verified 11/05/18 10:09 Benzonatate AdvReac Confusion Verified 10/19/18 10:22 carbamazepine AdvReac Chest Pain Verified 10/08/18 06:05 codeine AdvReac See Verified 10/16/18 09:02 Comments etodolac AdvReac Chest Pain Verified 10/08/18 06:05 hydrocodone AdvReac Chest Pain Verified 10/08/18 06:05 Iodinated Contrast- Oral and AdvReac Chest Pain Verified 10/08/18 06:05 IV Dye [Iodinated Contrast Media - IV Dye] levofloxacin AdvReac Chest Pain Verified 10/08/18 06:05 NSAIDS (Non-Steroidal AdvReac Chest Pain Verified 10/08/18 06:05 Anti-Inflamma Penicillins [PCN] AdvReac Chest Pain Verified 10/08/18 06:05 pregabalin [From Lyrica] AdvReac Numbness Verified 10/08/18 06:05 pseudoephedrine AdvReac Chest Pain Verified 10/08/18 06:05 Sulfa (Sulfonamide AdvReac Chest Pain Verified 10/08/18 06:05 Antibiotics) tetracycline [Tetracycline] AdvReac Chest Pain Verified 10/08/18 06:05 tolmetin AdvReac Chest Pain Verified 10/08/18 06:05 tramadol AdvReac Numbness Verified 10/08/18 06:05 All Systems Review: The remainder of the systems were reviewed and are negative Physical Examination Vital Signs, Last 4 Hours Temp Pulse Resp BP Pulse Ox 11/26/18 09:42 102 142/66 11/26/18 08:27 102 143/65 11/26/18 07:21 110 136/68 11/26/18 07:16 108 146/68 11/26/18 07:02 98.2 F 107 16 133/58 100 11/26/18 06:57 105 151/68 General: Conversant, No Apparent Distress HEENT: Atraumatic, Normocephaly, Mucus Membranes Moist Neck: No JVD Cardiac: Reg Rate and Rhythm, Normal S1 and S2 Lungs: Other (Diminished breath sounds, scattered rhonchi but no wheezes or rales appreciated) Neuro: Alert and responsive, No focal deficits noted Musculoskeletal: No Chest Wall Tenderness Extremities: No Clubbing, No Cyanosis, No Edema, Normal Pulses Results 11/26/18 04:56 11/26/18 04:56 Lab Results 11/25/18 11/25/18 11/25/18 15:50 18:16 21:38 WBC Hgb 9.1 L 8.9 L Hct 28.6 L 27.8 L Plt Count Sodium Potassium Chloride Carbon Dioxide BUN Creatinine Glucose Calcium Troponin I < 0.03 11/26/18 11/26/18 11/26/18 01:15 04:56 04:56 WBC 8.5 D Hgb 9.8 L Hct 30.0 L Plt Count 182 Sodium 141 Potassium 3.6 Chloride 104 Carbon Dioxide 28 BUN 11 Creatinine 0.58 L Glucose 175 H Calcium 8.9 Troponin I < 0.03 Consult Discharge Plan - Plan Referrals: Laxmi Noonan APN [Primary Care Provider] - 12/04/18 1:00 pm (Be at your home around 1pm.) <Blayne Bowden A - Last Filed: 11/26/18 14:26> Date of Encounter: 11/26/18 - Attending Attestation I have personally performed a face to face evaluation on this patient. I have reviewed and agree with the documented findings and care plan as documented by the resident. 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 Currently chest pain-free. Noted to have stool positive for occult blood. AAOX3 in NAD at the bedside Hemodynamically stable Cardiopulmonary exam revealed S1, S2, clear lungs No pedal edema Echo pending Impression/plan: Unstable angina. She is currently chest pain-free. We will proceed with stress test, once cleared by GI for acute GI bleed. We also need to know if she will be a candidate for dual antiplatelets should stress test come back positive. Continue beta le, nitrates, Ranexa. Thanks, Blayne Bowden MD FACC Assessment and Plan Discussion w patient/family: The assessment and plan as outlined above was discussed with the patient and/or family members who expressed understanding and agreement. All questions were answered. Thank you for involving us in the care of your patient. Please call with any questions. History of Present Illness History of present illness: Ms. Fabian is a 78 year old female All Systems Review: The remainder of the systems were reviewed and are negative Physical Examination Vital Signs, Last 4 Hours Temp Pulse Resp BP Pulse Ox 11/26/18 12:47 88 165/74 100 11/26/18 12:11 97.5 F L 58 14 138/57 93 Results 11/26/18 04:56 11/26/18 04:56 Lab Results 11/25/18 11/25/18 11/25/18 15:50 18:16 21:38 WBC Hgb 9.1 L 8.9 L Hct 28.6 L 27.8 L Plt Count Sodium Potassium Chloride Carbon Dioxide BUN Creatinine Glucose Calcium Troponin I < 0.03 11/26/18 11/26/18 11/26/18 01:15 04:56 04:56 WBC 8.5 D Hgb 9.8 L Hct 30.0 L Plt Count 182 Sodium 141 Potassium 3.6 Chloride 104 Carbon Dioxide 28 BUN 11 Creatinine 0.58 L Glucose 175 H Calcium 8.9 Troponin I < 0.03
--- NOTE | 2018-11-26 14:36 | Gastroenterology Progress Note ---
<Gomez Blue - Last Filed: 11/26/18 14:33> Date of Encounter: 11/26/18 Time of Encounter: 14:34 - Assessment and plan (1) Anemia Current Visit: Yes Status: Acute Assessment and plan: Pt has small drop in Hgb from baseline, has remained relatively stable over course of the admission. Likely multifactorial. Recent lesions on colonoscopy 10/04 possibly not clinically relevant at this time. Patient was planning for repeat colonoscopy today however experienced chest pain overnight and was unable to complete prep. At this time we feel that it is unnecessary to complete any more scopes as the patient is unlikely to be experiencing any clinically relevant GI bleeding. Additionally, the low drop in Hgb she has experienced probably is not the source for her symptoms. As for anticoagulation, due to the severe nature of her vascular disease history, antiplatelet and anticoagulation therapy are acceptable if deemed appropriate by the primary team and cardiology. I have discussed this with the patient's family and the primary team who both understand and agree to the plan. Qualifiers: Anemia type: unspecified type Qualified Code(s): D64.9 - Anemia, u nspecified (2) On anticoagulant therapy Current Visit: Yes Status: Acute Assessment and plan: Resume anticoagulation and antiplatelet therapy as appropriate per primary team and cardiology. - Time Spent With Patient Total time spent is greater than 50% in coordination of care (as documented) at patient's floor/unit and/or counseling patient: - Subjective Interval history: The patient is resting comfortably in bed at the time of examination. She is accompanied by her son during the encounter. She has no acute complaints at this time. - Constitutional Vitals: Temp Pulse Resp BP Pulse Ox 97.5 F L 88 14 165/74 100 11/26/18 12:11 11/26/18 12:47 11/26/18 12:11 11/26/18 12:47 11/26/18 12:47 General appearance: Present: cooperative, A&O X 3, no acute distress, answers questions appropriately - Head Head exam: Present: atraumatic, normocephalic - Eye Eye exam: Present: normal appearance, sclera anicteric - Neck Neck exam general surgery: Present: normal inspection, trachea midline - Respiratory Respiratory exam: Present: rhonchi - Cardiovascular Cardiovascular exam: Present: RRR, +S1, +S2 - GI/Abdominal GI/Abdominal exam: Present: normal bowel sounds, soft, no peritoneal signs - Rectal Rectal exam: Present: deferred - Extremities Exam Extremities exam: Present: warm - Neurological Exam Neurological exam: Present: no focal deficits - Psychiatric Psychiatric exam: Present: normal affect, normal mood - Skin Skin exam: Present: dry, intact, normal color, warm Results - Labs CBC & Chem 7: 11/26/18 04:56 11/26/18 04:56 Labs: Last Result Calcium 8.9 mg/dL (8.6-10.3) 11/26/18 04:56 Troponin I < 0.03 ng/mL (< 0.04) 11/26/18 01:15 Entire Visit Hgb 9.8 g/dL (11.5-15.4) L 11/26/18 04:56 Hct 30.0 % (35.3-44.9) L 11/26/18 04:56 PT 14.3 Seconds (9.4-12.1) H 11/24/18 18:14 Total Bilirubin 0.4 mg/dL (0.3-1.0) 11/24/18 18:14 AST 23 Units/L (13-39) 11/24/18 18:14 ALT 22 Units/L (7-52) 11/24/18 18:14 - ABG ABG results: ABG ABG pH 7.44 pH Units (7.32-7.45) 11/24/18 21:27 ABG pCO2 52 mmHg (35-45) H 11/24/18 21:27 ABG pO2 97 mmHg (85-104) 11/24/18 21:27 ABG O2 Saturation 98 % (95-98) 11/24/18 21:27 PT/INR, D-dimer PT 14.3 Seconds (9.4-12.1) H 11/24/18 18:14 Consult Discharge Plan - Plan Referrals: Laxmi Noonan APN [Primary Care Provider] - 12/04/18 1:00 pm (Be at your home around 1pm.) <Corona Everett - Last Filed: 11/26/18 17:07> Date of Encounter: 11/26/18 - Time Spent With Patient Total time spent is greater than 50% in coordination of care (as documented) at patient's floor/unit and/or counseling patient: - Constitutional Vitals: Temp Pulse Resp BP Pulse Ox 97.5 F L 95 14 148/77 100 11/26/18 16:41 11/26/18 16:41 11/26/18 16:41 11/26/18 16:41 11/26/18 16:41 Results - Labs CBC & Chem 7: 11/26/18 04:56 11/26/18 04:56 Labs: Last Result Calcium 8.9 mg/dL (8.6-10.3) 11/26/18 04:56 Troponin I < 0.03 ng/mL (< 0.04) 11/26/18 01:15 Entire Visit Hgb 9.8 g/dL (11.5-15.4) L 11/26/18 04:56 Hct 30.0 % (35.3-44.9) L 11/26/18 04:56 PT 14.3 Seconds (9.4-12.1) H 11/24/18 18:14 Total Bilirubin 0.4 mg/dL (0.3-1.0) 11/24/18 18:14 AST 23 Units/L (13-39) 11/24/18 18:14 ALT 22 Units/L (7-52) 11/24/18 18:14 - ABG ABG results: ABG ABG pH 7.44 pH Units (7.32-7.45) 11/24/18 21:27 ABG pCO2 52 mmHg (35-45) H 11/24/18 21:27 ABG pO2 97 mmHg (85-104) 11/24/18 21:27 ABG O2 Saturation 98 % (95-98) 11/24/18 21:27 PT/INR, D-dimer PT 14.3 Seconds (9.4-12.1) H 11/24/18 18:14 - Attending Attestation I examined this patient and my medical decision-making was reviewed with the Resident Physician. I agree with the documented findings, disposition and treatment plan as described except to the extent set forth below. Patient seen and then denies any blood in the stool on examination abdomen is benign. Assessment: Anemia which is stable. Finding of ulcers on previous colonoscopy by Dr. Silva was unremarkable. does has significant vascular disease ReC: Need for any scopes at this point if needed anticoagulant/anti platelet can be started
[2018-11-26] MEDS: Metoprolol XL (24 HR) Succ 25 MG TAB.ER.24H PO SCH (15:05)
[2018-11-26] MEDS: amLODIPine 5 MG TABLET PO SCH (15:05)
[2018-11-26] MEDS: Ranolazine 500 MG TAB.ER.12H PO SCH ×2 (15:05→22:03)
--- NOTE | 2018-11-26 17:27 | Internal Med Progress Note ---
Hospitalist Progress Note - Encounter Date of Encounter: 11/26/18 Time of Encounter: 03:00 - Exam Vitals: Temp Pulse Resp BP Pulse Ox 97.5 F L 96 14 134/70 98 11/26/18 16:41 11/26/18 17:06 11/26/18 16:41 11/26/18 17:06 11/26/18 17:06 Exam: awake Assessment and Plan (1) Unstable angina Current Visit: Yes Status: Acute -Hx of CAD s/p 3 vessel CABG 1987 -Likely 2/2 recent acute hgb drop -Mid sternal chest pressure with radiation to L arm and jaw with associated dyspnea while at rest -No current chest pain on nitro infusion -Troponin x3 neg (troponin x2 neg since chest pain began) -LHC 10/04 0/3 grafts patent, proximal RCA 100% stenosis with collateral flow, prox LAD 40% stenosis, EF 55% -ECHO 09/16/18 EF 50-55%, mod concentric LVH, mod LV diastolic dysfunction, mild-mod MR -Will get limited ECHO today -With crescendo anginal symptoms will do stress test tomorrow with possible [facility] to follow if GI ok with possible duel antiplatelet therapy if PCI performed (2) DVT (deep venous thrombosis) Current Visit: No Status: Chronic -DVT 10/04 and was dc on apixaban -Apixaban held at admission for concern of possible GI bleed -Hgb has increased from low of 8.9 to 9.8 currently -GI evaluated Qualifiers: DVT location: lower extremity Affected thrombotic vein of extremity: unspecified vein of extremity Chronicity: acute Laterality: right Qualified Code(s): I82.401 - Acute embolism and thrombosis of unspecified deep veins of right lower extremity (3) CHF (congestive heart failure) Current Visit: No Status: Chronic -Hx of HFpEF -ECHO 09/16/18 EF 50-55%, mod concentric LVH, mod LV diastolic dysfunction, mild-mod MR -Limited ECHO today -Continue furosemide for symptomatic relief and BB Qualifiers: Heart failure type: diastolic Heart failure chronicity: chronic Qualified Code(s): I50.32 - Chronic diastolic (congestive) heart failure Discussion w patient/family: The assessment and plan as outlined above was discussed with the patient and/or family members who expressed understanding and agreement. All questions were answered. Thank you for involving us in the care of your patient. Please call with any questions. History of Present Illness Consult date: 11/26/18 Requesting physician: aSlly Calderon Consult reason: Chest pain Chief complaint: chest pain History of present illness: Ms. Fabian is a 78 year old female with pmh significant for CAD s/p CABG 1987, CHF, HTN, HLD, DVT anticoagulated on apixaban 10/04, and COPD. Cardiology was consulted for chest pain. For 3 days prior to arrival she had non productive cough, generalized weakness, and dyspnea that worsened with exertion and requiring increased home O2 requirements from baseline. She was found to be anemic and admitted with possible GI bleed and COPD exacerbation yesterday. Last night around 2100 she had episode of midsternal chest pressure without radiation or associated symptoms and resolved with nitro. She again had chest pain early this morning she described as midsternal pressure with radiation to jaw and L arm with associated dyspnea but denied diplopia, blurry vision, dizziness/lightheadedness, diaphoresis, nausea. Pain lasted about 15 min and resolved with nitro x3 and was started on nitro infusion. She has occasional similar episodes over last couple months but not this frequent. She denies any further chest pain since the nitro infusion began. Past Med Surg Social Fam HX - Past Medical History Medical history: asthma, COPD, coronary artery disease, hyperlipidemia, hypertension, myocardial infarction Psychiatric history: no psych history - Past Surgical History Surgical History: coronary bypass (CABG) Additional surgical history: stent in descending aorta - Social History Smoking Status: Former smoker Smokeless Tobacco Status: No Alcohol use: none Drug use: none - Family History Mother Living Status: Hx Family Cardiac Disorders: Yes (heart disease, stroke) Hx Family Neurologic Disorders: Yes (Stoke) Father Living Status: Hx Family Cancer: Yes (Prostate) Medications and Allergies Atorvastatin Calcium [Lipitor] 80 mg PO QPM 09/16/18 [History] Furosemide [Lasix] 20 mg PO QAM 09/16/18 [History] Levothyroxine [Synthroid] 25 mcg PO 0630 09/16/18 [History] Nitroglycerin 0.4 mg PO AD PRN MDD 3 SPRAYS/15MINS CALL 911 09/16/18 [History] Potassium Chloride 10 meq PO QAM 09/16/18 [History] Ranolazine [Ranexa] 1,000 mg PO BID 10/31/18 [History] Vit C/E/Zn/Coppr/Lutein/Zeaxan [Preservision Areds 2 Softgel] 1 cap PO DAILY 09/16/18 [History] Albuterol Neb [Proventil Neb] 2.5 mg IH BID 10/08/18 [History] Amitriptyline HCl 75 mg PO DAILY 10/08/18 [History] Apixaban [Eliquis] 5 mg PO BID 10/08/18 [History] Psyllium Husk [Metamucil] 0.52 gm PO DAILY 10/08/18 [History] Omeprazole [PriLOSEC] 40 mg PO DAILY@0800 #30 capsule. 10/13/18 [Rx] Albuterol Sulfate [Ventolin Hfa] 2 puff IH Q4H PRN #0 10/21/18 [Rx] Docusate [Colace] 100 mg PO BID #60 capsule 10/21/18 [Rx] Guaifenesin [Mucinex] 600 mg PO BID 11/04/18 [History] Umeclidinium [place] [Incruse Ellipta] 62.5 mcg IH DAILY 11/04/18 [History] Isosorbide MONOnitrate [Isosorbide Mononitrate ER] 120 mg PO QAM 11/24/18 [History] Metoprolol XL (24 HR) Succ [Toprol Xl] 12.5 mg PO QAM 11/24/18 [History] amLODIPine [Norvasc] 5 mg PO QAM 11/24/18 [History] clonazePAM [Klonopin] 0.25 mg PO HS 11/24/18 [History] - Time Spent with Patient Total time spent is greater than 50% in coordination of care (as documented) at patient's floor/unit and/or counseling patient: 25 - 35 minutes Plan of Care Discussed with: patient Internal Medicine: Result - Labs CBC & Chem 7: 11/26/18 04:56 11/26/18 04:56 Labs: Short CBC 11/25/18 11/26/18 Range/Units 21:38 04:56 WBC 8.5 D (4.3-11.1) K/mcL Hgb 8.9 L 9.8 L (11.5-15.4) g/dL Hct 27.8 L 30.0 L (35.3-44.9) % Plt Count 182 (140-400) K/mcL BMP 11/26/18 04:56 Sodium 141 Potassium 3.6 Chloride 104 Carbon Dioxide 28 BUN 11 Creatinine 0.58 L Glucose 175 H Calcium 8.9 Cardiac Enzymes 11/25/18 11/26/18 Range/Units 18:16 01:15 Troponin I < 0.03 < 0.03 (< 0.04) ng/mL - ABG Interpretation ABG results: ABG ABG pH 7.44 pH Units (7.32-7.45) 11/24/18 21:27 ABG pCO2 52 mmHg (35-45) H 11/24/18 21:27 ABG pO2 97 mmHg (85-104) 11/24/18 21:27 ABG O2 Saturation 98 % (95-98) 11/24/18 21:27 PT/INR, D-dimer PT 14.3 Seconds (9.4-12.1) H 11/24/18 18:14 Consult Discharge Plan - Plan Referrals: Laxmi Noonan APN [Primary Care Provider] - 12/04/18 1:00 pm (Be at your home around 1pm.)
--- NOTE | 2018-11-26 17:46 | Electrocardiograph Report ---
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
--- NOTE | 2018-11-26 21:49 | Electrocardiograph Report ---
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
[2018-11-26] MEDS: clonazePAM 0.5 MG TABLET PO SCH (22:03)
[2018-11-27] MEDS: Ipratropium/Albuterol Neb 3 ML IH SCH ×4 (04:03→22:22)
[2018-11-27] MEDS: Pantoprazole 40 MG VIAL IVP SCH ×2 (05:53→17:24)
[2018-11-27] MEDS: Azithromycin 500 MG in D5% in Water 250 ML IVPB SCH (05:53)
[2018-11-27] MEDS: Levothyroxine 25 MCG TABLET PO SCH (05:54)
[2018-11-27] MEDS ORDERED: Regadenoson 0.4 MG/5 ML SYRINGE IVP ONE (05:55)
[2018-11-27 06:19] LABS: Basophils % 0.1 %; Hematocrit 32.3 % (35.3-44.9); Hemoglobin 10.3 g/dL (11.5-15.4); Immature Granulocytes % 0.3 % (0-4); Lymphocytes # 0.4 K/mcL (0.6-4.6); Lymphocytes % 5.1 %; Mean Corpuscular HGB Conc 31.9 g/dL (31.6-35.5); Mean Corpuscular Hemoglobin 29.9 pg (28.0-33.3); Mean Corpuscular Volume 93.9 fL (83.0-100.0); Mean Platelet Volume 9.8 fL (9.4-12.4); Monocytes # 0.2 K/mcL (0.0-1.3); Monocytes % 1.7 %; Platelet Count 173 K/mcL (140-400); Red Blood Count 3.44 M/mcL (3.82-4.97); Red Cell Distribution Width 16.7 % (11.5-14.5); Segmented Neutrophils % 92.8 %
--- NOTE | 2018-11-27 06:34 | Event Note ---
Date of Encounter: 11/27/18 Time of Encounter: 04:53 Notified by nurse of patient developing chest pain around 40 minutes after stopping nitro drip in anticipation of stress test. EKG obtained shows similar changes shown on previous EKG around 24 hours ago. Called [facility] cardiology Dr Stein, recommended restarting nitro drip, obtaining stat CBC and troponin, and starting heparin drip if hemoglobin has continued to be stable since GI has seen and evaluated patient and feel anticoagulation is acceptable. Cardiology planning to take patient to cathead worker later today. Stress test cancelled. Plan and EKG reviewed with Dr Bassett and Dr Pereira.
[2018-11-27] MEDS ORDERED: *HR* Heparin 5,000 UNIT/ML VIAL IVP PRN ×2 (06:35)
[2018-11-27] MEDS ORDERED: *HR* Heparin 5,000 UNIT/ML VIAL IVP ONE (06:35)
[2018-11-27] MEDS ORDERED: Heparin 25,000 UNIT/500 ML D5W 25,000 UNIT/500 ML BAG IVC SCH (06:45)
[2018-11-27 06:55] LABS: Heparin anti-factor XA UFH 0.23 IU/mL (0.30-0.70)
[2018-11-27 06:56] LABS: INR 1.1; Prothrombin Time 12.4 Seconds (9.4-12.1)
[2018-11-27] MEDS: MethylPREDNISolone 40 MG/ML VIAL IVP SCH ×2 (07:01→17:24)
[2018-11-27] MEDS: Ranolazine 500 MG TAB.ER.12H PO SCH ×2 (08:57→21:32)
[2018-11-27] MEDS: amLODIPine 5 MG TABLET PO SCH (08:57)
[2018-11-27] MEDS: Metoprolol XL (24 HR) Succ 25 MG TAB.ER.24H PO SCH (08:57)
[2018-11-27] MEDS: Isosorbide MONOnitrate (24 HR) 60 MG TAB.ER.24H PO SCH (08:58)
--- NOTE | 2018-11-27 13:25 | Event Note ---
Date of Encounter: 11/27/18 Time of Encounter: 10:20 She had chest pain again this morning when nitro infusion stopped prior to previously planned stress test. Troponin continues to be negative and no new acute changes on repeat EKG from previous. No chest pain currently with nitro infusion running. With ongoing chest pain without nitro she will get a C today for unstable angina and stress test will be cancelled.
[2018-11-27] MEDS ORDERED: Nitroglycerin 1,000 MCG/10 ML VIAL IV ONE (13:27)
[2018-11-27] MEDS ORDERED: ISOVUE-370 200 ML INFUS..BTL ONE (13:27)
[2018-11-27] MEDS ORDERED: 0.9 % Sodium Chloride 1,000 ML ONE ×2 (13:27→14:36)
[2018-11-27] MEDS ORDERED: Heparin 1,000 UNITS/500 mL 500 ML ONE (13:27)
[2018-11-27] MEDS ORDERED: *HR* Heparin 10,000 UNIT/10 ML VIAL ONE (13:27)
[2018-11-27 13:33] LABS: Hematocrit 29.2 % (35.3-44.9); Hemoglobin 9.2 g/dL (11.5-15.4); Immature Granulocytes % 0.4 % (0-4); Lymphocytes # 0.4 K/mcL (0.6-4.6); Lymphocytes % 5.4 %; Mean Corpuscular HGB Conc 31.5 g/dL (31.6-35.5); Mean Corpuscular Hemoglobin 29.6 pg (28.0-33.3); Mean Corpuscular Volume 93.9 fL (83.0-100.0); Mean Platelet Volume 9.8 fL (9.4-12.4); Monocytes # 0.4 K/mcL (0.0-1.3); Monocytes % 4.3 %; Neutrophils # 7.4 K/mcL (1.6-8.9); Platelet Count 187 K/mcL (140-400); Red Blood Count 3.11 M/mcL (3.82-4.97); Red Cell Distribution Width 16.8 % (11.5-14.5); Segmented Neutrophils % 89.9 %
[2018-11-27] MEDS ORDERED: *HR* FentaNYL (PF) 100 MCG/2 ML VIAL ONE (14:36)
[2018-11-27] MEDS ORDERED: *HR* Midazolam HCl 2 MG/2 ML VIAL ONE (14:36)
--- NOTE | 2018-11-27 14:37 | Electrocardiograph Report ---
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
--- NOTE | 2018-11-27 14:55 | Electrocardiograph Report ---
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
--- NOTE | 2018-11-27 15:24 | Invasive Diagnostic Lab Proc ---
Name: Adriane Fabian Date of Study: 11/27/2018 Date: 1940 Ht: 63.0in Medical Record#: [id number] Age: 78 Wt: 97.00lb Gender: Female BSA: 1.42 Order #: [id number] BMI: 17.19 Physicians Procedure Physician: Godfrey Lai MD Referring MD: Referring MD: Staff Name Position Time In Susana Ivey RN Regional Sales Associate 01:40 PM Eliceo Zhu RT (R) Monitor 01:40 PM Bailey Zhu RT (R) Scrub 01:40 PM Indications Indication Unstable Angina Procedures Performed Procedure L HRT ART/GRFT ANGIO Pre-Procedure Checklist Informed consent is complete signed and on chart. H&P is on chart. ID band is on and ID verified with patient. Patient NPO for procedure The procedure was described for the patient and questions were answered. Blood Pressure: 150/86 ECG is on chart. Rhythm: Sinus Tachycardia Plan of Care Patient will tolerate the procedure without complications. Adequate level of comfort will be maintained. Hemodynamics will remain stable Patient will recover from procedure without complications. Respiratory function will be maintained. Cardiac rhythm will remain stable. Patient temperature will be maintained. Patient and/or family have verbalized understanding of the procedure. Patient Education Chief Complaint/Reason for Test: Cardiac Cath Developmental Category: Geriatric (65+ years) Developmentally Appropriate for Age: Yes Learning Barriers: None Education Needs: Procedure Education Method: Verbal Information Taught: Cardiac Cath Educational Evaluation: Able to repeat information Intravenous Access Time IV Size Location DC'd Fluid/Drip Rate Units RN 02:34 PM 20g 1 1/4" Peripheral-Lock On Arrival Lt Arm 0.9NaCl 25 ml/hr Susana Ivey RN Allergies Penicillin SULFA (sulfonamide) IVP DYE (IODINE) tetracycline tolmetin Nabumetone carbamazepine Contrast Media, Iodine Related tramadol Penicillins guaifenesin etodolac NSAIDS (Non-Steroidal Anti-Inflamma pregabalin Sulfa (Sulfonamide Antibiotics) hydrocodone pseudoephedrine Iodinated Contrast- Oral and IV Dye Vital Signs Time BP (mmHg) HR (bpm) O2 Sat. RR (bpm) LOC 02:22 PM 150 / 86 110 95 % 25 5 = Fully awake and oriented or at pre-proc level 02:37 PM / % 4 = Oriented but drowsy 02:52 PM / % 4 = Oriented but drowsy 02:37 PM 150 / 86 126 96 % 21 02:42 PM 150 / 87 107 98 % 22 02:47 PM 150 / 84 108 98 % 20 02:52 PM 152 / 86 106 98 % 22 02:57 PM 153 / 88 106 98 % 22 03:02 PM 145 / 86 105 97 % 26 03:07 PM 143 / 78 106 93 % 22 03:12 PM 146 / 80 106 82 % 17 Procedural Medications Time Medication Dose Units Method Given By 02:23 PM Oxygen 2 L/min nasal cannula Susana Ivey RN 02:43 PM Versed 1 mg Intravenous Susana Ivey RN 02:43 PM Fentanyl 50 mcg Intravenous Susana Ivey RN 02:46 PM Lidocaine 2% 3 ml Subcutaneous Godfrey Lai MD 02:48 PM Lidocaine 2% 5 ml Subcutaneous Godfrey Lai MD ASA Classification: CLASS III- Severe systemic disease (i.e. prior AMI, diabetes with vascular complications, morbid obesity) Antonina Score Preprocedure Postprocedure Activity 2- Moves 4 extremities sustained head lift Activity 2- Moves 4 extremities sustained head lift Circulation 2- SBP +/= 20 points of pre-anesthetic level Circulation 2- SBP +/= 20 points of pre-anesthetic level Consciousness 2- Awake and alert oriented x 3 Consciousness 2- Awake and alert oriented x 3 O2 Saturation 2- Able to maintain O2 satruation of 92% on room air O2 Saturation 2- Able to maintain O2 satruation of 92% on room air Respiratory 2- Able to deep breathe and cough well Respiratory 2- Able to deep breathe and cough well Total Score 10 Total Score 10 Contrast Agent: Isovue Diagnostic Contrast: 20 ml Total Contrast: 20 ml Fluoro Dose: 5 mGy Procedure Log Time Note Enter By 01:40 PM Patient charges- Angio tray pack, Navilyst 3mm J, Pulse Oximetry and ACIST tubing and transducer [email or web address] 01:40 PM Clinical Presentation: Unstable angina 01:40 PM Susana Ivey RN Position: Regional Sales Associate Time in: 13:40 [email or web address] 01:40 PM Eliceo Zhu RT (R) Position: Monitor Time in: 13:40 [email or web address] 01:41 PM Bailey Zhu RT (R) Position: Scrub Time in: 13:40 2 02:21 PM CathStat 02:22 PM 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 Informed consent was obtained. : PM Procedure start [email or web address] 19:32 PM ASA Class CLASS III- Severe systemic disease (i.e. prior AMI, diabetes with vascular complications, morbid obesity) [email or web address] 02:34 PM Hair removed from procedure site in procedure lab using clippers. Bilateral groin prepped with Chloraprep by Bailey Zhu (Whitney), then patient was draped. Skin intact. [email or web address] 02:37 PM Vitals capture started with the following parameters, Patient=Adult, Interval=5 min, Initial Ultuklqq=498 mmHg, Deflation Rate=3 mmHg, Cuff placed on Right Arm 02:37 PM Recorded ECG: AY=336 Condition=Condition 1 02:37 PM HP=193 bpm, HBZR=156/86 mmhg, SpO2=96.0 %, Resp=21 B/min 02:37 PM Time: 14:22 Patient comfortable and pain free: Yes :37 PM Time: 14:LOC: 4 = Oriented but drowsy bw 02:42 PM Pressure channel 1 zeroed. 02:42 PM DZ=763 bpm, LURX=794/87 mmhg, SpO2=98.0 %, Resp=22 B/min 02:43 PM Time: 14:43 Versed 1 mg Intravenous Given by Susana Ivey RN 02:43 PM Time: 14:43 Fentanyl 50 mcg Intravenous Given by Susana Ivey RN 02:45 PM Time out was performed according to hospital policy. Conscious sedation and anesthesia was achieved (see medication log with in this report above) 02:47 PM Time: 14:46 3 ml Lidocaine 2% to right groin Subcutaneous Given by Godfrey Lai MD 02:47 PM Micro-Introducer Kit utilized for sheath placement [email or web address] 02:47 PM CU=109 bpm, DWEL=807/84 mmhg, SpO2=98.0 %, Resp=20 B/min 02:48 PM Unsuccessful access attempt # 1 into the right Femoral artery. Manual pressure applied to achieve hemostasis.. 02:49 PM Time: 14:48 5 ml Lidocaine 2% to right groin Subcutaneous Given by Godfrey Lai MD 02:49 PM access obtained with 4fr micro introducer RFA. 02:50 PM Bolus angiogram of right Femoral complete: 4 ml/sec for a total of 7 mls [email or web address] 02:50 PM Access obtained by percutaneous puncture. 5Fr 10cm Terumo [place] sheath placed in right Femoral artery. [id number] ilson 02:50 PM 0.035 145cm Navilyst 3mmJ wire [id number] ilson 02:51 PM 5Fr FL 4 catheter inserted over the wire [facility] 02:52 PM LCA angiography performed in multiple views. 02:52 PM Recorded Pressure: Ao, NL=618, Condition=Condition 1 (Aorta) Ao 150/52/86 02:52 PM KF=983 bpm, GTIX=415/86 mmhg, SpO2=98.0 %, Resp=22 B/min 02:52 PM Time: 14:37 Patient comfortable and pain free: Yes 02:52 PM Time: 14:37LOC: 4 = Oriented but drowsy bw 02:54 PM Catheter removed [email or web address] 02:55 PM Procedure completed at 14:55 11/27/2018 bw 02:56 PM Sign out completed: Radiation Dose 52.97 mGy, 5.1410 Gy/cm2 Fluoro Time: 1.1 Isovue 370 - 200ml contrast 20 ml given by Godfrey Lai MD. Complications: None. 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 Cardiac Rehab Consult needed: NoConfirmed administered medications: Yes 02:56 PM Isovue 370 - 200ml,1 Bottle(s) used. [email or web address] 02:56 PM Estimated Blood Loss: minimal [email or web address] 02:56 PM Post ECG Sinus Tachycardia [email or web address] 02:56 PM Post Blood Pressure 152/86 [email or web address] 02:56 PM Information taught Cardiac Cath [email or web address] 02:56 PM Education needs Procedure, Plan of Care, and Disease Process [email or web address] 02:56 PM Learning barriers :Sedated [email or web address] 02:56 PM Education Methods Verbal [email or web address] 02:57 PM Education evaluation Needs further instruction [email or web address] 02:57 PM Delay to floor No [email or web address] 02:57 PM Family placed in consult room. [email or web address] 02:57 PM Complications: None [email or web address] 02:57 PM JE=629 bpm, CVXQ=729/88 mmhg, SpO2=98.0 %, Resp=22 B/min 02:58 PM Arterial using manual compression and V+ Pad by Bailey Zhu RT (R) [email or web address] 02:59 PM Coronary Dominance: right [email or web address] 02:59 PM Lesion found in Proximal LAD. Pre Stenosis: 40 Pre STEPHANIE Flow: [email or web address] 03:00 PM Proximal Left Anterior Descending Coronary Artery with 40% stenosis. If graft is supplying this territory, 0 % stenosis. [email or web address] 03:02 PM HA=392 bpm, WZVU=482/86 mmhg, SpO2=97.0 %, Resp=26 B/min 03:07 PM Report given to mera PAUL Pt taken to Room #37. 15:07 [email or web address] 03:07 PM EX=302 bpm, EAUB=018/78 mmhg, SpO2=93.0 %, Resp=22 B/min 03:08 PM Time: 14:52LOC: 4 = Oriented but drowsy [email or web address] 03:08 PM Time: 14:52 Patient comfortable and pain free: Yes [email or web address] 03:12 PM JV=717 bpm, BTZE=863/80 mmhg, SpO2=82.0 %, Resp=17 B/min 03:13 PM Arterial site held using manual compression and V+ Pad for 15 minutes by Bailey Zhu RT (R) [email or web address] 03:13 PM Vitals capture stopped. 03:15 PM Patient out of room: 15:15 [email or web address] 03:15 PM 15:15 Post Pulses Bilateral DP & PT 2+ [email or web address] 03:16 PM Site status No bleeding/hematoma - Rt Groin as reported by Bailey Zhu RT (R) at 15:16 [email or web address] 03:16 PM Opsite applied [email or web address] Complications Complication None None Hemodynamics Pressures Site Systolic/A Wave Diastolic/V Wave Mean AO 150 52 86 Post Procedure Information Blood Pressure: 152/86 mmHg Rhythm: Sinus Tachycardia Post procedural instructions were given Closure Device Time Device Success/Fail Manual Compression Site Checks Time Location Status Staff Sheath In? Note 03:16 PM Rt Groin No bleeding/hematoma Bailey Zhu RT (R) Pulses Time Site Pre-Procedure Post-Procedure Note 11/27/2018 2:35:00 PM Bilateral DP & PT 2+ 11/27/2018 2:35:00 PM Bilateral radial 2+ 3:15:00 PM Bilateral DP & PT 2+ Updated by Eliceo Zhu RT (R) on 11/27/2018 3:16:32 PM Eliceo Zhu RT electronically signed on 11/27/2018 3:17:05 PM with status of Final
--- NOTE | 2018-11-27 15:35 | Internal Med Progress Note ---
Hospitalist Progress Note - Encounter Date of Encounter: 11/27/18 Time of Encounter: 15:32 - Exam Vitals: Temp Pulse Resp BP Pulse Ox 97.9 F 102 18 105/54 95 11/27/18 12:00 11/27/18 12:00 11/27/18 12:00 11/27/18 12:00 11/27/18 12:00 Exam: awake Assessment and Plan (1) Unstable angina Current Visit: Yes Status: Acute -Hx of CAD s/p 3 vessel CABG 1987 -Likely 2/2 recent acute hgb drop -Mid sternal chest pressure with radiation to L arm and jaw with associated dyspnea while at rest -No current chest pain on nitro infusion -Troponin x3 neg (troponin x2 neg since chest pain began) -[facility] 10/04 0/3 grafts patent, proximal RCA 100% stenosis with collateral flow, prox LAD 40% stenosis, EF 55% -ECHO 09/16/18 EF 50-55%, mod concentric LVH, mod LV diastolic dysfunction, mild-mod MR -Will get limited ECHO today -With crescendo anginal symptoms will do stress test tomorrow with possible LHC to follow if GI ok with possible duel antiplatelet therapy if PCI performed As a result of patient continued chst pain when nitro infusion was discontinued, she was scheduled for a LHC in place of previously schedules stress test. Her posibble discharge will be after the LHC. (2) DVT (deep venous thrombosis) Current Visit: No Status: Chronic -DVT 10/04 and was dc on apixaban -Apixaban held at admission for concern of possible GI bleed -Hgb has increased from low of 8.9 to 9.8 currently -GI evaluated Qualifiers: DVT location: lower extremity Affected thrombotic vein of extremity: unspecified vein of extremity Chronicity: acute Laterality: right Qualified Code(s): I82.401 - Acute embolism and thrombosis of unspecified deep veins of right lower extremity (3) CHF (congestive heart failure) Current Visit: No Status: Chronic -Hx of HFpEF -ECHO 09/16/18 EF 50-55%, mod concentric LVH, mod LV diastolic dysfunction, mild-mod MR -Limited ECHO today -Continue furosemide for symptomatic relief and BB Qualifiers: Heart failure type: diastolic Heart failure chronicity: chronic Qualified Code(s): I50.32 - Chronic diastolic (congestive) heart failure Discussion w patient/family: The assessment and plan as outlined above was discussed with the patient and/or family members who expressed understanding and agreement. All questions were answered. Thank you for involving us in the care of your patient. Please call with any questions. History of Present Illness Consult date: 11/26/18 Requesting physician: Sally Calderon Consult reason: Chest pain Chief complaint: chest pain History of present illness: Ms. Fabian is a 78 year old female with pmh significant for CAD s/p CABG 1987, CHF, HTN, HLD, DVT anticoagulated on apixaban 10/04, and COPD. Cardiology was consulted for chest pain. For 3 days prior to arrival she had non productive cough, generalized weakness, and dyspnea that worsened with exertion and requiring increased home O2 requirements from baseline. She was found to be anemic and admitted with possible GI bleed and COPD exacerbation yesterday. Last night around 2100 she had episode of midsternal chest pressure without radiation or associated symptoms and resolved with nitro. She again had chest pain early this morning she described as midsternal pressure with radiation to jaw and L arm with associated dyspnea but denied diplopia, blurry vision, dizziness/lightheadedness, diaphoresis, nausea. Pain lasted about 15 min and resolved with nitro x3 and was started on nitro infusion. She has occasional similar episodes over last couple months but not this frequent. She denies any further chest pain since the nitro infusion began. Past Med Surg Social Fam HX - Past Medical History Medical history: asthma, COPD, coronary artery disease, hyperlipidemia, hypertension, myocardial infarction Psychiatric history: no psych history - Past Surgical History Surgical History: coronary bypass (CABG) Additional surgical history: stent in descending aorta - Social History Smoking Status: Former smoker Smokeless Tobacco Status: No Alcohol use: none Drug use: none - Family History Mother Living Status: Hx Family Cardiac Disorders: Yes (heart disease, stroke) Hx Family Neurologic Disorders: Yes (Stoke) Father Living Status: Hx Family Cancer: Yes (Prostate) Medications and Allergies Atorvastatin Calcium [Lipitor] 80 mg PO QPM 09/16/18 [History] Furosemide [Lasix] 20 mg PO QAM 09/16/18 [History] Levothyroxine [Synthroid] 25 mcg PO 0630 09/16/18 [History] Nitroglycerin 0.4 mg PO AD PRN MDD 3 SPRAYS/15MINS CALL 911 09/16/18 [History] Potassium Chloride 10 meq PO QAM 09/16/18 [History] Ranolazine [Ranexa] 1,000 mg PO BID 09/16/18 [History] Vit C/E/Zn/Coppr/Lutein/Zeaxan [Preservision Areds 2 Softgel] 1 cap PO DAILY 09/16/18 [History] Albuterol Neb [Proventil Neb] 2.5 mg IH BID 10/08/18 [History] Amitriptyline HCl 75 mg PO DAILY 10/08/18 [History] Apixaban [Eliquis] 5 mg PO BID 10/08/18 [History] Psyllium Husk [Metamucil] 0.52 gm PO DAILY 10/08/18 [History] Omeprazole [PriLOSEC] 40 mg PO DAILY@0800 #30 capsule. 10/13/18 [Rx] Albuterol Sulfate [Ventolin Hfa] 2 puff IH Q4H PRN #0 10/21/18 [Rx] Docusate [Colace] 100 mg PO BID #60 capsule 10/21/18 [Rx] Guaifenesin [Mucinex] 600 mg PO BID 11/04/18 [History] Umeclidinium [place] [Incruse Ellipta] 62.5 mcg IH DAILY 11/04/18 [History] Isosorbide MONOnitrate [Isosorbide Mononitrate ER] 120 mg PO QAM 11/24/18 [History] Metoprolol XL (24 HR) Succ [Toprol Xl] 12.5 mg PO QAM 11/24/18 [History] amLODIPine [Norvasc] 5 mg PO QAM 11/24/18 [History] clonazePAM [Klonopin] 0.25 mg PO HS 11/24/18 [History] - Time Spent with Patient Total time spent is greater than 50% in coordination of care (as documented) at patient's floor/unit and/or counseling patient: Internal Medicine: Result - Labs CBC & Chem 7: 11/27/18 12:50 11/26/18 04:56 Labs: Short CBC 11/27/18 11/27/18 Range/Units 06:03 12:50 WBC 8.6 8.2 (4.3-11.1) K/mcL Hgb 10.3 L 9.2 L (11.5-15.4) g/dL Hct 32.3 L 29.2 L (35.3-44.9) % Plt Count 173 187 (140-400) K/mcL Neutrophils # 8.0 7.4 (1.6-8.9) K/mcL Cardiac Enzymes 11/27/18 Range/Units 06:03 Troponin I < 0.03 (< 0.04) ng/mL - ABG Interpretation ABG results: ABG ABG pH 7.44 pH Units (7.32-7.45) 11/24/18 21:27 ABG pCO2 52 mmHg (35-45) H 11/24/18 21:27 ABG pO2 97 mmHg (85-104) 11/24/18 21:27 ABG O2 Saturation 98 % (95-98) 11/24/18 21:27 PT/INR, D-dimer PT 12.4 Seconds (9.4-12.1) H 11/27/18 06:40 - Impressions Impressions Echocardiogram Limited Views 11/26/18 09:58 Impressions: LVEF 50-55%. Left Ventricular Wall Motion: Rest Echo Findings All wall segments showed normal motion. Findings: Study Quality * Technically adequate exam. ECG Findings * Baseline artifact on tracing. Left Ventricle * LVEF 50-55%. * Normal LV chamber size, wall thickness and function. * Atypical septal motion consistent with post-operative status. Right Ventricle * Normal right ventricular structure and function. Aorta * Not well visualized. Pericardium * There is no pericardial effusion present. Consult Discharge Plan - Plan Referrals: Laxmi Noonan APN [Primary Care Provider] - 12/04/18 1:00 pm (Be at your home around 1pm.)
--- NOTE | 2018-11-27 15:47 | Event Note ---
Date of Encounter: 11/27/18 Time of Encounter: 15:46 - Cardiology Event Note [facility] completed, unchanged from 09/2018. No intervention. Continue medical management--Statin, BB, Nitrates. Add 81mg ASA for CAD with hx CABG. Will coordinate outpt follow-up in 3-4 weeks. Cardiology signing off. Reconsult PRN.
--- NOTE | 2018-11-27 16:55 | Internal Med Progress Note ---
Hospitalist Progress Note - Encounter Date of Encounter: 11/26/18 Time of Encounter: 01:00 - Exam Vitals: Temp Pulse Resp BP Pulse Ox 97.9 F 101 18 120/69 95 11/27/18 16:45 11/27/18 16:45 11/27/18 16:45 11/27/18 16:45 11/27/18 16:45 Exam: awake Assessment and Plan (1) Unstable angina Current Visit: Yes Status: Acute -Hx of CAD s/p 3 vessel CABG 1987 -Likely 2/2 recent acute hgb drop -Mid sternal chest pressure with radiation to L arm and jaw with associated dyspnea while at rest -No current chest pain on nitro infusion -Troponin x3 neg (troponin x2 neg since chest pain began) -LHC 10/04 0/3 grafts patent, proximal RCA 100% stenosis with collateral flow, prox LAD 40% stenosis, EF 55% -ECHO 09/16/18 EF 50-55%, mod concentric LVH, mod LV diastolic dysfunction, mild-mod MR -Will get limited ECHO today -With crescendo anginal symptoms will do stress test tomorrow with possible LHC to follow if GI ok with possible duel antiplatelet therapy if PCI performed As a result of patient continued chst pain when nitro infusion was discontinued, she was scheduled for a LHC in place of previously schedules stress test. Her posibble discharge will be after the LHC. Chest pain controlled while patient is on Nitro drip. (2) DVT (deep venous thrombosis) Current Visit: No Status: Chronic -DVT 10/04 and was dc on apixaban -Apixaban held at admission for concern of possible GI bleed -Hgb has increased from low of 8.9 to 9.8 currently -GI evaluated Qualifiers: DVT location: lower extremity Affected thrombotic vein of extremity: unspecified vein of extremity Chronicity: acute Laterality: right Qualified Code(s): I82.401 - Acute embolism and thrombosis of unspecified deep veins of right lower extremity (3) CHF (congestive heart failure) Current Visit: No Status: Chronic -Hx of HFpEF -ECHO 09/16/18 EF 50-55%, mod concentric LVH, mod LV diastolic dysfunction, mild-mod MR -Limited ECHO today -Continue furosemide for symptomatic relief and BB Qualifiers: Heart failure type: diastolic Heart failure chronicity: chronic Qualified Code(s): I50.32 - Chronic diastolic (congestive) heart failure Discussion w patient/family: The assessment and plan as outlined above was discussed with the patient and/or family members who expressed understanding and agreement. All questions were answered. Thank you for involving us in the care of your patient. Please call with any questions. History of Present Illness Consult date: 11/26/18 Requesting physician: Sally Calderon Consult reason: Chest pain Chief complaint: chest pain History of present illness: Ms. Fabian is a 78 year old female with pmh significant for CAD s/p CABG 1987, CHF, HTN, HLD, DVT anticoagulated on apixaban 10/04, and COPD. Cardiology was consulted for chest pain. For 3 days prior to arrival she had non productive c ough, generalized weakness, and dyspnea that worsened with exertion and requiring increased home O2 requirements from baseline. She was found to be anemic and admitted with possible GI bleed and COPD exacerbation yesterday. Last night around 2100 she had episode of midsternal chest pressure without radiation or associated symptoms and resolved with nitro. She again had chest pain early this morning she described as midsternal pressure with radiation to jaw and L arm with associated dyspnea but denied diplopia, blurry vision, dizziness/lightheadedness, diaphoresis, nausea. Pain lasted about 15 min and resolved with nitro x3 and was started on nitro infusion. She has occasional similar episodes over last couple months but not this frequent. She denies any further chest pain since the nitro infusion began. This progress report is for 11/26/18 Past Med Surg Social Fam HX - Past Medical History Medical history: asthma, COPD, coronary artery disease, hyperlipidemia, hypertension, myocardial infarction Psychiatric history: no psych history - Past Surgical History Surgical History: coronary bypass (CABG) Additional surgical history: stent in descending aorta - Social History Smoking Status: Former smoker Smokeless Tobacco Status: No Alcohol use: none Drug use: none - Family History Mother Living Status: Hx Family Cardiac Disorders: Yes (heart disease, stroke) Hx Family Neurologic Disorders: Yes (Stoke) Father Living Status: Hx Family Cancer: Yes (Prostate) Medications and Allergies Atorvastatin Calcium [Lipitor] 80 mg PO QPM 09/16/18 [History] Furosemide [Lasix] 20 mg PO QAM 09/16/18 [History] Levothyroxine [Synthroid] 25 mcg PO 0630 09/16/18 [History] Nitroglycerin 0.4 mg PO AD PRN MDD 3 SPRAYS/15MINS CALL 911 09/16/18 [History] Potassium Chloride 10 meq PO QAM 09/16/18 [History] Ranolazine [Ranexa] 1,000 mg PO BID 09/16/18 [History] Vit C/E/Zn/Coppr/Lutein/Zeaxan [Preservision Areds 2 Softgel] 1 cap PO DAILY 09/16/18 [History] Albuterol Neb [Proventil Neb] 2.5 mg IH BID 10/08/18 [History] Amitriptyline HCl 75 mg PO DAILY 10/08/18 [History] Apixaban [Eliquis] 5 mg PO BID 10/08/18 [History] Psyllium Husk [Metamucil] 0.52 gm PO DAILY 10/08/18 [History] Omeprazole [PriLOSEC] 40 mg PO DAILY@0800 #30 capsule. 10/13/18 [Rx] Albuterol Sulfate [Ventolin Hfa] 2 puff IH Q4H PRN #0 10/21/18 [Rx] Docusate [Colace] 100 mg PO BID #60 capsule 10/21/18 [Rx] Guaifenesin [Mucinex] 600 mg PO BID 11/04/18 [History] Umeclidinium [place] [Incruse Ellipta] 62.5 mcg IH DAILY 11/04/18 [History] Isosorbide MONOnitrate [Isosorbide Mononitrate ER] 120 mg PO QAM 11/24/18 [History] Metoprolol XL (24 HR) Succ [Toprol Xl] 12.5 mg PO QAM 11/24/18 [History] amLODIPine [Norvasc] 5 mg PO QAM 11/24/18 [History] clonazePAM [Klonopin] 0.25 mg PO HS 11/24/18 [History] - Time Spent with Patient Total time spent is greater than 30 min (as documented) at patient's floor/unit and/or counseling patient: Plan of Care Discussed with: patient Internal Medicine: Result - Labs CBC & Chem 7: 11/27/18 12:50 11/26/18 04:56 Labs: Short CBC 11/27/18 11/27/18 Range/Units 06:03 12:50 WBC 8.6 8.2 (4.3-11.1) K/mcL Hgb 10.3 L 9.2 L (11.5-15.4) g/dL Hct 32.3 L 29.2 L (35.3-44.9) % Plt Count 173 187 (140-400) K/mcL Neutrophils # 8.0 7.4 (1.6-8.9) K/mcL Cardiac Enzymes 11/27/18 Range/Units 06:03 Troponin I < 0.03 (< 0.04) ng/mL - ABG Interpretation ABG results: ABG ABG pH 7.44 pH Units (7.32-7.45) 11/24/18 21:27 ABG pCO2 52 mmHg (35-45) H 11/24/18 21:27 ABG pO2 97 mmHg (85-104) 11/24/18 21:27 ABG O2 Saturation 98 % (95-98) 11/24/18 21:27 PT/INR, D-dimer PT 12.4 Seconds (9.4-12.1) H 11/27/18 06:40 - Impressions Impressions Echocardiogram Limited Views 11/26/18 09:58 Impressions: LVEF 50-55%. Left Ventricular Wall Motion: Rest Echo Findings All wall segments showed normal motion. Findings: Study Quality * Technically adequate exam. ECG Findings * Baseline artifact on tracing. Left Ventricle * LVEF 50-55%. * Normal LV chamber size, wall thickness and function. * Atypical septal motion consistent with post-operative status. Right Ventricle * Normal right ventricular structure and function. Aorta * Not well visualized. Pericardium * There is no pericardial effusion present. Consult Discharge Plan - Plan Referrals: Laxmi Noonan APN [Primary Care Provider] - 12/04/18 1:00 pm (Be at your home around 1pm.)
[2018-11-27 18:07] LABS: Hematocrit 30.7 % (35.3-44.9); Hemoglobin 9.7 g/dL (11.5-15.4); Immature Granulocytes % 0.6 % (0-4); Lymphocytes # 0.6 K/mcL (0.6-4.6); Lymphocytes % 6.8 %; Mean Corpuscular HGB Conc 31.6 g/dL (31.6-35.5); Mean Platelet Volume 9.7 fL (9.4-12.4); Monocytes # 0.7 K/mcL (0.0-1.3); Neutrophils # 7.7 K/mcL (1.6-8.9); Platelet Count 200 K/mcL (140-400); Red Blood Count 3.23 M/mcL (3.82-4.97); Red Cell Distribution Width 16.9 % (11.5-14.5); Segmented Neutrophils % 84.6 %
[2018-11-27] MEDS: clonazePAM 0.5 MG TABLET PO SCH (21:32)
[2018-11-28] MEDS: MethylPREDNISolone 40 MG/ML VIAL IVP SCH (00:28)
[2018-11-28] MEDS: Ipratropium/Albuterol Neb 3 ML IH SCH (04:21)
[2018-11-28] MEDS: Azithromycin 500 MG in D5% in Water 250 ML IVPB SCH (05:22)
[2018-11-28] MEDS: Pantoprazole 40 MG VIAL IVP SCH (05:22)
[2018-11-28] MEDS: Levothyroxine 25 MCG TABLET PO SCH (05:31)
[2018-11-28 07:18] VITALS: BP 131/69
[2018-11-28] MEDS: amLODIPine 5 MG TABLET PO SCH (08:32)
[2018-11-28] MEDS: Metoprolol XL (24 HR) Succ 25 MG TAB.ER.24H PO SCH (08:33)
[2018-11-28] MEDS: Isosorbide MONOnitrate (24 HR) 60 MG TAB.ER.24H PO SCH (08:34)
[2018-11-28] MEDS: Ranolazine 500 MG TAB.ER.12H PO SCH (08:34)
--- NOTE | 2018-11-28 08:51 | Discharge Summary ---
- NOTES TO OUTPATIENT PROVIDER Notes to Outpatient Provider: f/u with PCP within a week. f/u with cardiology within 2 weeks. Orders not resulted at time of discharge: Pending orders 11/24/18 18:18 Culture,Blood [BC] Stat Date of Encounter: 11/28/18 Time of Encounter: 08:49 - Discharge Diagnosis (1) CAD (coronary artery disease) Priority: Secondary Status: Chronic Qualifiers: Coronary Disease-Associated Artery/Lesion type: [place] artery [place] vs. transplanted heart: [place] heart Associated angina: without angina Qualified Code(s): I25.10 - Atherosclerotic heart disease of [place] coronary artery without angina pectoris (2) HTN (hypertension) Priority: Secondary Status: Chronic Qualifiers: Hypertension type: essential hypertension Qualified Code(s): I10 - Essential (primary) hypertension (3) HLD (hyperlipidemia) Priority: Secondary Status: Chronic Qualifiers: Hyperlipidemia type: mixed hyperlipidemia Qualified Code(s): E78.2 - Mixed hyperlipidemia (4) Hx of deep venous thrombosis Priority: Secondary Status: Chronic (5) Anemia Priority: Secondary Status: Chronic Qualifiers: Anemia type: unspecified type Qualified Code(s): D64.9 - Anemia, unspecified (6) COPD (chronic obstructive pulmonary disease) Priority: Secondary Status: Chronic Qualifiers: Emphysema type: unspecified Qualified Code(s): J43.9 - Emphysema, unspecified (7) GI bleed Priority: Primary Status: Ruled-out Qualifiers: GI bleed type/associated pathology: unspecified gastrointestinal hemorrhage type Qualified Code(s): K92.2 - Gastrointestinal hemorrhage, unspecified (8) Unstable angina Priority: Primary Status: Resolved (9) Acute hypoxemic respiratory failure Priority: Primary Status: Acute Hospital course: Ms. Fabian is a 78 year old female with a past medical history of COPD with 2L oxygen dependence at baseline, hypertension, hyperlipidemia, CHF, CAD status post CABG and stents, TIA, and Eliquis use for recent DVT in September 2018 who presented complaining of worsening shortness of breath for 3 days. She reports nonproductive cough and requiring increased oxygen demand due to low oxygen saturation levels. Shortness of breath is exacerbated with exertion and did not improve with breathing treatments prior to arrival. She called her home health nurse who advised her to call the squad. Of note, patient was discharged with home health care on 11/18/18 after a recent hospitalization for TIA, myoclonic tremor, and orthostatic hypotension. Labs revealed a drop in her hemoglobin level from 11.6 one week ago to 10.4 today. Stool occult blood test was positive. Patient had EGD and a colonoscopy in October 2018 which showed normal EGD, multiple mucosal ulcers in the ascending colon. She also has history of hemorrhoids. On physical exam, patient also was noticed having wheezing and rhonchi bilaterally, she was treated as COPD exacerbation with IV steroids, IV azithromycin, and a bronchodilators with relief of symptoms. GI was consulted. Eliquis was on hold. Serial H&H showed stable hemoglobin and hematocrit, although they are slightly lower than the baseline. On 11/25/2018, she had one episode of severe chest pain, EKG as that time showed ST-T depression in V3 to V6, cardiology was consulted. Patient underwent left cardiac catheter on 11/27 which revealed stable and unchanged coronary artery bypass graft and stents. Aspirin was added, medical management was recommended by cardiology. After 4 days of close monitoring, patient hemoglobin and hematocrit remain stable. There is no active bleeding identified. Her respiratory symptoms have resolved after treatment. Patient will be discharged home. She was instructed to continue home medications including Eliquis. She will follow-up with PCP within one week and cardiology within 2 weeks. Discharge discussed with: patient, family Time spent discussing smoking cessation with patient: more than 10 minutes - Time Spent with Patient Total time spent providing and/or coordinating discharge services: 45mmins. Greater than 30 minutes - Discharge Medications Prescriptions: Aspirin 81 mg PO DAILY #30 tab.chew Home Medications: Atorvastatin Calcium [Lipitor] 80 mg PO QPM 09/16/18 [History] Furosemide [Lasix] 20 mg PO QAM 09/16/18 [History] Levothyroxine [Synthroid] 25 mcg PO 0630 09/16/18 [History] Nitroglycerin 0.4 mg PO AD PRN MDD 3 SPRAYS/15MINS CALL 911 09/16/18 [History] Potassium Chloride 10 meq PO QAM 09/16/18 [History] Ranolazine [Ranexa] 1,000 mg PO BID 09/16/18 [History] Vit C/E/Zn/Coppr/Lutein/Zeaxan [Preservision Areds 2 Softgel] 1 cap PO DAILY 09/16/18 [History] Albuterol Neb [Proventil Neb] 2.5 mg IH BID 10/08/18 [History] Amitriptyline HCl 75 mg PO DAILY 10/08/18 [History] Apixaban [Eliquis] 5 mg PO BID 10/08/18 [History] Psyllium Husk [Metamucil] 0.52 gm PO DAILY 10/08/18 [History] Omeprazole [PriLOSEC] 40 mg PO DAILY@0800 #30 capsule.dr 10/13/18 [Rx] Albuterol Sulfate [Ventolin Hfa] 2 puff IH Q4H PRN #0 10/21/18 [Rx] Docusate [Colace] 100 mg PO BID #60 capsule 10/21/18 [Rx] Guaifenesin [Mucinex] 600 mg PO BID 11/04/18 [History] Umeclidinium [place] [Incruse Ellipta] 62.5 mcg IH DAILY 11/04/18 [History] Isosorbide MONOnitrate [Isosorbide Mononitrate ER] 120 mg PO QAM 11/24/18 [History] Metoprolol XL (24 HR) Succ [Toprol Xl] 12.5 mg PO QAM 11/24/18 [History] amLODIPine [Norvasc] 5 mg PO QAM 11/24/18 [History] clonazePAM [Klonopin] 0.25 mg PO HS 11/24/18 [History] Aspirin 81 mg PO DAILY #30 tab.chew 11/28/18 [Rx] Allergies/Adverse Reactions: Allergy/AdvReac Type Severity Reaction Status Date / Time guaifenesin [From Hytuss] Allergy See Verified 10/16/18 09:02 Comments nabumetone [From Relafen] Allergy See Verified 10/16/18 09:02 Comments pentazocine [From Talwin] Allergy See Verified 10/16/18 09:02 Comments propoxyphene Allergy See Verified 10/16/18 09:02 Comments Sulindac [From Clinoril] Allergy See Verified 10/16/18 09:02 Comments prednisone AdvReac Mild Shaky Verified 11/05/18 10:09 Benzonatate AdvReac Confusion Verified 10/19/18 10:22 carbamazepine AdvReac Chest Pain Verified 10/08/18 06:05 codeine AdvReac See Verified 10/16/18 09:02 Comments etodolac AdvReac Chest Pain Verified 10/08/18 06:05 hydrocodone AdvReac Chest Pain Verified 10/08/18 06:05 Iodinated Contrast- Oral and AdvReac Chest Pain Verified 10/08/18 06:05 IV Dye [Iodinated Contrast Media - IV Dye] levofloxacin AdvReac Chest Pain Verified 10/08/18 06:05 NSAIDS (Non-Steroidal AdvReac Chest Pain Verified 10/08/18 06:05 Anti-Inflamma Penicillins [PCN] AdvReac Chest Pain Verified 10/08/18 06:05 pregabalin [From Lyrica] AdvReac Numbness Verified 10/08/18 06:05 pseudoephedrine AdvReac Chest Pain Verified 10/08/18 06:05 Sulfa (Sulfonamide AdvReac Chest Pain Verified 10/08/18 06:05 Antibiotics) tetracycline [Tetracycline] AdvReac Chest Pain Verified 10/08/18 06:05 tolmetin AdvReac Chest Pain Verified 10/08/18 06:05 tramadol AdvReac Numbness Verified 10/08/18 06:05 Date of admission: 11/26/18 15:52 Primary care physician: Laxmi Noonan APN Consults: 11/25/18 01:59 Consult to Nurse Navigator [CONS] Routine Comment: 11/25/18 02:01 Consult to Occupational Therapy [CONS] Routine Comment: Evaluate, develop and implement POC Reason for Consult: Weakness Does patient have active BEDREST order?: No Is patient medically & hemodynamically stable?: Yes Patient assessed for mobility or mobilized this visit?: No Consult to Physical Therapy [CONS] Routine Comment: Evaluate, develop and implement POC Reason for Consult: Weakness Does patient have active BEDREST order?: No Is patient medically & hemodynamically stable?: Yes Patient assessed for mobility or mobilized this visit?: No 11/25/18 05:43 Consult to Gastroenterology [CONS] Routine Consulting Provider: Gastroenterology Aleyda Reason for Consult: Anemia, occult positive stool, recent EGD with gastritis, colonoscopy with ascending colon mucosal ulcers Time Notified: 07:54 Call Completed: Yes 11/25/18 18:21 Consult to Cardiology [CONS] Routine Comment: Consulting Provider: Cardiology Aleyda Reason for Consult: CP Call Completed: Yes Anticipated date of discharge: 11/28/18 - Constitutional Vitals: Temp Pulse Resp BP Pulse Ox 98.9 F 82 16 131/69 100 11/28/18 07:12 11/28/18 07:12 11/28/18 07:12 11/28/18 07:12 11/28/18 07:12 General appearance: Present: cooperative, A&O X 3, pleasant, no acute distress, answers questions appropriately Exam: PHYSICAL EXAMINATION: GENERAL APPEARANCE: The patient is alert, oriented and in no acute distress. HEENT: Head is normocephalic. The sinuses are nontender. Pupils are equal and reactive. The nares are patent. Oropharynx clear without lesions. NECK: Supple without lymphadenopathy. HEART: Regular rate and rhythm. LUNGS: No crackles or wheezes are heard. ABDOMEN: Soft, nontender, nondistended with good bowel sounds heard. Inguinal area is normal. EXTREMITIES: Without cyanosis, clubbing or edema. NEUROLOGICAL: Gross nonfocal. SKIN: Warm and dry without any rash. - Patient Status Disposition: Home, Self-Care Condition: Fair Functional capacity at discharge: independent ambulation Overall status at discharge: patient is progressing back to baseline - Discharge Instructions Follow Up With: Laxmi Noonan APN [Primary Care Provider] - 12/04/18 1:00 pm (Be at your home around 1pm.) - Diet and Activity Activity: increase activity as tolerated Diet: advance to your usual diet
[2018-11-28] MEDS ORDERED: Apixaban 5 MG TABLET PO SCH (09:00)
[2018-11-28] MEDS ORDERED: Aspirin 81 MG TAB.CHEW PO SCH (09:00)
[2018-11-28] MEDS ORDERED: Furosemide 20 MG TABLET PO SCH (09:00)
== END 2018-11-28 10:33 | disposition home or self-care (01) | DRG 140 ==
LOC: EMEROOARM 17:46 → 3BNU 17:46
PROVIDERS: ADMIT Family Medicine; ATTEND Family Medicine

== ENCOUNTER 2018-12-21 12:19 | Observation (INO) ==
[2018-12-21 14:14] LABS: Bilirubin,Urine Negative (Negative); Blood,Urine Negative (Negative); Clarity,Urine Clear (Clear); Color,Urine Yellow (Yellow); Glucose,Urine (UA) Normal (Normal); Ketones,Urine Negative (Negative); Leukocyte Esterase,Urine Negative (Negative); Nitrite,Urine Negative (Negative); Protein,Urine Negative (Neg-Trace); Specific Gravity,Urine 1.013 (1.010-1.025); Urobilinogen,Urine Normal (Normal)
[2018-12-21 14:49] LABS: Basophils % 0.4 %; Eosinophils # 0.2 K/mcL (0.0-0.6); Hematocrit 30.1 % (35.3-44.9); Hemoglobin 9.7 g/dL (11.5-15.4); Immature Granulocytes % 0.4 % (0-4); Lymphocytes # 1.2 K/mcL (0.6-4.6); Lymphocytes % 23.4 %; Mean Corpuscular HGB Conc 32.2 g/dL (31.6-35.5); Mean Corpuscular Hemoglobin 31.2 pg (28.0-33.3); Mean Corpuscular Volume 96.8 fL (83.0-100.0); Mean Platelet Volume 9.5 fL (9.4-12.4); Monocytes # 0.6 K/mcL (0.0-1.3); Monocytes % 12.8 %; Neutrophils # 2.9 K/mcL (1.6-8.9); Platelet Count 242 K/mcL (140-400); Red Blood Count 3.11 M/mcL (3.82-4.97); Red Cell Distribution Width 16.7 % (11.5-14.5)
[2018-12-21 15:11] LABS: Troponin I < 0.03 ng/mL (< 0.04)
[2018-12-21 15:21] LABS: Alanine Aminotransferase 26 Units/L (7-52); Albumin 3.5 g/dL (3.5-5.7); Alkaline Phosphatase 74 Units/L (34-104); Aspartate Amino Transferase 30 Units/L (13-39); BUN/Creatinine Ratio 22 (6-26); Bilirubin,Total 0.5 mg/dL (0.3-1.0); Blood Urea Nitrogen 19 mg/dL (8-23); Calcium 9.1 mg/dL (8.6-10.3); Carbon Dioxide 28 mEq/L (23-29); Chloride 98 mEq/L (98-107); Globulin 3.4 g/dL (2.4-3.5); Glucose 83 mg/dL (70-105); Osmolality,Calculated 285 (280-300); Potassium 3.9 mEq/L (3.5-5.1); Sodium 137 mEq/L (136-145); Total Protein 6.9 g/dL (6.4-8.9); eGFR For Non-African Americans > 60 (> 60)
--- NOTE | 2018-12-21 15:36 | Emergency Department Note ---
Disposition Clinical Impression: Low hemoglobin, Weakness GI bleed Qualifiers: GI bleed type/associated pathology: unspecified gastrointestinal hemorrhage type Qualified Code(s): K92.2 - Gastrointestinal hemorrhage, unspecified Disposition: Admitted As Inpatient Condition: Fair Time of Disposition: 15:45 General Adult HPI - General Chief complaint: ED General Medical Stated complaint: Low hemoglobin Time Seen by Provider: 12/21/18 13:26 Source: patient Mode of arrival: ambulatory Limitations: no limitations Nursing Notes Reviewed: Yes Vital Signs Reviewed: Yes - History of Present Illness HPI Narrative: Patient is an 78-year-old female with a past medical history of DVTs as well as GI bleed with anemia, CAD, COPD, HLD, HTN, AK, renal disease, and CABG presents for evaluation of decrease in hemoglobin as well as fecal occult positive stool. Patient is currently on Eliquis for DVT's. She was seen yesterday a [facility] and was found have a positive Hemoccult and hemoglobin and the range of 9 which are most recent was 12. She is sent here by Dr. Silva to be admitted and prepped for colonoscopy on Friday. He complains that she feels very fatigued and has very low energy and becomes winded when walking short distances. States this feels similar to when she has had a GI bleed in the past. She also complains of dark and tarry stools. Pain Scale: 0 - Related Data Home Medications Medication Instructions Recorded Confirmed RX: Atorvastatin Calcium [Lipitor] 80 mg PO QPM 09/16/18 12/21/18 RX: Furosemide [Lasix] 20 mg PO QAM 09/16/18 12/21/18 RX: Levothyroxine [Synthroid] 25 mcg PO 0630 09/16/18 12/21/18 RX: Nitroglycerin 0.4 mg PO AD PRN MDD 3 09/16/18 11/30/18 SPRAYS/15MINS CALL 911 RX: Potassium Chloride 10 meq PO QAM 09/16/18 12/21/18 RX: Ranolazine [Ranexa] 1,000 mg PO BID 09/16/18 12/21/18 RX: Vit C/E/Zn/Coppr/Lutein/Zeaxan 1 cap PO DAILY 09/16/18 11/30/18 [Preservision Areds 2 Softgel] RX: Albuterol Neb [Proventil Neb] 2.5 mg IH TID 10/08/18 12/21/18 RX: Apixaban [Eliquis] 5 mg PO BID 10/08/18 12/21/18 RX: Isosorbide MONOnitrate 120 mg PO QAM 11/24/18 12/21/18 [Isosorbide Mononitrate ER] RX: amLODIPine [Norvasc] 5 mg PO QAM 11/24/18 12/21/18 RX: clonazePAM [Klonopin] 0.25 mg PO HS 11/24/18 11/30/18 Aclidinium [place] [Tudorza 1 puff IH DAILY 11/30/18 11/30/18 Pressair] Amitriptyline [Elavil] 75 mg PO HS 12/22/18 12/22/18 Metoprolol Succinate [Toprol Xl] 12.5 mg PO DAILY 12/22/18 12/22/18 Previous Rx's Medication Instructions Recorded RX: Omeprazole [PriLOSEC] 40 mg PO DAILY@0800 #30 capsule. 10/13/18 RX: Albuterol Sulfate [Ventolin 2 puff IH Q4H PRN #0 10/21/18 Hfa] RX: Aspirin 81 mg PO DAILY #30 tab.chew 11/28/18 Allergies Allergy/AdvReac Type Severity Reaction Status Date / Time guaifenesin [From Hytuss] Allergy See Verified 12/20/18 17:19 Comments nabumetone [From Relafen] Allergy See Verified 12/20/18 17:19 Comments pentazocine [From Talwin] Allergy See Verified 12/20/18 17:19 Comments propoxyphene Allergy See Verified 12/20/18 17:19 Comments Sulindac [From Clinoril] Allergy See Verified 12/20/18 17:19 Comments prednisone AdvReac Mild Shaky Verified 12/20/18 17:19 Benzonatate AdvReac Confusion Verified 12/20/18 17:19 carbamazepine AdvReac Chest Pain Verified 12/20/18 17:19 codeine AdvReac See Verified 12/20/18 17:19 Comments etodolac AdvReac Chest Pain Verified 12/20/18 17:19 hydrocodone AdvReac Chest Pain Verified 12/20/18 17:19 Iodinated Contrast- Oral and AdvReac Chest Pain Verified 12/20/18 17:19 IV Dye [Iodinated Contrast Media - IV Dye] levofloxacin AdvReac Chest Pain Verified 12/20/18 17:19 NSAIDS (Non-Steroidal AdvReac Chest Pain Verified 12/20/18 17:19 Anti-Inflamma Penicillins [PCN] AdvReac Chest Pain Verified 12/20/18 17:19 pregabalin [From Lyrica] AdvReac Numbness Verified 12/20/18 17:19 pseudoephedrine AdvReac Chest Pain Verified 12/20/18 17:19 Sulfa (Sulfonamide AdvReac Chest Pain Verified 12/20/18 17:19 Antibiotics) tetracycline [Tetracycline] AdvReac Chest Pain Verified 12/20/18 17:19 tolmetin AdvReac Chest Pain Verified 12/20/18 17:19 tramadol AdvReac Numbness Verified 12/20/18 17:19 All systems ED: reviewed and negative except as stated. Review of Systems: As Per HPI Constitutional: Reports: weakness. Denies: fever, chills Cardiovascular: Denies: chest pain, palpitations, dyspnea on exertion, edema, syncope Respiratory: Denies: cough, dyspnea, wheezes Gastrointestinal: Reports: melena. Denies: abdominal pain, nausea, vomiting, diarrhea, constipation Genitourinary: Denies: urgency, dysuria, frequency Musculoskeletal: Denies: back pain Integumentary: Denies: rash Neurological: Denies: headache, weakness Past Medical History - Past Medical History Attestation: Yes The following information was validated with the patient. Medical history: Reports: asthma, COPD, coronary artery disease, hyperlipidemia, hypertension, myocardial infarction, renal disease Surgical history: Reports: coronary bypass (CABG) Psychiatric history: Reports: no psych history HIGH SCALER history: Reports: non-contributory - Social History Smoking Status: Former smoker Smokeless Tobacco Status: No Alcohol use: Reports: none Drug use: Reports: none Physical Exam CONSTITUTIONAL: A&O X 3, in no apparent distress HEAD: Normocephalic; atraumatic EYES: PERRL, no scleral icterus NOSE: The nose is normal in appearance without rhinorrhea NECK: No JVD or distended neck veins RESP: Normal chest excursion with respiration; breath sounds clear and equal bilaterally; no wheezes, rhonchi, or rales CARD: Regular rhythm, without murmurs, rub or gallop ABD: Non-distended; non-tender, soft, without rigidity, rebound or guarding,no pulsatile mass CHEST: No pain with palpation SKIN: Normal for age and race; warm and dry without diaphoresis ; no apparent lesions EXTREMITIES: Pulses are 2 plus and equal times 4 extremities, no peripheral edema or calf muscle pain - General Limitations: no limitations General appearance: alert, in no apparent distress Course Course Narrative: Patient presents for evaluation of a GI bleed. She was evaluated yesterday at [facility]. Patient's lab work from yesterday showed a hemoglobin of 9.2 with the most recent hemoglobin being one month ago and it was 12. Her coags yesterday showed an elevation of her PTT as well as her PTT. She will undergo repeat lab work here. She will be admitted to the hospital for evaluation by Dr. Silva on Friday. - Reevaluation(s) Reevaluation #1: Patient was recently seen in the hospital in November 2018 which she was evaluated for unstable angina she is also seen prior to this episode for GI bleed on a separate admission in November 2018. Patient's repeat lab work continues to show anemia. We will admit her to the hospital at this time with a referral to Dr. Silva. Discussed the patient's case with the hospital on-call, Dr. Skinner and agrees to accept the patient. Time: 15:44 Vital Signs Temperature 98.5 F 12/21/18 12:40 Pulse Rate 87 12/21/18 12:40 Respiratory Rate 20 12/21/18 12:40 Blood Pressure 138/68 12/21/18 12:40 O2 Sat by Pulse Oximetry 96 12/21/18 12:40 Temperature 98.5 F 12/21/18 12:40 Pulse Rate 87 12/21/18 12:40 Respiratory Rate 20 12/21/18 12:40 Blood Pressure 138/68 12/21/18 12:40 O2 Sat by Pulse Oximetry 96 12/21/18 12:40 Oxygen Delivery Oxygen Delivery Nasal Cannula Medical Decision Making - Medical Records Medical records reviewed: Yes I reviewed the patient's medical records. - Lab Data Lab results reviewed: Yes I reviewed the patient's lab results. Result diagrams: 12/22/18 07:46 12/22/18 07:46 Lab Results 0212/21/18 12/21/18 Range/Units 14:02 14:36 14:36 WBC 5.0 (4.3-11.1) K/mcL RBC 3.11 L (3.82-4.97) M/mcL Hgb 9.7 L (11.5-15.4) g/dL Hct 30.1 L (35.3-44.9) % MCV 96.8 (83.0-100.0) fL MCH 31.2 (28.0-33.3) pg MCHC 32.2 (31.6-35.5) g/dL RDW 16.7 H (11.5-14.5) % Plt Count 242 (140-400) K/mcL MPV 9.5 (9.4-12.4) fL Immature Gran % 0.4 (0-4) % Seg Neutrophils % 59.0 % Lymphocytes % 23.4 % Monocytes % 12.8 % Eosinophils % 4.0 % Basophils % 0.4 % Neutrophils # 2.9 (1.6-8.9) K/mcL Lymphocytes # 1.2 (0.6-4.6) K/mcL Monocytes # 0.6 (0.0-1.3) K/mcL Eosinophils # 0.2 (0.0-0.6) K/mcL Basophils # 0.0 (0.0-0.2) K/mcL Sodium 137 (136-145) mEq/L Potassium 3.9 (3.5-5.1) mEq/L Chloride 98 (98-107) mEq/L Carbon Dioxide 28 (23-29) mEq/L BUN 19 (8-23) mg/dL Creatinine 0.87 (0.60-1.20) mg/dL Est GFR ( Amer) > 60 (> 60) Est GFR (Non-Af Amer) > 60 (> 60) BUN/Creatinine Ratio 22 (6-26) Glucose 83 (70-105) mg/dL Calculated Osmolality 285 (280-300) Calcium 9.1 (8.6-10.3) mg/dL Total Bilirubin 0.5 (0.3-1.0) mg/dL AST 30 (13-39) Units/L ALT 26 (7-52) Units/L Alkaline Phosphatase 74 (34-104) Units/L Troponin I < 0.03 (< 0.04) ng/mL Serum Total Protein 6.9 (6.4-8.9) g/dL Albumin 3.5 (3.5-5.7) g/dL Globulin 3.4 (2.4-3.5) g/dL Albumin/Globulin Ratio 1.0 L (1.1-2.2) Urine Color Yellow (Yellow) Urine Clarity Clear (Clear) Urine pH 7.0 (5.0-8.0) pH Units Ur Specific [place] 1.013 (1.010-1.025) Urine Protein Negative (Neg-Trace) mg/dL Urine Glucose (UA) Normal (Normal) mg/dL Urine Ketones Negative (Negative) mg/dL Urine Blood Negative (Negative) Urine Nitrite Negative (Negative) Urine Bilirubin Negative (Negative) Urine Urobilinogen Normal (Normal) mg/dL Ur Leukocyte Esterase Negative (Negative) Ur Culture Indicated? NO (NO) Blood Type Antibody Screen 12/21/18 Range/Units 14:36 WBC (4.3-11.1) K/mcL RBC (3.82-4.97) M/mcL Hgb (11.5-15.4) g/dL Hct (35.3-44.9) % MCV (83.0-100.0) fL MCH (28.0-33.3) pg MCHC (31.6-35.5) g/dL RDW (11.5-14.5) % Plt Count (140-400) K/mcL MPV (9.4-12.4) fL Immature Gran % (0-4) % Seg Neutrophils % % Lymphocytes % % Monocytes % % Eosinophils % % Basophils % % Neutrophils # (1.6-8.9) K/mcL Lymphocytes # (0.6-4.6) K/mcL Monocytes # (0.0-1.3) K/mcL Eosinophils # (0.0-0.6) K/mcL Basophils # (0.0-0.2) K/mcL Sodium (136-145) mEq/L Potassium (3.5-5.1) mEq/L Chloride (98-107) mEq/L Carbon Dioxide (23-29) mEq/L BUN (8-23) mg/dL Creatinine (0.60-1.20) mg/dL Est GFR ( Amer) (> 60) Est GFR (Non-Af Amer) (> 60) BUN/Creatinine Ratio (6-26) Glucose (70-105) mg/dL Calculated Osmolality (280-300) Calcium (8.6-10.3) mg/dL Total Bilirubin (0.3-1.0) mg/dL AST (13-39) Units/L ALT (7-52) Units/L Alkaline Phosphatase (34-104) Units/L Troponin I (< 0.04) ng/mL Serum Total Protein (6.4-8.9) g/dL Albumin (3.5-5.7) g/dL Globulin (2.4-3.5) g/dL Albumin/Globulin Ratio (1.1-2.2) Urine Color (Yellow) Urine Clarity (Clear) Urine pH (5.0-8.0) pH Units Ur Specific [place] (1.010-1.025) Urine Protein (Neg-Trace) mg/dL Urine Glucose (UA) (Normal) mg/dL Urine Ketones (Negative) mg/dL Urine Blood (Negative) Urine Nitrite (Negative) Urine Bilirubin (Negative) Urine Urobilinogen (Normal) mg/dL Ur Leukocyte Esterase (Negative) Ur Culture Indicated? (NO) Blood Type O POSITIVE Antibody Screen NEGATIVE - Radiology Data Radiology results reviewed: Yes I reviewed the patient's radiology results. Chest X-Ray 12/21/18 13:39 IMPRESSION: COPD without acute process. D/ / 12/21/2018 13:54:51 Timothy Medrano MD / [facility] Interpreting Provider: Timothy Medrano MD - EKG Data EKG #1 EKG attestation: Yes I reviewed and interpreted this EKG. EKG results narrative: EKG done at 13:36 shows sinus rhythm at a rate of 89 bpm. Normal axis. Intervals within normal limits. No signs of ST elevation, ST depression or Q waves present. This is unchanged from old EKG that was done on December 20, 2018 Attestation Statement - Attestation Attestation: Resident Attestation: I examined this patient and my medical decision making was reviewed with the Resident Physician. I agree with the documented findings, disposition and treatment plan as described except to the extent set forth below. We independently had [id number] contact with the patient. Patient presenting to the emergency department from Dr. Silva office for further evaluation and admission for low hemoglobin. Patient has had recurrent GI bleeds. Resting comfortably in bed, no acute distress, regular rhythm, clear to auscult ation bilaterally, abdomen soft nontender palpation Patient with hemoglobin of 9.7. Patient will be further admitted for continued evaluation and treatment.
--- NOTE | 2018-12-21 16:24 | Internal Med History&Physical ---
<Lucian Pugh Leslie - Last Filed: 12/21/18 18:14> Date of Encounter: 12/21/18 Time of Encounter: 16:45 Internal Medicine - H&P: HPI Chief complaint: Anemia Admitted From: Home Plans for Post Hospital Care: Home History of present illness: Ms. Fabian is a 78 year old female with PMH of HTN, HLD, CAD, DVT on eliquis, CHF, and COPD. She presents to the ED today after being evaluated by Dr. Silva in the office. Pt has hx of recurrent GIB since September of 2018 with multiple EGDs and colonoscopies. Pt states she was feeling better, however over the past 2-3 weeks she has become progressively more weak and fatigued, accompanied by daily dark tarry stools. States she became significantly short of breath over the past 2-3 days. She went to [facility] ED last night for fatigue and tremors, was found to have a Hgb of 9.2 and positive stool hemoccult, and was told to follow up with Dr. Silva as soon as possible. Pt saw Dr. Silva in the office this morning and was subsequently sent to the ED for admission with plans for endoscopy on Friday. Pt continues to complain of weakness, fatigue, and shortness of br eath. Denies any fever, chills, chest pain, cough, increased sputum production, abdominal pain, nausea, or vomiting. States she has been experiencing dark tarry stools, however is adamant she must take Miralax and Colace in order to have a bowel movement. Past Med Surg Social Fam HX - Past Medical History Medical history: asthma, COPD, coronary artery disease, hyperlipidemia, hypertension, myocardial infarction, renal disease Psychiatric history: no psych history - Past Surgical History Surgical History: coronary bypass (CABG) Additional surgical history: stent in descending aorta. stent in neck - Social History Smoking Status: Former smoker Smokeless Tobacco Status: No Alcohol use: none Drug use: none - Family History Mother Living Status: Hx Family Cardiac Disorders: Yes (heart disease, stroke) Hx Family Neurologic Disorders: Yes ([place]) Father Living Status: Hx Family Cancer: Yes (Prostate) Internal Medicine - H&P: Meds Atorvastatin Calcium [Lipitor] 80 mg PO QPM 09/16/18 [History] Furosemide [Lasix] 20 mg PO QAM 09/16/18 [History] Levothyroxine [Synthroid] 25 mcg PO 0630 09/16/18 [History] Nitroglycerin 0.4 mg PO AD PRN MDD 3 SPRAYS/15MINS CALL 911 09/16/18 [History] Potassium Chloride 10 meq PO QAM 09/16/18 [History] Ranolazine [Ranexa] 1,000 mg PO BID 09/16/18 [History] Vit C/E/Zn/Coppr/Lutein/Zeaxan [Preservision Areds 2 Softgel] 1 cap PO DAILY 09/16/18 [History] Albuterol Neb [Proventil Neb] 2.5 mg IH TID 10/08/18 [History] Apixaban [Eliquis] 5 mg PO BID 10/08/18 [History] Omeprazole [PriLOSEC] 40 mg PO DAILY@0800 #30 capsule. 10/13/18 [Rx] Albuterol Sulfate [Ventolin Hfa] 2 puff IH Q4H PRN #0 10/21/18 [Rx] amLODIPine [Norvasc] 5 mg PO QAM 11/24/18 [History] clonazePAM [Klonopin] 0.25 mg PO HS 11/24/18 [History] Aspirin 81 mg PO DAILY #30 tab.chew 11/28/18 [Rx] Amitriptyline [Elavil] 75 mg PO HS 12/22/18 [History] Isosorbide MONOnitrate [Isosorbide Mononitrate ER] 120 mg PO DAILY 12/22/18 [History] Metoprolol Succinate [Toprol Xl] 12.5 mg PO DAILY 12/22/18 [History] Umeclidinium [place] [Incruse Ellipta] 1 puff IH DAILY 12/22/18 [History] Allergy/AdvReac Type Severity Reaction Status Date / Time guaifenesin [From Hytuss] Allergy See Verified 12/20/18 17:19 Comments nabumetone [From Relafen] Allergy See Verified 12/20/18 17:19 Comments pentazocine [From Talwin] Allergy See Verified 12/20/18 17:19 Comments propoxyphene Allergy See Verified 12/20/18 17:19 Comments Sulindac [From Clinoril] Allergy See Verified 12/20/18 17:19 Comments prednisone AdvReac Mild Shaky Verified 12/20/18 17:19 Benzonatate AdvReac Confusion Verified 12/20/18 17:19 carbamazepine AdvReac Chest Pain Verified 12/20/18 17:19 codeine AdvReac See Verified 12/20/18 17:19 Comments etodolac AdvReac Chest Pain Verified 12/20/18 17:19 hydrocodone AdvReac Chest Pain Verified 12/20/18 17:19 Iodinated Contrast- Oral and AdvReac Chest Pain Verified 12/20/18 17:19 IV Dye [Iodinated Contrast Media - IV Dye] levofloxacin AdvReac Chest Pain Verified 12/20/18 17:19 NSAIDS (Non-Steroidal AdvReac Chest Pain Verified 12/20/18 17:19 Anti-Inflamma Penicillins [PCN] AdvReac Chest Pain Verified 12/20/18 17:19 pregabalin [From Lyrica] AdvReac Numbness Verified 12/20/18 17:19 pseudoephedrine AdvReac Chest Pain Verified 12/20/18 17:19 Sulfa (Sulfonamide AdvReac Chest Pain Verified 12/20/18 17:19 Antibiotics) tetracycline [Tetracycline] AdvReac Chest Pain Verified 12/20/18 17:19 tolmetin AdvReac Chest Pain Verified 12/20/18 17:19 tramadol AdvReac Numbness Verified 12/20/18 17:19 All Systems PM: A 10-system review of systems was performed and is negative for pertinent findings except as documented above in the HPI. - Constitutional Constitutional: fatigue, lethargy, weakness, weight loss, no chills, no fever(s), no night sweats - EENT Eyes: no blurry vision, no change in vision Ears: no decreased hearing, no tinnitus Nose, mouth and throat: no epistaxis, no nasal congestion, no nasal discharge, no post-nasal drip, no sinus pain, no sinus pressure, no sore throat - Cardiovascular Cardiovascular ROS IM: dyspnea, dyspnea on exertion, lightheadedness, no chest pain, no diaphoresis, no edema, no irregular heart rhythm, no palpitations, no syncope - Respiratory Respiratory: dyspnea, no cough, no dyspnea on exertion, no wheezing, no chest congestion, no excessive phlegm production, no change in phlegm color - Gastrointestinal Gastrointestinal: constipation, melena, no abdominal pain, no change in bowel habits, no coffee ground emesis, no diarrhea, no hematemesis, no hematochezia, no nausea, no vomiting - Genitourinary Genitourinary: no dysuria, no flank pain, no hematuria, no urinary frequency, no urinary hesitancy - Musculoskeletal Musculoskeletal ROS IM: no arthralgias, no back pain, no numbness, no tingling - Integumentary Integumentary IM: no erythema, no new lesions, no unusual bruising, no jaundice - Neurological Neurological ROS: dizziness, weakness, no confusion, no focal weakness, no headache(s), no loss of vision, no numbness, no paresthesias, no tingling - Hematologic/Lymphatic Hematologic/Lymphatic: easy bleeding, easy bruising - Constitutional Vitals: Temp Pulse Resp BP Pulse Ox 98.5 F 87 20 138/68 96 12/21/18 12:40 12/21/18 12:40 12/21/18 12:40 12/21/18 12:40 12/21/18 12:40 General appearance: Present: cooperative, A&O X 3, pleasant, no acute distress, answers questions appropriately Exam: General: frail appearing elderly female in no acute distress Head: Normocephalic, atraumatic Eyes: PERRL, EOMI, conjunctiva pink, sclera anicteric Neck: Supple, trachea midline, no lymphadenopathy Lungs: Diffuse dry crackles. Nonlabored breathing. No wheezes, or rhonchi noted. Cardiac: RRR. +S1 +s2 No murmurs, clicks, or rubs noted. GI: Abdomen soft, nontender, nondistended. Normoactive bowel sounds Extremities: Warm, radial pulses palpable and symmetrical. No cyanosis, pedal edema, or calf tenderness. Neuro: Alert and oriented 3. No focal deficits. Normal speech. Skin: Warm, dry, and intact. Internal Med - H&P Results - Labs CBC & Chem 7: 12/21/18 14:36 12/21/18 14:36 Labs: Short CBC 12/21/18 Range/Units 14:36 WBC 5.0 (4.3-11.1) K/mcL Hgb 9.7 L (11.5-15.4) g/dL Hct 30.1 L (35.3-44.9) % Plt Count 242 (140-400) K/mcL Neutrophils # 2.9 (1.6-8.9) K/mcL BMP 12/21/18 14:36 Sodium 137 Potassium 3.9 Chloride 98 Carbon Dioxide 28 BUN 19 Creatinine 0.87 Glucose 83 Calcium 9.1 Cardiac Enzymes 12/21/18 Range/Units 14:36 Troponin I < 0.03 (< 0.04) ng/mL Liver Function 12/21/18 Range/Units 14:36 Total Bilirubin 0.5 (0.3-1.0) mg/dL AST 30 (13-39) Units/L ALT 26 (7-52) Units/L Alkaline Phosphatase 74 (34-104) Units/L Albumin 3.5 (3.5-5.7) g/dL Urine 12/21/18 Range/Units 14:02 Urine Color Yellow (Yellow) Urine Clarity Clear (Clear) Urine pH 7.0 (5.0-8.0) pH Units Ur Specific [place] 1.013 (1.010-1.025) Urine Protein Negative (Neg-Trace) mg/dL Urine Glucose (UA) Normal (Normal) mg/dL - Impressions ITS Impressions Chest X-Ray 12/21/18 13:39 IMPRESSION: COPD without acute process. D/ / 12/21/2018 13:54:51 Timothy Medrano MD / [facility] Interpreting Provider: Timothy Medrano MD - Assessment and plan (1) GI bleed Current Visit: Yes Status: Suspected Assessment and plan: Suspected GIB with reported positive fecal hemoccult from [facility] Pt saw Dr. Silva as outpatient this AM who told pt he would scope her on Friday Hgb low at 9.7, records show Hgb of 9.2 yesterday This anemia appears grossly stable dating back to early November 2018 [facility]D Repeat H&H at 20:00 and in AM Pt has already been typed and crossed Obtain stool hemoccult Hold home Eliquis at this time, but continue ASA with significant cardiac hx and risk Dr. Silva is aware of admission Qualifiers: GI bleed type/associated pathology: unspecified gastrointestinal hemorrhage type Qualified Code(s): K92.2 - Gastrointestinal hemorrhage, unspecified (2) CAD (coronary artery disease) Current Visit: Yes Status: Chronic Assessment and plan: In the past 2 months pt has had multiple LHCs with significant CAD Continue home ASA with this high risk Continue BB and statin Qualifiers: Coronary Disease-Associated Artery/Lesion type: [place] artery [place] vs. transplanted heart: [place] heart Associated angina: without angina Qualified Code(s): I25.10 - Atherosclerotic heart disease of [place] coronary artery without angina pectoris (3) HTN (hypertension) Current Visit: Yes Status: Chronic Assessment and plan: Most recent BP 138/68 Continue home amlodipine and metoprolol Qualifiers: Hypertension type: essential hypertension Qualified Code(s): I10 - Essential (primary) hypertension (4) HLD (hyperlipidemia) Current Visit: Yes Status: Chronic Assessment and plan: Continue home statin Qualifiers: Hyperlipidemia type: mixed hyperlipidemia Qualified Code(s): E78.2 - Mixed hyperlipidemia (5) CHF (congestive heart failure) Current Visit: Yes Status: Chronic Assessment and plan: Not in acute exacerbation Most recent echo 11/26/18: - LVEF 50-55% - Atypical septal motion consistent with postop status Gentle IV fluid hydration with history of CHF since patient is hypovolemic. Hold home Lasix and potassium at this time Qualifiers: Heart failure type: diastolic Heart failure chronicity: chronic Qualified Code(s): I50.32 - Chronic diastolic (congestive) heart failure (6) DVT (deep venous thrombosis) Current Visit: No Status: Chronic Assessment and plan: Hx of DVT in lower extremity On eliquis BID at home No calf swelling or tenderness on exam Hold eliquis with acute anemia and suspected GI bleed Qualifiers: DVT location: lower extremity Affected thrombotic vein of extremity: unspecified vein of extremity Chronicity: acute Laterality: right Qualified Code(s): I82.401 - Acute embolism and thrombosis of unspecified deep veins of right lower extremity (7) Weakness Current Visit: Yes Status: Acute Assessment and plan: Likely related to acute anemia 2/2 suspected GIB PT/OT Appears hypovolemic Gentle IV fluid hydration, but monitor closely with hx of CHF (8) DVT prophylaxis Current Visit: Yes Status: Acute Assessment and plan: Hold home eliquis at this time EPCDs - Time Spent With Patient Total time spent is greater than 50% in coordination of care (as documented) at patient's floor/unit and/or counseling patient: <Lonnie Mandel - Last Filed: 12/23/18 08:02> Date of Encounter: 12/23/18 Internal Medicine - H&P: HPI History of present illness: Ms. Fabian is a 78 year old female All Systems PM: A 10-system review of systems was performed and is negative for pertinent findings except as documented above in the HPI. - Constitutional Vitals: Temp Pulse Resp BP Pulse Ox 97.9 F 88 17 159/72 100 12/23/18 07:11 12/23/18 07:11 12/23/18 07:11 12/23/18 07:11 12/23/18 07:11 Internal Med - H&P Results - Labs CBC & Chem 7: 12/23/18 06:39 12/23/18 06:39 Labs: Short CBC 12/22/18 12/23/18 Range/Units 07:46 06:39 WBC 4.0 L 4.4 (4.3-11.1) K/mcL Hgb 9.1 L 10.3 L (11.5-15.4) g/dL Hct 29.0 L 32.6 L (35.3-44.9) % Plt Count 240 212 (140-400) K/mcL Neutrophils # 2.2 2.6 (1.6-8.9) K/mcL BMP 12/22/18 12/23/18 07:46 06:39 Sodium 136 138 Potassium 4.0 3.6 Chloride 101 102 Carbon Dioxide 30 H 28 BUN 15 9 Creatinine 0.68 0.63 Glucose 81 104 Calcium 9.1 9.0 - Impressions ITS Impressions Chest X-Ray 12/21/18 13:39 IMPRESSION: COPD without acute process. D/ / 12/21/2018 13:54:51 Timothy Medrano MD / [facility] Interpreting Provider: Timothy Medrano MD - Assessment and plan (1) CAD (coronary artery disease) Current Visit: Yes Status: Chronic Qualifiers: Coronary Disease-Associated Artery/Lesion type: [place] artery [place] vs. transplanted heart: [place] heart Associated angina: without angina Qualified Code(s): I25.10 - Atherosclerotic heart disease of [place] coronary artery without angina pectoris (2) HTN (hypertension) Current Visit: Yes Status: Chronic Qualifiers: Hypertension type: essential hypertension Qualified Code(s): I10 - Essential (primary) hypertension (3) HLD (hyperlipidemia) Current Visit: Yes Status: Chronic Qualifiers: Hyperlipidemia type: mixed hyperlipidemia Qualified Code(s): E78.2 - Mixed hyperlipidemia (4) DVT (deep venous thrombosis) Current Visit: No Status: Chronic Qualifiers: DVT location: lower extremity Affected thrombotic vein of extremity: unspecified vein of extremity Chronicity: acute Laterality: right Qualif ied Code(s): I82.401 - Acute embolism and thrombosis of unspecified deep veins of right lower extremity (5) CHF (congestive heart failure) Current Visit: Yes Status: Chronic Qualifiers: Heart failure type: diastolic Heart failure chronicity: chronic Qualified Code(s): I50.32 - Chronic diastolic (congestive) heart failure (6) GI bleed Current Visit: Yes Status: Suspected Qualifiers: GI bleed type/associated pathology: unspecified gastrointestinal hemorrhage type Qualified Code(s): K92.2 - Gastrointestinal hemorrhage, unspecified (7) Weakness Current Visit: Yes Status: Acute - Time Spent With Patient Total time spent is greater than 50% in coordination of care (as documented) at patient's floor/unit and/or counseling patient: - Attending Attestation I examined this patient and my medical decision-making was reviewed with the Resident Physician. I agree with the documented findings, disposition and treatment plan as described except to the extent set forth below.
[2018-12-21] MEDS ORDERED: Naloxone 0.4 MG/ML INJ IVP PRN (17:17)
[2018-12-21] MEDS ORDERED: Albuterol 2.5 MG/3 ML NEBULIZER IH PRN (17:28)
[2018-12-21] MEDS ORDERED: Pantoprazole 40 MG VIAL IVP SCH (18:00)
[2018-12-21] MEDS ORDERED: Ringers Solution, Lactated 1,000 ML IVC SCH (18:15)
[2018-12-21] MEDS: Pantoprazole 40 MG VIAL IVP SCH (20:49)
[2018-12-21] MEDS: Ranolazine 500 MG TAB.ER.12H PO SCH (20:50)
[2018-12-21 21:08] LABS: Hematocrit 28.5 % (35.3-44.9); Hemoglobin 9.2 g/dL (11.5-15.4)
[2018-12-21] MEDS ORDERED: Ringers Solution, Lactated 500 ML IVC SCH (23:07)
[2018-12-22] MEDS: Pantoprazole 40 MG VIAL IVP SCH ×2 (05:46→19:00)
[2018-12-22] MEDS: Levothyroxine 25 MCG TABLET PO SCH (05:46)
[2018-12-22 08:19] LABS: Basophils % 0.5 %; Eosinophils # 0.3 K/mcL (0.0-0.6); Eosinophils % 6.5 %; Hemoglobin 9.1 g/dL (11.5-15.4); Immature Granulocytes % 0.5 % (0-4); Lymphocytes # 0.9 K/mcL (0.6-4.6); Mean Corpuscular HGB Conc 31.4 g/dL (31.6-35.5); Mean Corpuscular Hemoglobin 30.7 pg (28.0-33.3); Mean Platelet Volume 9.5 fL (9.4-12.4); Monocytes # 0.6 K/mcL (0.0-1.3); Monocytes % 14.8 %; Neutrophils # 2.2 K/mcL (1.6-8.9); Platelet Count 240 K/mcL (140-400); Red Blood Count 2.96 M/mcL (3.82-4.97); Red Cell Distribution Width 16.3 % (11.5-14.5); Segmented Neutrophils % 54.7 %
[2018-12-22 08:27] LABS: INR 1.3; Prothrombin Time 14.8 Seconds (9.4-12.1)
[2018-12-22 08:39] LABS: BUN/Creatinine Ratio 22 (6-26); Blood Urea Nitrogen 15 mg/dL (8-23); Calcium 9.1 mg/dL (8.6-10.3); Carbon Dioxide 30 mEq/L (23-29); Chloride 101 mEq/L (98-107); Glucose 81 mg/dL (70-105); Osmolality,Calculated 282 (280-300); Sodium 136 mEq/L (136-145); eGFR For Non-African Americans > 60 (> 60)
--- NOTE | 2018-12-22 08:40 | Internal Med Progress Note ---
<Lucian Pugh - Last Filed: 12/22/18 17:44> Hospitalist Progress Note - Encounter Date of Encounter: 12/22/18 Time of Encounter: 10:25 - Subjective Interval History: Ms. Fabian is a 78 year old female with PMH of HTN, HLD, CAD, DVT on eliquis, CHF, and COPD. She originally presented to [facility] ED on 12/21/18 after being evaluated by Dr. Silva in outpatient office for GIB. She has a hx of recurrent GIB with multiple admissions since September 2018. She was most recently seen prior to this admission in the [facility] ED on 12/20 and was found to have Hgb 9.2 and positive stool hemoccult. In [facility] ED she was found to have Hgb of 9.7. C/o shortness of breath, fatigue, dizziness, and weakness. Pt seen and examined at bedside today. Pt states she feels much better than yesterday. States she had 1 bowel movement overnight which was dark brown. States her shortness of breath has improved, and she was up and moving with physical therapy prior to this encounter. Denies any fever, chills, chest pain, abdominal pain, nausea, emesis, or diarrhea. No new numbness, tingling, or headaches. - Exam Vitals: Temp Pulse Resp BP Pulse Ox 97.9 F 76 16 138/71 97 12/22/18 06:47 12/22/18 06:47 12/22/18 06:47 12/22/18 06:47 12/22/18 06:47 Exam: General: frail appearing elderly female in no acute distress Head: Normocephalic, atraumatic Eyes: PERRL, EOMI, conjunctiva pink, sclera anicteric Neck: Supple, trachea midline, no lymphadenopathy Lungs: Diffuse dry crackles. Nonlabored breathing. No wheezes, or rhonchi noted. Cardiac: RRR. +S1 +s2 No murmurs, clicks, or rubs noted. GI: Abdomen soft, nontender, nondistended. Normoactive bowel sounds Extremities: Warm, radial pulses palpable and symmetrical. No cyanosis, pedal edema, or calf tenderness. Neuro: Alert and oriented 3. No focal deficits. Normal speech. Skin: Warm, dry, and intact. - Assessment and Plan (1) GI bleed Current Visit: Yes Status: Suspected Assessment and Plan: Suspected GIB with reported positive fecal hemoccult from [facility] Pt saw Dr. Silva as outpatient this AM who told pt he would scope her on Friday Hgb low at 9.7 on admission, subsequently stabilized at 9.2 and 9.1 This anemia appears grossly stable dating back to early November 2018 [facility]D but NPO at midnight Follow Hgb in AM Hold home Eliquis at this time, but continue ASA with significant cardiac hx and risk To have endoscopy in AM with Dr. Silva, bowel prep per surgery (2) CAD (coronary artery disease) Current Visit: Yes Status: Chronic Assessment and Plan: In the past 2 months pt has had multiple LHCs with significant CAD Continue home ASA with this high risk Continue BB and statin (3) HTN (hypertension) Current Visit: Yes Status: Chronic Assessment and Plan: Most recent BP 130/76 Continue home amlodipine and metoprolol (4) HLD (hyperlipidemia) Current Visit: Yes Status: Chronic Assessment and Plan: Continue home statin (5) CHF (congestive heart failure) Current Visit: Yes Status: Chronic Assessment and Plan: Not in acute exacerbation Most recent echo 11/26/18: - LVEF 50-55% - Atypical septal motion consistent with postop status Caution with IV fluid hydration with history of CHF Hold home Lasix and potassium at this time (6) DVT (deep venous thrombosis) Current Visit: No Status: Chronic Assessment and Plan: Hx of DVT in lower extremity On eliquis BID at home No calf swelling or tenderness on exam Hold eliquis with acute anemia and suspected GI bleed (7) Weakness Current Visit: Yes Status: Acute Assessment and Plan: Likely related to acute anemia 2/2 suspected GIB PT/OT Received 275mL LR yesterday Improved today DVT Prophylaxis: Hold home eliquis at this time EPCDs - Time Spent with Patient Total time spent is greater than 50% in coordination of care (as documented) at patient's floor/unit and/or counseling patient: Internal Medicine: Result - Labs CBC & Chem 7: 12/22/18 07:46 12/22/18 07:46 Labs: Short CBC 12/21/18 12/21/18 12/22/18 Range/Units 14:36 20:41 07:46 WBC 5.0 4.0 L (4.3-11.1) K/mcL Hgb 9.7 L 9.2 L 9.1 L (11.5-15.4) g/dL Hct 30.1 L 28.5 L 29.0 L (35.3-44.9) % Plt Count 242 240 (140-400) K/mcL Neutrophils # 2.9 2.2 (1.6-8.9) K/mcL BMP 12/21/18 12/22/18 14:36 07:46 Sodium 137 136 Potassium 3.9 4.0 Chloride 98 101 Carbon Dioxide 28 30 H BUN 19 15 Creatinine 0.87 0.68 Glucose 83 81 Calcium 9.1 9.1 Cardiac Enzymes 12/21/18 Range/Units 14:36 Troponin I < 0.03 (< 0.04) ng/mL Liver Function 12/21/18 Range/Units 14:36 Total Bilirubin 0.5 (0.3-1.0) mg/dL AST 30 (13-39) Units/L ALT 26 (7-52) Units/L Alkaline Phosphatase 74 (34-104) Units/L Albumin 3.5 (3.5-5.7) g/dL Urine 12/21/18 Range/Units 14:02 Urine Color Yellow (Yellow) Urine Clarity Clear (Clear) Urine pH 7.0 (5.0-8.0) pH Units Ur Specific [place] 1.013 (1.010-1.025) Urine Protein Negative (Neg-Trace) mg/dL Urine Glucose (UA) Normal (Normal) mg/dL - ABG Interpretation ABG results: PT/INR, D-dimer PT 14.8 Seconds (9.4-12.1) H 12/22/18 07:46 - Impressions Impressions Chest X-Ray 12/21/18 13:39 IMPRESSION: COPD without acute process. D/ / 12/21/2018 13:54:51 Timothy Medrano MD / [facility] Interpreting Provider: Timothy Medrano MD Consult Discharge Plan - Plan Referrals: Laxmi Noonan APN [Primary Care Provider] - <Lonnie Mandel - Last Filed: 12/23/18 08:03> Hospitalist Progress Note - Encounter Date of Encounter: 12/23/18 - Exam Vitals: Temp Pulse Resp BP Pulse Ox 97.9 F 88 17 159/72 100 12/23/18 07:11 12/23/18 07:11 12/23/18 07:11 12/23/18 07:11 12/23/18 07:11 - Assessment and Plan (1) CAD (coronary artery disease) Current Visit: Yes Status: Chronic (2) HTN (hypertension) Current Visit: Yes Status: Chronic (3) HLD (hyperlipidemia) Current Visit: Yes Status: Chronic (4) DVT (deep venous thrombosis) Current Visit: No Status: Chronic (5) CHF (congestive heart failure) Current Visit: Yes Status: Chronic (6) GI bleed Current Visit: Yes Status: Suspected (7) Weakness Current Visit: Yes Status: Acute - Time Spent with Patient Total time spent is greater than 50% in coordination of care (as documented) at patient's floor/unit and/or counseling patient: Internal Medicine: Result - Labs CBC & Chem 7: 12/23/18 06:39 12/23/18 06:39 Labs: Short CBC 12/22/18 12/23/18 Range/Units 07:46 06:39 WBC 4.0 L 4.4 (4.3-11.1) K/mcL Hgb 9.1 L 10.3 L (11.5-15.4) g/dL Hct 29.0 L 32.6 L (35.3-44.9) % Plt Count 240 212 (140-400) K/mcL Neutrophils # 2.2 2.6 (1.6-8.9) K/mcL BMP 12/22/18 12/23/18 07:46 06:39 Sodium 136 138 Potassium 4.0 3.6 Chloride 101 102 Carbon Dioxide 30 H 28 BUN 15 9 Creatinine 0.68 0.63 Glucose 81 104 Calcium 9.1 9.0 - ABG Interpretation ABG results: PT/INR, D-dimer PT 14.8 Seconds (9.4-12.1) H 12/22/18 07:46 - Attending Attestation I examined this patient and my medical decision-making was reviewed with the Resident Physician. I agree with the documented findings, disposition and treatment plan as described except to the extent set forth below. <Lucian Pugh - Last Filed: 12/22/18 17:44> (1) GI bleed Qualifiers: GI bleed type/associated pathology: unspecified gastrointestinal hemorrhage type Qualified Code(s): K92.2 - Gastrointestinal hemorrhage, unspecified (2) CAD (coronary artery disease) Qualifiers: Coronary Disease-Associated Artery/Lesion type: [place] artery [place] vs. transplanted heart: [place] heart Associated angina: without angina Qualified Code(s): I25.10 - Atherosclerotic heart disease of [place] coronary artery without angina pectoris (3) HTN (hypertension) Qualifiers: Hypertension type: essential hypertension Qualified Code(s): I10 - Essential (primary) hypertension (4) HLD (hyperlipidemia) Qualifiers: Hyperlipidemia type: mixed hyperlipidemia Qualified Code(s): E78.2 - Mixed hyperlipidemia (5) CHF (congestive heart failure) Qualifiers: Heart failure type: diastolic Heart failure chronicity: chronic Qualified Code(s): I50.32 - Chronic diastolic (congestive) heart failure (6) DVT (deep venous thrombosis) Qualifiers: DVT location: lower extremity Affected thrombotic vein of extremity: unspecified vein of extremity Chronicity: acute Laterality: right Qualified Code(s): I82.401 - Acute embolism and thrombosis of unspecified deep veins of right lower extremity <Lonnie Mandel - Last Filed: 12/23/18 08:03> (1) CAD (coronary artery disease) Qualifiers: Coronary Disease-Associated Artery/Lesion type: [place] artery [place] vs. transplanted heart: [place] heart Associated angina: without angina Qualified Code(s): I25.10 - Atherosclerotic heart disease of [place] coronary artery without angina pectoris (2) HTN (hypertension) Qualifiers: Hypertension type: essential hypertension Qualified Code(s): I10 - Essential (primary) hypertension (3) HLD (hyperlipidemia) Qualifiers: Hyperlipidemia type: mixed hyperlipidemia Qualified Code(s): E78.2 - Mixed hyperlipidemia (4) DVT (deep venous thrombosis) Qualifiers: DVT location: lower extremity Affected thrombotic vein of extremity: unspecified vein of extremity Chronicity: acute Laterality: right Qualified Code(s): I82.401 - Acute embolism and thrombosis of unspecified deep veins of right lower extremity (5) CHF (congestive heart failure) Qualifiers: Heart failure type: diastolic Heart failure chronicity: chronic Qualified Code(s): I50.32 - Chronic diastolic (congestive) heart failure (6) GI bleed Qualifiers: GI bleed type/associated pathology: unspecified gastrointestinal hemorrhage type Qualified Code(s): K92.2 - Gastrointestinal hemorrhage, unspecified
[2018-12-22] MEDS ORDERED: Aspirin 81 MG TAB.CHEW PO SCH (09:00)
[2018-12-22] MEDS ORDERED: Furosemide 20 MG TABLET PO SCH (09:00)
[2018-12-22] MEDS: Isosorbide MONOnitrate (24 HR) 60 MG TAB.ER.24H PO SCH (10:49)
[2018-12-22] MEDS: amLODIPine 5 MG TABLET PO SCH (10:49)
[2018-12-22] MEDS: Ranolazine 500 MG TAB.ER.12H PO SCH ×2 (10:49→20:50)
[2018-12-22] MEDS: Aspirin 81 MG TAB.CHEW PO SCH (10:49)
--- NOTE | 2018-12-22 14:01 | General Surgery Consult Note ---
Date of Encounter: 12/22/18 Time of Encounter: 13:58 Assessment and Plan (1) Acute blood loss anemia Current Visit: Yes Status: Ruled-out 78F with LGIB; currently HDS, h/h stable at present; CLD today; NPO at midnight bowel prep today trend h/h plan for colonoscopy on 12/23 History of Present Illness Consult date: 12/22/18 Reason for consult: other (lower GI bleed) History of present illness: 78F well known to me as I took part in her care for a LGIB. She presented to my office on 12/21 with hemodynamic changes (dizziness, lightheadedness, weakness), dark tarry stool, and recent (over the course of 3 weeks) 3 gram drop in her hgb. Her last colonoscopy, which was performed by me in Sep 2018 demonstrated several bleeding lesions in the setting of what appeared to be mucosal ulcerations. All bleeding was controlled with the hemospray. Due to her recent symptoms and history given to me in clinic, the decision was made for evaluation through the ED for admission. Past Med Surg Social Fam HX - Past Medical History Medical history: asthma, COPD, coronary artery disease, hyperlipidemia, hypertension, myocardial infarction, renal disease Psychiatric history: no psych history - Past Surgical History Surgical History: coronary bypass (CABG) Additional surgical history: stent in descending aorta. stent in neck - Social History Smoking Status: Former smoker Smokeless Tobacco Status: No Alcohol use: none Drug use: none - Family History Mother Living Status: Hx Family Cardiac Disorders: Yes (heart disease, stroke) Hx Family Neurologic Disorders: Yes (Stoke) Father Living Status: Hx Family Cancer: Yes (Prostate) Medications and Allergies Atorvastatin Calcium [Lipitor] 80 mg PO QPM 09/16/18 [History] Furosemide [Lasix] 20 mg PO QAM 09/16/18 [History] Levothyroxine [Synthroid] 25 mcg PO 0630 09/16/18 [History] Nitroglycerin 0.4 mg PO AD PRN MDD 3 SPRAYS/15MINS CALL 911 09/16/18 [History] Potassium Chloride 10 meq PO QAM 09/16/18 [History] Ranolazine [Ranexa] 1,000 mg PO BID 09/16/18 [History] Vit C/E/Zn/Coppr/Lutein/Zeaxan [Preservision Areds 2 Softgel] 1 cap PO DAILY 09/16/18 [History] Albuterol Neb [Proventil Neb] 2.5 mg IH TID 10/08/18 [History] Amitriptyline HCl 75 mg PO DAILY 10/08/18 [History] Apixaban [Eliquis] 5 mg PO BID 10/08/18 [History] Omeprazole [PriLOSEC] 40 mg PO DAILY@0800 #30 capsule.dr 10/13/18 [Rx] Albuterol Sulfate [Ventolin Hfa] 2 puff IH Q4H PRN #0 10/21/18 [Rx] Isosorbide MONOnitrate [Isosorbide Mononitrate ER] 120 mg PO QAM 11/24/18 [History] amLODIPine [Norvasc] 5 mg PO QAM 11/24/18 [History] clonazePAM [Klonopin] 0.25 mg PO HS 11/24/18 [History] Aspirin 81 mg PO DAILY #30 tab.chew 11/28/18 [Rx] Aclidinium [place] [Tudorza Pressair] 1 puff IH DAILY 11/30/18 [History] Metoprolol Succinate [Toprol Xl] 12.5 mg PO DAILY 12/22/18 [History] Allergy/AdvReac Type Severity Reaction Status Date / Time guaifenesin [From Hytuss] Allergy See Verified 12/20/18 17:19 Comments nabumetone [From Relafen] Allergy See Verified 12/20/18 17:19 Comments pentazocine [From Talwin] Allergy See Verified 12/20/18 17:19 Comments propoxyphene Allergy See Verified 12/20/18 17:19 Comments Sulindac [From Clinoril] Allergy See Verified 12/20/18 17:19 Comments prednisone AdvReac Mild Shaky Verified 12/20/18 17:19 Benzonatate AdvReac Confusion Verified 12/20/18 17:19 carbamazepine AdvReac Chest Pain Verified 12/20/18 17:19 codeine AdvReac See Verified 12/20/18 17:19 Comments etodolac AdvReac Chest Pain Verified 12/20/18 17:19 hydrocodone AdvReac Chest Pain Verified 12/20/18 17:19 Iodinated Contrast- Oral and AdvReac Chest Pain Verified 12/20/18 17:19 IV Dye [Iodinated Contrast Media - IV Dye] levofloxacin AdvReac Chest Pain Verified 12/20/18 17:19 NSAIDS (Non-Steroidal AdvReac Chest Pain Verified 12/20/18 17:19 Anti-Inflamma Penicillins [PCN] AdvReac Chest Pain Verified 12/20/18 17:19 pregabalin [From Lyrica] AdvReac Numbness Verified 12/20/18 17:19 pseudoephedrine AdvReac Chest Pain Verified 12/20/18 17:19 Sulfa (Sulfonamide AdvReac Chest Pain Verified 12/20/18 17:19 Antibiotics) tetracycline [Tetracycline] AdvReac Chest Pain Verified 12/20/18 17:19 tolmetin AdvReac Chest Pain Verified 12/20/18 17:19 tramadol AdvReac Numbness Verified 12/20/18 17:19 Review of Systems All systems PM: 12 point ROS negative besides HPI findings General Surgery Exam Initial Vital Signs Temp Pulse Resp BP Pulse Ox 98.5 F 87 20 138/68 96 12/21/18 12:40 12/21/18 12:40 12/21/18 12:40 12/21/18 12:40 12/21/18 12:40 - General physical appearance no distress - Eyes normal ocular movement - ENT normocephalic - Neck trachea midline, no lymphadectomy - Respiratory normal expansion, normal respiratory effort - Cardiovascular Cardiovascular exam: Present: RRR - Abdomen Abdomen general surgery: Present: soft, non tender - Integumentary Integumentary general surgery: Present: warm and dry - Neurologic Present: CN 2-12 grossly intact - Musculoskeletal Present: normal posture - Psychiatric Psychiatric general surgery: Present: A&Ox3 Exam Initial Vital Signs Temp Pulse Resp BP Pulse Ox 98.5 F 87 20 138/68 96 12/21/18 12:40 12/21/18 12:40 12/21/18 12:40 12/21/18 12:40 12/21/18 12:40 Results - Labs 12/22/18 07:46 12/22/18 07:46 Abnormal lab results WBC 4.0 K/mcL (4.3-11.1) L 12/22/18 07:46 RBC 2.96 M/mcL (3.82-4.97) L 12/22/18 07:46 Hgb 9.1 g/dL (11.5-15.4) L 12/22/18 07:46 Hct 29.0 % (35.3-44.9) L 12/22/18 07:46 MCHC 31.4 g/dL (31.6-35.5) L 12/22/18 07:46 RDW 16.3 % (11.5-14.5) H 12/22/18 07:46 PT 14.8 Seconds (9.4-12.1) H 12/22/18 07:46 Carbon Dioxide 30 mEq/L (23-29) H 12/22/18 07:46 Albumin/Globulin Ratio 1.0 (1.1-2.2) L 12/21/18 14:36 Diabetes panel 12/21/18 12/22/18 Range/Units 14:36 07:46 Sodium 137 136 (136-145) mEq/L Potassium 3.9 4.0 (3.5-5.1) mEq/L Chloride 98 101 (98-107) mEq/L Carbon Dioxide 28 30 H (23-29) mEq/L BUN 19 15 (8-23) mg/dL Creatinine 0.87 0.68 (0.60-1.20) mg/dL Glucose 83 81 (70-105) mg/dL Calcium 9.1 9.1 (8.6-10.3) mg/dL AST 30 (13-39) Units/L ALT 26 (7-52) Units/L Alkaline Phosphatase 74 (34-104) Units/L Albumin 3.5 (3.5-5.7) g/dL Calcium panel 12/21/18 12/22/18 Range/Units 14:36 07:46 Calcium 9.1 9.1 (8.6-10.3) mg/dL Albumin 3.5 (3.5-5.7) g/dL Pituitary panel 12/21/18 12/22/18 Range/Units 14:36 07:46 Sodium 137 136 (136-145) mEq/L Potassium 3.9 4.0 (3.5-5.1) mEq/L Chloride 98 101 (98-107) mEq/L Carbon Dioxide 28 30 H (23-29) mEq/L BUN 19 15 (8-23) mg/dL Creatinine 0.87 0.68 (0.60-1.20) mg/dL Glucose 83 81 (70-105) mg/dL Calcium 9.1 9.1 (8.6-10.3) mg/dL Adrenal panel 12/21/18 12/22/18 Range/Units 14:36 07:46 Sodium 137 136 (136-145) mEq/L Potassium 3.9 4.0 (3.5-5.1) mEq/L Chloride 98 101 (98-107) mEq/L Carbon Dioxide 28 30 H (23-29) mEq/L BUN 19 15 (8-23) mg/dL Creatinine 0.87 0.68 (0.60-1.20) mg/dL Glucose 83 81 (70-105) mg/dL Calcium 9.1 9.1 (8.6-10.3) mg/dL Total Bilirubin 0.5 (0.3-1.0) mg/dL AST 30 (13-39) Units/L ALT 26 (7-52) Units/L Alkaline Phosphatase 74 (34-104) Units/L Albumin 3.5 (3.5-5.7) g/dL All other labs normal. Consult Discharge Plan - Plan Referrals: Laxmi Noonan APN [Primary Care Provider] -
[2018-12-23] MEDS: Pantoprazole 40 MG VIAL IVP SCH ×2 (06:12→17:07)
[2018-12-23] MEDS: Levothyroxine 25 MCG TABLET PO SCH (06:14)
[2018-12-23 07:24] LABS: Basophils % 0.5 %; Eosinophils # 0.3 K/mcL (0.0-0.6); Eosinophils % 6.2 %; Hematocrit 32.6 % (35.3-44.9); Hemoglobin 10.3 g/dL (11.5-15.4); Immature Granulocytes % 0.2 % (0-4); Lymphocytes # 0.8 K/mcL (0.6-4.6); Lymphocytes % 19.3 %; Mean Corpuscular HGB Conc 31.6 g/dL (31.6-35.5); Mean Corpuscular Hemoglobin 30.7 pg (28.0-33.3); Mean Corpuscular Volume 97.3 fL (83.0-100.0); Mean Platelet Volume 9.4 fL (9.4-12.4); Monocytes # 0.6 K/mcL (0.0-1.3); Monocytes % 13.3 %; Neutrophils # 2.6 K/mcL (1.6-8.9); Platelet Count 212 K/mcL (140-400); Red Blood Count 3.35 M/mcL (3.82-4.97); Red Cell Distribution Width 16.1 % (11.5-14.5); Segmented Neutrophils % 60.5 %
[2018-12-23 07:27] LABS: BUN/Creatinine Ratio 14 (6-26); Blood Urea Nitrogen 9 mg/dL (8-23); Carbon Dioxide 28 mEq/L (23-29); Chloride 102 mEq/L (98-107); Glucose 104 mg/dL (70-105); Osmolality,Calculated 285 (280-300); Potassium 3.6 mEq/L (3.5-5.1); Sodium 138 mEq/L (136-145); eGFR For Non-African Americans > 60 (> 60)
--- NOTE | 2018-12-23 08:20 | Anesthesia Evaluation PreOp ---
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, TIA (11-03) Other Medical History: Other (acute GI bleed) Anesthesia History: No Prior Anesthetic Complications, Past Anesthesia (CABG, left CEA, C-scope 10-04) Alcohol Use: none Drug use: none Medications and Allergies Atorvastatin Calcium [Lipitor] 80 mg PO QPM 09/16/18 [History] Furosemide [Lasix] 20 mg PO QAM 09/16/18 [History] Levothyroxine [Synthroid] 25 mcg PO 0630 09/16/18 [History] Nitroglycerin 0.4 mg PO AD PRN MDD 3 SPRAYS/15MINS CALL 911 09/16/18 [History] Potassium Chloride 10 meq PO QAM 09/16/18 [History] Ranolazine [Ranexa] 1,000 mg PO BID 09/16/18 [History] Vit C/E/Zn/Coppr/Lutein/Zeaxan [Preservision Areds 2 Softgel] 1 cap PO DAILY 09/16/18 [History] Albuterol Neb [Proventil Neb] 2.5 mg IH TID 10/08/18 [History] Apixaban [Eliquis] 5 mg PO BID 10/08/18 [History] Omeprazole [PriLOSEC] 40 mg PO DAILY@0800 #30 capsule.dr 10/13/18 [Rx] Albuterol Sulfate [Ventolin Hfa] 2 puff IH Q4H PRN #0 10/21/18 [Rx] amLODIPine [Norvasc] 5 mg PO QAM 11/24/18 [History] clonazePAM [Klonopin] 0.25 mg PO HS 11/24/18 [History] Aspirin 81 mg PO DAILY #30 tab.chew 11/28/18 [Rx] Amitriptyline [Elavil] 75 mg PO HS 12/22/18 [History] Isosorbide MONOnitrate [Isosorbide Mononitrate ER] 120 mg PO DAILY 12/22/18 [History] Metoprolol Succinate [Toprol Xl] 12.5 mg PO DAILY 12/22/18 [History] Umeclidinium [place] [Incruse Ellipta] 1 puff IH DAILY 12/22/18 [History] Allergy/AdvReac Type Severity Reaction Status Date / Time guaifenesin [From Hytuss] Allergy See Verified 12/20/18 17:19 Comments nabumetone [From Relafen] Allergy See Verified 12/20/18 17:19 Comments pentazocine [From Talwin] Allergy See Verified 12/20/18 17:19 Comments propoxyphene Allergy See Verified 12/20/18 17:19 Comments Sulindac [From Clinoril] Allergy See Verified 12/20/18 17:19 Comments prednisone AdvReac Mild Shaky Verified 12/20/18 17:19 Benzonatate AdvReac Confusion Verified 12/20/18 17:19 carbamazepine AdvReac Chest Pain Verified 12/20/18 17:19 codeine AdvReac See Verified 12/20/18 17:19 Comments etodolac AdvReac Chest Pain Verified 12/20/18 17:19 hydrocodone AdvReac Chest Pain Verified 12/20/18 17:19 Iodinated Contrast- Oral and AdvReac Chest Pain Verified 12/20/18 17:19 IV Dye [Iodinated Contrast Media - IV Dye] levofloxacin AdvReac Chest Pain Verified 12/20/18 17:19 NSAIDS (Non-Steroidal AdvReac Chest Pain Verified 12/20/18 17:19 Anti-Inflamma Penicillins [PCN] AdvReac Chest Pain Verified 12/20/18 17:19 pregabalin [From Lyrica] AdvReac Numbness Verified 12/20/18 17:19 pseudoephedrine AdvReac Chest Pain Verified 12/20/18 17:19 Sulfa (Sulfonamide AdvReac Chest Pain Verified 12/20/18 17:19 Antibiotics) tetracycline [Tetracycline] AdvReac Chest Pain Verified 12/20/18 17:19 tolmetin AdvReac Chest Pain Verified 12/20/18 17:19 tramadol AdvReac Numbness Verified 12/20/18 17:19 - Meds/Allergy Pre-op Review Medications Reviewed: Yes Allergies Reviewed: Yes Beta Blockers on Current Med List: Yes If Beta Blockers taken, Date/Time (Last Dose taken): 2-5-19 at 1045 Anesthesia Results - Labs 12/23/18 06:39 12/23/18 06:39 - Imaging Additional studies: echo: Findings: Study Quality * Technically adequate exam. ECG Findings * Baseline artifact on tracing. Left Ventricle * LVEF 50-55%. * Normal LV chamber size, wall thickness and function. * Atypical septal motion consistent with post-operative status. Right Ventricle * Normal right ventricular structure and function. Aorta * Not well visualized. Pericardium * There is no pericardial effusion present. heart cath 11-27-18: Indications: Unstable Angina Worsening Angina Impressions: There is severe one vessel coronary artery disease. S/P CABG 0 of 3 patent bypass grafts. Recommendations: Optimal medical therapy of patient's disease. Aggressive risk factor modification Anesthesia Exam Selected Entries 12/23/18 07:11 Temperature 97.9 F Pulse Rate 88 Respiratory Rate 17 Blood Pressure 159/72 O2 Sat by Pulse Oximetry 100 Oxygen Flow Rate (LPM) 3 Oxygen Delivery Method Nasal Cannula Weight: 42 kg BMI 17 NPO (# of Hours): 8 - HEENT Pupil (Motor): EOMI Mallampati: II Teeth: Edentulous Oral Opening: Greater than 3 - POLL CLERK LOC: Oriented POLL CLERK Motor: Normal RUE, Normal LUE, Normal RLE, Normal LLE, Normal Face POLL CLERK Sensory: Normal: RUE, LUE, RLE, LLE, Face - Cardiac Rhythm: Regular Murmur: None - Pulmonary Breath Sounds: bilateral Clear Respiratory Effort: Symmetrical Anesthesia Assess/Plan ASA Score: 4 Level of consciousness: Cooperative, Oriented Anesthetic Plan: MAC Monitoring Plan: Standard Monitors Recovery Plan: Other (agrees to MAC)
[2018-12-23] MEDS: Aspirin 81 MG TAB.CHEW PO SCH (09:17)
[2018-12-23] MEDS: Isosorbide MONOnitrate (24 HR) 60 MG TAB.ER.24H PO SCH (09:17)
[2018-12-23] MEDS: Ranolazine 500 MG TAB.ER.12H PO SCH ×2 (09:17→20:30)
[2018-12-23] MEDS: amLODIPine 5 MG TABLET PO SCH (09:18)
--- NOTE | 2018-12-23 09:36 | Internal Med Progress Note ---
<Jay Subramanian - Last Filed: 12/23/18 13:35> Hospitalist Progress Note - Encounter Date of Encounter: 12/23/18 - Exam Vitals: Temp Pulse Resp BP Pulse Ox 97.7 F 85 15 105/55 100 12/23/18 10:53 12/23/18 10:53 12/23/18 10:53 12/23/18 10:53 12/23/18 10:53 - Assessment and Plan (1) CAD (coronary artery disease) Current Visit: Yes Status: Chronic (2) HTN (hypertension) Current Visit: Yes Status: Chronic (3) HLD (hyperlipidemia) Current Visit: Yes Status: Chronic (4) DVT (deep venous thrombosis) Current Visit: No Status: Chronic (5) CHF (congestive heart failure) Current Visit: Yes Status: Chronic (6) GI bleed Current Visit: Yes Status: Suspected (7) Weakness Current Visit: Yes Status: Acute (8) Severe protein-calorie malnutrition Current Visit: Yes Status: Acute - Time Spent with Patient Total time spent is greater than 50% in coordination of care (as documented) at patient's floor/unit and/or counseling patient: Internal Medicine: Result - Labs CBC & Chem 7: 12/23/18 06:39 12/23/18 06:39 Labs: Short CBC 12/23/18 Range/Units 06:39 WBC 4.4 (4.3-11.1) K/mcL Hgb 10.3 L (11.5-15.4) g/dL Hct 32.6 L (35.3-44.9) % Plt Count 212 (140-400) K/mcL Neutrophils # 2.6 (1.6-8.9) K/mcL BMP 12/23/18 06:39 Sodium 138 Potassium 3.6 Chloride 102 Carbon Dioxide 28 BUN 9 Creatinine 0.63 Glucose 104 Calcium 9.0 - ABG Interpretation ABG results: PT/INR, D-dimer PT 14.8 Seconds (9.4-12.1) H 12/22/18 07:46 Consult Discharge Plan - Plan Referrals: Laxmi Noonan APN [Primary Care Provider] - <Lucian Pugh - Last Filed: 12/23/18 16:40> Hospitalist Progress Note - Encounter Date of Encounter: 12/23/18 Time of Encounter: 09:15 - Subjective Interval History: Ms. Fabian is a 78 year old female with PMH of HTN, HLD, CAD, DVT on eliquis, CHF, and COPD. She originally presented to [facility] ED on 12/21/18 after being evaluated by Dr. Silva in outpatient office for GIB. She has a hx of recurrent GIB with multiple admissions since September 2018. She was most recently seen p rior to this admission in the [facility] ED on 12/20 and was found to have Hgb 9.2 and positive stool hemoccult. In [facility] ED she was found to have Hgb of 9.7. C/o shortness of breath, fatigue, dizziness, and weakness. Pt seen and examined at bedside today. Pt states she feels tired today. States she has had multiple bowel movements overnight with the bowel prep. States her shortness of breath remains the same from yesterday. Denies any fever, chills, chest pain, abdominal pain, nausea, emesis, numbness, tingling, or headaches. - Exam Vitals: Temp Pulse Resp BP Pulse Ox 97.9 F 88 17 159/72 100 12/23/18 07:11 12/23/18 07:11 12/23/18 07:11 12/23/18 07:11 12/23/18 07:11 Exam: General: frail appearing elderly female in no acute distress Head: Normocephalic, atraumatic Eyes: PERRL, EOMI, conjunctiva pink, sclera anicteric Neck: Supple, trachea midline, no lymphadenopathy Lungs: Diffuse dry crackles. Nonlabored breathing. No wheezes, or rhonchi noted. Cardiac: RRR. +S1 +s2 No murmurs, clicks, or rubs noted. GI: Abdomen soft, nontender, nondistended. Normoactive bowel sounds Extremities: Warm, radial pulses palpable and symmetrical. No cyanosis, pedal edema, or calf tenderness. Neuro: Alert and oriented 3. No focal deficits. Normal speech. Skin: Warm, dry, and intact. - Assessment and Plan (1) GI bleed Current Visit: Yes Status: Suspected Assessment and Plan: Suspected GIB with reported positive fecal hemoccult from [facility] ED Pt saw Dr. Silva as outpatient this AM who told pt he would scope her on Friday Hgb low at 9.7 on admission, subsequently stabilized at 9.2 and 9.1 This anemia appears grossly stable dating back to early November 2018 Currently finishing bowel prep at time of evaluation To have EGD and colonoscopy with Dr. Silva today Will follow for results (2) Weakness Current Visit: Yes Status: Acute Assessment and Plan: Likely related to acute anemia 2/2 suspected GIB PT/OT Received 275mL LR on admission Improved today Continue PT/OT (3) CAD (coronary artery disease) Current Visit: Yes Status: Chronic Assessment and Plan: In the past 2 months pt has had multiple LHCs with significant CAD Continue home ASA with this high risk Continue BB and statin (4) HTN (hypertension) Current Visit: Yes Status: Chronic Assessment and Plan: Most recent BP 159/72, BP reading prior to this was 120/62 Elevation this morning may be related to stress with bowel prep Continue home amlodipine and metoprolol (5) HLD (hyperlipidemia) Current Visit: Yes Status: Chronic Assessment and Plan: Continue home statin (6) CHF (congestive heart failure) Current Visit: Yes Status: Chronic Assessment and Plan: Not in acute exacerbation Most recent echo 11/26/18: - LVEF 50-55% - Atypical septal motion consistent with postop status Caution with IV fluid hydration with history of CHF Hold home Lasix and potassium at this time (7) DVT (deep venous thrombosis) Current Visit: No Status: Chronic Assessment and Plan: Hx of DVT in lower extremity On eliquis BID at home No calf swelling or tenderness on exam Hold eliquis with acute anemia and suspected GI bleed DVT Prophylaxis: Hold home eliquis at this time EPCDs - Time Spent with Patient Total time spent is greater than 50% in coordination of care (as documented) at patient's floor/unit and/or counseling patient: Internal Medicine: Result - Labs CBC & Chem 7: 12/23/18 06:39 12/23/18 06:39 Labs: Short CBC 12/23/18 Range/Units 06:39 WBC 4.4 (4.3-11.1) K/mcL Hgb 10.3 L (11.5-15.4) g/dL Hct 32.6 L (35.3-44.9) % Plt Count 212 (140-400) K/mcL Neutrophils # 2.6 (1.6-8.9) K/mcL BMP 12/23/18 06:39 Sodium 138 Potassium 3.6 Chloride 102 Carbon Dioxide 28 BUN 9 Creatinine 0.63 Glucose 104 Calcium 9.0 - ABG Interpretation ABG results: PT/INR, D-dimer PT 14.8 Seconds (9.4-12.1) H 12/22/18 07:46 <Jay Subramanian M - Last Filed: 12/23/18 13:35> (1) CAD (coronary artery disease) Qualifiers: Coronary Disease-Associated Artery/Lesion type: [place] artery [place] vs. transplanted heart: [place] heart Associated angina: without angina Qualified Code(s): I25.10 - Atherosclerotic heart disease of [place] coronary artery without angina pectoris (2) HTN (hypertension) Qualifiers: Hypertension type: essential hypertension Qualified Code(s): I10 - Essential (primary) hypertension (3) HLD (hyperlipidemia) Qualifiers: Hyperlipidemia type: mixed hyperlipidemia Qualified Code(s): E78.2 - Mixed hyperlipidemia (4) DVT (deep venous thrombosis) Qualifiers: DVT location: lower extremity Affected thrombotic vein of extremity: unspecified vein of extremity Chronicity: acute Laterality: right Qualified Code(s): I82.401 - Acute embolism and thrombosis of unspecified deep veins of right lower extremity (5) CHF (congestive heart failure) Qualifiers: Heart failure type: diastolic Heart failure chronicity: chronic Qualified Code(s): I50.32 - Chronic diastolic (congestive) heart failure (6) GI bleed Qualifiers: GI bleed type/associated pathology: unspecified gastrointestinal hemorrhage type Qualified Code(s): K92.2 - Gastrointestinal hemorrhage, unspecified <Lucian Pugh A - Last Filed: 12/23/18 16:40> (1) GI bleed Qualifiers: GI bleed type/associated pathology: unspecified gastrointestinal hemorrhage type Qualified Code(s): K92.2 - Gastrointestinal hemorrhage, unspecified (3) CAD (coronary artery disease) Qualifiers: Coronary Disease-Associated Artery/Lesion type: [place] artery [place] vs. transplanted heart: [place] heart Associated angina: without angina Qualified Code(s): I25.10 - Atherosclerotic heart disease of [place] coronary artery without angina pectoris (4) HTN (hypertension) Qualifiers: Hypertension type: essential hypertension Qualified Code(s): I10 - Essential (primary) hypertension (5) HLD (hyperlipidemia) Qualifiers: Hyperlipidemia type: mixed hyperlipidemia Qualified Code(s): E78.2 - Mixed hyperlipidemia (6) CHF (congestive heart failure) Qualifiers: Heart failure type: diastolic Heart failure chronicity: chronic Qualified Code(s): I50.32 - Chronic diastolic (congestive) heart failure (7) DVT (deep venous thrombosis) Qualifiers: DVT location: lower extremity Affected thrombotic vein of extremity: unspecified vein of extremity Chronicity: acute Laterality: right Qualified Code(s): I82.401 - Acute embolism and thrombosis of unspecified deep veins of right lower extremity
[2018-12-23] MEDS: Tiotropium 18 MCG inhalation IH SCH (09:45)
--- NOTE | 2018-12-23 12:29 | Event Note ---
Date of Encounter: 12/23/18 Time of Encounter: 12:27 Patient was seen and examined. I agree with the progress note as written by the resident physician. Patient with multiple comorbidities and is on Eliquis for DVT history. She comes in to be evaluated for GI bleed. Has had dark tarry stools. Hemoglobin initially was 9.2 and had a positive Hemoccult. Hemoglobin is up to 10.3 today. Surgery is following with plans for colonoscopy today. Otherwise she feels well. GEN: NAD CVS: RRR. S1, S2, No m/r/g RESP: CTAB ABD: Soft, NT, ND, +BS EXT: No edema. 2+ DP. No rashes NEURO: Nonfocal Plan for colonoscopy today. Stable H&H. IV PPI Hold anticoagulations for now. Continue home meds. SCDs
[2018-12-23] MEDS ORDERED: *HR* Propofol 200 MG/20 ML VIAL IVP ONE ×2 (13:47→13:48)
[2018-12-23] MEDS ORDERED: Lidocaine -MPF 2% 2 ML VIAL ONE (13:47)
--- NOTE | 2018-12-23 13:50 | Pre-Sedation Evaluation ---
Pre-sedation evaluation - Pre-sedation checklist Date of procedure: 12/23/18 Procedure: colonoscopy Recent Vitals: Last Vital Signs Temp 97.7 F 12/23/18 10:53 Pulse 85 12/23/18 10:53 Resp 15 12/23/18 10:53 BP 105/55 12/23/18 10:53 Pulse Ox 100 12/23/18 10:53 H&P (including ROS) documented in medical record: Yes Previous reaction to sedatives/anesthetics: Yes; explain in comment Dietary Status: NPO after Midnight Dentition: dentures removed ASA Classification *see protocol: CLASS IV-Severe systemic disease/constant threat to pt's life Plan of Care: Pt appropriate candidate for procedure/moderate/conscious sedation, Risks/benefits of procedure/sedation discussed w/ patient/family
[2018-12-23] MEDS ORDERED: 0.9 % Sodium Chloride 500 ML IVC SCH (14:00)
[2018-12-23] MEDS ORDERED: *HR* PHENYLEPHRINE 1,000 MCG/10 ML SYRINGE IVP ONE (14:27)
[2018-12-24] MEDS: Pantoprazole 40 MG VIAL IVP SCH (05:44)
[2018-12-24] MEDS: Levothyroxine 25 MCG TABLET PO SCH (05:44)
[2018-12-24 06:31] LABS: Basophils % 0.4 %; Eosinophils # 0.3 K/mcL (0.0-0.6); Hematocrit 29.6 % (35.3-44.9); Hemoglobin 9.3 g/dL (11.5-15.4); Immature Granulocytes % 0.4 % (0-4); Lymphocytes # 0.9 K/mcL (0.6-4.6); Lymphocytes % 18.9 %; Mean Corpuscular HGB Conc 31.4 g/dL (31.6-35.5); Mean Corpuscular Hemoglobin 30.8 pg (28.0-33.3); Mean Platelet Volume 9.6 fL (9.4-12.4); Monocytes # 0.7 K/mcL (0.0-1.3); Monocytes % 14.5 %; Neutrophils # 2.8 K/mcL (1.6-8.9); Platelet Count 204 K/mcL (140-400); Red Blood Count 3.02 M/mcL (3.82-4.97); Red Cell Distribution Width 15.8 % (11.5-14.5); Segmented Neutrophils % 59.8 %
[2018-12-24 06:44] LABS: BUN/Creatinine Ratio 14 (6-26); Blood Urea Nitrogen 10 mg/dL (8-23); Calcium 8.8 mg/dL (8.6-10.3); Carbon Dioxide 28 mEq/L (23-29); Chloride 103 mEq/L (98-107); Glucose 91 mg/dL (70-105); Osmolality,Calculated 283 (280-300); Potassium 3.9 mEq/L (3.5-5.1); Sodium 137 mEq/L (136-145); eGFR For Non-African Americans > 60 (> 60)
[2018-12-24] MEDS: Ranolazine 500 MG TAB.ER.12H PO SCH (08:31)
[2018-12-24] MEDS: amLODIPine 5 MG TABLET PO SCH (08:31)
[2018-12-24] MEDS: Isosorbide MONOnitrate (24 HR) 60 MG TAB.ER.24H PO SCH (08:31)
[2018-12-24] MEDS: Aspirin 81 MG TAB.CHEW PO SCH (08:32)
--- NOTE | 2018-12-24 10:37 | Discharge Summary ---
<Lucian Pugh - Last Filed: 12/24/18 19:59> - NOTES TO OUTPATIENT PROVIDER Notes to Outpatient Provider: Ms. Fabian was admitted on 12/21/18 for suspected GI bleed with melena, acute anemia, and weakness. She underwent colonoscopy with Dr. Silva on 12/23 which was grossly normal without any evidence of bleed. He recommended pt follow up with GI as outpatient for video capsule endoscopy and follow up with him in 4-6 weeks. Eliquis was held during admission, but pt was instructed to resume Eliquis upon discharge per surgery. Orders not resulted at time of discharge: Pending orders 12/21/18 18:09 Occult Blood,Stool [BF] Routine Date of Encounter: 12/24/18 Time of Encounter: 11:30 - Discharge Diagnosis (1) GI bleed Priority: Primary Status: Suspected Assessment and Plan: Suspected GIB with reported positive fecal hemoccult from [facility] Pt saw Dr. Silva as outpatient who told pt he would scope her on Friday Hgb low at 9.7 on admission, subsequently stabilized at 9.2 and 9.1 This anemia appears grossly stable dating back to early November 2018 Colonoscopy on 12/23 was negative Per surgery recommendations, ok to resume and follow up with GI as outpatient for video capsule endoscopy and follow up in 4-6 weeks. Qualifiers: GI bleed type/associated pathology: unspecified gastrointestinal hemorrhage type Qualified Code(s): K92.2 - Gastrointestinal hemorrhage, unspecified (2) CAD (coronary artery disease) Priority: Secondary Status: Chronic Assessment and Plan: In the past 2 months pt has had multiple LHCs with significant CAD Continue home ASA with this high risk Continue BB and statin Qualifiers: Coronary Disease-Associated Artery/Lesion type: elem artery [place] vs. transplanted heart: elem heart Associated angina: without angina Qualified Code(s): I25.10 - Atherosclerotic heart disease of elem coronary artery without angina pectoris (3) HTN (hypertension) Priority: Secondary Status: Chronic Assessment and Plan: Continue home amlodipine and metoprolol Qualifiers: Hypertension type: essential hypertension Qualified Code(s): I10 - Essential (primary) hypertension (4) HLD (hyperlipidemia) Priority: Secondary Status: Chronic Assessment and Plan: Continue home statin Qualifiers: Hyperlipidemia type: mixed hyperlipidemia Qualified Code(s): E78.2 - Mixed hyperlipidemia (5) CHF (congestive heart failure) Priority: Secondary Status: Chronic Assessment and Plan: Not in acute exacerbation Most recent echo 11/26/18: - LVEF 50-55% - Atypical septal motion consistent with postop status Ok to resume home Lasix and potassium. Follow up with PCP in 3-5 days Qualifiers: Heart failure type: diastolic Heart failure chronicity: chronic Qualified Code(s): I50.32 - Chronic diastolic (congestive) heart failure (6) DVT (deep venous thrombosis) Priority: Secondary Status: Chronic Assessment and Plan: Hx of DVT in lower extremity Resume Eliquis Qualifiers: DVT location: lower extremity Affected thrombotic vein of extremity: unspecified vein of extremity Chronicity: acute Laterality: right Qualified Code(s): I82.401 - Acute embolism and thrombosis of unspecified deep veins of right lower extremity (7) Weakness Priority: Secondary Status: Acute Assessment and Plan: Likely related to acute anemia 12/19 suspected GIB PT/OT Received 275mL LR on admission Improved Continue PT/OT Hospital course: Ms. Fabian is a 78 year old female who was admitted on 12/21/18 for suspected GI bleed with melena, acute anemia, and weakness. She underwent colonoscopy with Dr. Silva on 12/23 which was grossly normal without any evidence of bleed. He recommended pt follow up with GI as outpatient for video capsule endoscopy and follow up with him in 4-6 weeks. Anemia was stable throughout admission and pt did not require transfusion. Recommend continue PT/OT for weakness on discharge. Eliquis was held during admission, but pt was instructed to resume Eliquis upon discharge per surgery. Discharge discussed with: patient, nurse, optimization consultant - Time Spent with Patient Total time spent providing and/or coordinating discharge services: - Discharge Medications Home Medications: RX: Atorvastatin Calcium [Lipitor] 80 mg PO QPM 09/16/18 [History] RX: Furosemide [Lasix] 20 mg PO QAM 09/16/18 [History] RX: Levothyroxine [Synthroid] 25 mcg PO 0630 09/16/18 [History] RX: Nitroglycerin 0.4 mg PO AD PRN MDD 3 SPRAYS/15MINS CALL 911 09/16/18 [History] RX: Potassium Chloride 10 meq PO QAM 09/16/18 [History] RX: Ranolazine [Ranexa] 1,000 mg PO BID 09/16/18 [History] RX: Vit C/E/Zn/Coppr/Lutein/Zeaxan [Preservision Areds 2 Softgel] 1 cap PO DAILY 09/16/18 [History] RX: Albuterol Neb [Proventil Neb] 2.5 mg IH TID 10/08/18 [History] RX: Apixaban [Eliquis] 5 mg PO BID 10/08/18 [History] RX: Omeprazole [PriLOSEC] 40 mg PO DAILY@0800 #30 capsule.dr 10/13/18 [Rx] RX: Albuterol Sulfate [Ventolin Hfa] 2 puff IH Q4H PRN #0 10/21/18 [Rx] RX: amLODIPine [Norvasc] 5 mg PO QAM 11/24/18 [History] RX: clonazePAM [Klonopin] 0.25 mg PO HS 11/24/18 [History] RX: Aspirin 81 mg PO DAILY #30 tab.chew 11/28/18 [Rx] RX: Amitriptyline [Elavil] 75 mg PO HS 12/22/18 [History] RX: Isosorbide MONOnitrate [Isosorbide Mononitrate ER] 120 mg PO DAILY 12/22/18 [History] RX: Metoprolol Succinate [Toprol Xl] 12.5 mg PO DAILY 12/22/18 [History] RX: Umeclidinium [place] [Incruse Ellipta] 1 puff IH DAILY 12/22/18 [History] Allergies/Adverse Reactions: Allergy/AdvReac Type Severity Reaction Status Date / Time guaifenesin [From Hytuss] Allergy See Verified 12/20/18 17:19 Comments nabumetone [From Relafen] Allergy See Verified 12/20/18 17:19 Comments pentazocine [From Talwin] Allergy See Verified 12/20/18 17:19 Comments propoxyphene Allergy See Verified 12/20/18 17:19 Comments Sulindac [From Clinoril] Allergy See Verified 12/20/18 17:19 Comments prednisone AdvReac Mild Shaky Verified 12/20/18 17:19 Benzonatate AdvReac Confusion Verified 12/20/18 17:19 carbamazepine AdvReac Chest Pain Verified 12/20/18 17:19 codeine AdvReac See Verified 12/20/18 17:19 Comments etodolac AdvReac Chest Pain Verified 12/20/18 17:19 hydrocodone AdvReac Chest Pain Verified 12/20/18 17:19 Iodinated Contrast- Oral and AdvReac Chest Pain Verified 12/20/18 17:19 IV Dye [Iodinated Contrast Media - IV Dye] levofloxacin AdvReac Chest Pain Verified 12/20/18 17:19 NSAIDS (Non-Steroidal AdvReac Chest Pain Verified 12/20/18 17:19 Anti-Inflamma Penicillins [PCN] AdvReac Chest Pain Verified 12/20/18 17:19 pregabalin [From Lyrica] AdvReac Numbness Verified 12/20/18 17:19 pseudoephedrine AdvReac Chest Pain Verified 12/20/18 17:19 Sulfa (Sulfonamide AdvReac Chest Pain Verified 12/20/18 17:19 Antibiotics) tetracycline [Tetracycline] AdvReac Chest Pain Verified 12/20/18 17:19 tolmetin AdvReac Chest Pain Verified 12/20/18 17:19 tramadol AdvReac Numbness Verified 12/20/18 17:19 Date of admission: 12/21/18 18:36 Primary care physician: Laxmi Noonan APN Consults: 12/21/18 15:40 Consult to Surgery [CONS] Stat Consulting Provider: Sincere Silva Reason for Consult: GI Bleed Call Completed: No 12/21/18 18:09 Consult to Occupational Therapy [CONS] Routine Comment: Evaluate, develop and implement POC Reason for Consult: weakness Does patient have active BEDREST order?: No Is patient medically & hemodynamically stable?: Yes Consult to Physical Therapy [CONS] Routine Comment: Evaluate, develop and implement POC Reason for Consult: weakness Does patient have active BEDREST order?: No Is patient medically & hemodynamically stable?: Yes Discharging clinician: Lucian Pugh - Constitutional Vitals: Temp Pulse Resp BP Pulse Ox 98.1 F 79 16 116/62 100 12/24/18 07:05 12/24/18 07:05 12/24/18 07:05 12/24/18 07:05 12/24/18 08:30 General appearance: Present: cooperative, A&O X 3, pleasant, no acute distress, answers questions appropriately Exam: General: frail appearing elderly female in no acute distress Head: Normocephalic, atraumatic Eyes: PERRL, EOMI, conjunctiva pink, sclera anicteric Neck: Supple, trachea midline, no lymphadenopathy Lungs: Diffuse dry crackles. Nonlabored breathing. No wheezes, or rhonchi noted. Cardiac: RRR. +S1 +s2 No murmurs, clicks, or rubs noted. GI: Abdomen soft, nontender, nondistended. Normoactive bowel sounds Extremities: Warm, radial pulses palpable and symmetrical. No cyanosis, pedal edema, or calf tenderness. Neuro: Alert and oriented 3. No focal deficits. Normal speech. Skin: Warm, dry, and intact. - Patient Status Disposition: Home Health Service Condition: Fair Functional capacity at discharge: independent ambulation Overall status at discharge: patient is back to baseline - Discharge Instructions Follow Up With: Sincere Silva MD [Non-Partnered Physician] - 01/27/19 1:35 pm Laxmi Noonan APN [Primary Care Provider] - 01/01/19 1:30 pm (f/u in 3-5 days for anemia and weakness. They cannot get you in until next Friday. If you feel you need to be seen sooner, please give them a call. They will try to fit you in earlier if you feel you need it. Thank you) Erlin Garnett MD [Partnered Physician] - - Diet and Activity Activity: increase activity as tolerated, resume usual activities as tolerated Diet: advance to your usual diet <Jay Subramanian M - Last Filed: 12/24/18 20:20> Orders not resulted at time of discharge: Pending orders 12/21/18 18:09 Occult Blood,Stool [BF] Routine Date of Encounter: 12/24/18 - Discharge Diagnosis (1) CAD (coronary artery disease) Status: Chronic Qualifiers: Coronary Disease-Associated Artery/Lesion type: elem artery [place] vs. transplanted heart: elem heart Associated angina: without angina Qualified Code(s): I25.10 - Atherosclerotic heart disease of elem coronary artery without angina pectoris (2) HTN (hypertension) Status: Chronic Qualifiers: Hypertension type: essential hypertension Qualified Code(s): I10 - Essential (primary) hypertension (3) HLD (hyperlipidemia) Status: Chronic Qualifiers: Hyperlipidemia type: mixed hyperlipidemia Qualified Code(s): E78.2 - Mixed hyperlipidemia (4) DVT (deep venous thrombosis) Status: Chronic Qualifiers: DVT location: lower extremity Affected thrombotic vein of extremity: unspecified vein of extremity Chronicity: acute Laterality: right Qualified Code(s): I82.401 - Acute embolism and thrombosis of unspecified deep veins of right lower extremity (5) CHF (congestive heart failure) Status: Chronic Qualifiers: Heart failure type: diastolic Heart failure chronicity: chronic Qualified Code(s): I50.32 - Chronic diastolic (congestive) heart failure (6) GI bleed Status: Suspected Qualifiers: GI bleed type/associated pathology: unspecified gastrointestinal hemorrhage type Qualified Code(s): K92.2 - Gastrointestinal hemorrhage, unspecified (7) Weakness Status: Acute Hospital course: Ms. Fabian is a 78 year old female - Time Spent with Patient Total time spent providing and/or coordinating discharge services: Date of admission: 12/21/18 18:36 Primary care physician: Laxmi Noonan APN Consults: 12/21/18 15:40 Consult to Surgery [CONS] Stat Consulting Provider: Sincere Silva Reason for Consult: GI Bleed Call Completed: No 12/21/18 18:09 Consult to Occupational Therapy [CONS] Routine Comment: Evaluate, develop and implement POC Reason for Consult: weakness Does patient have active BEDREST order?: No Is patient medically & hemodynamically stable?: Yes Consult to Physical Therapy [CONS] Routine Comment: Evaluate, develop and implement POC Reason for Consult: weakness Does patient have active BEDREST order?: No Is patient medically & hemodynamically stable?: Yes - Constitutional Vitals: Temp Pulse Resp BP Pulse Ox 98.0 F 71 16 123/65 100 12/24/18 11:52 12/24/18 11:52 12/24/18 11:52 12/24/18 11:52 12/24/18 11:52 - Attending Attestation examined this patient and my medical decision-making was reviewed with the Resident Physician. I agree with the documented discharge as above. GEN: NAD CVS: RRR. S1, S2, No m/r/g RESP: CTAB ABD: Soft, NT, ND, +BS EXT: No edema. 2+ DP. No rashes NEURO: Nonfocal
[2018-12-24] MEDS: Tiotropium 18 MCG inhalation IH SCH (11:10)
[2018-12-24 11:56] VITALS: BP 123/65
--- NOTE | 2018-12-24 12:27 | Event Note ---
Date of Encounter: 12/24/18 Time of Encounter: 12:23 Surgery recommends patient complete a capsular endoscopy as outpatient. She won a referral to [facility] if not already established. Follow-up with Dr. Silva in 4 to 6 weeks - Patient Status Disposition: Still a Patient Condition: Fair - Discharge Instructions Follow Up With: Laxmi Noonan APN [Primary Care Provider] - Sincere Silva MD [Non-Partnered Physician] - 01/27/19 1:35 pm
--- NOTE | 2018-12-24 15:03 | Physician Discharge Referral ---
Home Health/Hosp Referral Info Transfer to: Home Health Provider in Charge Post Discharge: PCP - Diagnosis (1) GI bleed Priority: Primary Status: Suspected (2) Weakness Priority: Secondary Status: Acute (3) CAD (coronary artery disease) Priority: Secondary Status: Chronic (4) HTN (hypertension) Priority: Secondary Status: Chronic (5) HLD (hyperlipidemia) Priority: Secondary Status: Chronic (6) CHF (congestive heart failure) Priority: Secondary Status: Chronic (7) DVT (deep venous thrombosis) Priority: Secondary Status: Chronic - Respiratory Orders Smoking Cessation: Smoking cessation has been advised. For more information, call the [place] Tobacco Quit Line at 7-915-JSIH-NOW. - Diet/Nutrition Diet/Nutrition Orders: Cardiac - Activity Activity Orders: Up ad carlyle, Ambulate - Services Needed Following services are medically necessary services: Nursing, Home Health Aide, Physical Therapy, Occupational Therapy - Transfer Medications Home Medications: Atorvastatin Calcium [Lipitor] 80 mg PO QPM 09/16/18 [History] Furosemide [Lasix] 20 mg PO QAM 09/16/18 [History] Levothyroxine [Synthroid] 25 mcg PO 0630 09/16/18 [History] Nitroglycerin 0.4 mg PO AD PRN MDD 3 SPRAYS/15MINS CALL 911 09/16/18 [History] Potassium Chloride 10 meq PO QAM 09/16/18 [History] Ranolazine [Ranexa] 1,000 mg PO BID 09/16/18 [History] Vit C/E/Zn/Coppr/Lutein/Zeaxan [Preservision Areds 2 Softgel] 1 cap PO DAILY 09/16/18 [History] Albuterol Neb [Proventil Neb] 2.5 mg IH TID 10/08/18 [History] Apixaban [Eliquis] 5 mg PO BID 10/08/18 [History] Omeprazole [PriLOSEC] 40 mg PO DAILY@0800 #30 capsule. 10/13/18 [Rx] Albuterol Sulfate [Ventolin Hfa] 2 puff IH Q4H PRN #0 10/21/18 [Rx] amLODIPine [Norvasc] 5 mg PO QAM 11/24/18 [History] clonazePAM [Klonopin] 0.25 mg PO HS 11/24/18 [History] Aspirin 81 mg PO DAILY #30 tab.chew 11/28/18 [Rx] Amitriptyline [Elavil] 75 mg PO HS 12/22/18 [History] Isosorbide MONOnitrate [Isosorbide Mononitrate ER] 120 mg PO DAILY 12/22/18 [History] Metoprolol Succinate [Toprol Xl] 12.5 mg PO DAILY 12/22/18 [History] Umeclidinium [place] [Incruse Ellipta] 1 puff IH DAILY 12/22/18 [History] Allergies/Adverse Reactions: Allergy/AdvReac Type Severity Reaction Status Date / Time guaifenesin [From Hytuss] Allergy See Verified 12/20/18 17:19 Comments nabumetone [From Relafen] Allergy See Verified 12/20/18 17:19 Comments pentazocine [From Talwin] Allergy See Verified 12/20/18 17:19 Comments propoxyphene Allergy See Verified 12/20/18 17:19 Comments Sulindac [From Clinoril] Allergy See Verified 12/20/18 17:19 Comments prednisone AdvReac Mild Shaky Verified 12/20/18 17:19 Benzonatate AdvReac Confusion Verified 12/20/18 17:19 carbamazepine AdvReac Chest Pain Verified 12/20/18 17:19 codeine AdvReac See Verified 12/20/18 17:19 Comments etodolac AdvReac Chest Pain Verified 12/20/18 17:19 hydrocodone AdvReac Chest Pain Verified 12/20/18 17:19 Iodinated Contrast- Oral and AdvReac Chest Pain Verified 12/20/18 17:19 IV Dye [Iodinated Contrast Media - IV Dye] levofloxacin AdvReac Chest Pain Verified 12/20/18 17:19 NSAIDS (Non-Steroidal AdvReac Chest Pain Verified 12/20/18 17:19 Anti-Inflamma Penicillins [PCN] AdvReac Chest Pain Verified 12/20/18 17:19 pregabalin [From Lyrica] AdvReac Numbness Verified 12/20/18 17:19 pseudoephedrine AdvReac Chest Pain Verified 12/20/18 17:19 Sulfa (Sulfonamide AdvReac Chest Pain Verified 12/20/18 17:19 Antibiotics) tetracycline [Tetracycline] AdvReac Chest Pain Verified 12/20/18 17:19 tolmetin AdvReac Chest Pain Verified 12/20/18 17:19 tramadol AdvReac Numbness Verified 12/20/18 17:19 Certification: Further, I certify that my clinical findings support that this patient is homebound (i.e. absences from home require considerable and taxing effort and are for medical reasons or shinto services or infrequently or short duration when for other reasons) because: Homebound Reason: Patient requires assistance of a person or device to safely leave home, Leaving home requires considerable and taxing effort due to condition Attestation: My signature below is to certify that this patient is under my care and that I, or nurse practitioner, or a physician's esol teacher assistant working with me, has a [id number] encounter with this patient.
--- NOTE | 2018-12-25 09:44 | Electrocardiograph Report ---
[facility] Test Date: 2018-12-21 Pat Name: Adriane Fabian Department: [id number] Room: 3A43 Gender: F Marketing Admin: : [id number] Requested By: Nickolas Darby Order Number: [id number] Reading MD: Odilon Haines Measurements Intervals [place] Rate: 89 P: 74 [place]: 178 QRS: 73 QRSD: 106 T: 48 QT: 406 QTc: 494 Interpretive Statements Sinus rhythm Anterior infarct, old Electronically Signed On 12-25-2018 9:42:58 EST by Odilon Haines
== END 2018-12-24 14:31 | disposition home health service (06) ==
LOC: 3ANU 12:19 → EMEROOARM 12:19 → SUATTDRO 18:36 → 3ANU 20:03 → UNDODISOB 12-24 13:55
PROVIDERS: ADMIT Student in an Organized Health Care Education/Training Program; ATTEND Internal Medicine

== ENCOUNTER 2019-01-22 18:00 | Observation (INO) ==
[2019-01-22] MEDS ORDERED: methylPREDNISolone 125 MG/2 ML VIAL IVP ONE (18:07)
[2019-01-22] MEDS ORDERED: Ipratropium/Albuterol Neb 3 ML IH ONE (18:09)
--- NOTE | 2019-01-22 18:11 | Emergency Department Note ---
Disposition Clinical Impression: COPD exacerbation Chest pain Qualifiers: Chest pain type: unspecified Qualified Code(s): R07.9 - Chest pain, unspecified Disposition: Admitted As Inpatient Condition: Fair Referrals: NONE,PCP [Non-Partnered Physician] - Forms: ED Satisfaction Letter Time of Disposition: 22:37 General Adult HPI - General Stated complaint: difficulty breathing Time Seen by Provider: 01/22/19 18:06 Source: patient, EMS Mode of arrival: EMS Limitations: no limitations Nursing Notes Reviewed: Yes Vital Signs Reviewed: Yes - History of Present Illness HPI Narrative: Patient is an 78-year-old female with a history of COPD presenting to the emergency department with reports of increased shortness of breath. Patient states this is been ongoing for the past 2-3 days. Patient states that her shortness of breath has significantly gotten worse. Patient states that she does take breathing treatments every 4 hours which has provided some minimal relief. Patient states that she does not have any chest pain at this time. Patient states that she has had an intermittent cough with minimal production. Patient denies any fevers. Patient states that she has had previous cardiac bypass but is not having any pain at this time. Patient states that this evening her breathing continued to get worse and felt that she should come out to be evaluated. Patient states that she wears 2-1/2 L of nasal cannula oxygen at home. Patient states that she has had an increased oxygen requirement at from her baseline. Pain Scale: 0 - Related Data Home Medications Medication Instructions Recorded Confirmed Atorvastatin Calcium [Lipitor] 80 mg PO HS 09/16/18 01/16/19 Furosemide [Lasix] 20 mg PO DAILY 09/16/18 01/16/19 Levothyroxine [Synthroid] 25 mcg PO DAILY 09/16/18 01/16/19 Potassium Chloride 10 meq PO DAILY 09/16/18 01/16/19 Ranolazine [Ranexa] 1,000 mg PO BID 09/16/18 01/16/19 Vit C/E/Zn/Coppr/Lutein/Zeaxan 1 cap PO DAILY 09/16/18 01/16/19 [Preservision Areds 2 Softgel] Albuterol Neb [Proventil Neb] 2.5 mg IH BID 10/08/18 01/16/19 clonazePAM [Klonopin] 0.5 mg PO HS 11/24/18 01/16/19 Amitriptyline [Elavil] 75 mg PO HS 12/22/18 01/16/19 Metoprolol Succinate [Toprol Xl] 12.5 mg PO DAILY 12/22/18 01/16/19 Umeclidinium [place] [Incruse 1 puff IH DAILY 12/22/18 01/16/19 Ellipta] Albuterol Sulfate [Ventolin Hfa] 2 puff IH Q4H PRN 01/16/19 01/16/19 Apixaban [Eliquis] 2.5 mg PO BID 01/16/19 01/16/19 Docusate [Colace] 100 mg PO BID 01/16/19 01/16/19 Guaifenesin [Mucinex] 600 mg PO BID 01/16/19 01/16/19 Nitroglycerin 0.4 mg SL AD PRN 01/16/19 01/16/19 Nitroglycerin [Nitrostat] 0.4 mg SL Q5M PRN 01/16/19 01/16/19 Oxygen 2 l IH CONT 01/16/19 01/16/19 Polyethylene Glycol 3350 [MiraLAX] 17 gm PO DAILY PRN 01/16/19 01/16/19 Psyllium Husk [Daily Fiber] 0.52 gm PO DAILY 01/16/19 01/16/19 Previous Rx's Medication Instructions Recorded Isosorbide MONOnitrate (24 HR) 60 mg PO DAILY #30 tab.er.24h 01/17/19 [Imdur] Omeprazole [PriLOSEC] 40 mg PO BID #60 capsule. 01/17/19 Allergies Allergy/AdvReac Type Severity Reaction Status Date / Time guaifenesin [From Hytuss] Allergy See Verified 01/14/19 17:44 Comments nabumetone [From Relafen] Allergy See Verified 01/14/19 17:44 Comments pentazocine [From Talwin] Allergy See Verified 01/14/19 17:44 Comments propoxyphene Allergy See Verified 01/14/19 17:44 Comments Sulindac [From Clinoril] Allergy See Verified 01/14/19 17:44 Comments prednisone AdvReac Mild Shaky Verified 01/14/19 17:44 Benzonatate AdvReac Confusion Verified 01/14/19 17:44 carbamazepine AdvReac Chest Pain Verified 01/14/19 17:44 codeine AdvReac See Verified 01/14/19 17:44 Comments etodolac AdvReac Chest Pain Verified 01/14/19 17:44 hydrocodone AdvReac Chest Pain Verified 01/14/19 17:44 Iodinated Contrast- Oral and AdvReac Chest Pain Verified 01/14/19 17:44 IV Dye [Iodinated Contrast Media - IV Dye] levofloxacin AdvReac Chest Pain Verified 01/14/19 17:44 NSAIDS (Non-Steroidal AdvReac Chest Pain Verified 01/14/19 17:44 Anti-Inflamma Penicillins [PCN] AdvReac Chest Pain Verified 01/14/19 17:44 pregabalin [From Lyrica] AdvReac Numbness Verified 01/14/19 17:44 pseudoephedrine AdvReac Chest Pain Verified 01/14/19 17:44 Sulfa (Sulfonamide AdvReac Chest Pain Verified 01/14/19 17:44 Antibiotics) tetracycline [Tetracycline] AdvReac Chest Pain Verified 01/14/19 17:44 tolmetin AdvReac Chest Pain Verified 01/14/19 17:44 tramadol AdvReac Numbness Verified 01/14/19 17:44 All systems ED: reviewed and negative except as stated. Constitutional: Denies: fever Cardiovascular: Denies: chest pain Respiratory: Reports: cough, dyspnea Gastrointestinal: Denies: abdominal pain, nausea, vomiting Musculoskeletal: Denies: back pain, neck pain Neurological: Denies: weakness, numbness, paresthesias Past Medical History - Past Medical History Medical history: Reports: asthma, COPD, coronary artery disease, hyperlipidemia, hypertension, myocardial infarction, renal disease Surgical history: Reports: coronary bypass (CABG) Psychiatric history: Reports: no psych history [employer] history: Reports: non-contributory - Social History Smoking Status: Former smoker Smokeless Tobacco Status: No Alcohol use: Reports: none Drug use: Reports: none Physical Exam - General Limitations: no limitations General appearance: alert, in no apparent distress - Head Head exam: atraumatic, normocephalic - Eye Eye exam: Present: normal appearance, EOMI - Neck Neck exam: Present: normal inspection, full ROM, trachea midline - Respiratory Respiratory exam: Present: other (Patient has decreased aeration bilaterally as well as scattered wheezing throughout) - Cardiovascular Cardiovascular exam: Present: normal rhythm, tachycardia, normal heart sounds, +S1, +S2 - Abdominal Exam Abdominal exam: Present: soft, Non-Tender, normal bowel sounds - Neurological Exam Neurological exam: Present: alert, oriented X3 - Psychiatric Psychiatric exam: Present: normal affect, normal mood - Skin Skin exam: Present: warm, dry, intact Course Vital Signs Temperature 99.8 F H 01/22/19 18:03 Pulse Rate 114 01/22/19 18:03 Respiratory Rate 22 01/22/19 18:03 Blood Pressure 127/106 01/22/19 18:03 O2 Sat by Pulse Oximetry 96 01/22/19 18:03 Temperature 99.8 F H 01/22/19 18:03 Pulse Rate 117 01/22/19 21:36 Respiratory Rate 20 01/22/19 19:41 Blood Pressure 149/75 01/22/19 21:36 O2 Sat by Pulse Oximetry 100 01/22/19 21:36 Oxygen Delivery Oxygen Delivery Nasal Cannula Medical Decision Making - MDM Narrative Medical decision making narrative: Due the patient is not emergency Department with reports of increased risk breath a history of COPD we will provide DuoNeb breathing treatments as well as steroids and laboratory testing here in the emergency department. Patient reported that she has had some chest pain since she has been here in the emergency department. The patient was given a nitroglycerin trial here in the ER. EKGs were obtained. Patient continued to have chest pain and after having the nitroglycerin trial so a nitro drip was started. The CT of the chest was negative for pulmonary emboli. Patient had significant improvement after receiving steroids and breathing treatments. EKG did not show any new acute is chemic changes. Patient does have anemia 9.6. This is appear to be chronic for the patient. Patient will require admission to the hospital due to her respiratory status upon arrival to the emergency department. Called and spoke with the admitting hospitalist Dr. Bassett and he has accepted the patient to their service. Prior to the patient being admitted the patient had resolution of her chest pain and the nitro drip was discontinued. Patient has remained chest pain-free after the nitroglycerin had been stopped. - Medical Records Medical records reviewed: Yes I reviewed the patient's medical records. - Lab Data Lab results reviewed: Yes I reviewed the patient's lab results. Result diagrams: 01/22/19 18:56 03/08/19 18:56 Lab Results 01/22/19 01/22/19 01/22/19 Range/Units 18:56 18:56 18:56 WBC 4.9 (4.3-11.1) K/mcL RBC 3.33 L (3.82-4.97) M/mcL Hgb 9.6 L (11.5-15.4) g/dL Hct 31.2 L (35.3-44.9) % MCV 93.7 (83.0-100.0) fL MCH 28.8 (28.0-33.3) pg MCHC 30.8 L (31.6-35.5) g/dL RDW 14.1 (11.5-14.5) % Plt Count 249 (140-400) K/mcL MPV 9.5 (9.4-12.4) fL Immature Gran % 0.0 (0-4) % Seg Neutrophils % 64.0 % Lymphocytes % 21.9 % Monocytes % 11.9 % Eosinophils % 1.8 % Basophils % 0.4 % Neutrophils # 3.1 (1.6-8.9) K/mcL Lymphocytes # 1.1 (0.6-4.6) K/mcL Monocytes # 0.6 (0.0-1.3) K/mcL Eosinophils # 0.1 (0.0-0.6) K/mcL Basophils # 0.0 (0.0-0.2) K/mcL Sodium 135 L (136-145) mEq/L Potassium 4.0 (3.5-5.1) mEq/L Chloride 92 L (98-107) mEq/L Carbon Dioxide 33 H (23-29) mEq/L BUN 13 (8-23) mg/dL Creatinine 0.78 (0.60-1.20) mg/dL Est GFR ( Amer) > 60 (> 60) Est GFR (Non-Af Amer) > 60 (> 60) BUN/Creatinine Ratio 17 (6-26) Glucose 120 H (70-105) mg/dL Calculated Osmolality 281 (280-300) Lactic Acid 2.4 H (0.5-2.2) mmol/L Calcium 9.6 (8.6-10.3) mg/dL Troponin I < 0.03 (< 0.04) ng/mL B-Natriuretic Peptide (Less than 100) pg/mL 01/22/19 01/22/19 Range/Units 18:56 20:12 WBC (4.3-11.1) K/mcL RBC (3.82-4.97) M/mcL Hgb (11.5-15.4) g/dL Hct (35.3-44.9) % MCV (83.0-100.0) fL MCH (28.0-33.3) pg MCHC (31.6-35.5) g/dL RDW (11.5-14.5) % Plt Count (140-400) K/mcL MPV (9.4-12.4) fL Immature Gran % (0-4) % Seg Neutrophils % % Lymphocytes % % Monocytes % % Eosinophils % % Basophils % % Neutrophils # (1.6-8.9) K/mcL Lymphocytes # (0.6-4.6) K/mcL Monocytes # (0.0-1.3) K/mcL Eosinophils # (0.0-0.6) K/mcL Basophils # (0.0-0.2) K/mcL Sodium (136-145) mEq/L Potassium (3.5-5.1) mEq/L Chloride (98-107) mEq/L Carbon Dioxide (23-29) mEq/L BUN (8-23) mg/dL Creatinine (0.60-1.20) mg/dL Est GFR ( Amer) (> 60) Est GFR (Non-Af Amer) (> 60) BUN/Creatinine Ratio (6-26) Glucose (70-105) mg/dL Calculated Osmolality (280-300) Lactic Acid 1.7 (0.5-2.2) mmol/L Calcium (8.6-10.3) mg/dL Troponin I (< 0.04) ng/mL B-Natriuretic Peptide 161 H (Less than 100) pg/mL - Radiology Data Radiology results reviewed: Yes I reviewed the patient's radiology results. - EKG Data EKG #1 EKG attestation: Yes I reviewed and interpreted this EKG. EKG results narrative: EKG shows sinus tachycardia at a rate of 124 bpm, ME interval 137, curious duration 98, QTc of 395. There is no evidence of STEMI on EKG however there is diffuse ST depressions in lead 2, lead 3, aVF, V4, V5 and V6. This is compared to previous EKG on 01/19/19 which showed is diffuse depressions at that time as well. Attestation Statement - Attestation Attestation: I, Chriss Church DO, examined this patient [id number] and my medical decision-making was reviewed with Dr. Maurice rCuz, Resident Physician. I agree with the documented findings, disposition and treatment plan as described except to the extent set forth below. Please see my progress notes for details.
[2019-01-22] MEDS ORDERED: Nitroglycerin 0.4 MG TAB.SUBL SL PRN (19:12)
[2019-01-22 19:22] LABS: Basophils % 0.4 %; Eosinophils # 0.1 K/mcL (0.0-0.6); Eosinophils % 1.8 %; Hematocrit 31.2 % (35.3-44.9); Hemoglobin 9.6 g/dL (11.5-15.4); Lymphocytes # 1.1 K/mcL (0.6-4.6); Lymphocytes % 21.9 %; Mean Corpuscular HGB Conc 30.8 g/dL (31.6-35.5); Mean Corpuscular Hemoglobin 28.8 pg (28.0-33.3); Mean Corpuscular Volume 93.7 fL (83.0-100.0); Mean Platelet Volume 9.5 fL (9.4-12.4); Monocytes # 0.6 K/mcL (0.0-1.3); Monocytes % 11.9 %; Neutrophils # 3.1 K/mcL (1.6-8.9); Platelet Count 249 K/mcL (140-400); Red Blood Count 3.33 M/mcL (3.82-4.97); Red Cell Distribution Width 14.1 % (11.5-14.5)
--- NOTE | 2019-01-22 19:23 | Emergency Department Note ---
Disposition Clinical Impression: Acute exacerbation of chronic obstructive airways disease, Chest pain Disposition: Admitted As Inpatient Condition: Fair Referrals: NONE,PCP [Non-Partnered Physician] - Forms: ED Satisfaction Letter Time of Disposition: 22:37 General Adult HPI - General Chief complaint: ED Shortness of Breath/Dyspnea Stated complaint: difficulty breathing Time Seen by Provider: 01/22/19 18:06 Source: patient, EMS Mode of arrival: EMS Limitations: no limitations - History of Present Illness Pain Scale: 0 - Related Data Home Medications Medication Instructions Recorded Confirmed Atorvastatin Calcium [Lipitor] 80 mg PO HS 09/16/18 01/16/19 Furosemide [Lasix] 20 mg PO DAILY 09/16/18 01/16/19 Levothyroxine [Synthroid] 25 mcg PO DAILY 09/16/18 01/16/19 Potassium Chloride 10 meq PO DAILY 09/16/18 01/16/19 Ranolazine [Ranexa] 1,000 mg PO BID 09/16/18 01/16/19 Vit C/E/Zn/Coppr/Lutein/Zeaxan 1 cap PO DAILY 09/16/18 01/16/19 [Preservision Areds 2 Softgel] Albuterol Neb [Proventil Neb] 2.5 mg IH BID 10/08/18 01/16/19 clonazePAM [Klonopin] 0.5 mg PO HS 11/24/18 01/16/19 Amitriptyline [Elavil] 75 mg PO HS 12/22/18 01/16/19 Metoprolol Succinate [Toprol Xl] 12.5 mg PO DAILY 12/22/18 01/16/19 Umeclidinium [place] [Incruse 1 puff IH DAILY 12/22/18 01/16/19 Ellipta] Albuterol Sulfate [Ventolin Hfa] 2 puff IH Q4H PRN 01/16/19 01/16/19 Apixaban [Eliquis] 2.5 mg PO BID 01/16/19 01/16/19 Docusate [Colace] 100 mg PO BID 01/16/19 01/16/19 Guaifenesin [Mucinex] 600 mg PO BID 01/16/19 01/16/19 Nitroglycerin 0.4 mg SL AD PRN 01/16/19 01/16/19 Nitroglycerin [Nitrostat] 0.4 mg SL Q5M PRN 01/16/19 01/16/19 Oxygen 2 l IH CONT 01/16/19 01/16/19 Polyethylene Glycol 3350 [MiraLAX] 17 gm PO DAILY PRN 01/16/19 01/16/19 Psyllium [place]k [Daily Fiber] 0.52 gm PO DAILY 01/16/19 01/16/19 Previous Rx's Medication Instructions Recorded Isosorbide MONOnitrate (24 HR) 60 mg PO DAILY #30 tab.er.24h 01/17/19 [Imdur] Omeprazole [PriLOSEC] 40 mg PO BID #60 capsule. 01/17/19 Allergies Allergy/AdvReac Type Severity Reaction Status Date / Time guaifenesin [From Hytuss] Allergy See Verified 01/14/19 17:44 Comments nabumetone [From Relafen] Allergy See Verified 01/14/19 17:44 Comments pentazocine [From Talwin] Allergy See Verified 01/14/19 17:44 Comments propoxyphene Allergy See Verified 01/14/19 17:44 Comments Sulindac [From Clinoril] Allergy See Verified 01/14/19 17:44 Comments prednisone AdvReac Mild Shaky Verified 01/14/19 17:44 Benzonatate AdvReac Confusion Verified 01/14/19 17:44 carbamazepine AdvReac Chest Pain Verified 01/14/19 17:44 codeine AdvReac See Verified 01/14/19 17:44 Comments etodolac AdvReac Chest Pain Verified 01/14/19 17:44 hydrocodone AdvReac Chest Pain Verified 01/14/19 17:44 Iodinated Contrast- Oral and AdvReac Chest Pain Verified 01/14/19 17:44 IV Dye [Iodinated Contrast Media - IV Dye] levofloxacin AdvReac Chest Pain Verified 01/14/19 17:44 NSAIDS (Non-Steroidal AdvReac Chest Pain Verified 01/14/19 17:44 Anti-Inflamma Penicillins [PCN] AdvReac Chest Pain Verified 01/14/19 17:44 pregabalin [From Lyrica] AdvReac Numbness Verified 01/14/19 17:44 pseudoephedrine AdvReac Chest Pain Verified 01/14/19 17:44 Sulfa (Sulfonamide AdvReac Chest Pain Verified 01/14/19 17:44 Antibiotics) tetracycline [Tetracycline] AdvReac Chest Pain Verified 01/14/19 17:44 tolmetin AdvReac Chest Pain Verified 01/14/19 17:44 tramadol AdvReac Numbness Verified 01/14/19 17:44 Constitutional: Denies: fever Cardiovascular: Denies: chest pain Respiratory: Reports: cough, dyspnea Gastrointestinal: Denies: abdominal pain, nausea, vomiting Musculoskeletal: Denies: back pain, neck pain Neurological: Denies: weakness, numbness, paresthesias Past Medical History - Past Medical History Medical history: Reports: asthma, COPD, coronary artery disease, hyperlipidemia, hypertension, myocardial infarction, renal disease Surgical history: Reports: coronary bypass (CABG) Psychiatric history: Reports: no psych history GALL[employer] INTERN history: Reports: non-contributory - Social History Smoking Status: Former smoker Smokeless Tobacco Status: No Alcohol use: Reports: none Drug use: Reports: none Physical Exam - General Limitations: no limitations General appearance: alert, in no apparent distress Course Vital Signs Temperature 99.8 F H 01/22/19 18:03 Pulse Rate 114 01/22/19 18:03 Respiratory Rate 22 01/22/19 18:03 Blood Pressure 127/106 01/22/19 18:03 O2 Sat by Pulse Oximetry 96 01/22/19 18:03 Temperature 99.8 F H 01/22/19 18:03 Pulse Rate 117 01/22/19 21:36 Respiratory Rate 20 01/22/19 19:41 Blood Pressure 149/75 01/22/19 21:36 O2 Sat by Pulse Oximetry 100 01/22/19 21:36 Oxygen Delivery Oxygen Delivery Nasal Cannula Medical Decision Making - Lab Data Result diagrams: 01/22/19 18:56 01/22/19 18:56 Lab Results 01/22/19 01/22/19 01/22/19 Range/Units 18:56 18:56 18:56 WBC 4.9 (4.3-11.1) K/mcL RBC 3.33 L (3.82-4.97) M/mcL Hgb 9.6 L (11.5-15.4) g/dL Hct 31.2 L (35.3-44.9) % MCV 93.7 (83.0-100.0) fL MCH 28.8 (28.0-33.3) pg MCHC 30.8 L (31.6-35.5) g/dL RDW 14.1 (11.5-14.5) % Plt Count 249 (140-400) K/mcL MPV 9.5 (9.4-12.4) fL Immature Gran % 0.0 (0-4) % Seg Neutrophils % 64.0 % Lymphocytes % 21.9 % Monocytes % 11.9 % Eosinophils % 1.8 % Basophils % 0.4 % Neutrophils # 3.1 (1.6-8.9) K/mcL Lymphocytes # 1.1 (0.6-4.6) K/mcL Monocytes # 0.6 (0.0-1.3) K/mcL Eosinophils # 0.1 (0.0-0.6) K/mcL Basophils # 0.0 (0.0-0.2) K/mcL Sodium 135 L (136-145) mEq/L Potassium 4.0 (3.5-5.1) mEq/L Chloride 92 L (98-107) mEq/L Carbon Dioxide 33 H (23-29) mEq/L BUN 13 (8-23) mg/dL Creatinine 0.78 (0.60-1.20) mg/dL Est GFR ( Amer) > 60 (> 60) Est GFR (Non-Af Amer) > 60 (> 60) BUN/Creatinine Ratio 17 (6-26) Glucose 120 H (70-105) mg/dL Calculated Osmolality 281 (280-300) Lactic Acid 2.4 H (0.5-2.2) mmol/L Calcium 9.6 (8.6-10.3) mg/dL Troponin I < 0.03 (< 0.04) ng/mL B-Natriuretic Peptide (Less than 100) pg/mL 01/22/19 01/22/19 Range/Units 18:56 20:12 WBC (4.3-11.1) K/mcL RBC (3.82-4.97) M/mcL Hgb (11.5-15.4) g/dL Hct (35.3-44.9) % MCV (83.0-100.0) fL MCH (28.0-33.3) pg MCHC (31.6-35.5) g/dL RDW (11.5-14.5) % Plt Count (140-400) K/mcL MPV (9.4-12.4) fL Immature Gran % (0-4) % Seg Neutrophils % % Lymphocytes % % Monocytes % % Eosinophils % % Basophils % % Neutrophils # (1.6-8.9) K/mcL Lymphocytes # (0.6-4.6) K/mcL Monocytes # (0.0-1.3) K/mcL Eosinophils # (0.0-0.6) K/mcL Basophils # (0.0-0.2) K/mcL Sodium (136-145) mEq/L Potassium (3.5-5.1) mEq/L Chloride (98-107) mEq/L Carbon Dioxide (23-29) mEq/L BUN (8-23) mg/dL Creatinine (0.60-1.20) mg/dL Est GFR ( Amer) (> 60) Est GFR (Non-Af Amer) (> 60) BUN/Creatinine Ratio (6-26) Glucose (70-105) mg/dL Calculated Osmolality (280-300) Lactic Acid 1.7 (0.5-2.2) mmol/L Calcium (8.6-10.3) mg/dL Troponin I (< 0.04) ng/mL B-Natriuretic Peptide 161 H (Less than 100) pg/mL Attestation Statement - Attestation Attestation: I, Chriss Church DO, examined this patient [id number] and my medical decision-making was reviewed with Dr. Maurice Cruz, Resident Physician. I agree with the documented findings, disposition and treatment plan as described except to the extent set forth below. Please see my progress notes for details. 78-year-old female presents emergency room by EMS for evaluation of increased work of breathing increased oxygen dependence at home. Patient has known COPD and emphysema for which she typically uses 2 L of oxygen. She is denying any chest pain prior to arrival. Denies any headache or vision change. Denies any fevers or chills. She has not fallen or injured herself. She this time is denying any nausea vomiting or diarrhea. Patient's vital signs were concerning and transfer with tachypnea as well as hypoxia. Patient was placed on 4 L of oxygen and had 3 albuterol and treatments provided. Physical exam shows a very thin appearing female. Diffuse wheezing noted bilaterally. Heart rate is tachycardic. Patient is using accessory muscles. She is able to converse and answer questions appropriately. She does not appear to have any neurologic deficit or other symptoms. Abdomen is soft. Extremities are normal. Pulses are intact. Symptomatic control breathing treatments and steroids has been ordered at this time. Patient will have detailed workup completed and then disposition determined. At this time I feel the patient will most every required admission for symptomatic control of COPD and emphysema but otherwise she is denying any productive sputum or cough concerning for infectious etiology. Patient will be monitored closely until treatment course has been completed see detailed documentation of the physical exam, medical intervention, medical decision-making disposition the resident physician's note. 191 Patient was complaining of chest pain and shortness of breath that was worse to the breathing treatments started. Repeat EKG was collected and there is no acute signs of ST segment elevation or abnormality even in comparison to previous EKG on 01/19/19. Patient was given sublingual nitroglycerin considering she does have what appears to be angina at home. Disposition will be admission. Patient will have treatment course completed. Patient will have CT angiography the chest completed secondary to his increased work of breathing and tachycardia. Concern is noted for blood clots. 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 [address] angiography the chest is negative for acute infectious etiology. Chronic interstitial changes are noted. Patient has no pain at this time. Nitroglycerin is being titrated off. All the symptoms are most likely secondary to the acute presentation of COPD exacerbation. Family is comfortable this plan. Patient will be admitted for symptomatically control. At this time she does not require antibiotics at does not show any acute signs of sepsis or septic shock. Hospitalist has been paged this time for admission process to be completed. He responded breathing treatments appropriately breathing much better at this time. She is denying any symptoms or complaints at this point. Her heart rate is coming down appropriately. CT angiography again was negative. Hospitalist Dr. Clayton reviewed the case and has no other complaints or concerns at this time. Patient will be started on maintenance fluids. Patient is will be admitted at this time. She will be monitored here in emergency Department of admission process is completed.
[2019-01-22] MEDS ORDERED: Isovue-370 500 ML BOTTLE IVP ONE (19:26)
[2019-01-22] MEDS: Nitroglycerin 0.4 MG TAB.SUBL SL PRN ×3 (19:29→20:25)
[2019-01-22] MEDS ORDERED: Ondansetron 4 MG/2 ML VIAL IVP ONE (19:30)
[2019-01-22 19:31] LABS: BUN/Creatinine Ratio 17 (6-26); Blood Urea Nitrogen 13 mg/dL (8-23); Calcium 9.6 mg/dL (8.6-10.3); Carbon Dioxide 33 mEq/L (23-29); Chloride 92 mEq/L (98-107); Glucose 120 mg/dL (70-105); Osmolality,Calculated 281 (280-300); Sodium 135 mEq/L (136-145); eGFR For Non-African Americans > 60 (> 60)
[2019-01-22 19:32] LABS: Troponin I < 0.03 ng/mL (< 0.04)
[2019-01-22] MEDS ORDERED: *HR* FentaNYL (PF) 100 MCG/2 ML VIAL IVP ONE (20:52)
[2019-01-22] MEDS: Nitroglycerin 25 MG/250 ML INFUS..BTL IVC SCH (21:37)
[2019-01-23] MEDS: 0.9 % Sodium Chloride 1,000 ML IVC SCH (01:50)
[2019-01-23] MEDS ORDERED: Naloxone 0.4 MG/ML INJ IVP PRN (02:38)
--- NOTE | 2019-01-23 02:52 | Internal Med History&Physical ---
Date of Encounter: 01/23/19 Time of Encounter: 01:30 Internal Medicine - H&P: HPI Chief complaint: Shortness of Breath Admitted From: Home Plans for Post Hospital Care: Home History of present illness: Ms. Fabian is a 78 year old female with past medical history significant for CAD with CABG, [place], angina, hypertension, hyperlipidemia, COPD, asthma, GI bleed, renal disease, and thyroid disease who presents for shortness of breath, wheezing, and cough getting progressively worse over the past four days. Was seen by home care nurse practitioner yesterday and advised to come to ER. No associated productive cough, fever, chills, or diarrhea. Reported increasing home continuous oxygen from 2.5lpm to 3lpm nasal canula and increasing home breathing treatments without much improvement. ER completed chest xray which s howed COPD with stable chronic bronchitis/bronchiolitis with no superimposed acute pulmonary process. ER also obtained chest CTA which showed no evidence of an acute pulmonary embolus; chronic lung findings of emphysema, chronic bronchitis, and interstitial lung disease with small lung nodules in the middle lobe that are unchanged; and coronary artery disease status post CABG. Received triple breathing treatment and IV steroids in ER which she states has greatly improved her symptoms, she no longer feels short of breath or is coughing. Also developed chest pain while in ER that she reports as being similar to her typical angina symptoms. As a result was given fentanyl, one dose of SL nitro, and nitro drip which was stopped prior to admission due to completely resolving her pain. ER reported EKG as sinus tachycardia with no evidence of STEMI with diffuse ST depressions that when compared to previous EKG from 01/19/19 showed diffuse depressions at that time as well. Had catheterization completed in November 2018 showing severe one vessel CAD S/P CABG with 0 of 3 patent bypass grafts. Also had echocardiogram completed at this same time showing 50-55% EF. Had regular follow up with her [employer] manager Dr Gomes this week on Friday. Was recently discharged on 01/17/2019 for GI bleed which has resolved, aspirin was stopped and eliquis dose was decreased as a result. Last bowel movement was yesterday and has had no more episodes of bleeding since previous discharge. Currently denies any headache, chest pain, shortness of breath, cough, abdominal pain, nausea, bowel or bladder changes and reports she is feeling much better. Past Med Surg Social Fam HX - Past Medical History Medical history: asthma, COPD, coronary artery disease, GERD, GI bleed, hyperlipidemia, hypertension, myocardial infarction, renal disease, thyroid disease Psychiatric history: no psych history - Past Surgical History Surgical History: coronary bypass (CABG) Additional surgical history: stent in descending aorta. stent in neck - Social History Smoking Status: Former smoker Smokeless Tobacco Status: No Alcohol use: none Drug use: none - Family History Mother Living Status: Hx Family Cardiac Disorders: Yes (heart disease, stroke) Hx Family Neurologic Disorders: Yes (Stoke) Father Living Status: Hx Family Cancer: Yes (Prostate) Internal Medicine - H&P: Meds Atorvastatin Calcium [Lipitor] 80 mg PO HS 09/16/18 [History] Furosemide [Lasix] 20 mg PO DAILY 09/16/18 [History] Levothyroxine [Synthroid] 25 mcg PO DAILY 09/16/18 [History] Potassium Chloride 10 meq PO DAILY 09/16/18 [History] Ranolazine [Ranexa] 1,000 mg PO BID 09/16/18 [History] Albuterol Neb [Proventil Neb] 2.5 mg IH BID 10/08/18 [History] Amitriptyline [Elavil] 50 mg PO HS 12/22/18 [History] Metoprolol Succinate [Toprol Xl] 12.5 mg PO DAILY 12/22/18 [History] Albuterol Sulfate [Ventolin Hfa] 2 puff IH Q4H PRN 01/16/19 [History] Apixaban [Eliquis] 2.5 mg PO BID 01/16/19 [History] Aspirin [Lo-Dose Aspirin EC] 81 mg PO DAILY 01/23/19 [History] Isosorbide MONOnitrate (24 HR) [Imdur] 120 mg PO DAILY 01/23/19 [History] Omeprazole [PriLOSEC] 40 mg PO DAILY 01/23/19 [History] Allergy/AdvReac Type Severity Reaction Status Date / Time guaifenesin [From Hytuss] Allergy See Verified 01/14/19 17:44 Comments nabumetone [From Relafen] Allergy See Verified 01/14/19 17:44 Comments pentazocine [From Talwin] Allergy See Verified 01/14/19 17:44 Comments propoxyphene Allergy See Verified 01/14/19 17:44 Comments Sulindac [From Clinoril] Allergy See Verified 01/14/19 17:44 Comments prednisone AdvReac Mild Shaky Verified 01/14/19 17:44 Benzonatate AdvReac Confusion Verified 01/14/19 17:44 carbamazepine AdvReac Chest Pain Verified 01/14/19 17:44 codeine AdvReac See Verified 01/14/19 17:44 Comments etodolac AdvReac Chest Pain Verified 01/14/19 17:44 hydrocodone AdvReac Chest Pain Verified 01/14/19 17:44 Iodinated Contrast- Oral and AdvReac Chest Pain Verified 01/14/19 17:44 IV Dye [Iodinated Contrast Media - IV Dye] levofloxacin AdvReac Chest Pain Verified 01/14/19 17:44 NSAIDS (Non-Steroidal AdvReac Chest Pain Verified 01/14/19 17:44 Anti-Inflamma Penicillins [PCN] AdvReac Chest Pain Verified 01/14/19 17:44 pregabalin [From Lyrica] AdvReac Numbness Verified 01/14/19 17:44 pseudoephedrine AdvReac Chest Pain Verified 01/14/19 17:44 Sulfa (Sulfonamide AdvReac Chest Pain Verified 01/14/19 17:44 Antibiotics) tetracycline [Tetracycline] AdvReac Chest Pain Verified 01/14/19 17:44 tolmetin AdvReac Chest Pain Verified 01/14/19 17:44 tramadol AdvReac Numbness Verified 01/14/19 17:44 All Systems PM: A 10-system review of systems was performed and is negative for pertinent findings except as documented above in the HPI. - Constitutional Vitals: Temp Pulse Resp BP Pulse Ox 98.0 F 103 16 129/65 99 01/23/19 02:27 01/23/19 02:27 01/23/19 02:27 01/23/19 02:27 01/23/19 02:27 Exam: General: Alert and oriented. Skin:Normal color, no rash, no lesions. Chronic skin changes noted to bilateral arms. HEENT:Pupils equal, round and reactive. Cardiovascular:Normal S1 & S2, no rubs, murmurs or gallops. No JVD. Pulse regular. Lungs:Breath sounds decreased, no crackles, continues to have some scattered mild wheezing. Abdomen:Soft, non-tender, no rigidity. Extremities:No deformity, no edema or tenderness, no joint swelling or clubbing. Neurological:Normal cognition and motor skills. Pulses:Carotid and radial pulses normal +2. Rest of the physical exam is non contributory. Internal Med - H&P Results - Labs CBC & Chem 7: 01/22/19 18:56 01/22/19 18:56 Labs: Short CBC 01/22/19 Range/Units 18:56 WBC 4.9 (4.3-11.1) K/mcL Hgb 9.6 L (11.5-15.4) g/dL Hct 31.2 L (35.3-44.9) % Plt Count 249 (140-400) K/mcL Neutrophils # 3.1 (1.6-8.9) K/mcL BMP 01/22/19 18:56 Sodium 135 L Potassium 4.0 Chloride 92 L Carbon Dioxide 33 H BUN 13 Creatinine 0.78 Glucose 120 H Calcium 9.6 Cardiac Enzymes 01/22/19 Range/Units 18:56 Troponin I < 0.03 (< 0.04) ng/mL - Impressions ITS Impressions Chest X-Ray 01/22/19 18:07 IMPRESSION: COPD with stable chronic bronchitis/bronchiolitis. No superimposed acute pulmonary process. D/ / 01/22/2019 18:38:43 Onofre Del Valle MD / oksana Interpreting Provider: Onofre Del Valle MD Chest CTA 01/22/19 19:26 IMPRESSION: No evidence of an acute pulmonary embolus. There are chronic lung findings of emphysema, chronic bronchitis and interstitial lung disease. There are small lung nodules measuring up to 6 mm in the middle lobe, unchanged. Coronary artery disease status post CABG. D/ / Tristin Mena MD / Tristin Mena MD Interpreting Provider: Tristin Mena MD - Assessment and Plan (1) COPD exacerbation Current Visit: Yes Status: Acute Assessment and plan: Triple breathing treatment received in ER, will continue scheduled duonebs. Hold home medications. IV steroids received in ER, will continue scheduled BID. Continuous 02 via nasal canula, baseline 2.5lpm at home, currently at 3lpm, wean as tolerated. Will hold off on antibiotics given improvement, but will have low threshold to start if does not continue to improve. (2) Chest pain Current Visit: Yes Status: Acute Assessment and plan: Currently resolved. Symptoms consistent with previous angina episodes. Continuous pvc monitor. Initial troponin in ER negative, serial troponins ordered. Consider further work up and cardiology consult if reoccurs or troponins elevate. Qualifiers: Chest pain type: unspecified Qualified Code(s): R07.9 - Chest pain, unspecified (3) Decreased hemoglobin Current Visit: Yes Status: Acute Assessment and plan: Continuing to improve following admit for GI bleed. No signs of bleeding. Repeat labs ordered. (4) Serum sodium decreased Current Visit: Yes Status: Acute Assessment and plan: Slightly decreased, received fluids in ER. Repeat labs ordered. (5) Blood CO2 increased Current Visit: Yes Status: Acute Assessment and plan: Secondary to COPD exacerbation. Symptoms improving, repeat labs ordered. (6) DVT prophylaxis Current Visit: Yes Status: Acute Assessment and plan: Resume home eliquis. - Time Spent With Patient Total time spent is greater than 50% in coordination of care (as documented) at patient's floor/unit and/or counseling patient:
[2019-01-23] MEDS: Ipratropium/Albuterol Neb 3 ML IH SCH ×4 (03:39→22:26)
[2019-01-23] MEDS: methylPREDNISolone 125 MG/2 ML VIAL IVP SCH ×2 (06:05→17:06)
[2019-01-23] MEDS: Levothyroxine 25 MCG TABLET PO SCH (06:05)
[2019-01-23 09:10] LABS: Hematocrit 29.4 % (35.3-44.9); Hemoglobin 9.1 g/dL (11.5-15.4); Immature Granulocytes % 0.3 % (0-4); Lymphocytes # 0.4 K/mcL (0.6-4.6); Lymphocytes % 12.5 %; Mean Corpuscular Hemoglobin 28.6 pg (28.0-33.3); Mean Corpuscular Volume 92.5 fL (83.0-100.0); Mean Platelet Volume 9.3 fL (9.4-12.4); Monocytes # 0.1 K/mcL (0.0-1.3); Monocytes % 2.8 %; Platelet Count 227 K/mcL (140-400); Red Blood Count 3.18 M/mcL (3.82-4.97); Red Cell Distribution Width 14.1 % (11.5-14.5); Segmented Neutrophils % 84.4 %
[2019-01-23] MEDS: Apixaban 5 MG TABLET PO SCH ×2 (09:15→20:10)
[2019-01-23] MEDS: Isosorbide MONOnitrate (24 HR) 60 MG TAB.ER.24H PO SCH (09:16)
[2019-01-23] MEDS: Furosemide 20 MG TABLET PO SCH (09:16)
[2019-01-23] MEDS: Ranolazine 500 MG TAB.ER.12H PO SCH ×2 (09:16→20:12)
[2019-01-23] MEDS: Metoprolol XL (24 HR) Succ 25 MG TAB.ER.24H PO SCH (09:16)
[2019-01-23 09:26] LABS: BUN/Creatinine Ratio 21 (6-26); Blood Urea Nitrogen 14 mg/dL (8-23); Calcium 9.3 mg/dL (8.6-10.3); Carbon Dioxide 32 mEq/L (23-29); Chloride 95 mEq/L (98-107); Glucose 123 mg/dL (70-105); Osmolality,Calculated 280 (280-300); Potassium 4.7 mEq/L (3.5-5.1); Sodium 134 mEq/L (136-145); eGFR For Non-African Americans > 60 (> 60)
--- NOTE | 2019-01-23 14:21 | Event Note ---
Date of Encounter: 01/23/19 Time of Encounter: 14:20 Seen and examined at the bedside Plan of care is as in the H and P Patient reports improvement with current care, continue same
[2019-01-23] MEDS: Nitroglycerin 0.4 MG TAB.SUBL SL PRN ×5 (17:03→23:49)
[2019-01-23] MEDS: Nitroglycerin 25 MG/250 ML INFUS..BTL IVC SCH (20:14)
--- NOTE | 2019-01-24 00:31 | Event Note ---
Date of Encounter: 01/23/19 Time of Encounter: 23:48 Notified by nurse of patient having intermittent episodes of chest pain today relieved by nitro, assessed patient at bedside, most recent episode currently resolved and chest pain free. Repeat troponin scheduled for 0030. If chest pain returns will consider starting nitro drip. Nurse to notify of any changes.
[2019-01-24] MEDS: Nitroglycerin 0.4 MG TAB.SUBL SL PRN ×5 (01:47→23:22)
[2019-01-24] MEDS ORDERED: Nitroglycerin 25 MG/250 ML INFUS..BTL IVC SCH (03:00)
[2019-01-24] MEDS: Nitroglycerin 25 MG/250 ML INFUS..BTL IVC SCH (03:13)
[2019-01-24] MEDS: Ipratropium/Albuterol Neb 3 ML IH SCH ×4 (03:50→21:25)
[2019-01-24] MEDS: Levothyroxine 25 MCG TABLET PO SCH (05:48)
[2019-01-24] MEDS: methylPREDNISolone 125 MG/2 ML VIAL IVP SCH (05:48)
[2019-01-24] MEDS: Isosorbide MONOnitrate (24 HR) 60 MG TAB.ER.24H PO SCH (07:41)
[2019-01-24] MEDS: Furosemide 20 MG TABLET PO SCH (07:41)
[2019-01-24] MEDS: Ranolazine 500 MG TAB.ER.12H PO SCH ×2 (07:41→20:27)
[2019-01-24] MEDS: Apixaban 5 MG TABLET PO SCH ×2 (07:42→20:26)
[2019-01-24] MEDS: Metoprolol XL (24 HR) Succ 25 MG TAB.ER.24H PO SCH (07:42)
[2019-01-24] MEDS ORDERED: Sennosides 8.6 MG TABLET PO PRN (10:38)
--- NOTE | 2019-01-24 10:58 | Event Note ---
Date of Encounter: 01/24/19 Time of Encounter: 10:55 - Cardiology Event Note Cardiology consulted for chest pain. Patient has known chronic angina. Has had 2 recent LHC with 0/3 patent bypass grafts. Medical management has been recommended. ECGs reviewed with diffuse ST depressions and T wave inversions, however similar to previosu ECGs. On nitro drip, imdur, ranexa, BB, eliquis. Not on asa due to recent GI bleed and need for eliquis. Will start low dose CCB. Continue to monitor BP and HR. Attempt to wean nitro to off for chest pain. TTE 11/2018 with LVEF 50-55%, no wall motion abnormalities noted. Discussed and reviewed with . Full cardiology consult to follow.
[2019-01-24] MEDS ORDERED: Ipratropium/Albuterol Neb 3 ML IH PRN (11:40)
[2019-01-24] MEDS ORDERED: ALPRAZolam 0.5 MG TABLET PO ONE (11:42)
[2019-01-24] MEDS: predniSONE 20 MG TABLET PO SCH (12:56)
[2019-01-24] MEDS: amLODIPine 5 MG TABLET PO SCH ×2 (12:57→17:47)
--- NOTE | 2019-01-24 15:13 | Internal Med Progress Note ---
Hospitalist Progress Note - Encounter Date of Encounter: 01/24/19 Time of Encounter: 15:10 - Subjective Interval History: Seen and examined at bedside. Patient is new to me, information obtained from chart review and patient report. Still having some shortness of breath that is worse with exertion but overall improved. Denied chest pain, still on nitro drip. - Exam Vitals: Temp Pulse Resp BP Pulse Ox 97.4 F L 89 20 149/75 100 01/24/19 14:50 01/24/19 14:50 01/24/19 14:50 01/24/19 14:50 01/24/19 14:50 Exam: General: Alert and oriented. Skin:Normal color, no rash, no lesions. Chronic skin changes noted to bilateral arms. HEENT:Pupils equal, round and reactive. Cardiovascular:Normal S1 & S2, no rubs, murmurs or gallops. No JVD. Pulse regular. Lungs: Lung sounds diminished bilaterally with scattered wheezing. Abdomen:Soft, non-tender, no rigidity. Extremities:No deformity, no edema or tenderness, no joint swelling or clubbing. Neurological:Normal cognition and motor skills. Pulses:Carotid and radial pulses normal +2. Rest of the physical exam is non contributory. - Assessment and Plan (1) COPD exacerbation Current Visit: Yes Status: Acute Assessment and Plan: has known COPD. Wears O2 at home. Presented with worsening shortness of breath, cough and wheezing. CXR showed COPD with chronic bronchitis. No obvious infiltrate/pneumonia. Received high-dose IV steroids and ED. Change to steroid bursts. Continue bronchodilators. Azithromycin for anti-inflammatory properties. (2) CAD (coronary artery disease) Current Visit: No Status: Chronic Assessment and Plan: has knonw CAD with tonic angina. Had 2 recent LHC with 0/3 patient grafts. Medical management has been recommended. EKG shows diffuse ST depressions and T-wave inversions but unchanged from previous EKGs. 11/2018 TTE with EF 50% and no wall motion abnormalities. Had constant chest pain on 01/23/19 and nitro drip was restarted. Discussed with cardiology who will restart low-dose CCB (this was recently stopped due to hypotension). Continue home Ranexa, isosorbide, BB, Eliquis. No ASA due to recent GI bleed. Wean nitroglycerin gtt as well. Cardiology following (3) Acute blood loss anemia Current Visit: No Status: Acute Assessment and Plan: during 01/14/19 admission. 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 Hgb stable. Monitor (4) DVT prophylaxis Current Visit: Yes Status: Acute Assessment and Plan: eliquis. - Time Spent with Patient Total time spent is greater than 50% in coordination of care (as documented) at patient's floor/unit and/or counseling patient: Internal Medicine: Result - Labs CBC & Chem 7: 01/23/19 08:38 01/23/19 08:38 Labs: Cardiac Enzymes 01/23/19 01/24/19 Range/Units 18:23 00:38 Troponin I 0.04 H* 0.03 (< 0.04) ng/mL Consult Discharge Plan - Plan Referrals: Laxmi Noonan APN [Primary Care Provider] - (2) CAD (coronary artery disease) Qualifiers: Coronary Disease-Associated Artery/Lesion type: [place] artery [place] vs. transplanted heart: [place] heart Associated angina: without angina Qualified Code(s): I25.10 - Atherosclerotic heart disease of [place] coronary artery without angina pectoris
[2019-01-24] MEDS: Azithromycin 500 MG in D5% in Water 250 ML IVPB SCH (17:48)
[2019-01-24] MEDS: ALPRAZolam 0.5 MG TABLET PO PRN (21:37)
[2019-01-25] MEDS: Nitroglycerin 0.4 MG TAB.SUBL SL PRN ×2 (00:45→00:59)
[2019-01-25] MEDS ORDERED: Nitroglycerin 25 MG/250 ML INFUS..BTL IVC SCH (02:15)
[2019-01-25] MEDS: Ipratropium/Albuterol Neb 3 ML IH SCH ×4 (03:44→21:47)
--- NOTE | 2019-01-25 03:45 | Event Note ---
Date of Encounter: 01/25/19 Time of Encounter: 02:04 Notified by nurse of patient continuing to have multiple episodes of intermittent chest pain requiring nitro administration. Symptoms similar to previous angina episodes. Vitals stable. Repeat EKG ordered. Will restart nitro drip given multiple recurrences. Nurse to notify of any changes. Cardiology consulted and following, appreciate recommendations.
[2019-01-25 05:00] LABS: Alanine Aminotransferase 20 Units/L (7-52); Albumin 3.1 g/dL (3.5-5.7); Albumin/Globulin Ratio 0.9 (1.1-2.2); Alkaline Phosphatase 70 Units/L (34-104); Aspartate Amino Transferase 24 Units/L (13-39); BUN/Creatinine Ratio 28 (6-26); Bilirubin,Total 0.2 mg/dL (0.3-1.0); Blood Urea Nitrogen 22 mg/dL (8-23); Calcium 9.2 mg/dL (8.6-10.3); Carbon Dioxide 38 mEq/L (23-29); Chloride 96 mEq/L (98-107); Globulin 3.5 g/dL (2.4-3.5); Glucose 125 mg/dL (70-105); Osmolality,Calculated 295 (280-300); Potassium 4.8 mEq/L (3.5-5.1); Sodium 140 mEq/L (136-145); Total Protein 6.6 g/dL (6.4-8.9); eGFR For Non-African Americans > 60 (> 60)
[2019-01-25] MEDS: Levothyroxine 25 MCG TABLET PO SCH (05:39)
[2019-01-25] MEDS: ALPRAZolam 0.5 MG TABLET PO PRN (05:43)
[2019-01-25] MEDS: Apixaban 5 MG TABLET PO SCH ×2 (07:59→19:53)
[2019-01-25] MEDS: Isosorbide MONOnitrate (24 HR) 60 MG TAB.ER.24H PO SCH (07:59)
[2019-01-25] MEDS: amLODIPine 5 MG TABLET PO SCH (07:59)
[2019-01-25] MEDS: Furosemide 20 MG TABLET PO SCH (07:59)
[2019-01-25] MEDS: Ranolazine 500 MG TAB.ER.12H PO SCH ×2 (08:00→19:52)
[2019-01-25] MEDS: predniSONE 20 MG TABLET PO SCH (08:00)
[2019-01-25] MEDS: Metoprolol XL (24 HR) Succ 25 MG TAB.ER.24H PO SCH (08:00)
[2019-01-25] MEDS: 0.9 % Sodium Chloride 1,000 ML IVC SCH (08:16)
--- NOTE | 2019-01-25 10:45 | Cardiology Consult Note ---
Addendum entered and electronically signed by Sky Martin DO 01/25/19 11:25: I have personally performed a face to face evaluation on this patient. I have reviewed and agree with the care plan. History and Exam by me shows: Frail 78 year old female with known CAD s/p CABG. Two cardiac catheterizations in past 6 months, both recommended medical therapy. Presents with shortness of breath, cough, sputum. Currently being treated for AE COPD. Chronically abnormal ECGs. No significant troponin elevations. Atypical chest discomfort described. Recommend continue cardiac management as below. No further inpatient cardiology testing appears necessary at this time. Thanks, Sky Martin DO, [facility] Original Note: Date of Encounter: 01/25/19 Time of Encounter: 09:30 Assessment and Plan (1) COPD exacerbation Current Visit: Yes Status: Acute Per cardiology: -Admitted with COPD exacerbation. -Reports productive cough with green sputum. -Management per primary service. (2) Chest pain Current Visit: Yes Status: Acute Per cardiology: -Reported atypical, pleuritic chest pain. -Known history of CAD s/p [facility] [place] 09/2018 and 11/27/18 with 0/3 patent bypass grafts, 40% proximal LAD, circumlfex and OM angiographically free of disease, RCA PROTECTION MGR. Medical management has been recommended. -ECG with diffuse ST depressions and T wave inversions, however similar to previous ECG. -Troponin negative, 0.04 x2, then negative in the setting of COPD exacerbation- demand ischemia. No cardiac rehab consult warranted. -TTE 11/2018 with LVEF 50-55%, no wall motion abnormalities. -On statin, BB, imdur, ranexa. Norvasc has been added. Not on asa, plavix due to recent GI bleed and need for eliquis with recent DVTs. -Will stop nitro. -No further inpatient cardiology work up needed. Qualifiers: Chest pain type: chest pain on breathing Qualified Code(s): R07.1 - Chest pain on breathing; R07.81 - Pleurodynia (3) CAD (coronary artery disease) Current Visit: No Status: Chronic Per cardiology: -Known CAD. -See chest pain as above. Qualifiers: Coronary Disease-Associated Artery/Lesion type: [place] artery [place] vs. transplanted heart: [place] heart Associated angina: without angina Qualified Code(s): I25.10 - Atherosclerotic heart disease of [place] coronary artery without angina pectoris Discussion w patient/family: The assessment and plan as outlined above was discussed with the patient and/or family members who expressed understanding and agreement. All questions were answered. Thank you for involving us in the care of your patient. Please call with any questions. Discussed and reviewed with History of Present Illness Consult date: 01/24/19 Requesting physician: Bessy Briggs Consult reason: chest pain Chief complaint: shortness of breath History of present illness: Ms. Fabian is a 78 year old female with a relevant past medical history of CAD s/p CABG, NC, arthritis, COPD, CHF, CKD, anemia, HLD, recent GI bleed, DVTs, AAA with repair, who presented to [facility] with complaints of increased shortness of breath and productive cough with green sputum. Patient states that while she has been in the hospital, she has had chest pain. Patient states chest pain worsens with deep breathing and with cough. Denies current chest pain. Past Med Surg Social Fam HX - Past Medical History Attestation: Yes The following information was validated with the patient. Source: patient, old records reviewed Medical history: asthma, COPD, coronary artery disease, GERD, GI bleed, hyperlipidemia, hypertension, myocardial infarction, renal disease, thyroid disease Psychiatric history: no psych history - Past Surgical History Surgical History: coronary bypass (CABG) Additional surgical history: stent in descending aorta. stent in neck - Social History Smoking Status: Former smoker Smokeless Tobacco Status: No Alcohol use: none Drug use: none - Family History Mother Living Status: Hx Family Cardiac Disorders: Yes (heart disease, stroke) Hx Family Neurologic Disorders: Yes (Stoke) Father Living Status: Hx Family Cancer: Yes (Prostate) Medications and Allergies Atorvastatin Calcium [Lipitor] 80 mg PO HS 09/16/18 [History] Furosemide [Lasix] 20 mg PO DAILY 09/16/18 [History] Levothyroxine [Synthroid] 25 mcg PO DAILY 09/16/18 [History] Potassium Chloride 10 meq PO DAILY 09/16/18 [History] Ranolazine [Ranexa] 1,000 mg PO BID 09/16/18 [History] Albuterol Neb [Proventil Neb] 2.5 mg IH BID 11/22/18 [History] Amitriptyline [Elavil] 50 mg PO HS 12/22/18 [History] Metoprolol Succinate [Toprol Xl] 12.5 mg PO DAILY 12/22/18 [History] Albuterol Sulfate [Ventolin Hfa] 2 puff IH Q4H PRN 01/16/19 [History] Apixaban [Eliquis] 2.5 mg PO BID 01/16/19 [History] Isosorbide MONOnitrate (24 HR) [Imdur] 120 mg PO DAILY 01/23/19 [History] Omeprazole [PriLOSEC] 40 mg PO DAILY 01/23/19 [History] Umeclidinium [place] [Incruse Ellipta] 2 puff IH DAILY 01/24/19 [History] Allergy/AdvReac Type Severity Reaction Status Date / Time guaifenesin [From Hytuss] Allergy See Verified 01/14/19 17:44 Comments nabumetone [From Relafen] Allergy See Verified 01/14/19 17:44 Comments pentazocine [From Talwin] Allergy See Verified 01/14/19 17:44 Comments propoxyphene Allergy See Verified 01/14/19 17:44 Comments Sulindac [From Clinoril] Allergy See Verified 01/14/19 17:44 Comments prednisone AdvReac Mild Shaky Verified 01/14/19 17:44 Benzonatate AdvReac Confusion Verified 01/14/19 17:44 carbamazepine AdvReac Chest Pain Verified 01/14/19 17:44 codeine AdvReac See Verified 01/14/19 17:44 Comments etodolac AdvReac Chest Pain Verified 01/14/19 17:44 hydrocodone AdvReac Chest Pain Verified 01/14/19 17:44 Iodinated Contrast- Oral and AdvReac Chest Pain Verified 01/14/19 17:44 IV Dye [Iodinated Contrast Media - IV Dye] levofloxacin AdvReac Chest Pain Verified 01/14/19 17:44 NSAIDS (Non-Steroidal AdvReac Chest Pain Verified 01/14/19 17:44 Anti-Inflamma Penicillins [PCN] AdvReac Chest Pain Verified 01/14/19 17:44 pregabalin [From Lyrica] AdvReac Numbness Verified 01/14/19 17:44 pseudoephedrine AdvReac Chest Pain Verified 01/14/19 17:44 Sulfa (Sulfonamide AdvReac Chest Pain Verified 01/14/19 17:44 Antibiotics) tetracycline [Tetracycline] AdvReac Chest Pain Verified 01/14/19 17:44 tolmetin AdvReac Chest Pain Verified 01/14/19 17:44 tramadol AdvReac Numbness Verified 01/14/19 17:44 All Systems Review: The remainder of the systems were reviewed and are negative - Cardiovascular Cardiovascular: as per HPI, chest pain at rest, dyspnea at rest, dyspnea on exertion - Respiratory Respiratory: cough Physical Examination Vital Signs, Last 4 Hours Pulse Resp BP Pulse Ox 01/25/19 09:46 20 98 01/25/19 08:04 111 14 147/71 100 01/25/19 07:51 100 General: Conversant, Other (Mild conversational dyspnea noted. ) HEENT: Atraumatic, Normocephaly, Mucus Membranes Moist Neck: No JVD, Normal carotid pulses Cardiac: Reg Rate and Rhythm, Normal S1 and S2, No Murmur Lungs: Other (Expiratory wheezes noted throughout. ) Neuro: Alert and responsive, No focal deficits noted Abdomen: Soft, Non-Tender Skin: No rashes noted on visualized skin Musculoskeletal: No Chest Wall Tenderness Extremities: No Clubbing, No Cyanosis, No Edema, Normal Pulses Results 01/23/19 08:38 01/25/19 04:18 Lab Results Active Medications Albuterol/Ipratropium (Duoneb) 3 ml IH [id number] JENNIFER Stop: 07/25/19 04:01 Last Admin: 01/25/19 09:43 Dose: 3 ml Albuterol/Ipratropium (Duoneb) 3 ml IH [id number] PRN PRN Reason: Shortness Of Breath/Wheezing Stop: 07/26/19 11:41 Alprazolam (Xanax) 0.5 mg PO Q8HR PRN; Protocol PRN Reason: Anxiety Stop: 07/26/19 21:01 Last Admin: 01/25/19 05:43 Dose: 0.5 mg Amitriptyline HCl (Elavil) 50 mg PO HS JENNIFER Stop: 07/25/19 21:01 Last Admin: 01/24/19 20:26 Dose: 50 mg Amlodipine Besylate (Norvasc) 2.5 mg PO DAILY JENNIFER; Protocol Stop: 07/26/19 11:01 Last Admin: 01/25/19 07:59 Dose: 2.5 mg Apixaban (Eliquis) 2.5 mg PO BID [facility] Stop: 07/25/19 09:01 Last Admin: 01/25/19 07:59 Dose: 2.5 mg Atorvastatin Calcium (Lipitor) 80 mg PO HS [facility] Stop: 07/25/19 21:01 Last Admin: 01/24/19 20:27 Dose: 80 mg Furosemide (Lasix) 20 mg PO DAILY JENNIEFR Stop: 07/25/19 09:01 Last Admin: 01/25/19 07:59 Dose: 20 mg Azithromycin 500 mg/ Dextrose 250 mls @ 252 mls/hr IVPB Q24H [facility] Stop: 07/26/19 16:01 Last Admin: 01/24/19 17:48 Dose: 252 mls/hr Nitroglycerin (Nitroglycerin Premix 25 Mg/250 Ml) 25 mg in 250 mls @ 3 mls/hr IVC .Q24H [facility]; Protocol Stop: 07/27/19 02:16 Last Admin: 01/25/19 02:24 Dose: 5 mcg/min, 3 mls/hr Isosorbide Mononitrate (Imdur) 120 mg PO DAILY [facility] Stop: 07/25/19 09:01 Last Admin: 01/25/19 07:59 Dose: 120 mg Levothyroxine Sodium (Synthroid) 25 mcg PO DAILY@0630 [facility] Stop: 07/25/19 06:31 Last Admin: 01/25/19 05:39 Dose: 25 mcg Metoprolol Succinate (Toprol Xl) 12.5 mg PO DAILY [facility] Stop: 07/25/19 09:01 Last Admin: 01/25/19 08:00 Dose: 12.5 mg Naloxone HCl (Narcan) 0.4 mg IVP Q2M PRN PRN Reason: SEE COMMENTS Stop: 07/25/19 02:39 Nitroglycerin (Nitroglycerin) 0.4 mg SL Q5M PRN PRN Reason: Chest Pain Stop: 07/24/19 19:12 Last Admin: 01/25/19 00:59 Dose: 0.4 mg Omeprazole (Prilosec) 40 mg PO DAILY@0730 [facility]; Protocol Stop: 07/25/19 07:31 Last Admin: 01/25/19 07:59 Dose: 40 mg Polyethylene Glycol (Miralax) 17 gm PO DAILY [facility] Stop: 07/26/19 10:46 Last Admin: 01/25/19 08:00 Dose: 17 gm Potassium Chloride (Potassium Chloride) 10 meq PO DAILY [facility] Stop: 07/25/19 09:01 Last Admin: 01/25/19 08:00 Dose: 10 meq Prednisone (Prednisone) 40 mg PO DAILY JENN[facility]ER Stop: 01/28/19 09:01 Last Admin: 01/25/19 08:00 Dose: 40 mg Ranolazine (Ranexa) 1,000 mg PO BID JENN[facility]ER Stop: 07/25/19 09:01 Last Admin: 01/25/19 08:00 Dose: 1,000 mg Senna (Senna) 8.6 mg PO DAILY PRN PRN Reason: Constipation Stop: 07/27/19 09:01 Last Admin: 01/24/19 20:27 Dose: 8.6 mg Laboratory Tests 01/22/19 01/23/19 01/23/19 18:56 03:32 18:23 Creatinine Troponin I < 0.03 0.04 H* 0.04 H* 01/24/19 01/25/19 00:38 04:18 Creatinine 0.78 Troponin I 0.03 - Imaging and Cardiology Chest Xray: report reviewed Echo: report reviewed Cardiac cath: report reviewed - EKG Interpretation EKG results cardiology: personally reviewed (ECG with ST, HR 122. Diffuse ST depressions and T wave inversions, similar to previous ECGs.), other (Telemetry reviewed with average HR previous 12 hours noted to be 109, ST. PVCs and PACs no ranjit.) Consult Discharge Plan - Plan Referrals: Laxmi Noonan APN [Primary Care Provider] -
--- NOTE | 2019-01-25 14:42 | Internal Med Progress Note ---
Hospitalist Progress Note - Encounter Date of Encounter: 01/25/19 Time of Encounter: 14:37 - Subjective Interval History: Patient having significant dyspnea today. She needs non-invasive respiratory support but she states she cannot tolerate full bipap. She denies chest pain, n/v, diaphoresis. - Exam Vitals: Temp Pulse Resp BP Pulse Ox 97.4 F L 114 20 125/65 95 01/25/19 11:43 01/25/19 11:43 01/25/19 11:43 01/25/19 11:43 01/25/19 11:43 Exam: General: Alert and oriented, moderate respiratory distress, underweight Skin:Normal color, no rash, no lesions. Chronic skin changes noted to bilateral arms. HEENT:Pupils equal, round and reactive. Cardiovascular:Normal S1 & S2, no rubs, murmurs or gallops. No JVD. Pulse regular. Lungs: Lung sounds diminished bilaterally with scattered wheezing. Moderate resp distress. Abdomen:Soft, non-tender, no rigidity. Extremities:No deformity, no edema or tenderness, no joint swelling or clubbing. Neurological:Normal cognition and motor skills. Pulses:Carotid and radial pulses normal +2. Rest of the physical exam is non contributory. - Assessment and Plan (1) COPD exacerbation Current Visit: Yes Status: Acute Assessment and Plan: has known COPD. Wears O2 at home. Presented with worsening shortness of breath, cough and wheezing. CXR showed COPD with chronic bronchitis. No obvious infiltrate/pneumonia. Received high-dose IV steroids and ED. Continue scheduled Duo Nebs Change Prednisone to Solu Medrol and increase steroid dosage. Will attempt Bipap if patient will comply. Palliative consult (2) CAD (coronary artery disease) Current Visit: No Status: Chronic Assessment and Plan: has knonw CAD with tonic angina. Had 2 recent LHC with 0/3 patient grafts. Medical management has been recommended. EKG shows diffuse ST depressions and T-wave inversions but unchanged from previous EKGs. 11/2018 TTE with EF 50% and no wall motion abnormalities. Had constant chest pain on 01/23/19 and nitro drip was restarted. Discussed with cardiology who will restart low-dose CCB (this was recently stopped due to hypotension). Continue home Ranexa, isosorbide, BB, Eliquis. No ASA due to recent GI bleed. (3) Acute blood loss anemia Current Visit: No Status: Acute Assessment and Plan: during 01/14/19 admission. 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 Hgb stable. Monitor (4) DVT prophylaxis Current Visit: Yes Status: Acute Assessment and Plan: eliquis. (5) History of GI bleed Current Visit: Yes Status: Acute (6) PAD (peripheral artery disease) Current Visit: No Status: Acute (7) Severe protein-calorie malnutrition Current Visit: No Status: Acute (8) CHF (congestive heart failure) Current Visit: No Status: Chronic (9) Hx of deep venous thrombosis Current Visit: No Status: Chronic - Time Spent with Patient Total time spent is greater than 50% in coordination of care (as documented) at patient's floor/unit and/or counseling patient: Internal Medicine: Result - Labs CBC & Chem 7: 01/23/19 08:38 01/25/19 04:18 Labs: BMP 01/25/19 04:18 Sodium 140 Potassium 4.8 Chloride 96 L Carbon Dioxide 38 H BUN 22 Creatinine 0.78 Glucose 125 H Calcium 9.2 Liver Function 01/25/19 Range/Units 04:18 Total Bilirubin 0.2 L (0.3-1.0) mg/dL AST 24 (13-39) Units/L ALT 20 (7-52) Units/L Alkaline Phosphatase 70 (34-104) Units/L Albumin 3.1 L (3.5-5.7) g/dL Consult Discharge Plan - Plan Referrals: Laxmi Noonan APN [Primary Care Provider] - _ (2) CAD (coronary artery disease) Qualifiers: Coronary Disease-Associated Artery/Lesion type: [place] artery [place] vs. transplanted heart: [place] heart Associated angina: without angina Qualified Code(s): I25.10 - Atherosclerotic heart disease of [place] coronary artery wit hout angina pectoris (8) CHF (congestive heart failure) Qualifiers: Heart failure type: diastolic Heart failure chronicity: chronic Qualified Code(s): I50.32 - Chronic diastolic (congestive) heart failure
[2019-01-25] MEDS: *HR* LORazepam Oral Conc 2 MG/ML SL PRN ×2 (14:58→20:51)
[2019-01-25] MEDS: Azithromycin 500 MG in D5% in Water 250 ML IVPB SCH (15:00)
[2019-01-25] MEDS: methylPREDNISolone 125 MG/2 ML VIAL IVP SCH (15:00)
--- NOTE | 2019-01-25 15:15 | Palliative - Consult Note ---
Date of Encounter: 01/25/19 Time of Encounter: 11:00 - Assessment and Plan (1) Goals of care, counseling/discussion Current Visit: Yes Status: Acute Assessment and plan: Conducted goals of care assessment with patient, Mariola Niece, Katharina Great Niece, Maxine Daughter in Law, Marjorie Granddaughter, and Fanny Granddaughter. Patient lives home with David Spouse of 64 years. Explains that her priority is getting home to him as they take care of each other. Family is around frequently and granddaughter Fanny stays overnight with them. Patient has [facility] and has been in the process of getting Passport set up at home. Discussed current clinical status and what has already been completed for COPD. 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 Only uses rescue inhaler and nebulizer. Understands end stage COPD as loss of lung function with low likelihood of any type of recovery. Discussed option of hospice care and explained services provided including respite, GIP, Aids, RNs, SW, and medical management. Explained DME coverage, as well as symptom management. Patient expressed interest in hospice care and dori staley in agreement of the need. Patient inquired if would be stuck at home all the time, explained hospice is focused on allowing her to live without being confined to a hospital room and can do as much as she feels up to. Patient and family in agreement for discharge home with [facility] tomorrow. Referral called to Aleksandra. DME needs: Table and shower chair. Has Oxygen through [facility]. Reviewed CODE STATUS. Patient wants to "just be made comfortable." Explained 3 different types of CODE STATUS in [place]. Patient opted for DNRCC. State form completed. Updated Primary RN and Dr. Mandel with results of conversation with patient and family. Plans to discharge patient home tomorrow around 5 pm. (2) Dyspnea Current Visit: Yes Status: Acute Assessment and plan: Patient suffering from extreme dyspnea. Add Roxanol of pain/dyspnea. Qualifiers: Dyspnea type: unspecified Qualified Code(s): R06.00 - Dyspnea, unspecified (3) Anxiety Current Visit: Yes Status: Acute Assessment and plan: Patient continues to complain of anxiety with Xanax. Add Ativan SL PRN. (4) Acute hypoxemic respiratory failure Current Visit: No Status: Acute (5) COPD exacerbation Current Visit: Yes Status: Acute Assessment and plan: Patient end stage COPD. Plan to discharge home with hospice care. (6) CAD (coronary artery disease) Current Visit: No Status: Chronic Assessment and plan: EF 50-55%. Planned medical management for intermittent acute chest pain. Qualifiers: Coronary Disease-Associated Artery/Lesion type: [place] artery [place] vs. transplanted heart: [place] heart Associated angina: without angina Qualified Code(s): I25.10 - Atherosclerotic heart disease of [place] coronary artery wi thout angina pectoris (7) Chest pain Current Visit: Yes Status: Acute Assessment and plan: Denies at time of assessment. Continue Nitro PRN. Qualifiers: Chest pain type: chest pain on breathing Qualified Code(s): R07.1 - Chest pain on breathing; R07.81 - Pleurodynia Palliative-CN HPI - Data of Consult Patient: new to practice (5 minute chart review. 65 minute meeting with family. 10 minute update with patient's granddaughter via telephone. [address] Mandel and Primary RN. 5 minute referral to Hospice.) Consult date: 01/24/19 Requesting Physician: Chace Bassett MD Primary Care Provider: Laxmi Noonan APN - Consult Narrative Palliative Care/Comfort Measures: Palliative care Reason for consult: End stage COPD; Goals of care History of present illness: Ms. Fabian is a 78 year old female CC: Chace Bassett MD - Time Spent with Patient Time: Total time spent is greater than 50% in coordination of care (as documented) at patient's floor/unit and/or counseling patient: Time with patient: 75 minutes Past Med Surg Social Fam HX - Past Medical History Medical history: asthma, COPD, coronary artery disease, GERD, GI bleed, hyperlipidemia, hypertension, myocardial infarction, renal disease, thyroid disease Psychiatric history: no psych history - Past Surgical History Surgical History: coronary bypass (CABG) Additional surgical history: stent in descending aorta. stent in neck - Social History Smoking Status: Former smoker Smokeless Tobacco Status: No Alcohol use: none Drug use: none - Family History Mother Living Status: Hx Family Cardiac Disorders: Yes (heart disease, stroke) Hx Family Neurologic Disorders: Yes (Stoke) Father Living Status: Hx Family Cancer: Yes (Prostate) Medications and Allergies Atorvastatin Calcium [Lipitor] 80 mg PO HS 09/16/18 [History] Furosemide [Lasix] 20 mg PO DAILY 09/16/18 [History] Levothyroxine [Synthroid] 25 mcg PO DAILY 09/16/18 [History] Potassium Chloride 10 meq PO DAILY 09/16/18 [History] Ranolazine [Ranexa] 1,000 mg PO BID 09/16/18 [History] Albuterol Neb [Proventil Neb] 2.5 mg IH BID 10/08/18 [History] Amitriptyline [Elavil] 50 mg PO HS 12/22/18 [History] Metoprolol Succinate [Toprol Xl] 12.5 mg PO DAILY 12/22/18 [History] Albuterol Sulfate [Ventolin Hfa] 2 puff IH Q4H PRN 01/16/19 [History] Apixaban [Eliquis] 2.5 mg PO BID 01/16/19 [History] Isosorbide MONOnitrate (24 HR) [Imdur] 120 mg PO DAILY 01/23/19 [History] Omeprazole [PriLOSEC] 40 mg PO DAILY 01/23/19 [History] Umeclidinium [place] [Incruse Ellipta] 2 puff IH DAILY 01/24/19 [History] Allergy/AdvReac Type Severity Reaction Status Date / Time guaifenesin [From Hytuss] Allergy See Verified 01/14/19 17:44 Comments nabumetone [From Relafen] Allergy See Verified 01/14/19 17:44 Comments pentazocine [From Talwin] Allergy See Verified 01/14/19 17:44 Comments propoxyphene Allergy See Verified 01/14/19 17:44 Comments Sulindac [From Clinoril] Allergy See Verified 01/14/19 17:44 Comments prednisone AdvReac Mild Shaky Verified 01/14/19 17:44 Benzonatate AdvReac Confusion Verified 01/14/19 17:44 carbamazepine AdvReac Chest Pain Verified 01/14/19 17:44 codeine AdvReac See Verified 01/14/19 17:44 Comments etodolac AdvReac Chest Pain Verified 01/14/19 17:44 hydrocodone AdvReac Chest Pain Verified 01/14/19 17:44 Iodinated Contrast- Oral and AdvReac Chest Pain Verified 01/14/19 17:44 IV Dye [Iodinated Contrast Media - IV Dye] levofloxacin AdvReac Chest Pain Verified 01/14/19 17:44 NSAIDS (Non-Steroidal AdvReac Chest Pain Verified 01/14/19 17:44 Anti-Inflamma Penicillins [PCN] AdvReac Chest Pain Verified 01/14/19 17:44 pregabalin [From Lyrica] AdvReac Numbness Verified 01/14/19 17:44 pseudoephedrine AdvReac Chest Pain Verified 01/14/19 17:44 Sulfa (Sulfonamide AdvReac Chest Pain Verified 01/14/19 17:44 Antibiotics) tetracycline [Tetracycline] AdvReac Chest Pain Verified 01/14/19 17:44 tolmetin AdvReac Chest Pain Verified 01/14/19 17:44 tramadol AdvReac Numbness Verified 01/14/19 17:44 - Constitutional Constitutional ROS PAL: decreased appetite, lethargy, weight loss, no fever(s), no frequent falls - EENT Eyes: change in vision - Cardiovascular Cardiovascular ROS: chest pain, chest pain at rest, chest pain with activity, dyspnea on exertion, rapid heart rate, no edema, no radiating jaw, neck or arm pain, no pedal edema - Respiratory Respiratory: cough, dyspnea, dyspnea on exertion, wheezing, no hemoptysis - Gastrointestinal Gastrointestinal: abdominal pain, loose stools, no diarrhea, no nausea, no vomiting - Genitourinary Palliative ROS female: no difficulty voiding - Musculoskeletal Musculoskeletal ROS IM: no back pain, no neck pain - Neurological Neurological ROS: no behavioral changes - Psychiatric Psychiatric general PM: anxiety, no confusion, no hopelessness, no paranoia Palliative Care-Exam - Constitutional Vitals: Temp Pulse Resp BP Pulse Ox 97.4 F L 114 20 125/65 95 01/25/19 11:43 01/25/19 11:43 01/25/19 11:43 01/25/19 11:43 01/25/19 11:43 General appearance: Present: cooperative, mild distress, thin - Head Head Exam: Present: atraumatic, normal inspection - Expanded Head Exam Head exam expanded IM: Absent: hematoma, raccoon eyes - Eye Eye exam: Present: EOMI, normal appearance, PERRL, conjuntiva pink. Absent: periorbital swelling, periorbital tenderness Pupils: Present: normal accommodation, PERRL - ENT ENT exam: Present: mucous membranes dry, normal external ear exam, normal oropharynx - Expanded ENT Exam Mouth Exam: Absent: drooling - Neck Neck exam: Present: full ROM, normal inspection. Absent: tenderness - Respiratory Respiratory exam: Present: accessory muscle use, respiratory distress, rhonchi, wheezes, tachypnea - Cardiovascular Cardiovascular exam: Present: +S1, +S2 - Expanded Cardiovascular Exam Peripheral pulses: 2+: Radial (L), Radial (R), Posterior Tibialis (L), Posterior Tibialis (R), Dorsalis Pedis (L) PM, Dorsalis Pedis (R) PM - GI/Abdominal Exam GI/Abdominal exam: Present: normal bowel sounds, soft. Absent: tenderness - Expanded GI/Abdominal Exam GI/Abdominal exam: Absent: ascites - Rectal Rectal exam: Present: deferred - Extremities Exam Extremities exam: Present: normal inspection. Absent: calf tenderness, pedal edema, tenderness - Back Exam Back exam: Present: full ROM, normal inspection - Neurological Exam Neurological exam: Present: alert, oriented X3, strengths equal and symetr throughout. Absent: altered - Expanded Neurological Exam Patient oriented to: Present: person, place, time Coma Scale Eye Opening: Spontaneous Coma Scale Motor Response: Obeys Commands Coma Scale Verbal Response: Oriented Coma Scale Total: 15 - Psychiatric Psychiatric exam: Present: anxious - Skin Skin exam: Present: dry, intact, warm. Absent: diaphoretic Internal Medicine - CN: Reslt - Labs CBC & Chem 7: 01/23/19 08:38 01/25/19 04:18 Labs: BMP 01/25/19 04:18 Sodium 140 Potassium 4.8 Chloride 96 L Carbon Dioxide 38 H BUN 22 Creatinine 0.78 Glucose 125 H Calcium 9.2 Liver Function 01/25/19 Range/Units 04:18 Total Bilirubin 0.2 L (0.3-1.0) mg/dL AST 24 (13-39) Units/L ALT 20 (7-52) Units/L Alkaline Phosphatase 70 (34-104) Units/L Albumin 3.1 L (3.5-5.7) g/dL Consult Discharge Plan - Plan Referrals: Laxmi Noonan APN [Primary Care Provider] - Palliative Quality Palliative Quality: Screen for Code Status: Yes, Screen for Goals of Care: Yes, Screen for Pain: Yes, If Pain Regimen Started, Initiate Bowel Regimen: NA, Screen for Nausea/Vomitting: Yes Code Status: 01/23/19 02:38 Resuscitation Status: Active [RES] Routine Comment: Resuscitation Status: Full Code 01/25/19 14:29 DNR [Resuscitation Status: Active] [RES] Routine Comment: Resuscitation Status: DNR-Comfort Care Palliative Scale - Palliative Performance Scale How ambulatory is this patient?: Mainly sit / lie What is patient's level of activity and evidence of disease?: Unable to do most activity, Extensive disease How much self-care assistance does patient require?: Considerable assistance required How much oral intake does the patient have?: Normal or reduced What is this patient's level of consciousness?: Full or confusion Palliative Performance Score: 40 %
[2019-01-25] MEDS: MORPHINE SUL Oral CONC 10 MG/0.5 ML ORAL.SYG SL PRN (16:37)
--- NOTE | 2019-01-25 21:15 | Electrocardiograph Report ---
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
--- NOTE | 2019-01-25 22:02 | Electrocardiograph Report ---
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
[2019-01-26] MEDS: methylPREDNISolone 125 MG/2 ML VIAL IVP SCH ×4 (00:05→22:45)
[2019-01-26] MEDS: *HR* LORazepam Oral Conc 2 MG/ML SL PRN ×2 (00:06→04:45)
[2019-01-26] MEDS: Ipratropium/Albuterol Neb 3 ML IH SCH ×6 (03:38→23:43)
[2019-01-26 04:24] LABS: Alanine Aminotransferase 18 Units/L (7-52); Albumin/Globulin Ratio 0.9 (1.1-2.2); Alkaline Phosphatase 66 Units/L (34-104); Aspartate Amino Transferase 19 Units/L (13-39); BUN/Creatinine Ratio 37 (6-26); Bilirubin,Total 0.3 mg/dL (0.3-1.0); Blood Urea Nitrogen 23 mg/dL (8-23); Calcium 9.3 mg/dL (8.6-10.3); Carbon Dioxide 43 mEq/L (23-29); Chloride 90 mEq/L (98-107); Globulin 3.5 g/dL (2.4-3.5); Glucose 131 mg/dL (70-105); Osmolality,Calculated 291 (280-300); Potassium 4.7 mEq/L (3.5-5.1); Sodium 138 mEq/L (136-145); Total Protein 6.5 g/dL (6.4-8.9); eGFR For Non-African Americans > 60 (> 60)
[2019-01-26] MEDS: MORPHINE SUL Oral CONC 10 MG/0.5 ML ORAL.SYG SL PRN (05:42)
[2019-01-26] MEDS: Levothyroxine 25 MCG TABLET PO SCH (05:48)
[2019-01-26] MEDS: amLODIPine 5 MG TABLET PO SCH (07:58)
[2019-01-26] MEDS: Isosorbide MONOnitrate (24 HR) 60 MG TAB.ER.24H PO SCH (07:58)
[2019-01-26] MEDS: Furosemide 20 MG TABLET PO SCH (07:58)
[2019-01-26] MEDS: Apixaban 5 MG TABLET PO SCH ×2 (07:58→20:07)
[2019-01-26] MEDS: Metoprolol XL (24 HR) Succ 25 MG TAB.ER.24H PO SCH (07:59)
[2019-01-26] MEDS: Ranolazine 500 MG TAB.ER.12H PO SCH ×2 (07:59→20:07)
[2019-01-26] MEDS ORDERED: Haloperidol Lactate 5 MG/ML VIAL IVP PRN (10:25)
--- NOTE | 2019-01-26 11:20 | Palliative Progress Note ---
Date of Encounter: 01/26/19 Time of Encounter: 10:00 - Assessment and plan (1) Goals of care, counseling/discussion Current Visit: Yes Status: Acute Assessment and plan: Patient had planned to discharge home today with [facility]. Prescriptions sent for Haldol, Ativan, and Roxanol. Notified Dr. Ba of discharge plan. Dr. Ba requested one more day to allow for potential improvement with BiPAP, then to discharge home with BiPAP. Notified Aleksandra at [facility] of need to delay discharge times 1 day. Will need to order BiPAP with needed settings tomorrow. spoke with family. In agreement for planned discharge tommorrow. Will Need o2 concentrator, BiPAP, and portable oxygen tanks. Will order tomorrow once have BiPAP settings. (2) Dyspnea Current Visit: Yes Status: Acute Assessment and plan: Patient reports improvement of dyspnea with Ativan times 4 doses and Roxanol times 2 doses in the last 24 hours. Qualifiers: Dyspnea type: unspecified Qualified Code(s): R06.00 - Dyspnea, unspecified (3) Anxiety Current Visit: Yes Status: Acute Assessment and plan: Patient denies anxiety. Patient's family concerned over increased sedation with medications. Primary team had discontinued Ativan and changed to Haldol IV. Changed Haldol IV to Haldol SL. Continue to monitor. (4) Acute hypoxemic respiratory failure Current Visit: No Status: Acute (5) COPD exacerbation Current Visit: Yes Status: Acute Assessment and plan: Oxygen saturation 100%. (6) CAD (coronary artery disease) Current Visit: No Status: Chronic Qualifiers: Coronary Disease-Associated Artery/Lesion type: [place] artery [place] vs. transplanted heart: [place] heart Associated angina: without angina Qualified Code(s): I25.10 - Atherosclerotic heart disease of [place] coronary artery without angina pectoris (7) Chest pain Current Visit: Yes Status: Acute Assessment and plan: Denies chest pain during assessment. Qualifiers: Chest pain type: chest pain on breathing Qualified Code(s): R07.1 - Chest p ain on breathing; R07.81 - Pleurodynia - Time Spent With Patient Total time spent is greater than 50% in coordination of care (as documented) at patient's floor/unit and/or counseling patient: 25 - 35 minutes - Subjective Interval history: Patient lying in bed with family at bedside upon arrival for assessment. Patient is alert and oriented times 3; however, family reports she has been very lethargic since receiving medications. Patient breathing calmly. Patient denies pain, anxiety, nausea, and vomiting. Reports no longer dyspneic. - Constitutional Vitals: Abnormal lab results WBC 3.5 K/mcL (4.3-11.1) L 01/23/19 08:38 RBC 3.18 M/mcL (3.82-4.97) L 01/23/19 08:38 Hgb 9.1 g/dL (11.5-15.4) L 01/23/19 08:38 Hct 29.4 % (35.3-44.9) L 01/23/19 08:38 MCHC 31.0 g/dL (31.6-35.5) L 01/23/19 08:38 MPV 9.3 fL (9.4-12.4) L 01/23/19 08:38 Lymphocytes # 0.4 K/mcL (0.6-4.6) L 01/23/19 08:38 Chloride 90 mEq/L (98-107) L 01/26/19 03:50 Carbon Dioxide 43 mEq/L (23-29) H* 01/26/19 03:50 BUN/Creatinine Ratio 37 (6-26) H 01/26/19 03:50 Glucose 131 mg/dL (70-105) H 01/26/19 03:50 POC Glucose 138 mg/dL (70-99) H 01/23/19 06:47 B-Natriuretic Peptide 161 pg/mL (Less than 100) H 01/22/19 18:56 Albumin 3.0 g/dL (3.5-5.7) L 01/26/19 03:50 Albumin/Globulin Ratio 0.9 (1.1-2.2) L 01/26/19 03:50 General appearance: Present: cooperative, no acute distress - Head Head exam: Present: atraumatic, normal inspection - Eye Eye exam: Present: normal appearance. Absent: periorbital swelling, periorbital tenderness Pupils: Present: normal accommodation, PERRL - ENT ENT exam: Present: mucous membranes dry, normal external ear exam - Neck Neck exam: Present: full ROM, normal inspection - Respiratory Respiratory exam: Present: rhonchi. Absent: accessory muscle use, respiratory distress - Cardiovascular Cardiovascular exam: Present: +S1, +S2 - GI/Abdominal GI/Abdominal exam: Present: normal bowel sounds, soft. Absent: tenderness - Rectal Rectal exam: Present: deferred - Expanded Exam Female exam: Present: deferred - Extremities Exam Extremities exam: Present: full ROM, normal inspection. Absent: calf tenderness, pedal edema - Back Exam Back exam: Present: full ROM, normal inspection - Neurological Exam Neurological exam: Present: alert, oriented X3, strengths equal and symetr throughout. Absent: altered - Psychiatric Psychiatric exam: Present: normal affect, normal mood - Skin Skin exam: Present: dry, intact, normal color, warm Palliative Quality Palliative Quality: Screen for Code Status: Yes, Screen for Goals of Care: Yes, Screen for Pain: Yes, If Pain Regimen Started, Initiate Bowel Regimen: NA, Screen for Nausea/Vomitting: Yes Code Status: 01/23/19 02:38 Resuscitation Status: Active [RES] Routine Comment: Resuscitation Status: Full Code 01/25/19 14:29 DNR [Resuscitation Status: Active] [RES] Routine Comment: Resuscitation Status: DNR-Comfort Care - Labs CBC & Chem 7: 01/23/19 08:38 01/26/19 03:50 Labs: Laboratory Results - last 24 hr 01/26/19 03:50 Sodium 138 Potassium 4.7 Chloride 90 L Carbon Dioxide 43 H* BUN 23 Creatinine 0.63 Est GFR ( Amer) > 60 Est GFR (Non-Af Amer) > 60 BUN/Creatinine Ratio 37 H Glucose 131 H Calculated Osmolality 291 Calcium 9.3 Total Bilirubin 0.3 AST 19 ALT 18 Alkaline Phosphatase 66 Serum Total Protein 6.5 Albumin 3.0 L Globulin 3.5 Albumin/Globulin Ratio 0.9 L Palliative Scale - Palliative Performance Scale How ambulatory is this patient?: Mainly sit / lie What is patient's level of activity and evidence of disease?: Unable to do most activity, Extensive disease How much self-care assistance does patient require?: Considerable assistance required How much oral intake does the patient have?: Normal or reduced What is this patient's level of consciousness?: Full or confusion Palliative Performance Score: 40 % Consult Discharge Plan - Plan Referrals: Laxmi Noonan APN [Primary Care Provider] - Prescriptions: LORazepam Oral Conc [Ativan Oral Conc] 0.5 mg PO Q6HR PRN 3 Days #15 mls PRN Reason: Severe anxiety Haloperidol [Haldol] 2 mg PO TID PRN 3 Days #9 tablet PRN Reason: Anxiety MORPHINE SUL Oral CONC [Roxanol Oral Conc] 5 mg SL Q3H PRN 3 Days #30 ml PRN Reason: pain/dyspnea predniSONE [PredniSONE] 10 mg PO DAILY 7 Days #28 tablet
[2019-01-26] MEDS: Azithromycin 500 MG in D5% in Water 250 ML IVPB SCH (16:00)
[2019-01-26] MEDS: Haloperidol Oral Conc 10 MG/5 ML UDC PO PRN (22:45)
--- NOTE | 2019-01-27 00:49 | Internal Med Progress Note ---
Hospitalist Progress Note - Encounter Date of Encounter: 01/26/19 Time of Encounter: 19:00 - Subjective Interval History: SUBJECTIVE: The patient is alert but confused. She is hypoxic and hypercapnic. We tried BiPAP on a couple occasions in the last 24 hours. She was refusing it. We tried morphine sulfate and Ativan. No pain distress is seen. She is on 4 L nasal cannula oxygen. OBJECTIVE: Skin: Free of rash and discoloration. ENMT: Oral/pharyngeal mucosa is normal in appearance. Eyes: Sclera is white. There is no discharge from eyes. Respiratory: Normal breath sounds; no crackles or wheezes. CV: Heart is regular; no gallop or murmur. GI: Abdomen is soft and not tender. There is no palpable mass or visceromegaly. Neuro: There is no focal deficits. ADDITIONAL DATA: Her anemia is stable. Last hemoglobin was checked a few days ago it was 9.1. BMP shows normal sodium and potassium. It shows bicarb of 43 (38 yesterday). ASSESSMENT AND PLAN: COPD exacerbation/acute on chronic respiratory failure with hypoxia and hypercapnia. We will make one more attempt to use BiPAP for this ladywith when necessary IV Haldol. She has underlying diastolic heart failure with CAD and PAD. She recently experienced GI bleeding with acute blood loss anemia. The patient is for hospice care at home. We will try to get her there tomorrow. - Exam Vitals: Temp Pulse Resp BP Pulse Ox 97.7 F 92 17 141/72 100 01/26/19 23:32 01/26/19 23:32 01/26/19 23:44 01/26/19 23:32 01/26/19 23:44 Exam: xx - Assessment and Plan (1) COPD exacerbation Current Visit: Yes Status: Acute (2) Acute on chronic respiratory failure with hypoxia and hypercapnia Current Visit: Yes Status: Acute (3) CHF (congestive heart failure) Current Visit: No Status: Chronic (4) CAD (coronary artery disease) Current Visit: No Status: Chronic (5) PAD (peripheral artery disease) Current Visit: No Status: Acute (6) Acute blood loss anemia Current Visit: No Status: Acute (7) Severe protein-calorie malnutrition Current Visit: No Status: Acute - Time Spent with Patient Total time spent is greater than 50% in coordination of care (as documented) at patient's floor/unit and/or counseling patient: 25 - 35 minutes Plan of Care Discussed with: patient Internal Medicine: Result - Labs CBC & Chem 7: 01/23/19 08:38 01/26/19 03:50 Labs: BMP 01/26/19 03:50 Sodium 138 Potassium 4.7 Chloride 90 L Carbon Dioxide 43 H* BUN 23 Creatinine 0.63 Glucose 131 H Calcium 9.3 Liver Function 01/26/19 Range/Units 03:50 Total Bilirubin 0.3 (0.3-1.0) mg/dL AST 19 (13-39) Units/L ALT 18 (7-52) Units/L Alkaline Phosphatase 66 (34-104) Units/L Albumin 3.0 L (3.5-5.7) g/dL Consult Discharge Plan - Plan Referrals: Laxmi Noonan APN [Primary Care Provider] - Prescriptions: LORazepam Oral Conc [Ativan Oral Conc] 0.5 mg PO Q6HR PRN 3 Days #15 mls PRN Reason: Severe anxiety Haloperidol [Haldol] 2 mg PO TID PRN 3 Days #9 tablet PRN Reason: Anxiety MORPHINE SUL Oral CONC [Roxanol Oral Conc] 5 mg SL Q3H PRN 3 Days #30 ml PRN Reason: pain/dyspnea (3) CHF (congestive heart failure) Qualifiers: Heart failure type: diastolic Heart failure chronicity: chronic Qualified Code(s): I50.32 - Chronic diastolic (congestive) heart failure (4) CAD (coronary artery disease) Qualifiers: Coronary Disease-Associated Artery/Lesion type: [place] artery [place] vs. transplanted heart: [place] heart Associated angina: without angina Qualified Code(s): I25.10 - Atherosclerotic heart disease of [place] coronary artery without angina pectoris
[2019-01-27] MEDS ORDERED: diazePAM 10 MG/2 ML SYRINGE IVP ONE ×2 (01:15→12:25)
[2019-01-27] MEDS: Nitroglycerin 0.4 MG TAB.SUBL SL PRN (01:20)
[2019-01-27] MEDS: Ipratropium/Albuterol Neb 3 ML IH SCH ×3 (03:49→11:22)
--- NOTE | 2019-01-27 05:48 | Event Note ---
Date of Encounter: 01/27/19 Time of Encounter: 01:08 Alerted by pts. nurse HUMBERTO Gaines that patient was sleeping and ripped off BiPAP and SPO2 sensor. Patient was now currently on in situ and 8 L with SPO2 of 98%. HR 122 and BP 141/72. Patient anxious and complaining of chest pain. Went to see patient immediately who appeared mildly dyspneic. One-time order sublingual nitroglycerin ordered for chest pain with instructions to administer 2.5 mg IVP Valium if nitroglycerin not effective for chest pain. Suspect symptoms are rela ranjit to anxiety rather than cardiac. Followed up with patient's nurse to find patient now on BiPAP and resting comfortably following IVP Valium administration. Nurse instructed to continue monitoring patient closely and notify me immediately of any adverse changes.
[2019-01-27 06:04] LABS: Hematocrit 30.3 % (35.3-44.9); Hemoglobin 9.1 g/dL (11.5-15.4); Immature Granulocytes % 0.3 % (0-4); Lymphocytes # 0.4 K/mcL (0.6-4.6); Lymphocytes % 4.6 %; Mean Corpuscular Hemoglobin 28.6 pg (28.0-33.3); Mean Corpuscular Volume 95.3 fL (83.0-100.0); Mean Platelet Volume 9.5 fL (9.4-12.4); Monocytes # 0.2 K/mcL (0.0-1.3); Monocytes % 3.1 %; Neutrophils # 7.1 K/mcL (1.6-8.9); Platelet Count 200 K/mcL (140-400); Red Blood Count 3.18 M/mcL (3.82-4.97); Red Cell Distribution Width 14.5 % (11.5-14.5)
[2019-01-27 06:27] LABS: Alanine Aminotransferase 17 Units/L (7-52); Albumin 2.9 g/dL (3.5-5.7); Albumin/Globulin Ratio 0.9 (1.1-2.2); Alkaline Phosphatase 63 Units/L (34-104); Aspartate Amino Transferase 16 Units/L (13-39); BUN/Creatinine Ratio 39 (6-26); Bilirubin,Total 0.2 mg/dL (0.3-1.0); Blood Urea Nitrogen 24 mg/dL (8-23); Calcium 9.3 mg/dL (8.6-10.3); Carbon Dioxide 45 mEq/L (23-29); Chloride 90 mEq/L (98-107); Globulin 3.3 g/dL (2.4-3.5); Glucose 144 mg/dL (70-105); Magnesium 1.8 mg/dL (1.6-2.6); Osmolality,Calculated 289 (280-300); Potassium 4.6 mEq/L (3.5-5.1); Sodium 136 mEq/L (136-145); Total Protein 6.2 g/dL (6.4-8.9); eGFR For Non-African Americans > 60 (> 60)
[2019-01-27 09:17] VITALS: BP 151/71
--- NOTE | 2019-01-27 09:47 | Palliative Progress Note ---
Date of Encounter: 01/27/19 Time of Encounter: 09:05 - Assessment and plan (1) Goals of care, counseling/discussion Current Visit: Yes Status: Acute Assessment and plan: Patient being discharged home today with [facility]. Would like transfer home via ambulance. Ensured ok to discharge with Dr. Ba, whom is in agreement. Explained to Dr. Martel patient being discharged home with Ativan and not Haldol, as Haldol infective for patient; agreement noted. Ordered O2 Concentrator, BiPAP, and portable oxygen tanks from [facility], as no contract with [facility] [place]. Informed family at bedside patient's prescriptions will be delivered to room prior to discharge. Patient to go home via ambulance. Hospice to meet family at home at 5 pm. Updated [place] RN with discharge plan. Updated Pharmacy with discharge plan and updated prescription for Ativan. (2) Dyspnea Current Visit: Yes Status: Acute Assessment and plan: Patient reports improvement of dyspnea with Ativan 0 doses, as discontinued by primary team, Haldol given 1 time and was ineffective, Valium 1 time order given/effective, and Roxanol times 1 doses in the last 24 hours. Qualifiers: Dyspnea type: unspecified Qualified Code(s): R06.00 - Dyspnea, unspecified (3) Anxiety Current Visit: Yes Status: Acute Assessment and plan: Patient denies anxiety. Patient being discharged home with Ativan SL. Family in agreement. (4) Acute hypoxemic respiratory failure Current Visit: No Status: Acute Assessment and plan: Patient discharging home with BiPAP. (5) COPD exacerbation Current Visit: Yes Status: Acute Assessment and plan: Oxygen saturation 100% with BiPAP. Patient to discharge home via nasal cannula oxygen and wear BiPAP PRN. (6) CAD (coronary artery disease) Current Visit: No Status: Chronic Qualifiers: Coronary Disease-Associated Artery/Lesion type: [place] artery [place] vs. transplanted heart: [place] heart Associated angina: without angina Qualified Code(s): I25.10 - Atherosclerotic heart disease of [place] coronary artery with out angina pectoris (7) Chest pain Current Visit: Yes Status: Acute Assessment and plan: Denies chest pain during assessment. Qualifiers: Chest pain type: chest pain on breathing Qualified Code(s): R07.1 - Chest pain on breathing; R07.81 - Pleurodynia - Time Spent With Patient Total time spent is greater than 50% in coordination of care (as documented) at patient's floor/unit and/or counseling patient: 25 minutes spent with patient at bedside. 15 minutes coordinating discharge plan with Primary team, RN, [facility], and Pharmacy. Greater than 35 minutes - Subjective Interval history: Patient lying in bed with family at bedside upon arrival for assessment. Patient is alert and oriented times 3; however, family reports she suffered from increased anxiety overnight and at that time became disoriented. Patient breathing calmly at this time with BiPAP in place. Patient denies pain, anxiety, nausea, and vomiting. Reports no longer dyspneic. - Constitutional Vitals: Abnormal lab results RBC 3.18 M/mcL (3.82-4.97) L 01/27/19 05:50 Hgb 9.1 g/dL (11.5-15.4) L 01/27/19 05:50 Hct 30.3 % (35.3-44.9) L 01/27/19 05:50 MCHC 30.0 g/dL (31.6-35.5) L 01/27/19 05:50 Lymphocytes # 0.4 K/mcL (0.6-4.6) L 01/27/19 05:50 Chloride 90 mEq/L (98-107) L 01/27/19 05:50 Carbon Dioxide 45 mEq/L (23-29) H* 01/27/19 05:50 BUN 24 mg/dL (8-23) H 01/27/19 05:50 BUN/Creatinine Ratio 39 (6-26) H 01/27/19 05:50 Glucose 144 mg/dL (70-105) H 01/27/19 05:50 POC Glucose 138 mg/dL (70-99) H 01/23/19 06:47 Total Bilirubin 0.2 mg/dL (0.3-1.0) L 01/27/19 05:50 B-Natriuretic Peptide 161 pg/mL (Less than 100) H 01/22/19 18:56 Serum Total Protein 6.2 g/dL (6.4-8.9) L 01/27/19 05:50 Albumin 2.9 g/dL (3.5-5.7) L 01/27/19 05:50 Albumin/Globulin Ratio 0.9 (1.1-2.2) L 01/27/19 05:50 General appearance: Present: cooperative, no acute distress - Head Head exam: Present: atraumatic, normal inspection - Eye Eye exam: Present: EOMI, normal appearance. Absent: periorbital swelling, periorbital tenderness Pupils: Present: normal accommodation, PERRL - ENT ENT exam: Present: mucous membranes dry, normal external ear exam - Neck Neck exam: Present: full ROM, normal inspection - Respiratory Respiratory exam: Present: accessory muscle use, rhonchi, wheezes - Cardiovascular Cardiovascular exam: Present: +S1, +S2 - GI/Abdominal GI/Abdominal exam: Present: normal bowel sounds, soft. Absent: tenderness - Rectal Rectal exam: Present: deferred - Extremities Exam Extremities exam: Present: full ROM, normal inspection. Absent: pedal edema - Back Exam Back exam: Present: normal inspection - Neurological Exam Neurological exam: Present: alert, oriented X3. Absent: altered - Psychiatric Psychiatric exam: Present: normal affect, normal mood - Skin Skin exam: Present: intact, pallor, warm Palliative Quality Palliative Quality: Screen for Code Status: Yes, Screen for Goals of Care: Yes, Screen for Pain: Yes, If Pain Regimen Started, Initiate Bowel Regimen: NA, Screen for Nausea/Vomitting: Yes Code Status: 01/23/19 02:38 Resuscitation Status: Active [RES] Routine Comment: Resuscitation Status: Full Code 01/25/19 14:29 DNR [Resuscitation Status: Active] [RES] Routine Comment: Resuscitation Status: DNR-Comfort Care - Labs CBC & Chem 7: 01/27/19 05:50 01/27/19 05:50 Labs: Laboratory Results - last 24 hr 01/27/19 01/27/19 05:50 05:50 WBC 7.7 D RBC 3.18 L Hgb 9.1 L Hct 30.3 L MCV 95.3 MCH 28.6 MCHC 30.0 L RDW 14.5 Plt Count 200 MPV 9.5 Immature Gran % 0.3 Seg Neutrophils % 92.0 Lymphocytes % 4.6 Monocytes % 3.1 Eosinophils % 0.0 Basophils % 0.0 Neutrophils # 7.1 Lymphocytes # 0.4 L Monocytes # 0.2 Eosinophils # 0.0 Basophils # 0.0 Sodium 136 Potassium 4.6 Chloride 90 L Carbon Dioxide 45 H* BUN 24 H Creatinine 0.61 Est GFR ( Amer) > 60 Est GFR (Non-Af Amer) > 60 BUN/Creatinine Ratio 39 H Glucose 144 H Calculated Osmolality 289 Calcium 9.3 Magnesium 1.8 Total Bilirubin 0.2 L AST 16 ALT 17 Alkaline Phosphatase 63 Serum Total Protein 6.2 L Albumin 2.9 L Globulin 3.3 Albumin/Globulin Ratio 0.9 L Palliative Scale - Palliative Performance Scale How ambulatory is this patient?: Mainly sit / lie What is patient's level of activity and evidence of disease?: Unable to do most activity, Extensive disease How much self-care assistance does patient require?: Considerable assistance required How much oral intake does the patient have?: Normal or reduced What is this patient's level of consciousness?: Full or confusion Palliative Performance Score: 40 % Consult Discharge Plan - Plan Referrals: Laxmi Noonan APN [Primary Care Provider] - (Office will call with an appointment time and date.) Prescriptions: LORazepam Oral Conc [Ativan Oral Conc] 0.5 mg PO Q3H PRN 3 Days #15 mls PRN Reason: Anxiety MORPHINE SUL Oral CONC [Roxanol Oral Conc] 5 mg SL Q3H PRN 3 Days #30 ml PRN Reason: pain/dyspnea
[2019-01-27] MEDS: Ranolazine 500 MG TAB.ER.12H PO SCH (09:53)
[2019-01-27] MEDS: Metoprolol XL (24 HR) Succ 25 MG TAB.ER.24H PO SCH (09:54)
[2019-01-27] MEDS: Apixaban 5 MG TABLET PO SCH (09:54)
[2019-01-27] MEDS: Isosorbide MONOnitrate (24 HR) 60 MG TAB.ER.24H PO SCH (09:54)
[2019-01-27] MEDS: methylPREDNISolone 125 MG/2 ML VIAL IVP SCH (09:54)
[2019-01-27] MEDS: amLODIPine 5 MG TABLET PO SCH (09:54)
[2019-01-27] MEDS: Furosemide 20 MG TABLET PO SCH (09:55)
[2019-01-27] MEDS: Levothyroxine 25 MCG TABLET PO SCH (09:55)
--- NOTE | 2019-01-27 10:46 | Discharge Summary ---
Orders not resulted at time of discharge: Pending orders 01/28/19 04:00 BMP [Basic Metabolic Panel] AM 0400 CMP [Comprehensive Metabolic Panel] AM 0400 01/29/19 04:00 BMP [Basic Metabolic Panel] AM 0400 CMP [Comprehensive Metabolic Panel] AM 0400 Date of Encounter: 01/27/19 Time of Encounter: 10:32 - Discharge Diagnosis (1) COPD exacerbation Priority: Primary Status: Acute (2) Acute on chronic respiratory failure with hypoxia and hypercapnia Priority: Primary Status: Acute (3) CHF (congestive heart failure) Priority: Secondary Status: Chronic Qualifiers: Heart failure type: diastolic Heart failure chronicity: chronic Qualified Code(s): I50.32 - Chronic diastolic (congestive) heart failure (4) CAD (coronary artery disease) Priority: Secondary Status: Chronic Qualifiers: Coronary Disease-Associated Artery/Lesion type: [place] artery [place] vs. transplanted heart: [place] heart Associated angina: without angina Qualified Code(s): I25.10 - Atherosclerotic heart disease of [place] coronary artery without angina pectoris (5) PAD (peripheral artery disease) Priority: Secondary Status: Chronic (6) Acute blood loss anemia Priority: Secondary Status: Chronic (7) Severe protein-calorie malnutrition Priority: Secondary Status: Chronic Hospital course: HOSPITAL COURSE: The patient is an 78-year-old woman with end-stage lung diseasehypoxia and hypercapniausing supplemental oxygen and BiPAP. Admitted to the hospital with worsening of COPD. Treated with IV and IV Solu- Medrol. Got nebulizer treatments with DuoNeb. Got supplemental oxygen and BiPAP treatments. We did not do ABG. However, one can see her elevated bicarb in BMPinitially 32; then, 45. She was drowsy/confused when not using BiPAP (frequently refused to do). She was using BiPAP in the last night preceding her discharge. She was in fairly good shape in the morning. Talking to her family members. Recognizing them by name. We got hospice at home for this patient. CONDITION AT DISCHARGE: This week. Otherwise, she is not voicing any other complaints. Denies chest pain. Denies difficulty breathing; on nasal cannula oxygen. She does have mild cough at times; without wheezing. Denies abdominal pain, nausea and vomiting. She has normal urination. Skin: Free of rash and discoloration. Respiratory: Normal breath sounds with no crackles and wheezes bilaterally. CV: Heart is regular with no gallop or murmur. GI: Abdomen is flat and soft with no palpable mass or visceromegaly. Neuro exam: There is no focal deficits. Normal speech, swallowing and gait. Last CBC showed a hemoglobin of 9.1 (chronic anemia) with normal WBC/platelet count. Last BMP and showed bicarb of 45. Creatinine was 0.61. She has underlying diastolic heart failure. Echocardiogram from November of this year showed ejection fraction of 55 and 55%. SEE DISCHARGE ORDERS/MEDICATIONS Discharge discussed with: patient, family, digital marketing consultant - Time Spent with Patient Total time spent providing and/or coordinating discharge services: Time spent: Greater than 30 minutes (40 MINUTES...) - Discharge Medications Prescriptions: New amLODIPine [Norvasc] 2.5 mg PO DAILY #30 tablet Haloperidol Oral Conc [Haldol] 2 mg PO AD #30 udc Ipratropium/Albuterol Neb [Duoneb] 3 ml IH QID #120 inhsol Nitroglycerin 0.4 mg SL Q5M PRN #25 tab.subl PRN Reason: Chest Pain predniSONE [PredniSONE] 20 mg PO QAM #30 tablet Aspirin Enteric Coated [Aspirin EC] 81 mg PO DAILY #30 tablet.dr Continue Atorvastatin Calcium [Lipitor] 80 mg PO HS Furosemide [Lasix] 20 mg PO DAILY Levothyroxine [Synthroid] 25 mcg PO DAILY Potassium Chloride 10 meq PO DAILY Ranolazine [Ranexa] 1,000 mg PO BID Metoprolol Succinate [Toprol Xl] 12.5 mg PO DAILY Amitriptyline [Elavil] 50 mg PO HS Apixaban [Eliquis] 2.5 mg PO BID Omeprazole [PriLOSEC] 40 mg PO DAILY Isosorbide MONOnitrate (24 HR) [Imdur] 120 mg PO DAILY Umeclidinium [place] [Incruse Ellipta] 2 puff IH DAILY Discontinued Albuterol Neb [Proventil Neb] 2.5 mg IH BID Albuterol Sulfate [Ventolin Hfa] 2 puff IH Q4H PRN PRN Reason: Shortness Of Breath Home Medications: Atorvastatin Calcium [Lipitor] 80 mg PO HS 09/16/18 [History] Furosemide [Lasix] 20 mg PO DAILY 09/16/18 [History] Levothyroxine [Synthroid] 25 mcg PO DAILY 09/16/18 [History] Potassium Chloride 10 meq PO DAILY 09/16/18 [History] Ranolazine [Ranexa] 1,000 mg PO BID 09/16/18 [History] Amitriptyline [Elavil] 50 mg PO HS 12/22/18 [History] Metoprolol Succinate [Toprol Xl] 12.5 mg PO DAILY 12/22/18 [History] Apixaban [Eliquis] 2.5 mg PO BID 01/16/19 [History] Isosorbide MONOnitrate (24 HR) [Imdur] 120 mg PO DAILY 01/23/19 [History] Omeprazole [PriLOSEC] 40 mg PO DAILY 01/23/19 [History] Umeclidinium [place] [Incruse Ellipta] 2 puff IH DAILY 01/24/19 [History] Aspirin Enteric Coated [Aspirin EC] 81 mg PO DAILY #30 tablet. 01/27/19 [Rx] Haloperidol Oral Conc [Haldol] 2 mg PO AD #30 udc 01/27/19 [Rx] Ipratropium/Albuterol Neb [Duoneb] 3 ml IH QID #120 inhsol 01/27/19 [Rx] Nitroglycerin 0.4 mg SL Q5M PRN #25 tab.subl 01/27/19 [Rx] amLODIPine [Norvasc] 2.5 mg PO DAILY #30 tablet 01/27/19 [Rx] predniSONE [PredniSONE] 20 mg PO QAM #30 tablet 01/27/19 [Rx] Allergies/Adverse Reactions: Allergy/AdvReac Type Severity Reaction Status Date / Time guaifenesin [From Hytuss] Allergy See Verified 01/14/19 17:44 Comments nabumetone [From Relafen] Allergy See Verified 01/14/19 17:44 Comments pentazocine [From Talwin] Allergy See Verified 01/14/19 17:44 Comments propoxyphene Allergy See Verified 01/14/19 17:44 Comments Sulindac [From Clinoril] Allergy See Verified 01/14/19 17:44 Comments prednisone AdvReac Mild Shaky Verified 01/14/19 17:44 Benzonatate AdvReac Confusion Verified 01/14/19 17:44 carbamazepine AdvReac Chest Pain Verified 01/14/19 17:44 codeine AdvReac See Verified 01/14/19 17:44 Comments etodolac AdvReac Chest Pain Verified 01/14/19 17:44 hydrocodone AdvReac Chest Pain Verified 01/14/19 17:44 Iodinated Contrast- Oral and AdvReac Chest Pain Verified 01/14/19 17:44 IV Dye [Iodinated Contrast Media - IV Dye] levofloxacin AdvReac Chest Pain Verified 01/14/19 17:44 NSAIDS (Non-Steroidal AdvReac Chest Pain Verified 01/14/19 17:44 Anti-Inflamma Penicillins [PCN] AdvReac Chest Pain Verified 01/14/19 17:44 pregabalin [From Lyrica] AdvReac Numbness Verified 01/14/19 17:44 pseudoephedrine AdvReac Chest Pain Verified 01/14/19 17:44 Sulfa (Sulfonamide AdvReac Chest Pain Verified 01/14/19 17:44 Antibiotics) tetracycline [Tetracycline] AdvReac Chest Pain Verified 01/14/19 17:44 tolmetin AdvReac Chest Pain Verified 01/14/19 17:44 tramadol AdvReac Numbness Verified 01/14/19 17:44 Date of admission: 01/22/19 23:01 Primary care physician: Laxmi Noonan APN Consults: 01/24/19 10:29 Consult to Cardiology [CONS] Routine Comment: Consulting Provider: Cardiology Aleyda Reason for Consult: chest pain. On nitro gtt. Hx CAD Call Completed: Yes 01/24/19 18:06 Consult to Palliative Care [CONS] Routine Comment: Consulting Provider: Palliative Care Aleyda Reason for Consult: end stage COPD management Call Completed: No 01/25/19 08:06 Consult to Nurse Navigator [CONS] Routine Comment: COPD 01/25/19 17:25 Consult to Invasive Line Access Team [CONS] Routine Reason for Consult: Limited Access Line Type: EPIV Discharging clinician: Jovi Ba Anticipated date of discharge: 01/27/19 - Constitutional Vitals: Temp Pulse Resp BP Pulse Ox 97.8 F 102 18 151/71 100 01/27/19 09:16 01/27/19 09:16 01/27/19 09:16 01/27/19 09:16 01/27/19 09:16 General appearance: Present: A&O X 2 Exam: xx - Patient Status Disposition: Hospice - Home Condition: Fair Functional capacity at discharge: bed bound Overall status at discharge: patient is not back to baseline - Discharge Instructions Instructions: Lorazepam (By mouth), Prednisone (By mouth), Aspirin (By mouth), Amlodipine (By mouth), Nitroglycerin, Rapid Release (By mouth), Ipratropium/Albuterol (By breathing) Follow Up With: Laxmi Noonan APN [Primary Care Provider] - (Office will call with an appointment time and date.) Additional Instructions: HOSPICE AT HOME... BIPAP AT NIGHT-TIME PLUS "IF NEEDED" - AT DAYTIME... OXYGEN AT 3 L/MIN -- KEEP PULSE-OX IN 90-95% RANGE.. - Diet and Activity Activity: wear oxygen at all times Diet: advance to your usual diet
--- NOTE | 2019-01-27 11:00 | Physician Discharge Referral ---
Home Health/Hosp Referral Info Transfer to: Hospice Attending Provider: Ely Ba MD Provider in Charge Post Discharge: Nutritional Services Director (HOSPICE CARE...) - Diagnosis (1) COPD exacerbation Priority: Primary Status: Acute (2) Acute on chronic respiratory failure with hypoxia and hypercapnia Priority: Primary Status: Acute (3) CHF (congestive heart failure) Priority: Secondary Status: Chronic (4) CAD (coronary artery disease) Priority: Secondary Status: Chronic (5) PAD (peripheral artery disease) Priority: Secondary Status: Chronic (6) Acute blood loss anemia Priority: Secondary Status: Chronic (7) Severe protein-calorie malnutrition Priority: Secondary Status: Chronic - Respiratory Orders Oxygen / L per min (3 L/MIN; KEEP PULSE-OX IN 90-95 RANGE...) Smoking Cessation: Smoking cessation has been advised. For more information, call the [place] Tobacco Quit Line at 9-654-RAPT-NOW. - Diet/Nutrition Diet/Nutrition Orders: Regular - Activity Activity Orders: Bedrest (HOSPICE AT HOME...) - Transfer Medications Prescriptions: amLODIPine [Norvasc] 2.5 mg PO DAILY #30 tablet Aspirin Enteric Coated [Aspirin EC] 81 mg PO DAILY #30 tablet. Haloperidol Oral Conc [Haldol] 2 mg PO AD #30 udc Ipratropium/Albuterol Neb [Duoneb] 3 ml IH QID #120 inhsol LORazepam Oral Conc [Ativan Oral Conc] 0.5 mg PO Q3H PRN 3 Days #15 mls PRN Reason: Anxiety MORPHINE SUL Oral CONC [Roxanol Oral Conc] 5 mg SL Q3H PRN 3 Days #30 ml PRN Reason: pain/dyspnea Nitroglycerin 0.4 mg SL Q5M PRN #25 tab.subl PRN Reason: Chest Pain predniSONE [PredniSONE] 20 mg PO QAM #30 tablet Home Medications: Atorvastatin Calcium [Lipitor] 80 mg PO HS 09/16/18 [History] Furosemide [Lasix] 20 mg PO DAILY 09/16/18 [History] Levothyroxine [Synthroid] 25 mcg PO DAILY 09/16/18 [History] Potassium Chloride 10 meq PO DAILY 09/16/18 [History] Ranolazine [Ranexa] 1,000 mg PO BID 09/16/18 [History] Amitriptyline [Elavil] 50 mg PO HS 12/22/18 [History] Metoprolol Succinate [Toprol Xl] 12.5 mg PO DAILY 12/22/18 [History] Apixaban [Eliquis] 2.5 mg PO BID 01/16/19 [History] Isosorbide MONOnitrate (24 HR) [Imdur] 120 mg PO DAILY 01/23/19 [History] Omeprazole [PriLOSEC] 40 mg PO DAILY 01/23/19 [History] Umeclidinium [place] [Incruse Ellipta] 2 puff IH DAILY 01/24/19 [History] MORPHINE SUL Oral CONC [Roxanol Oral Conc] 5 mg SL Q3H PRN 3 Days #30 ml 01/26/19 [Rx] Aspirin Enteric Coated [Aspirin EC] 81 mg PO DAILY #30 tablet. 01/27/19 [Rx] Haloperidol Oral Conc [Haldol] 2 mg PO AD #30 udc 01/27/19 [Rx] Ipratropium/Albuterol Neb [Duoneb] 3 ml IH QID #120 inhsol 01/27/19 [Rx] LORazepam Oral Conc [Ativan Oral Conc] 0.5 mg PO Q3H PRN 3 Days #15 mls 01/27/19 [Rx] Nitroglycerin 0.4 mg SL Q5M PRN #25 tab.subl 01/27/19 [Rx] amLODIPine [Norvasc] 2.5 mg PO DAILY #30 tablet 01/27/19 [Rx] predniSONE [PredniSONE] 20 mg PO QAM #30 tablet 01/27/19 [Rx] Allergies/Adverse Reactions: Allergy/AdvReac Type Severity Reaction Status Date / Time guaifenesin [From Hytuss] Allergy See Verified 01/14/19 17:44 Comments nabumetone [From Relafen] Allergy See Verified 01/14/19 17:44 Comments pentazocine [From Talwin] Allergy See Verified 01/14/19 17:44 Comments propoxyphene Allergy See Verified 01/14/19 17:44 Comments Sulindac [From Clinoril] Allergy See Verified 01/14/19 17:44 Comments prednisone AdvReac Mild Shaky Verified 01/14/19 17:44 Benzonatate AdvReac Confusion Verified 01/14/19 17:44 carbamazepine AdvReac Chest Pain Verified 01/14/19 17:44 codeine AdvReac See Verified 01/14/19 17:44 Comments etodolac AdvReac Chest Pain Verified 01/14/19 17:44 hydrocodone AdvReac Chest Pain Verified 01/14/19 17:44 Iodinated Contrast- Oral and AdvReac Chest Pain Verified 01/14/19 17:44 IV Dye [Iodinated Contrast Media - IV Dye] levofloxacin AdvReac Chest Pain Verified 01/14/19 17:44 NSAIDS (Non-Steroidal AdvReac Chest Pain Verified 01/14/19 17:44 Anti-Inflamma Penicillins [PCN] AdvReac Chest Pain Verified 01/14/19 17:44 pregabalin [From Lyrica] AdvReac Numbness Verified 01/14/19 17:44 pseudoephedrine AdvReac Chest Pain Verified 01/14/19 17:44 Sulfa (Sulfonamide AdvReac Chest Pain Verified 01/14/19 17:44 Antibiotics) tetracycline [Tetracycline] AdvReac Chest Pain Verified 01/14/19 17:44 tolmetin AdvReac Chest Pain Verified 01/14/19 17:44 tramadol AdvReac Numbness Verified 01/14/19 17:44 Certification: Further, I certify that my clinical findings support that this patient is homebound (i.e. absences from home require considerable and taxing effort and are for medical reasons or [facility] or infrequently or short duration when for other reasons) because: Homebound Reason: Absences from home are contraindicated except to recieve medical care Attestation: My signature below is to certify that this patient is under my care and that I, or nurse practitioner, or a physician's server service assistant working with me, has a [id number] encounter with this patient.
[2019-01-27] MEDS: Haloperidol Oral Conc 10 MG/5 ML UDC PO PRN (12:28)
== END 2019-01-27 12:44 | disposition hospice, home (50) ==
LOC: EMEROOARM 18:00 → 3BNU 18:00 → SUATTDRO 23:01 → 3BNU 23:35
PROVIDERS: ADMIT Family Medicine; ATTEND Internal Medicine